=== PATIENT | male | born 1930 | race Caucasian/White ===

== ENCOUNTER → 2016-09-10 | Outpatient (CLI) | payer MEDICARE ==
[~2016-09-10] MED LIST: ASPI-94 PO; ASPI1TAB69 PO; BACT800T5 PO; CARB25TA9 PO; COMB0.2S EACH EYE; ERYTOIN10 EACH EYE; FINA5TAB2 PO; MECL-62 PO; MIDO5TAB PO; PROS5TAB2 PO; SIMV1TAB76 PO; WALKER ROLLING
[2016-09-10 13:31] LABS: HEMATOCRIT 40.5 % (39.0-51.0); MEAN CELL VOLUME 91.9 FL (80.0-100.0); MEAN CORPUSCULAR HEMOGLOBIN 30.4 PG (27.0-34.0); MEAN CORPUSCULAR HGB CONC 33.1 % (32.0-36.0); PLATELET COUNT 190 TH/MM3 (150-450); RED BLOOD COUNT 4.41 MIL/MM3 (4.50-5.90); REVIEW FLAG FINAL; WHITE BLOOD COUNT 6.6 TH/MM3 (4.0-11.0)
[2016-09-10 14:21] LABS: ALKALINE PHOSPHATASE 51 U/L (45-117); ALT (GPT) 6 U/L (12-78); ANION GAP 5 MEQ/L (5-15); AST (GOT) 19 U/L (15-37); BICARBONATE 31.6 MEQ/L (21.0-32.0); BLOOD UREA NITROGEN 15 MG/DL (7-18); CHLORIDE 104 MEQ/L (98-107); GLOMERULAR FILTRATION RATE 78 ML/MIN (>89); GLUCOSE,FASTING 93 MG/DL (74-99); HDL CHOLESTEROL 50.2 MG/DL (40.0-60.0); LDL CHOLESTEROL 141 MG/DL (0-99); LDL CHOLESTEROL DIRECT 163 MG/DL (0-99); POTASSIUM 3.8 MEQ/L (3.5-5.1); SODIUM (NA) 141 MEQ/L (136-145); TOTAL BILIRUBIN ADULT 0.7 MG/DL (0.2-1.0)
[2016-09-10 15:58] LABS: HEMOGLOBIN A1a 0.9 %; HEMOGLOBIN A1b 1.8 %; HEMOGLOBIN Ao 85.3 %; HEMOGLOBIN LA1C 1.9 %; HEMOGLOBIN P3 3.8 %
== END ==
LOC: PLAB 10:25
PROVIDERS: ATTEND Family Medicine
DX: E11.9 Type 2 diabetes mellitus without complications (principal); I73.9 Peripheral vascular disease, unspecified; R53.83 Other fatigue; E78.4 Other hyperlipidemia; G20 Parkinson's disease
CPT/HCPCS: 36415; 80053; 80061; 83036; 83721; 84443; 85027

== ENCOUNTER 2016-09-27 06:36 | Emergency (ER) | payer MEDICARE ==
[~2016-09-27] VITALS: Ht 175.3 cm; Wt 76.9 kg
[~2016-09-27 06:36] MED LIST changes: -ASPI1TAB69 PO; -CARB25TA9 PO; -COMB0.2S EACH EYE; -ERYTOIN10 EACH EYE; -FINA5TAB2 PO
[2016-09-27 06:45] VITALS: BP 129/65; PULSE 59; RESP 20; TEMP 97.7; O2SAT 98
[2016-09-27 07:02] LABS: BLOOD, URINE LARGE (NEG); GLUCOSE,URINE 100 mg/dL (NEG); KETONE, URINE 15 mg/dL (NEG); NITRITE,URINE POS (NEG)
[2016-09-27] MEDS ORDERED: CARB25TA9 PO ×2 (07:05)
[2016-09-27] MEDS ORDERED: ASPI1TAB69 PO (07:05)
[2016-09-27 07:06] LABS: METHOD OF COLLECTION CLEAN CATCH; URINE COLOR RED (YELLW/STRAW)
--- NOTE | 2016-09-27 07:09 | PD ---
HPI Chief Complaint: Complaint Time Seen by Provider: 06:51 Travel History International Travel<30 days: No Contact w/Intl Traveler<30days: No Traveled to known affect area: No History of Present Illness HPI 86-year-old male complains of hematuria. Patient states that hematuria started 2 days ago. Patient states that he had mild abdominal cramping and low back pain last night but not today. Patient denies any nausea vomiting diarrhea. Patient denies any fever chills. Patient denies any dysuria or frequency. Patient has history of BPH, kidney stone in the past. Patient on aspirin 81 mg daily. Patient has history of Parkinson disease and dyslipidemia. Patient denies headache. Patient denies any chest pain or shortness of breath. PFSH Past Medical History High Cholesterol: Yes Endocrine: No Genitourinary: Yes (BPH) Psychiatric: No Past Surgical History Other Surgery: No (fistula to rectum) Social History Alcohol Use: No Tobacco Use: No Substance Use: No Allergies-Medications (Allergen,Severity, Reaction): Coded Allergies: No Known Allergies (Unverified , 09/27/16) Reported Meds & Prescriptions Reported Meds & Active Scripts Active Reported Aspirin 81 Mg Tabdr 81 Mg PO HS Carbidopa-Levodopa 25-100 Mg Tab 1 Tab PO HS Carbidopa-Levodopa 25-100 Mg Tab 2 Tab PO Q8HR Review of Systems General / Constitutional: No: Fever Eyes: No: Visual changes HENT: No: Headaches Cardiovascular: No: Chest Pain or Discomfort Respiratory: No: Shortness of Breath Gastrointestinal: No: Abdominal Pain Genitourinary: Positive: Hematuria, No: Dysuria Musculoskeletal: No: Pain Skin: No Rash Neurologic: No: Weakness Psychiatric: No: Depression Endocrine: No: Polydipsia Hematologic/Lymphatic: No: Easy Bruising Physical Exam Narrative GENERAL: Well-nourished, well-developed patient. SKIN: Focused skin assessment warm/dry. HEAD: Normocephalic. EYES: No scleral icterus. No injection or drainage. NECK: Supple, trachea midline. No JVD or lymphadenopathy. CARDIOVASCULAR: Regular rate and rhythm without murmurs, gallops, or rubs. RESPIRATORY: Breath sounds equal bilaterally. No accessory muscle use. GASTROINTESTINAL: Abdomen soft, non-tender, nondistended. MUSCULOSKELETAL: No cyanosis, or edema. BACK: Nontender without obvious deformity. No CVA tenderness. Neurologic exam normal. Data Data Last Documented VS Vital Signs Date Time Temp Pulse Resp B/P Pulse Ox O2 Delivery O2 Flow Rate FiO2 09/27/16 06:45 97.7 59 20 129/65 98 Orders Urinalysis - C+S If Indicated (09/27/16 06:47) Complete Blood Count With Diff (09/27/16 07:04) Comprehensive Metabolic Panel (09/27/16 07:04) Prothrombin Time / Inr (Pt) (09/27/16 07:04) Act Partial Throm Time (Ptt) (09/27/16 07:04) Iv Access Insert/Monitor (09/27/16 07:04) Ct Abd/Pel W Iv Contrast(Rout) (09/27/16 07:04) Urine Culture (09/27/16 06:55) Iohexol 350 Inj (Omnipaque 350 Inj) (09/27/16 08:28) Labs Laboratory Tests Test 09/27/16 09/27/16 06:55 07:16 Urine Collection Type CLEAN CATCH Urine Color RED Urine Turbidity MARKED Urine pH 7.0 Urine Specific [place] 1.024 Urine Protein 300 OR GREATER mg/dL Urine Glucose (UA) 100 mg/dL Urine Ketones 15 mg/dL Urine Occult Blood LARGE Urine Nitrite POS Urine Bilirubin NEG Urine Leukocyte Esterase MOD Urine RBC INNUM /hpf Urine WBC 15-19 /hpf Urine Squamous Epithelial 0-5 /hpf Cells Urine Amorphous Sediment MOD Microscopic Urinalysis Comment CULTURE INDICATED Urine Collection Time 0655 White Blood Count 9.9 TH/MM3 Red Blood Count 4.55 MIL/MM3 Hemoglobin 13.9 GM/DL Hematocrit 41.5 % Mean Corpuscular Volume 91.2 FL Mean Corpuscular Hemoglobin 30.4 PG Mean Corpuscular Hemoglobin 33.4 % Concent Red Cell Distribution Width 13.1 % Platelet Count 210 TH/MM3 Mean Platelet Volume 6.9 FL Neutrophils (%) (Auto) 72.7 % Lymphocytes (%) (Auto) 14.9 % Monocytes (%) (Auto) 10.0 % Eosinophils (%) (Auto) 1.3 % Basophils (%) (Auto) 1.1 % Neutrophils # (Auto) 7.2 TH/MM3 Lymphocytes # (Auto) 1.5 TH/MM3 Monocytes # (Auto) 1.0 TH/MM3 Eosinophils # (Auto) 0.1 TH/MM3 Basophils # (Auto) 0.1 TH/MM3 CBC Comment DIFF FINAL Differential Comment Prothrombin Time 10.5 SEC Prothromb Time International 1.0 RATIO Ratio Activated Partial 28.2 SEC Thromboplast Time Sodium Level 141 MEQ/L Potassium Level 3.9 MEQ/L Chloride Level 103 MEQ/L Carbon Dioxide Level 31.0 MEQ/L Anion Gap 7 MEQ/L Blood Urea Nitrogen 15 MG/DL Creatinine 0.97 MG/DL Estimat Glomerular Filtration 73 ML/MIN Rate Random Glucose 109 MG/DL Calcium Level 8.6 MG/DL Total Bilirubin 0.7 MG/DL Aspartate Amino Transf 14 U/L (AST/SGOT) Alanine Aminotransferase 8 U/L (ALT/SGPT) Alkaline Phosphatase 63 U/L Total Protein 6.7 GM/DL Albumin 3.4 GM/DL [facility] Medical Decision Making Medical Screen Exam Complete: Yes Emergency Medical Condition: Yes Interpretation(s) 8:29 AM. CBC within normal limit. CMP within normal limit. UA positive for RBC and WBC 8:[address] scan abdomen pelvis shows a 3 cm rounded high-density mass left low ported kidney. Differential Diagnosis Differential diagnosis including spontaneous hematuria, hemorrhagic cystitis, BPH, nephrolithiasis, lesions. Narrative Course 86-year-old male with hematuria and transient abdominal cramping and low back pain. Diagnosis Primary Impression: Hematuria Additional Impression: Left kidney mass Patient Instructions: General Instructions Additional Instructions: Follow-up with urologist. Return if worse. Med/Other Pt SpecificInfo: Prescription(s) given, No Change to Meds Scripts Sulfamethoxazole-Trimethoprim (Bactrim DS)800-160 Mg Tab1 Tab PO BID #14 TAB Prov:Teddy Clay MD 09/27/16 Disposition: 01 DISCHARGE HOME Condition: Stable Teddy Clay MD Sep 27, 2016 07:09
[2016-09-27 07:11] LABS: COMMENT (UR) CULTURE INDICATED; COMMENT2 (UR) MUCOUS PRESENT; CULTURE IF INDICATED CULTURE INDICATED; RBC, URINE INNUM /hpf (0-3); SQUAMOUS EPITHELIAL CELL URINE 0-5 /hpf (0-5); WBC, URINE 15-19 /hpf (0-5)
[2016-09-27 07:23] LABS: AUTOMATED NEUTROPHIL # 7.2 TH/MM3 (1.8-7.7); BASOPHIL # 0.1 TH/MM3 (0-0.2); BASOPHIL % 1.1 % (0.0-2.0); EOSINOPHIL # 0.1 TH/MM3 (0-0.4); EOSINOPHIL % 1.3 % (0.0-4.0); HEMATOCRIT 41.5 % (39.0-51.0); HEMO FLAGS DIFF FINAL; LYMPH % 14.9 % (9.0-44.0); LYMPHOCYTE # 1.5 TH/MM3 (1.0-4.8); MEAN CELL VOLUME 91.2 FL (80.0-100.0); MEAN CORPUSCULAR HEMOGLOBIN 30.4 PG (27.0-34.0); MEAN CORPUSCULAR HGB CONC 33.4 % (32.0-36.0); NEUT % 72.7 % (16.0-70.0); PLATELET COUNT 210 TH/MM3 (150-450); RED BLOOD COUNT 4.55 MIL/MM3 (4.50-5.90); RED CELL DISTRIBUTION WIDTH 13.1 % (11.6-17.2); WHITE BLOOD COUNT 9.9 TH/MM3 (4.0-11.0)
[2016-09-27 07:30] LABS: CHLORIDE 103 MEQ/L (98-107); POTASSIUM 3.9 MEQ/L (3.5-5.1); SODIUM (NA) 141 MEQ/L (136-145)
[2016-09-27 07:33] LABS: ANION GAP 7 MEQ/L (5-15); APTT (PATIENT) 28.2 SEC (24.3-30.1); PROTHROMBIN TIME - PATIENT 10.5 SEC (9.8-11.6)
[2016-09-27 07:34] LABS: BLOOD UREA NITROGEN 15 MG/DL (7-18)
[2016-09-27 07:36] LABS: ALT (GPT) 8 U/L (12-78)
[2016-09-27 07:37] LABS: AST (GOT) 14 U/L (15-37); GLOMERULAR FILTRATION RATE 73 ML/MIN (>89)
[2016-09-27 07:38] LABS: TOTAL BILIRUBIN ADULT 0.7 MG/DL (0.2-1.0)
[2016-09-27 07:39] LABS: ALKALINE PHOSPHATASE 63 U/L (45-117)
[2016-09-27] MEDS ORDERED: IOHEXOL 350 MG/ML 10 ML VIAL (for RAD DIAG) IV ONE (08:28)
--- NOTE | 2016-09-27 08:38 | RADHPO ---
EXAM DATE/TIME: 09/27/2016 08:10 [facility] COMPARISON: No previous studies available for comparison. INDICATIONS : Abdomen pain, hematuria. IV CONTRAST: 80 cc Omnipaque 350 (iohexol) IV ORAL CONTRAST: No oral contrast ingested. RADIATION DOSE: 13.19 CTDIvol (mGy) MEDICAL HISTORY : Parkinson's. SURGICAL HISTORY : None. ENCOUNTER: Initial ACUITY: 2 days PAIN SCALE: 3/10 LOCATION: Abdomen TECHNIQUE: Volumetric scanning of the abdomen and pelvis was performed. Using automated exposure control and ad justment of the mA and/or kV according to patient size, radiation dose was kept as low as reasonably achievable to obtain optimal diagnostic quality images. FINDINGS: LOWER LUNGS: The visualized lower lungs are clear with the exception of a small calcified benign granuloma within the right lower lung. LIVER: Homogeneous density without lesion. There is no dilation of the biliary tree. No calcified gallston es. SPLEEN: Normal size without lesion. PANCREAS: Within normal limits. KIDNEYS: The left kidney is significant for a large rounded density mass distending the lower pole measuring 2 .6 x 3.0 x 2.6 cm and 60 Hounsfield units. This appears to be infiltrative into the adjacent cortex c oncerning for a transitional cell neoplasm. There is a calcification identified in the peripheral wal l. There is mild perinephric stranding present. The left ureter is normal and caliber throughout its course without evidence of stone or mass. The right kidney demonstrates a small well-circumscribed co rtically-based cyst without evidence of stones or concerning mass. The right ureter is normal.. ADRENAL GLANDS: Within normal limits. VASCULAR: There is no aortic aneurysm. BOWEL/MESENTERY: The stomach, small bowel, and colon demonstrate no acute abnormality. There is no free intraperitone al air or fluid. ABDOMINAL WALL: Within normal limits. RETROPERITONEUM: There is no lymphadenopathy. BLADDER: No wall thickening or mass. REPRODUCTIVE: Within normal limits. INGUINAL: There is no lymphadenopathy or hernia. MUSCULOSKELETAL: Within normal limits for patient age. CONCLUSION: 3 cm rounded high density mass identified within the left lower pole of the kidney distending the low er pole calyx and appearing to infiltrate the adjacent cortex. 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 Urologic consultation is recommended. No evidence of metastati c disease.. Solange Landry MD on September 27, 2016 at 8:30 Board Certified Radiologist. This report was verified electronically.
[2016-09-27] MEDS ORDERED: BACT800T5 PO (08:50)
[2016-09-27 08:57] VITALS: BP 130/68
== END 2016-09-27 09:07 | disposition home or self-care (01) ==
LOC: PHED 06:36
DX: R31.9 Hematuria, unspecified (principal); N28.89 Other specified disorders of kidney and ureter; M54.5 Low back pain; Z79.82 Long term (current) use of aspirin
CPT/HCPCS: 74177; 80053; 81001; 85025; 85610; 85730; 87086; 99284; Q9967

== ENCOUNTER 2016-10-29 10:22 | Inpatient (IN) | payer MEDICARE, OTHER ==
[~2016-10-29] VITALS: Ht 172.7 cm; Wt 85.7 kg
[~2016-10-29 10:22] MED LIST changes: -ASPI-94 PO; +ASPI1TAB69 PO; -BACT800T5 PO; +CARB25TA9 PO; -MECL-62 PO; -MIDO5TAB PO; -PROS5TAB2 PO; -SIMV1TAB76 PO; -WALKER ROLLING
[2016-11-02] MEDS ORDERED: COMB0.2S EACH EYE (15:38)
[2016-11-02] MEDS ORDERED: FINA5TAB2 PO (15:40)
[2016-11-02] MEDS ORDERED: ERYTOIN10 EACH EYE (15:40)
[2016-11-03] VITALS (9 sets, daily range): BP systolic 88–153; BP diastolic 51–68; PULSE 42–78; RESP 16–22; TEMP 97.5; O2SAT 97–99
[2016-11-03] MEDS ORDERED: LACTATED RINGER'S 1000 ML IV PRN (05:45)
[2016-11-03] MEDS ORDERED: POVIDONE IODINE 5% (ANTISEPSIS KIT) 4 APPLICATIONS EACH NARE PRN (05:45)
[2016-11-03] MEDS ORDERED: CHLORHEXIDINE GLUCONATE 2 % 1 PACK (2 CLOTHS) TOPICAL PRN (05:45)
[2016-11-03] MEDS ORDERED: ceFAZolin 2 GM PREMIX 50 ML IV SCH (05:45)
[2016-11-03] MEDS ORDERED: METOPROLOL TARTRATE 25 MG TAB PO PRN (05:45)
[2016-11-03] MEDS ORDERED: INSULIN HUMAN REGULAR 1,000 UNITS/10 ML VIAL SQ PRN (05:45)
[2016-11-03] MEDS ORDERED: SODIUM CHLORID 0.9% 500 ML IV PRN (05:45)
[2016-11-03 06:50] LABS: PROTHROMBIN TIME - PATIENT 11.1 SEC (9.8-11.6)
[2016-11-03] MEDS ORDERED: FAMOTIDINE 20 MG/2 ML VIAL ONE (07:34)
[2016-11-03] MEDS ORDERED: MIDAZOLAM HCL 2 MG/2 ML VIAL ONE (07:34)
[2016-11-03] MEDS ORDERED: ARTIFICIAL TEARS OPTH OINT 3.5 APPLIC/3.5 GM TUBO ONE (07:45)
[2016-11-03] MEDS ORDERED: SUGAMMADEX SODIUM 200 MG/2 ML VIAL IV PUSH ONE ×2 (10:49)
[2016-11-03] MEDS ORDERED: ACETAMINOPHEN 1000 MG/100 ML VIAL IV ONE (10:50)
[2016-11-03] MEDS: DOCUSATE SODIUM 100 MG CAP PO SCH ×2 (11:45→20:08)
[2016-11-03] MEDS ORDERED: DO NOT ADM ANY ANTICOAGULANT DRUGS PRN (11:54)
[2016-11-03] MEDS ORDERED: PROPOFOL 200 MG/20 ML AMP IV ONE (12:00)
[2016-11-03] MEDS ORDERED: ONDANSETRON HCL 4 MG/2 ML VIAL IV PUSH ONE (12:00)
[2016-11-03] MEDS ORDERED: LACTATED RINGER'S 1000 ML INJ 3,000 ML IV ONE (12:00)
[2016-11-03] MEDS ORDERED: NITROGLYCERIN 1000 MCG/5 ML VIAL IV ONE (12:00)
[2016-11-03] MEDS ORDERED: fentaNYL CITRATE 250 MCG/5 ML AMP ONE (12:07)
[2016-11-03] MEDS: SODIUM CHLOR 0.9% 1000 ML INJ 1,000 ML IV SCH ×3 (12:15→21:45)
[2016-11-03 12:28] LABS: AUTOMATED NEUTROPHIL # 12.4 TH/MM3 (1.8-7.7); BASOPHIL % 0.2 % (0.0-2.0); EOSINOPHIL % 0.1 % (0.0-4.0); HEMATOCRIT 38.1 % (39.0-51.0); HEMO FLAGS DIFF FINAL; LYMPH % 8.8 % (9.0-44.0); LYMPHOCYTE # 1.3 TH/MM3 (1.0-4.8); MEAN CELL VOLUME 90.3 FL (80.0-100.0); MEAN CORPUSCULAR HEMOGLOBIN 29.6 PG (27.0-34.0); MEAN CORPUSCULAR HGB CONC 32.8 % (32.0-36.0); MONO % 6.8 % (0.0-8.0); NEUT % 84.1 % (16.0-70.0); PLATELET COUNT 194 TH/MM3 (150-450); RED BLOOD COUNT 4.22 MIL/MM3 (4.50-5.90); WHITE BLOOD COUNT 14.8 TH/MM3 (4.0-11.0)
[2016-11-03 12:45] LABS: BICARBONATE 26.3 MEQ/L (21.0-32.0); POTASSIUM 4.1 MEQ/L (3.5-5.1)
[2016-11-03] MEDS: PANTOPRAZOLE SODIUM 40 MG VIAL IV PUSH SCH (13:54)
[2016-11-03] MEDS: MORPHINE SULFATE 4 MG/ML INJ IV PUSH PRN (13:55)
[2016-11-03] MEDS ORDERED: hydrALAZINE HCL 20 MG/ML VIAL IV PRN (14:00)
--- NOTE | 2016-11-03 15:18 | EKG ---
Date Performed: 11/03/2016 Time Performed: 06:42:29 PTAGE: 86 years EKG: SINUS BRADYCARDIA WITH MARKED SINUS ARRHYTHMIA WITH FIRST DEGREE AV BLOCK RIGHT BUNDLE BRAN CH BLOCK ABNORMAL ECG Compared to the PREVIOUS TRACING sinus rate is slower PREVIOUS TRACIN10/30/2013 19.14 DOCTOR: Will Paul Interpretating Date/Time 11/03/2016 15:18:05
[2016-11-03] MEDS: ACETAMINOPHEN 1000 MG/100 ML VIAL IV SCH ×2 (15:40→23:06)
[2016-11-03] MEDS ORDERED: SODIUM CHLOR 0.9% 1000 ML INJ 1,000 ML IV STA (17:19)
--- NOTE | 2016-11-03 17:40 | PD.CONS ---
[facility] Service Critical Care Medicine Consult Requested By Dr. Oh Reason for Consult hypotension Primary Care Physician Basilio Armenta MD History of Present Illness 86 y/o male with past medical history significant for Parkinson's disease who was diagnosed to have a left renal pelvis mass when he presented with hematuria and left flank pain which was felt to be consistent with transitional cell carcinoma. Patient underwent left robotic nephroureterectomy under general anesthesia by Dr. Oh on 11/03, received 2500 cc crystalloid, EBL 75 cc, Intra- Op urine output 300 cc. Patient was extubated postoperatively and transferred to PACU and subsequently to [facility]. His heart rate has been in the 40s postoperatively. Patient tells me that he runs a slow heart rate for a few years now. He did drop his blood pressure to the 70s transiently for which she was given a fluid bolus with normal saline 1 L and critical care consult was requested for hypotension and Dr. marte. I evaluated the patient immediately on being notified of the consult. At the time of my evaluation he was laying in the ICU bed not in any acute distress. He denied any chest pain or shortness of breath. He had minimal abdominal discomfort at the site of surgery. Review of Systems ROS per [facility] Past Family Social History Allergies: Coded Allergies: No Known Allergies (Unverified , 11/02/16) Past Medical History Parkinson's disease Hyperlipidemia Past Surgical History Oral surgery/rectal fistula Reported Medications Levodopa/carbidopa, aspirin, finasteride, erythromycin, brimonidine/timolol eye drops Active Ordered Medications Current Medications Medications (Trade) Dose Ordered Sig/Michael Route PRN Reason Start Time Stop Time Status Last Admin Dose Admin Sodium Chloride (NS 1000 ml Inj) 1,000 ml @ 100 mls/hr Q10H IV 11/03/16 11:45 11/03/16 12:15 Oxycodone HCl (Roxicodone) 10 mg Q4H PRN PO PAIN SCALE 7 TO 10 11/03/16 11:45 Oxycodone HCl (Roxicodone) 5 mg Q4H PRN PO PAIN SCALE 4 TO 6 11/03/16 11:45 Docusate Sodium (Colace) 100 mg BID PO 11/03/16 11:45 11/03/16 11:45 Ondansetron HCl (Zofran Inj) 4 mg Q6HR PRN IV PUSH NAUSEA OR VOMITING 11/03/16 11:45 Pantoprazole Sodium 40 mg 40 mg Q24H IV PUSH 11/03/16 13:00 11/03/16 13:54 Cefazolin Sodium/ Sodium Chloride (Ancef Inj/NS Inj) 100 ml @ 200 mls/hr Q8H IV 11/03/16 16:00 11/03/16 15:40 Acetaminophen (Ofirmev Inj) 1,000 mg Q6H IV 11/03/16 17:00 11/03/16 15:40 Morphine Sulfate (Morphine Inj) 4 mg Q3H PRN IV PUSH BREAKTHROUGH PAIN 11/03/16 11:45 11/03/16 13:55 Miscellaneous Information ALL NURSING DEPARTME... UNSCH PRN .XX SEE LABEL COMMENTS 11/03/16 11:54 11/04/16 11:53 Hydralazine HCl (Apresoline Inj) 5 mg ONCE PRN IV SBP > 180 IN PACU 11/03/16 14:00 11/04/16 13:59 Family History Noncontributory at this time Social History No history of alcohol abuse or any other substance abuse. No history of smoking. Physical Exam Vital Signs Vital Signs Date Time Temp Pulse Resp B/P Pulse Ox O2 Delivery O2 Flow Rate FiO2 11/03/16 16:00 47 11/03/16 14:00 42 11/03/16 14:00 99 Nasal Cannula 2.00 11/03/16 12:45 97.6 42 16 140/59 96 Nasal Cannula 3 143/62 11/03/16 12:30 45 15 146/62 96 Nasal Cannula 3 144/66 11/03/16 12:15 50 15 155/65 94 Nasal Cannula 3 159/67 11/03/16 12:00 53 15 166/68 98 Nasal Cannula 4 170/75 11/03/16 11:54 97.0 54 20 170/72 97 Nasal Cannula 4 182/73 11/03/16 06:21 97.5 46 22 153/68 99 Physical Exam HEENT/Neuro: Pallor present, No icterus, tongue moist, DERICK, Awake alert oriented 3, nonfocal grossly, moving all 4 extremities Neck: No JVD Chest/pulmonary: CTA bilaterally Cardiovascular: S1-S2 regular no gallop or murmur GI/abdomen: Soft, nontender, bowel sounds sluggish. Port sites with Steri- Strips in place Extremities: Warm bilaterally, no edema Laboratory Laboratory Tests Test 11/03/16 11/03/16 11/03/16 06:10 12:19 13:50 Prothrombin Time 11.1 Prothromb Time International 1.0 Ratio White Blood Count 14.8 Red Blood Count 4.22 Hemoglobin 12.5 Hematocrit 38.1 Mean Corpuscular Volume 90.3 Mean Corpuscular Hemoglobin 29.6 Mean Corpuscular Hemoglobin 32.8 Concent Red Cell Distribution Width 14.0 Platelet Count 194 Mean Platelet Volume 7.1 Neutrophils (%) (Auto) 84.1 Lymphocytes (%) (Auto) 8.8 Monocytes (%) (Auto) 6.8 Eosinophils (%) (Auto) 0.1 Basophils (%) (Auto) 0.2 Neutrophils # (Auto) 12.4 Lymphocytes # (Auto) 1.3 Monocytes # (Auto) 1.0 Eosinophils # (Auto) 0.0 Basophils # (Auto) 0.0 CBC Comment DIFF FINAL Differential Comment Sodium Level 138 Potassium Level 4.1 Chloride Level 103 Carbon Dioxide Level 26.3 Anion Gap 9 Blood Urea Nitrogen 12 Creatinine 0.97 Estimat Glomerular Filtration 73 Rate Random Glucose 162 Calcium Level 7.8 Nasal Screen MRSA (PCR) MRSA NOT DETECTED Result Diagram: 11/03/16 1219 11/03/16 1219 Assessment and Plan Assessment and Plan 86-year-old male with Left kidney mass status post left robotic-assisted nephroureterectomy/urethral dilation Hypotension Anemia Sinus bradycardia Right bundle branch block [old] First degree AV block History of Parkinson's disease Hyperlipidemia Plan: Neuro: Follow neuro status, pain medications as ordered by urology. Continue Sinemet for Parkinson's disease. Cardiovascular: Blood pressure improved with fluid bolus. Continue IV fluids. Hasn't long-standing bradycardia though history of heart rate was in the 60s and currently is in the upper 40s. If patient develops hypotension with bradycardia will consider using dopamine. Check TSH. Pulmonary: Supplemental O2 as needed. Incentive spirometry, bronchodilators as needed. GI/liver: Advance by mouth per urology recommendations Renal/: Status post left nephroureterectomy in followed by urology. Strict intake output, monitor and replete elect lites, follow BUN/creatinine. IV hydration. ID: Perioperative antibiotic prophylaxis per urology. Heme: Follow CBC. Patient has indicated preoperatively that he does not wish to receive any blood products however per anesthesia documentation is okay with albumin if needed. Prophylaxis: Protonix, SCDs. Subcutaneous heparin when okay with urology. Critical care will be available as needed. Pastor Estrada MD November 03, 2016 17:40
[2016-11-03] MEDS: CARBIDOPA/LEVODOPA 25 MG/100 MG TAB PO SCH (20:08)
[2016-11-04] VITALS (15 sets, daily range): BP systolic 92–119; BP diastolic 51–64; PULSE 51–86; RESP 12–26; TEMP 97.9–98.1; O2SAT 92–98
[2016-11-04] MEDS ORDERED: SODIUM CHLOR 0.9% 1000 ML INJ 1,000 ML IV ONE ×2 (01:00)
[2016-11-04] MEDS: MORPHINE SULFATE 4 MG/ML INJ IV PUSH PRN ×2 (02:19→02:53)
[2016-11-04] MEDS: ONDANSETRON HCL 4 MG/2 ML VIAL IV PUSH PRN (02:52)
[2016-11-04 03:53] LABS: HEMATOCRIT 27.3 % (39.0-51.0); MEAN CELL VOLUME 91.2 FL (80.0-100.0); MEAN CORPUSCULAR HEMOGLOBIN 30.8 PG (27.0-34.0); MEAN CORPUSCULAR HGB CONC 33.8 % (32.0-36.0); PLATELET COUNT 196 TH/MM3 (150-450); RED CELL DISTRIBUTION WIDTH 14.3 % (11.6-17.2); REVIEW FLAG FINAL; WHITE BLOOD COUNT 11.4 TH/MM3 (4.0-11.0)
[2016-11-04 04:08] LABS: BICARBONATE 20.3 MEQ/L (21.0-32.0); POTASSIUM 4.3 MEQ/L (3.5-5.1)
[2016-11-04] MEDS: ACETAMINOPHEN 1000 MG/100 ML VIAL IV SCH ×4 (04:15→23:12)
[2016-11-04 04:24] LABS: CALCIUM-PROTEIN CORRECTED 7.9 MG/DL (8.5-10.1)
[2016-11-04] MEDS: SODIUM CHLOR 0.9% 1000 ML INJ 1,000 ML IV SCH ×3 (06:22→17:45)
[2016-11-04] MEDS ORDERED: CALCIUM GLUCONATE INJ 2 GM in DEXTROSE 5% IN WATER 100ML INJ 100 ML IV ONE ×2 (07:00)
[2016-11-04] MEDS: DOCUSATE SODIUM 100 MG CAP PO SCH ×2 (08:04→20:49)
[2016-11-04] MEDS: CARBIDOPA/LEVODOPA 25 MG/100 MG TAB PO SCH ×4 (08:04→20:50)
--- NOTE | 2016-11-04 08:18 | HHI.PR ---
Objective Vital Signs Vital Signs Date Time Temp Pulse Resp B/P Pulse Ox O2 Delivery O2 Flow Rate FiO2 11/04/16 06:00 77 11/04/16 04:00 51 11/04/16 03:00 98.1 79 12 114/58 92 11/04/16 02:00 76 11/04/16 00:00 53 11/03/16 23:00 97.5 50 16 88/54 97 11/03/16 22:00 49 11/03/16 20:02 98 Nasal Cannula 2.00 11/03/16 20:00 97.5 53 16 92/51 97 11/03/16 20:00 64 11/03/16 19:00 95 Nasal Cannula 2.00 11/03/16 18:23 99 Nasal Cannula 2.00 11/03/16 18:00 78 11/03/16 16:00 47 11/03/16 14:00 42 11/03/16 14:00 99 Nasal Cannula 2.00 11/03/16 12:45 97.6 42 16 140/59 96 Nasal Cannula 3 143/62 11/03/16 12:30 45 15 146/62 96 Nasal Cannula 3 144/66 11/03/16 12:15 50 15 155/65 94 Nasal Cannula 3 159/67 11/03/16 12:00 53 15 166/68 98 Nasal Cannula 4 170/75 11/03/16 11:54 97.0 54 20 170/72 97 Nasal Cannula 4 182/73 Intake & Output 11/04/16 11/04/16 07:00 19:00 Intake Total 3626 ml Output Total 375 ml Balance 3251 ml Intake Oral 300 ml IV Total 3326 ml Output Urine Total 375 ml Result Diagram: 11/04/16 0330 11/04/16 0330 Medications and IVs Current Medications Medications (Trade) Dose Ordered Sig/Michael Route Start Time Stop Time Status Last Admin (NS 1000 ml Inj) 1,000 ml @ 100 mls/hr Q10H IV 11/03/16 11:45 11/04/16 06:22 (Roxicodone) 10 mg Q4H PRN PO 11/03/16 11:45 (Roxicodone) 5 mg Q4H PRN PO 11/03/16 11:45 (Colace) 100 mg BID PO 11/03/16 11:45 11/04/16 08:04 (Zofran Inj) 4 mg Q6HR PRN IV PUSH 11/03/16 11:45 11/04/16 02:52 Pantoprazole Sodium 40 mg 40 mg Q24H IV PUSH 11/03/16 13:00 11/03/16 13:54 (Ancef Inj/NS Inj) 100 ml @ 200 mls/hr Q8H IV 11/03/16 16:00 11/04/16 08:04 (Ofirmev Inj) 1,000 mg Q6H IV 11/03/16 17:00 11/04/16 04:15 (Morphine Inj) 4 mg Q3H PRN IV PUSH 11/03/16 11:45 11/04/16 02:53 Miscellaneous Information ALL NURSING DEPARTME... UNSCH PRN .XX 11/03/16 11:54 11/04/16 11:53 (Apresoline Inj) 5 mg ONCE PRN IV 11/03/16 14:00 11/04/16 13:59 (Sinemet 25-100 Mg) 2 tab QID PO 11/03/16 21:00 11/04/16 08:04 James Oh MD November 04, 2016 08:18
[2016-11-04] MEDS ORDERED: CARBIDOPA/LEVODOPA 25 MG/100 MG TAB PO SCH (09:00)
[2016-11-04] MEDS: TIMOLOL MALEATE 0.5% OPHT SOLN 5 ML BTL EACH EYE SCH ×2 (09:00→20:50)
[2016-11-04] MEDS: BRIMONIDINE TARTRATE 0.2% OPHT SOLN 5 ML BTL EACH EYE SCH ×2 (09:00→20:50)
--- NOTE | 2016-11-04 09:42 | RADRPT ---
EXAM DATE/TIME: 11/04/2016 09:29 [facility] COMPARISON: CT ABDOMEN & PELVIS W CONTRAST, September 27, 2016, 8:10. CHEST SINGLE AP, October 30, 2013, 19:46. INDICATIONS : Short of breath. MEDICAL HISTORY : None. SURGICAL HISTORY : None. ENCOUNTER: Initial ACUITY: 1 month PAIN SCORE: 0/10 LOCATION: Bilateral chest FINDINGS: The cardiac and mediastinal contours are within normal limits for projection. The lungs demonstrate a sore atelectasis. They're otherwise clear. There are areas of subcutaneous emphysema along the left lower chest and upper abdomen. The visualized bony structures are grossly intact. CONCLUSION: 1. Basilar atelectasis. 2. There is air within the subcutaneous soft tissues in the midaxillary line along the left lower [address] and upper abdomen. This is of uncertain etiology. Pratik Valverde MD on November 04, 2016 at 9:39 Board Certified Radiologist. This report was verified electronically.
[2016-11-04] MEDS: PANTOPRAZOLE SODIUM 40 MG VIAL IV PUSH SCH (13:00)
--- NOTE | 2016-11-04 13:35 | HHI.CCPN ---
Subjective Remarks/Hospital Course 11/03: 86 y/o male with past medical history significant for Parkinson's disease who was diagnosed to have a left renal pelvis mass when he presented with hematuria and left flank pain which was felt to be consistent with transitional cell carcinoma. Patient underwent left robotic nephroureterectomy under general anesthesia by Dr. Oh on 11/03, received 2500 cc crystalloid, EBL 75 cc , Intra-Op urine output 300 cc. Patient was extubated postoperatively and transferred to PACU and subsequently to [facility]. His heart rate has been in the 40s postoperatively. Patient tells me that he runs a slow heart rate for a few years now. He did drop his blood pressure to the 70s transiently for which she was given a fluid bolus with normal saline 1 L and critical care consult was requested for hypotension and Dr. marte. I evaluated the patient immediately on being notified of the consult. At the time of my evaluation he was laying in the ICU bed not in any acute distress. He denied any chest pain or shortness of breath. He had minimal abdominal discomfort at the site of surgery. 11/04: Resting in bed comfortably no further hypotension since last night. Objective Vital Signs Date Time Temp Pulse Resp B/P Pulse Ox O2 Delivery O2 Flow Rate FiO2 11/04/16 10:00 58 11/04/16 09:06 93 Nasal Cannula 2.00 11/04/16 08:00 97.9 17 119/64 Intake and Output 11/03/16 11/03/16 11/04/16 08:00 16:00 00:00 Intake Total 3800 ml 2407 ml Output Total 975 ml 175 ml Balance 2825 ml 2232 ml Result Diagram: 11/04/16 0330 11/04/16 0330 Imaging Last Impressions Chest X-Ray 11/04/16 0000 Signed Impressions: Service Date/Time: Friday, November 04, 2016 09:29 - CONCLUSION: 1. Basilar atelectasis. 2. There is air within the subcutaneous soft tissues in the midaxillary line along the left lower chest and upper abdomen. This is of uncertain etiology. Pratik Valverde MD Objective Remarks HEENT/Neuro: Pallor present, No icterus, tongue moist, DERICK, Awake alert oriented 3, nonfocal grossly, moving all 4 extremities Neck: No JVD Chest/pulmonary: CTA bilaterally Cardiovascular: S1-S2 regular no gallop or murmur GI/abdomen: Soft, nontender, bowel sounds sluggish. Port sites with Steri- Strips in place Extremities: Warm bilaterally, no edema A/P Assessment and Plan 86-year-old male with Left kidney mass status post left robotic-assisted nephroureterectomy/urethral dilation Hypotension Anemia Sinus bradycardia Right bundle branch block [old] First degree AV block History of Parkinson's disease Hyperlipidemia Plan: Neuro: Follow neuro status, pain medications as ordered by urology. Continue Sinemet for Parkinson's disease. Cardiovascular: Blood pressure improved with fluid bolus. Continue IV fluids. Has long-standing bradycardia though history of heart rate was in the 60s. If patient develops hypotension with bradycardia will consider using dopamine. Check TSH. Pulmonary: Supplemental O2 as needed. Incentive spirometry, bronchodilators as needed. GI/liver: Advance by mouth per urology recommendations Renal/: Status post left nephroureterectomy in followed by urology. Strict intake output, monitor and replete elect lites, follow BUN/creatinine. IV hydration. ID: Perioperative antibiotic prophylaxis per urology. Heme: Follow CBC. Patient has indicated preoperatively that he does not wish to receive any blood products however per anesthesia documentation is okay with albumin if needed. Prophylaxis: Protonix, SCDs. Subcutaneous heparin when okay with urology. Critical care will be available as needed. Pastor Estrada MD November 04, 2016 13:35
[2016-11-04] MEDS: RESP: ALBUTEROL 2.5 MG/IPRATROPIUM 0.5 MG NEB (PRN) NEB (20:14)
[2016-11-04] MEDS: FINASTERIDE 5 MG TAB PO SCH (20:49)
[2016-11-04] MEDS: ERYTHROMYCIN 0.5% OPTH OINT 3.5 GM TUBO EACH EYE SCH (20:50)
[2016-11-05] VITALS (17 sets, daily range): BP systolic 106–136; BP diastolic 54–64; PULSE 68–99; RESP 17–22; TEMP 97.8–98.3; O2SAT 95–99
[2016-11-05] MEDS: RESP: ALBUTEROL 2.5 MG/IPRATROPIUM 0.5 MG NEB (PRN) NEB ×4 (01:45→19:49)
[2016-11-05 04:19] LABS: HEMATOCRIT 21.6 % (39.0-51.0); MEAN CELL VOLUME 91.1 FL (80.0-100.0); MEAN CORPUSCULAR HEMOGLOBIN 31.5 PG (27.0-34.0); MEAN CORPUSCULAR HGB CONC 34.5 % (32.0-36.0); PLATELET COUNT 159 TH/MM3 (150-450); RED BLOOD COUNT 2.37 MIL/MM3 (4.50-5.90); RED CELL DISTRIBUTION WIDTH 14.7 % (11.6-17.2); REVIEW FLAG FINAL; WHITE BLOOD COUNT 10.6 TH/MM3 (4.0-11.0)
[2016-11-05 04:46] LABS: BICARBONATE 26.4 MEQ/L (21.0-32.0); POTASSIUM 3.7 MEQ/L (3.5-5.1)
[2016-11-05] MEDS: ACETAMINOPHEN 1000 MG/100 ML VIAL IV SCH ×4 (05:17→22:56)
[2016-11-05] MEDS: SODIUM CHLOR 0.9% 1000 ML INJ 1,000 ML IV SCH ×2 (05:18→14:03)
[2016-11-05 05:35] LABS: CALCIUM-PROTEIN CORRECTED 8.4 MG/DL (8.5-10.1)
[2016-11-05] MEDS ORDERED: DARBEPOETIN ALFA/POLYSORBATE 40 MCG/ML VIAL SQ STA (07:12)
[2016-11-05] MEDS ORDERED: CYANOCOBALAMIN 1000 MCG/ML VIAL IM ONE (07:15)
[2016-11-05] MEDS ORDERED: DARBEPOETIN ALFA SQ ONE (07:45)
[2016-11-05] MEDS ORDERED: POLYSORBATE SQ ONE (07:45)
[2016-11-05] MEDS: DOCUSATE SODIUM 100 MG CAP PO SCH ×2 (08:24→19:37)
[2016-11-05] MEDS: CARBIDOPA/LEVODOPA 25 MG/100 MG TAB PO SCH ×4 (08:25→22:56)
[2016-11-05] MEDS: FOLIC ACID 1 MG TAB PO SCH (08:25)
[2016-11-05] MEDS: TIMOLOL MALEATE 0.5% OPHT SOLN 5 ML BTL EACH EYE SCH ×2 (08:46→19:39)
[2016-11-05] MEDS: BRIMONIDINE TARTRATE 0.2% OPHT SOLN 5 ML BTL EACH EYE SCH ×2 (08:46→19:39)
[2016-11-05] MEDS ORDERED: CALCIUM GLUCONATE INJ 2 GM in DEXTROSE 5% IN WATER 100ML INJ 100 ML IV ONE ×2 (09:00)
[2016-11-05] MEDS ORDERED: ALBUMIN HUMAN 5% 12.5 GM/250 ML BOTTLE IV ONE (09:00)
--- NOTE | 2016-11-05 11:01 | HHI.CCPN ---
Subjective Remarks/Hospital Course 11/03: 86 y/o male with past medical history significant for Parkinson's disease who was diagnosed to have a left renal pelvis mass when he presented with hematuria and left flank pain which was felt to be consistent with transitional cell carcinoma. Patient underwent left robotic nephroureterectomy under general anesthesia by Dr. Oh on 11/03, received 2500 cc crystalloid, EBL 75 cc , Intra-Op urine output 300 cc. Patient was extubated postoperatively and transferred to PACU and subsequently to [facility]. His heart rate has been in the 40s postoperatively. Patient tells me that he runs a slow heart rate for a few years now. He did drop his blood pressure to the 70s transiently for which she was given a fluid bolus with normal saline 1 L and critical care consult was requested for hypotension and Dr. marte. I evaluated the patient immediately on being notified of the consult. At the time of my evaluation he was laying in the ICU bed not in any acute distress. He denied any chest pain or shortness of breath. He had minimal abdominal discomfort at the site of surgery. 11/04: Resting in bed comfortably no further hypotension since last night. 11/05: Patient had a hemoglobin dropped down to 7 g percent. No hypotension or tachycardia. He is resting in bed comfortably not in any acute distress this morning at the time of my evaluation. Bruising noted over left flank and anterior abdominal wall. Objective Vital Signs Date Time Temp Pulse Resp B/P Pulse Ox O2 Delivery O2 Flow Rate FiO2 11/05/16 07:57 99 Simple Mask 8.00 11/05/16 06:00 90 11/05/16 04:00 97.9 17 107/59 Intake and Output 11/04/16 11/04/16 11/05/16 08:00 16:00 00:00 Intake Total 1219 ml 1200 ml 1490 ml Output Total 200 ml 225 ml 300 ml Balance 1019 ml 975 ml 1190 ml Result Diagram: 11/05/16 0304 11/05/16 0304 Imaging Last Impressions Chest X-Ray 11/04/16 0000 Signed Impressions: Service Date/Time: Friday, November 04, 2016 09:29 - CONCLUSION: 1. Basilar atelectasis. 2. There is air within the subcutaneous soft tissues in the midaxillary line along the left lower chest and upper abdomen. This is of uncertain etiology. Pratik Valverde MD Objective Remarks HEENT/Neuro: Pallor present, No icterus, tongue moist, DERICK, Awake alert oriented 3, nonfocal grossly, moving all 4 extremities Neck: No JVD Chest/pulmonary: CTA bilaterally Cardiovascular: S1-S2 regular no gallop or murmur GI/abdomen: Soft, nontender, bowel sounds sluggish. Port sites with Steri- Strips in place. Bruising/ ecchymosis over the anterior abdominal wall over the left side and left flank noted Extremities: Warm bilaterally, no edema A/P Assessment and Plan 86-year-old male with Left kidney mass status post left robotic-assisted nephroureterectomy/urethral dilation Hypotension Anemia Sinus bradycardia Right bundle branch block [old] First degree AV block History of Parkinson's disease Hyperlipidemia Plan: Neuro: Follow neuro status, pain medications as ordered by urology. Continue Sinemet for Parkinson's disease. Cardiovascular: Blood pressure improved with fluid bolus. Continue IV fluids. Has long-standing bradycardia though history of heart rate was in the 60s. If patient develops hypotension with bradycardia will consider using dopamine. Check TSH. Pulmonary: Supplemental O2 as needed. Incentive spirometry, bronchodilators as needed. GI/liver: Advance by mouth per urology recommendations Renal/: Status post left nephroureterectomy in followed by urology. Strict intake output, monitor and replete elect lites, follow BUN/creatinine. IV hydration. ID: Perioperative antibiotic prophylaxis per urology. Heme: Follow CBC. Patient has indicated preoperatively that he does not wish to receive any blood products however per anesthesia documentation is okay with albumin if needed. Hemoglobin dropped noted. Initiating our nurse subcutaneously, IM B-12, IV iron sucrose nothing by mouth folic acid. Once again confirmed with patient and he does not wish to have blood transfusions. Dr. Oh paged to inform regarding hemoglobin dropped by RN. Prophylaxis: Protonix, SCDs. Subcutaneous heparin when okay with urology - on hold currently. Pastor Estrdaa MD November 05, 2016 11:01
[2016-11-05] MEDS: IRON SUCROSE INJ 200 MG in SODIUM CHLORIDE 0.9% INJ 100 ML IV SCH (11:04)
[2016-11-05] MEDS: PANTOPRAZOLE SODIUM 40 MG VIAL IV PUSH SCH (11:18)
--- NOTE | 2016-11-05 13:15 | HHI.PR ---
Subjective Patient symptoms today worsening SOB overnight, but improving. Denies abdominal pain, nausea. Tolerating clears. Denies CP/Fevers. Passing Flatus. Objective Vital Signs Vital Signs Date Time Temp Pulse Resp B/P Pulse Ox O2 Delivery O2 Flow Rate FiO2 11/05/16 12:00 73 11/05/16 11:00 98.3 68 19 106/54 99 11/05/16 10:00 68 11/05/16 08:00 69 11/05/16 07:57 99 Simple Mask 8.00 11/05/16 07:00 97 Simple Mask 4.00 11/05/16 07:00 97.8 69 18 123/58 97 11/05/16 06:00 90 11/05/16 04:00 86 11/05/16 04:00 97.9 85 17 107/59 95 11/05/16 02:00 93 Simple Mask 4.00 11/05/16 02:00 82 11/05/16 00:00 76 11/05/16 00:00 97.9 91 19 115/62 97 Arterial Line 11/04/16 22:00 86 11/04/16 20:14 97 Nasal Cannula 3.00 11/04/16 20:00 78 11/04/16 20:00 97.9 70 26 92/51 96 Arterial Line 11/04/16 19:00 98 Nasal Cannula 2.00 11/04/16 18:00 68 11/04/16 16:00 65 11/04/16 16:00 97.9 70 18 102/54 96 11/04/16 14:00 65 Intake & Output 11/05/16 11/05/16 07:00 19:00 Intake Total 2640 ml Output Total 1400 ml Balance 1240 ml Intake Oral 440 ml IV Total 2200 ml Output Urine Total 1400 ml Result Diagram: 11/05/16 0304 11/05/16 0304 Objective Remarks NAD. A/O x 3 labored respirations RRR abd soft, NT, ND. +ecchymoses around left LQ incision extending to left flank. Sheppard clear, yellow Ext NT. No edema. EPC cuffs on and working. Procedures Robotic Left Nephroureterectomy 11/03 Medications and IVs Current Medications Medications (Trade) Dose Ordered Sig/Michael Route Start Time Stop Time Status Last Admin (NS 1000 ml Inj) 1,000 ml @ 100 mls/hr Q10H IV 11/03/16 11:45 11/05/16 05:18 (Roxicodone) 10 mg Q4H PRN PO 11/03/16 11:45 (Roxicodone) 5 mg Q4H PRN PO 11/03/16 11:45 (Colace) 100 mg BID PO 11/03/16 11:45 11/05/16 08:24 (Zofran Inj) 4 mg Q6HR PRN IV PUSH 11/03/16 11:45 11/04/16 02:52 Pantoprazole Sodium 40 mg 40 mg Q24H IV PUSH 11/03/16 13:00 11/05/16 11:18 (Ancef Inj/NS Inj) 100 ml @ 200 mls/hr Q8H IV 11/03/16 16:00 11/05/16 08:24 (Ofirmev Inj) 1,000 mg Q6H IV 11/03/16 17:00 11/05/16 11:18 (Morphine Inj) 4 mg Q3H PRN IV PUSH 11/03/16 11:45 11/04/16 02:53 (Sinemet 25-100 Mg) 2 tab QID PO 11/03/16 21:00 11/05/16 11:20 (Ilotycin 0.5% Opth Oint) 1 applic HS EACH EYE 11/04/16 21:00 11/04/16 20:50 (Proscar) 5 mg HS PO 11/04/16 21:00 11/04/16 20:49 (Alphagan 0.2% Opth Soln) 1 drop Q12HR EACH EYE 11/04/16 09:00 11/05/16 08:46 (Timoptic 0.5% Opth Soln) 1 drop Q12HR EACH EYE 11/04/16 09:00 11/05/16 08:46 Folic Acid 1 mg 1 mg DAILY PO 11/05/16 09:00 11/05/16 08:25 (Venofer Inj/NS Inj) 110 ml @ 110 mls/hr Q24H IV 11/05/16 10:00 11/07/16 10:59 11/05/16 11:04 Assessment and Plan Assessment and Plan POD # 2 Robotic Left Nephroureterectomy -Hgb down to 7.5, but hemodynamically stable. Likely bled from Epigastrics during extraction of Kidney based on PE. Given IV Iron, Albumin as needed. Also received Darbepoetin. Repeat CBC later today. Patient continues to refuse blood transfusion. -Bed rest -Advance diet -Pain control -Creatinine slightly elevated but expected after removing left kidney. Repeat BMP in A.M. -Hold Heparin due to bleed. James Oh MD November 05, 2016 13:15
[2016-11-05 16:20] LABS: HEMATOCRIT 22.8 % (39.0-51.0); MEAN CELL VOLUME 92.3 FL (80.0-100.0); MEAN CORPUSCULAR HEMOGLOBIN 29.4 PG (27.0-34.0); MEAN CORPUSCULAR HGB CONC 31.8 % (32.0-36.0); PLATELET COUNT 150 TH/MM3 (150-450); RED BLOOD COUNT 2.47 MIL/MM3 (4.50-5.90); RED CELL DISTRIBUTION WIDTH 14.5 % (11.6-17.2); REVIEW FLAG FINAL; WHITE BLOOD COUNT 11.7 TH/MM3 (4.0-11.0)
[2016-11-05] MEDS: FINASTERIDE 5 MG TAB PO SCH (19:37)
[2016-11-05] MEDS: ERYTHROMYCIN 0.5% OPTH OINT 3.5 GM TUBO EACH EYE SCH (19:40)
[2016-11-05] MEDS: MECLIZINE HCL 25 MG TAB PO PRN (20:00)
[2016-11-05] MEDS ORDERED: FUROSEMIDE 20 MG/2 ML VIAL IV PUSH ONE (20:30)
[2016-11-05] MEDS: MORPHINE SULFATE 4 MG/ML INJ IV PUSH PRN (22:57)
[2016-11-05] MEDS: ONDANSETRON HCL 4 MG/2 ML VIAL IV PUSH PRN (22:57)
[2016-11-06] VITALS (17 sets, daily range): BP systolic 97–164; BP diastolic 53–88; PULSE 52–118; RESP 13–24; TEMP 97.3–99.3; O2SAT 93–100
[2016-11-06] MEDS: RESP: ALBUTEROL 2.5 MG/IPRATROPIUM 0.5 MG NEB (PRN) NEB (04:54)
[2016-11-06 05:05] LABS: BICARBONATE 25.5 MEQ/L (21.0-32.0); POTASSIUM 4.3 MEQ/L (3.5-5.1)
[2016-11-06] MEDS: ACETAMINOPHEN 1000 MG/100 ML VIAL IV SCH ×4 (06:07→23:00)
[2016-11-06] MEDS: TIMOLOL MALEATE 0.5% OPHT SOLN 5 ML BTL EACH EYE SCH ×2 (07:55→21:19)
[2016-11-06] MEDS: BRIMONIDINE TARTRATE 0.2% OPHT SOLN 5 ML BTL EACH EYE SCH ×2 (07:55→21:19)
[2016-11-06] MEDS: FOLIC ACID 1 MG TAB PO SCH (07:55)
[2016-11-06] MEDS: CARBIDOPA/LEVODOPA 25 MG/100 MG TAB PO SCH ×5 (07:56→21:17)
[2016-11-06] MEDS: DOCUSATE SODIUM 100 MG CAP PO SCH ×2 (07:56→21:14)
[2016-11-06 10:13] LABS: BASOPHIL % 0.5 % (0.0-2.0); EOSINOPHIL # 0.2 TH/MM3 (0-0.4); EOSINOPHIL % 1.9 % (0.0-4.0); LYMPHOCYTE # 1.2 TH/MM3 (1.0-4.8); MEAN CELL VOLUME 91.1 FL (80.0-100.0); MEAN CORPUSCULAR HEMOGLOBIN 31.3 PG (27.0-34.0); MEAN CORPUSCULAR HGB CONC 34.4 % (32.0-36.0); MONO % 10.4 % (0.0-8.0); NEUT % 74.2 % (16.0-70.0); PLATELET COUNT 162 TH/MM3 (150-450); RED BLOOD COUNT 2.26 MIL/MM3 (4.50-5.90); RED CELL DISTRIBUTION WIDTH 14.9 % (11.6-17.2); WHITE BLOOD COUNT 9.4 TH/MM3 (4.0-11.0)
--- NOTE | 2016-11-06 10:20 | MP ---
cc: CHANNING OH MD DATE OF SURGERY 11/03/2016 PREOPERATIVE DIAGNOSIS Left renal pelvic mass POSTOPERATIVE DIAGNOSIS Left renal pelvic mass Meatal Stenosis PROCEDURE PERFORMED Robotic-assisted laparoscopic left nephroureterectomy. Urethral Dilation SURGEON Channing Oh MD ANESTHESIA General COMPLICATIONS None PREOPERATIVE ANTIBIOTICS Ancef one gram IV DRAINS A 22-Malaysian three-way Sheppard catheter to gravity drainage SPECIMEN Left kidney and ureter for permanent BLOOD LOSS 75 mL FLUIDS 2200 mL of crystalloids per anesthesia COMPLICATIONS None DISPOSITION Stable to recovery. INDICATIONS The patient is an 86-year-old male with a history of Parkinson's disease who presented with gross hematuria. 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 Treatment options were discussed including diagnostic ureteroscopy with endoscopic ablation versus watchful waiting versus robotic-assisted laparoscopic nephroureterectomy. The advantages and disadvantages, potential side effects of each were discussed including the risk of renal failure, and anesthetic risks, and both he and the family would like to proceed with removal of the left kidney and ureter. After the risks, benefits and alternatives were explained to the patient, the patient would like to proceed and informed consent was obtained. DETAILS OF THE PROCEDURE The patient was properly identified, brought back to the operating room and laid supine on the operating table. A proper time-out was performed under the direction of anesthesiology. The patient was induced under general aesthetic. Preoperative antibiotics in the form of Ancef one gram IV was given within one hour of the start of the procedure. The patient was then placed in the right lateral decubitus position with the left side up. All pressure points were padded. A catheter was attempted to placed by the nursing staff and was unsuccessful due to a narrow urethral meatus. Using a Orellana dilator, I was able to easily dilated his urethral meatus beginning with 8 Malaysian up to 24-Malaysian. I then easily passed a 22-Malaysian three-way catheter into his bladder, clear yellow urine returned. The bladder catheter was then secured. At this time, after all pressure points were padded, the patient was then prepped and draped in a normal sterile surgical fashion. A stab incision was made just superior and lateral to the umbilicus. A Veress needle was then used to gain entrance into the abdominal cavity. Insufflation was achieved. The incision was then extended and under direct visualization, I placed a 12 mm camera port. The abdominal cavity was inspected and there was no evidence of any intra-abdominal injury or bleeding. At this time, the remaining ports were then placed under direct , this includes two 8 mm robotic ports triangulated off of the 12 mm office administrative assistant port, a 12 mm office administrative assistant port in the midline superior to the camera port, as well as 12 mm office administrative assistant port inferior to the umbilicus in the midline. The robotic instrument brought into position. At this time, I then took down the colon by reflecting the white line of Toldt. This mobilized the colon medially. This exposed the retroperitoneum. A plane was developed in which I then found both the ureter and gonadal vein at the lower pole the kidney. I then developed a plane between the psoas muscle and the gonadal ureter and retracted the kidney anteriorly to the abdominal wall. Then using blunt dissection, I marched up the psoas muscle at the inferior portion of the kidney following the gonadal vein to where it inserts into the left renal vein. The gonadal vein was then taken with the robotic vessel sealer. I carefully dissected the renal vein and artery out circumferentially and individually. There was a second small branching vein going posteriorly near the artery. This was taken with the vessel sealer as well. At this time, the renal artery and vein were then separately taken with the endovascular GI stapler. The lateral attachments to the kidney were taken down followed by the splenorenal ligament. I did come across part of the adrenal gland and removing the superior attachments, however, at this time, the whole entire kidney was mobilized except for the lower pole. I then carefully dissected the ureter inferiorly down past the epigastric's with blunt dissection and electrocautery. I did place a Hemolock clip around the proximal ureter. A vessel loop was then used with the Hemolock clip for retraction to be placed around the ureter as well. I have carefully followed the ureter down past the iliac artery and vein to the level of the bladder. The bladder was then gently filled to further delineate the insertion of the ureter into the bladder. The superior vesicle artery was seen and this was divided with the robotic vessel sealer. I then was able to dissect out the entire ureter from the intramural tunnel. The ureter was then divided at the insertion of the ureteral orifice and two Hemolock clips were then placed across. The kidney and entire ureter were then placed in an EndoCatch bag for later removal. The intraabdominal pressure was then dropped down to 7 mmHg. The renal fossa was irrigated and carefully inspected. The renal hilum appeared to be dry. There was no bleeding at the adrenal bed that was seen. Three grams of Dinora was then applied in this renal fossa area over the hilum and adrenal gland. A second look was then performed in the pelvis. There was no evidence of any bleeding seen in the pelvis at this time. The kidney was then extracted through the lower 8-mm robotic port. During extraction, I did divide the inferior epigastric artery. These were clearly identified and controlled with Hemolock clips. No evidence any other bleeding was seen. Once the kidney was removed, the fascia was then closed with a running 1-0 PDS in a watertight fashion. The gas was then turned back on and a second look was performed in the abdominal cavity. There was some clot noticed in the pelvis which was carefully irrigated and removed with the suction clerical aide which was likely bleeding from the epigastric's during extraction. No other bleeding was seen. The renal fossa again was inspected one last time and appeared to be dry. At this time, all ports were then removed under direct visualization. Skin incisions were then closed with 4-0 Monocryl. The sponge and needle count was correct at the end of the case. This concluded the procedure. The patient was explained and sent to recovery in stable condition. He will then be transferred to the Intensive Care Unit overnight for observation due to the patient's advanced age. MD BILL Chavez/KARLA /12:26 PM /9:59 AM RADHA
[2016-11-06 10:24] LABS: HEMO FLAGS DIFF FINAL
[2016-11-06 10:27] LABS: HEMATOCRIT 20.6 % (39.0-51.0)
[2016-11-06] MEDS: IRON SUCROSE INJ 200 MG in SODIUM CHLORIDE 0.9% INJ 100 ML IV SCH (10:46)
--- NOTE | 2016-11-06 10:54 | HHI.CCPN ---
Subjective Remarks/Hospital Course 11/03: 86 y/o male with past medical history significant for Parkinson's disease who was diagnosed to have a left renal pelvis mass when he presented with hematuria and left flank pain which was felt to be consistent with transitional cell carcinoma. Patient underwent left robotic nephroureterectomy under general anesthesia by Dr. Oh on 11/03, received 2500 cc crystalloid, EBL 75 cc , Intra-Op urine output 300 cc. Patient was extubated postoperatively and transferred to PACU and subsequently to [facility]. His heart rate has been in the 40s postoperatively. Patient tells me that he runs a slow heart rate for a few years now. He did drop his blood pressure to the 70s transiently for which she was given a fluid bolus with normal saline 1 L and critical care consult was requested for hypotension and Dr. marte. I evaluated the patient immediately on being notified of the consult. At the time of my evaluation he was laying in the ICU bed not in any acute distress. He denied any chest pain or shortness of breath. He had minimal abdominal discomfort at the site of surgery. 11/04: Resting in bed comfortably no further hypotension since last night. 11/05: Patient had a hemoglobin dropped down to 7 g percent. No hypotension or tachycardia. He is resting in bed comfortably not in any acute distress this morning at the time of my evaluation. Bruising noted over left flank and anterior abdominal wall. 11/06: Receive morphine last night and is drowsy currently. No hypotension overnight. Hemoglobin remains above 7. Objective Vital Signs Date Time Temp Pulse Resp B/P Pulse Ox O2 Delivery O2 Flow Rate FiO2 11/06/16 08:00 62 11/06/16 08:00 97.6 14 97/53 97 11/06/16 07:53 Nasal Cannula 5.00 Intake and Output 11/05/16 11/05/16 11/06/16 08:00 16:00 00:00 Intake Total 1270 ml 1561 ml 954 ml Output Total 1100 ml 475 ml 1700 ml Balance 170 ml 1086 ml -746 ml Result Diagram: 11/06/16 0911 11/06/16 0401 Imaging Last Impressions Chest X-Ray 11/04/16 0000 Signed Impressions: Service Date/Time: Friday, November 04, 2016 09:29 - CONCLUSION: 1. Basilar atelectasis. 2. There is air within the subcutaneous soft tissues in the midaxillary line along the left lower chest and upper abdomen. This is of uncertain etiology. Pratik Valverde MD Objective Remarks HEENT/Neuro: Pallor present, No icterus, tongue moist, DERICK, drowsy, arousable , nonfocal grossly, moving all 4 extremities Neck: No JVD Chest/pulmonary: CTA bilaterally Cardiovascular: S1-S2 regular no gallop or murmur GI/abdomen: Soft, nontender, bowel sounds sluggish. Port sites with Steri- Strips in place. Bruising/ ecchymosis over the anterior abdominal wall and left flank noted Extremities: Warm bilaterally, no edema A/P Assessment and Plan 86-year-old male with Left kidney mass status post left robotic-assisted nephroureterectomy/urethral dilation Hypotension Anemia Sinus bradycardia Right bundle branch block [old] First degree AV block History of Parkinson's disease Hyperlipidemia Plan: Neuro: Follow neuro status, pain medications as ordered by urology. Continue Sinemet for Parkinson's disease. Cardiovascular: Blood pressure improved with fluid bolus. Continue IV fluids. Has long-standing bradycardia though history of heart rate was in the 60s. If patient develops hypotension with bradycardia will consider using dopamine. Check TSH. Pulmonary: Supplemental O2 as needed. Incentive spirometry, bronchodilators as needed. GI/liver: Advance by mouth per urology recommendations Renal/: Status post left nephroureterectomy in followed by urology. Strict intake output, monitor and replete electrolites, follow BUN/creatinine. IV hydration. ID: Perioperative antibiotic prophylaxis per urology. Heme: Follow CBC. Patient has indicated preoperatively that he does not wish to receive any blood products however per anesthesia documentation is okay with albumin if needed. Hemoglobin drop noted. On 11/05 initiated darbapoeitin subcutaneously, IM B-12, IV iron sucrose and PO folic acid. Once again confirmed with patient on 11/05 and he does not wish to have blood transfusions. Prophylaxis: Protonix, SCDs. Subcutaneous heparin when okay with urology - on hold currently. Pastor Estrada MD November 06, 2016 10:54
[2016-11-06] MEDS: RESP: ALBUTEROL 2.5 MG/IPRATROPIUM 0.5 MG NEB (SCH) NEB ×3 (12:30→20:24)
[2016-11-06] MEDS ORDERED: FUROSEMIDE 20 MG/2 ML VIAL IV PUSH ONE (12:45)
[2016-11-06] MEDS: PANTOPRAZOLE SODIUM 40 MG VIAL IV PUSH SCH (12:57)
--- NOTE | 2016-11-06 13:14 | HHI.PR ---
Subjective Patient symptoms today breathing slight worse. on BiPAP. Denies pain. Tolerating regular diet. Denies fevers. Passing flatus. Off IV fluids. Objective Vital Signs Vital Signs Date Time Temp Pulse Resp B/P Pulse Ox O2 Delivery O2 Flow Rate FiO2 11/06/16 12:08 97 45 11/06/16 11:55 93 Venturi Mask 6.00 50 11/06/16 10:00 52 11/06/16 08:00 62 11/06/16 08:00 97.6 60 14 97/53 97 11/06/16 07:53 97 Nasal Cannula 5.00 11/06/16 07:00 99 Simple Mask 6.00 11/06/16 06:00 55 11/06/16 04:00 69 11/06/16 04:00 98.3 58 14 123/60 95 11/06/16 02:00 56 11/06/16 00:00 68 11/06/16 00:00 99.3 118 24 140/88 100 11/05/16 22:00 74 11/05/16 20:00 97.9 88 22 136/64 95 11/05/16 20:00 88 11/05/16 19:49 95 Simple Mask 8.00 11/05/16 19:00 95 Simple Mask 6.00 11/05/16 18:00 99 11/05/16 16:00 94 11/05/16 15:00 98.1 83 20 133/63 98 11/05/16 14:00 74 Intake & Output 11/06/16 11/06/16 07:00 19:00 Intake Total 1178 ml Output Total 2150 ml Balance -972 ml IV Total 1178 ml Output Urine Total 2150 ml Result Diagram: 11/06/16 0911 11/06/16 0401 Objective Remarks NAD. A/O x 3 labored respirations. on BiPAP RRR abd soft, NT, ND. +ecchymoses around lower abdomen, extending to left flank. Sheppard clear, yellow Ext NT. No edema. EPC cuffs on and working. Procedures Robotic Left Nephroureterectomy 11/03 Medications and IVs Current Medications Medications (Trade) Dose Ordered Sig/Michael Route Start Time Stop Time Status Last Admin (NS 1000 ml Inj) 1,000 ml @ 0 mls/hr Q10H IV 11/03/16 11:45 11/05/16 14:03 (Roxicodone) 10 mg Q4H PRN PO 11/03/16 11:45 (Roxicodone) 5 mg Q4H PRN PO 11/03/16 11:45 11/05/16 19:37 (Colace) 100 mg BID PO 11/03/16 11:45 11/06/16 07:56 (Zofran Inj) 4 mg Q6HR PRN IV PUSH 11/03/16 11:45 11/05/16 22:57 Pantoprazole Sodium 40 mg 40 mg Q24H IV PUSH 11/03/16 13:00 11/06/16 12:57 (Ancef Inj/NS Inj) 100 ml @ 200 mls/hr Q8H IV 11/03/16 16:00 11/06/16 07:55 (Ofirmev Inj) 1,000 mg Q6H IV 11/03/16 17:00 11/06/16 10:46 (Morphine Inj) 4 mg Q3H PRN IV PUSH 11/03/16 11:45 11/05/16 22:57 (Sinemet 25-100 Mg) 2 tab QID PO 11/03/16 21:00 11/06/16 07:56 (Ilotycin 0.5% Opth Oint) 1 applic HS EACH EYE 11/04/16 21:00 11/05/16 19:40 (Proscar) 5 mg HS PO 11/04/16 21:00 11/05/16 19:37 (Alphagan 0.2% Opth Soln) 1 drop Q12HR EACH EYE 11/04/16 09:00 11/06/16 07:55 (Timoptic 0.5% Opth Soln) 1 drop Q12HR EACH EYE 11/04/16 09:00 11/06/16 07:55 Folic Acid 1 mg 1 mg DAILY PO 11/05/16 09:00 11/06/16 07:55 (Venofer Inj/NS Inj) 110 ml @ 110 mls/hr Q24H IV 11/05/16 10:00 11/07/16 10:59 11/06/16 10:46 (Antivert) 25 mg TID PRN PO 11/05/16 17:30 11/05/16 20:00 Assessment and Plan Assessment and Plan POD # 3 Robotic Left Nephroureterectomy -Hgb stable at 7.1. Bleeding likely stopped. Repeat CBC in A.M. -CXR c/w pleural effusion. Lasix 20 mg IV given x 1. Good UOP. V/Q Scan pending. -Bed rest -Advance diet -Pain control -Creatinine slightly elevated but expected after removing left kidney. Repeat BMP in A.M. -Hold Heparin due to bleed. -Appreciate other service input. James Oh MD November 06, 2016 13:13
--- NOTE | 2016-11-06 13:41 | RADRPT ---
EXAM DATE/TIME: 11/06/2016 12:19 [facility] COMPARISON: CT ABDOMEN & PELVIS W CONTRAST, September 27, 2016, 8:10. CHEST SINGLE AP, October 30, 2013, 19:46. INDICATIONS : Respiratory failure MEDICAL HISTORY : Unknown SURGICAL HISTORY : Unknown ENCOUNTER: Initial ACUITY: 1 day PAIN SCORE: Non-responsive. LOCATION: Bilateral chest FINDINGS: There is increasing consolidation and fluid on the left. There is some subcutaneous emphysema over t he left chest wall. The right lung is clear. Heart is minimally enlarged. Pulmonary vascularity is normal. CONCLUSION: 1. Increasing consolidative changes in the left base. 2. Subcutaneous emphysema over the left chest wall. Etiology for this is not apparent. Danis Valverde MD FACR on November 06, 2016 at 13:30 Board Certified Radiologist. This report was verified electronically.
--- NOTE | 2016-11-06 15:09 | RADRPT ---
EXAM DATE/TIME: 11/06/2016 13:52 [facility] COMPARISON: CHEST SINGLE AP, November 06, 2016, 12:19. INDICATIONS : Dyspnea. DOSE: 8.7 mCi Tc99m MAA IV 1 mCi Tc99m DTPA aerosol MEDICAL HISTORY : Hypertension. Parkinsons. Renal cancer. SURGICAL HISTORY : Mass in left kidney removed. ENCOUNTER: Initial ACUITY: 1 day PAIN SCALE: 0/10 LOCATION: Chest. TECHNIQUE: Following five minutes of tidal breathing of DTPA aerosol, planar images of the lungs were performed in eight projections. The patient was then injected with MAA, and eight-view perfusion scan was perf ormed. FINDINGS: There is a heterogeneous pattern of aerosol delivery to the periphery of both lungs. There are fairly diffuse, bilateral patchy ventilatory defects. The perfusion lung scan demonstrates a homogenous pattern of uptake in both lungs. No segmental or s ubsegmental defects are seen. CONCLUSION: 1. The perfusion portion the exam is normal. No pulmonary embolus is identified. 2. Patchy delivery of tracer to both lungs suggesting COPD. Pratik Valverde MD on November 06, 2016 at 15:07 Board Certified Radiologist. This report was verified electronically.
[2016-11-06 17:10] LABS: BLOOD GAS BASE EXCESS -1.3 mmol/L (-2-2); BLOOD GAS CARBOXYHEMOGLOBIN 1.5 % (0-4); BLOOD GAS HCO3 23 mmol/L (22-26); BLOOD GAS O2 HGB SATURATION 92 % (90-100); BLOOD GAS OXYGEN CONTENT 12.6 Vol % (12.0-20.0); BLOOD GAS PCO2 37 mmHg (38-42); BLOOD GAS PO2 64 mmHg (61-120); BLOOD GAS TOTAL HGB 9.7 G/DL (12.0-16.0); TEMP CORR TO 98.6
[2016-11-06 17:11] LABS: CRITICAL VALUE NO; DRAW SITE LT BRACHIAL; FIO2 45 %; NUMBER OF ARTERIAL PUNCTURES 2; OXYGEN DEVICE BiPAP; ULNAR PULSE PRESENT; VENT SETTINGS IPAP12EPAP5
[2016-11-06 17:12] LABS: STAT NO
[2016-11-06] MEDS ORDERED: AMIODARONE INJ 900 MG in D5W 500 ML (EXCEL BAG) 482 ML IV SCH (17:15)
[2016-11-06] MEDS ORDERED: DILTIAZEM HCL 25 MG/5 ML VIAL IV ONE (17:15)
[2016-11-06] MEDS ORDERED: POTASSIUM CHLORIDE 25 MEQ EFFERVESCENT TAB PO ONE (17:15)
[2016-11-06] MEDS ORDERED: AMIODARONE INJ 150 MG in DEXTROSE 5% IN WATER 100ML INJ 97 ML IV ONE ×2 (17:15)
[2016-11-06] MEDS ORDERED: CALCIUM GLUCONATE INJ 2 GM in DEXTROSE 5% IN WATER 100ML INJ 100 ML IV ONE ×2 (18:00)
[2016-11-06] MEDS ORDERED: MAGNESIUM SULFATE 1 GM PREMIX 100 ML IV ONE (18:00)
[2016-11-06] MEDS: AMIODARONE INJ 450 MG in DEXTROSE 5% IN WATE(EXCEL) INJ 241 ML IV SCH ×2 (18:15)
--- NOTE | 2016-11-06 19:00 | EC ---
Study Study Date:11/06/2016 STUDY CONCLUSIONS SUMMARY - Left ventricle: The cavity size was normal. Wall thickness was normal. Systolic function was normal. The estimated ejection fraction was in the range of 55% to 60%. Wall motion was normal; there were no regional wall motion abnormalities. - Aortic valve: Valve area: 2.99cm^2 (Vmax). - Mitral valve: Mild regurgitation. - Tricuspid valve: Mild regurgitation. If LV function is below 40, please consider prescribing an ACEI or ARB or document rationale for non-use. PROCEDURE DATA STUDY STATUS: Elective. Procedure: Transthoracic echocardiography. Image quality was good. Scanning was performed from the parasternal, apical, and subcostal acoustic windows. Study completion: The patient tolerated the procedure well. Transthoracic echocardiography. M-mode, complete 2D, complete spectral Doppler, and color Doppler. Height: Height: 68in. Weight: Weight: 191.6lb. Body mass index: BMI: 29.2kg/m^2. Body surface area: BSA: 2.01m^2. Patient status: Inpatient. CARDIAC ANATOMY LEFT VENTRICLE: The cavity size was normal. Wall thickness was normal. Systolic function was normal. The estimated ejection fraction was in the range of 55% to 60%. Wall motion was normal; there were no regional wall motion abnormalities. AORTIC VALVE: Trileaflet; normal thickness leaflets. Doppler: Transvalvular velocity was within the normal range. There was no stenosis. No regurgitation. Valve area: 2.99cm^2 (Vmax). Indexed valve area: 1.49cm^2/m^2 (Vmax). AORTA: Aortic root: The aortic root was normal in size. MITRAL VALVE: Structurally normal valve. Doppler: Transvalvular velocity was within the normal range. There was no evidence for stenosis. Mild regurgitation. Valve area by pressure half-time: 4.78cm^2. Indexed valve area by pressure half-time: 2.38cm^2/m^2. LEFT ATRIUM: The atrium was normal in size. RIGHT VENTRICLE: The cavity size was normal. Wall thickness was normal. PULMONIC VALVE: Doppler: Transvalvular velocity was within the normal range. There was no evidence for stenosis. No regurgitation. TRICUSPID VALVE: Structurally normal valve. Doppler: Transvalvular velocity was within the normal range. Mild regurgitation. Peak gradient: 26mm Hg (D). PULMONARY ARTERY: The main pulmonary artery was normal-sized. Systolic pressure was within the normal range. RIGHT ATRIUM: The atrium was normal in size. PERICARDIUM: There was no pericardial effusion. SYSTEMIC VEINS: Inferior vena cava: The vessel was normal in size. Patient weight: 191.6lb _Ejection fraction:_ 65-75% _Fractional shortening:_ 32% up to 5Kg 5-11.5Kg 11.6-22.9Kg 23-45Kg 45-57Kg Aortic Root 7-13 <17 13-22 17-27 17-27 LA diam 6-13 <23 24-38 33-47 37-40 RVID 10-17 7-15 7-15 7-18 8-17 LVIDd 12-22 <32 24-38 33-47 37-40 LVPW 2-4 3-6 5-7 6-8 7-8 IVS 2-4 3-6 5-7 6-8 7-8 BASIC MEASUREMENTS ADULT NORMAL Left ventricle LV internal dimension, ED, chordal *41.8 mm 43-52 level, PLAX LV internal dimension, ES, chordal 25.4 mm 23-38 level, PLAX Fractional shortening, chordal level, 39 % >29 PLAX LV posterior wall thickness, ED 11 mm IVS/LVPW ratio, ED 0.99 <1.3 Volume, ED, MOD, 1-plane 66 ml Volume, ES, MOD, 1-plane 20 ml Ejection fraction, MOD, 1-plane 70 % Stroke volume, MOD, 1-plane 46 ml Volume index, ED, MOD, 1-plane 33 ml/m^2 Volume index, ES, MOD, 1-plane 10 ml/m^2 Stroke index, MOD, 1-plane 22.9 ml/m^2 Ventricular septum Septal thickness, ED 10.9 mm Aortic valve Leaflet separation 21 mm 15-26 Left atrium Anterior-posterior dimension 31 mm Anterior-posterior dimension index 1.54 cm/m^2 <2.2 Right ventricle RV internal dimension, ED, PLAX 26.9 mm 19-38 BASIC MEASUREMENTS ADULT NORMAL Aortic valve Leaflet separation 21 mm 15-26 Aorta Root diameter, ED 35 mm 20-37 DOPPLER MEASUREMENTS ADULT NORMAL Aortic valve Peak velocity, S 126 cm/s Valve area, Vmax 2.99 cm^2 Valve area index, Vmax 1.49 cm^2/m^2 Mitral valve Pressure half-time 46 ms Valve area, pressure half-time 4.78 cm^2 Valve area index, pressure half-time 2.38 cm^2/m^2 Tricuspid valve Peak gradient, D 26 mm Hg Maximal inflow velocity 254 cm/s LEGEND: Mean values are shown as u=mean value. Asterisk (*) hicks values outside specified normal range. Prepared and signed by Bradley Casillas [id number]
[2016-11-06] MEDS: FINASTERIDE 5 MG TAB PO SCH (21:00)
[2016-11-06] MEDS: ERYTHROMYCIN 0.5% OPTH OINT 3.5 GM TUBO EACH EYE SCH (21:20)
[2016-11-06] MEDS: MORPHINE SULFATE 4 MG/ML INJ IV PUSH PRN (22:00)
[2016-11-06] MEDS: LEVOFLOXACIN 500 MG PREMIX INJ 100 ML IV SCH (22:29)
[2016-11-07] VITALS (17 sets, daily range): BP systolic 104–124; BP diastolic 57–63; PULSE 55–97; RESP 12–19; TEMP 97.5–97.8; O2SAT 93–99
[2016-11-07] MEDS: AMIODARONE INJ 450 MG in DEXTROSE 5% IN WATE(EXCEL) INJ 241 ML IV SCH ×4 (01:41→15:43)
[2016-11-07] MEDS: RESP: ALBUTEROL 2.5 MG/IPRATROPIUM 0.5 MG NEB (SCH) NEB ×4 (04:25→21:17)
[2016-11-07 04:28] LABS: MEAN CELL VOLUME 91.5 FL (80.0-100.0); MEAN CORPUSCULAR HEMOGLOBIN 30.4 PG (27.0-34.0); MEAN CORPUSCULAR HGB CONC 33.2 % (32.0-36.0); PLATELET COUNT 188 TH/MM3 (150-450); RED BLOOD COUNT 2.51 MIL/MM3 (4.50-5.90); RED CELL DISTRIBUTION WIDTH 14.7 % (11.6-17.2); REVIEW FLAG FINAL; WHITE BLOOD COUNT 9.7 TH/MM3 (4.0-11.0)
[2016-11-07] MEDS: ACETAMINOPHEN 1000 MG/100 ML VIAL IV SCH ×4 (05:00→23:10)
[2016-11-07 05:05] LABS: BICARBONATE 27.1 MEQ/L (21.0-32.0)
[2016-11-07] MEDS: DOCUSATE SODIUM 100 MG CAP PO SCH ×2 (08:17→20:39)
[2016-11-07] MEDS: CARBIDOPA/LEVODOPA 25 MG/100 MG TAB PO SCH ×4 (08:17→20:39)
[2016-11-07] MEDS: FOLIC ACID 1 MG TAB PO SCH (08:18)
[2016-11-07] MEDS: TIMOLOL MALEATE 0.5% OPHT SOLN 5 ML BTL EACH EYE SCH ×2 (08:22→20:38)
[2016-11-07] MEDS: BRIMONIDINE TARTRATE 0.2% OPHT SOLN 5 ML BTL EACH EYE SCH ×2 (08:22→20:38)
--- NOTE | 2016-11-07 09:17 | HHI.PR ---
Subjective Patient symptoms today feels better. Denies abdominal pain. He feels his breathing is easier. Denies CP /Fevers. Tolerating regular diet. Passing flatus. Apparently was in Afib this morning but NSR currently. Objective Vital Signs Vital Signs Date Time Temp Pulse Resp B/P Pulse Ox O2 Delivery O2 Flow Rate FiO2 11/07/16 07:38 96 Partial Rebreather 15.00 11/07/16 06:00 80 11/07/16 05:30 25 11/07/16 04:25 99 45 11/07/16 04:00 72 11/07/16 04:00 97.5 84 16 105/63 98 11/07/16 02:00 70 11/07/16 00:20 99 45 11/07/16 00:00 97.5 84 16 105/63 98 11/07/16 00:00 94 11/06/16 22:05 12 11/06/16 22:00 84 11/06/16 20:22 94 55 11/06/16 20:22 93 Non-Rebreather 15.00 11/06/16 20:00 106 11/06/16 20:00 97.5 84 16 105/63 98 11/06/16 19:00 99 Simple Mask 6.00 11/06/16 18:00 106 11/06/16 16:25 94 45 11/06/16 16:00 97.3 80 19 164/72 94 11/06/16 16:00 80 11/06/16 14:00 60 11/06/16 12:08 97 45 11/06/16 12:00 98.1 52 13 113/54 93 11/06/16 12:00 52 11/06/16 11:55 93 Venturi Mask 6.00 50 11/06/16 10:00 52 Intake & Output 11/07/16 11/07/16 07:00 19:00 Intake Total 1447 ml Output Total 2500 ml Balance -1053 ml Intake Oral 700 ml IV Total 747 ml Output Urine Total 2500 ml Result Diagram: 11/07/1633411/07/16334 Objective Remarks NAD. A/O x 3 labored respirations, on 6 L NC RRR abd soft, NT, ND. +ecchymoses around lower abdomen, extending to left flank. Sheppard clear, yellow Ext NT. No edema. EPC cuffs on and working. Procedures Robotic Left Nephroureterectomy 11/03 Medications and IVs Current Medications Medications (Trade) Dose Ordered Sig/Michael Route Start Time Stop Time Status Last Admin (NS 1000 ml Inj) 1,000 ml @ 0 mls/hr Q10H IV 11/03/16 11:45 11/05/16 14:03 (Roxicodone) 10 mg Q4H PRN PO 11/03/16 11:45 (Roxicodone) 5 mg Q4H PRN PO 11/03/16 11:45 11/05/16 19:37 (Colace) 100 mg BID PO 11/03/16 11:45 11/07/16 08:17 (Zofran Inj) 4 mg Q6HR PRN IV PUSH 11/03/16 11:45 11/05/16 22:57 Pantoprazole Sodium 40 mg 40 mg Q24H IV PUSH 11/03/16 13:00 11/06/16 12:57 (Ancef Inj/NS Inj) 100 ml @ 200 mls/hr Q8H IV 11/03/16 16:00 11/07/16 08:17 (Ofirmev Inj) 1,000 mg Q6H IV 11/03/16 17:00 11/07/16 05:00 (Morphine Inj) 4 mg Q3H PRN IV PUSH 11/03/16 11:45 11/06/16 22:00 (Sinemet 25-100 Mg) 2 tab QID PO 11/03/16 21:00 11/07/16 08:17 (Ilotycin 0.5% Opth Oint) 1 applic HS EACH EYE 11/04/16 21:00 11/06/16 21:20 (Proscar) 5 mg HS PO 11/04/16 21:00 11/06/16 21:00 (Alphagan 0.2% Opth Soln) 1 drop Q12HR EACH EYE 11/04/16 09:00 11/07/16 08:22 (Timoptic 0.5% Opth Soln) 1 drop Q12HR EACH EYE 11/04/16 09:00 11/07/16 08:22 Folic Acid 1 mg 1 mg DAILY PO 11/05/16 09:00 11/07/16 08:18 (Venofer Inj/NS Inj) 110 ml @ 110 mls/hr Q24H IV 11/05/16 10:00 11/07/16 10:59 11/06/16 10:46 Meclizine HCl 25 mg 25 mg TID PRN PO 11/05/16 17:30 11/05/16 20:00 Levofloxacin/ Dextrose 100 ml @ 100 mls/hr Q24H IV 11/06/16 18:00 11/06/16 22:29 (Cordarone Inj/ D5W ([place]) Inj) 250 ml @ 0 mls/hr CONTINUOUS IV 11/06/16 17:30 11/07/16 01:41 Assessment and Plan Assessment and Plan POD # 4 Robotic Left Nephroureterectomy -Hgb improved up to 7.6. Hemodynamically improving. -CXR c/w pleural effusion. UOP improved after Lasix. V/Q Scan negative for PE. -WBC normalized. D/C Ancef. -OOB today. PT/OT. -Creatinine improved -GI/DVT prophylaxis. Continue to hold Heparin for now due to risk of bleed. -Appreciate Structural Draftsman support. James Oh MD November 07, 2016 09:17
--- NOTE | 2016-11-07 09:45 | HHI.CCPN ---
Subjective Remarks/Hospital Course 11/03: 86 y/o male with past medical history significant for Parkinson's disease who was diagnosed to have a left renal pelvis mass when he presented with hematuria and left flank pain which was felt to be consistent with transitional cell carcinoma. Patient underwent left robotic nephroureterectomy under general anesthesia by Dr. Oh on 11/03, received 2500 cc crystalloid, EBL 75 cc , Intra-Op urine output 300 cc. Patient was extubated postoperatively and transferred to PACU and subsequently to [facility]. His heart rate has been in the 40s postoperatively. Patient tells me that he runs a slow heart rate for a few years now. He did drop his blood pressure to the 70s transiently for which she was given a fluid bolus with normal saline 1 L and critical care consult was requested for hypotension and Dr. marte. I evaluated the patient immediately on being notified of the consult. At the time of my evaluation he was laying in the ICU bed not in any acute distress. He denied any chest pain or shortness of breath. He had minimal abdominal discomfort at the site of surgery. 11/04: Resting in bed comfortably no further hypotension since last night. 11/05: Patient had a hemoglobin dropped down to 7 g percent. No hypotension or tachycardia. He is resting in bed comfortably not in any acute distress this morning at the time of my evaluation. Bruising noted over left flank and anterior abdominal wall. 11/06: Receive morphine last night and is drowsy currently. No hypotension overnight. Hemoglobin remains above 7. 11/07: Went into A. fib with RVR on 11/06 and was started on amiodarone drip. Currently remains rate controlled. Objective Vital Signs Date Time Temp Pulse Resp B/P Pulse Ox O2 Delivery O2 Flow Rate FiO2 11/07/16 07:38 96 Partial Rebreather 15.00 11/07/16 06:00 80 11/07/16 05:30 25 11/07/16 04:25 45 11/07/16 04:00 97.5 105/63 Intake and Output 11/06/16 11/06/16 11/07/16 08:00 16:00 00:00 Intake Total 224 ml 613 ml 881 ml Output Total 450 ml 1250 ml 1300 ml Balance -226 ml -637 ml -419 ml Result Diagram: 11/07/16 0335 11/07/16 0335 Other Results Laboratory Tests Test 11/06/16 16:42 Blood Gas Puncture Site LT BRACHIAL Blood Gas Patient Temperature 98.6 Blood Gas HCO3 23 mmol/L (22-26) Blood Gas Base Excess -1.3 mmol/L (-2-2) Blood Gas Oxygen Saturation 92 % (90-100) Arterial Blood pH 7.41 (7.380-7.420) Arterial Blood Partial 37 mmHg (38-42) Pressure CO2 Arterial Blood Partial 64 mmHg Pressure O2 (61-120) Arterial Blood Oxygen Content 12.6 Vol % (12.0-20.0) Arterial Blood 1.5 % (0-4) Carboxyhemoglobin Arterial Blood Methemoglobin 1.0 % (0-2) Blood Gas Hemoglobin 9.7 G/DL (12.0-16.0) Oxygen Delivery Device BiPAP Blood Gas Ventilator Setting [id number] Blood Gas Inspired Oxygen 45 % Imaging Last Impressions Chest X-Ray 11/04/16 0000 Signed Impressions: Service Date/Time: Friday, November 04, 2016 09:29 - CONCLUSION: 1. Basilar atelectasis. 2. There is air within the subcutaneous soft tissues in the midaxillary line along the left lower chest and upper abdomen. This is of uncertain etiology. Pratik Valverde MD Objective Remarks HEENT/Neuro: Pallor present, No icterus, tongue moist, DERICK, drowsy, arousable , nonfocal grossly, moving all 4 extremities Neck: No JVD Chest/pulmonary: Air entry decreased bilaterally at bases, scattered rhonchi more on the left base. No wheezing Cardiovascular: S1-S2 irregularly irregular no gallop or murmur GI/abdomen: Soft, nontender, bowel sounds sluggish. Port sites with Steri- Strips in place. Bruising/ ecchymosis over the anterior abdominal wall and left flank noted Extremities: Warm bilaterally, no edema A/P Assessment and Plan 86-year-old male with Left kidney mass status post left robotic-assisted nephroureterectomy/urethral dilation Hypotension Anemia Acute respiratory failure Suspected atelectasis versus left lower lobe pneumonia Suspected sleep apnea Suspected COPD A. fib with RVR(new) Sinus bradycardia Right bundle branch block [old] First degree AV block History of Parkinson's disease Hyperlipidemia Plan: Neuro: Follow neuro status, pain medications as ordered by urology. Continue Sinemet for Parkinson's disease. Cardiovascular: Has long-standing bradycardia though history of heart rate was in the 60s. Now in A. fib, rate controlled. On amiodarone drip. We'll add TSH to labs drawn previously. Pulmonary: BiPAP/Supplemental O2 as needed. Incentive spirometry, bronchodilators as needed. VQ scan did not show any perfusion defects however ventilation scan suggested patchy airspace disease. GI/liver: Advance PO diet per urology recommendations Renal/: Status post left nephroureterectomy in followed by urology. Strict intake output, monitor and replete electrolites, follow BUN/creatinine. IV hydration. ID: Perioperative antibiotic prophylaxis per urology. Started empiric antibiotic coverage with Levaquin to cover for pneumonia on 11/06. Heme: Follow CBC. Patient has indicated preoperatively that he does not wish to receive any blood products however per anesthesia documentation is okay with albumin if needed. Hemoglobin drop noted. On 11/05 initiated darbapoeitin subcutaneously, IM B-12, IV iron sucrose and PO folic acid. Once again confirmed with patient on 11/05 and he does not wish to have blood transfusions. Prophylaxis: Protonix, SCDs. Subcutaneous heparin when okay with urology - on hold currently. d/W patient/ family at bedside Pastor Estrada MD November 07, 2016 09:45
[2016-11-07] MEDS: IRON SUCROSE INJ 200 MG in SODIUM CHLORIDE 0.9% INJ 100 ML IV SCH (12:05)
[2016-11-07] MEDS: PANTOPRAZOLE SODIUM 40 MG VIAL IV PUSH SCH (14:04)
--- NOTE | 2016-11-07 16:29 | EKG ---
Date Performed: 11/06/2016 Time Performed: 16:38:36 PTAGE: 86 years EKG: Atrial fibrillation with rapid ventricular response Lead(s) unsuitable for analysis: V4 Rig ht bundle branch block Inferior/lateral ST-T changes are nonspecific Compared to previous tracing, th e patient is now in atrial fibrillation with rapid ventricular rate Abnormal ECG NO PREVIOUS TRACING DOCTOR: Ellen Madrigal Interpretating Date/Time 11/07/2016 16:29:22
[2016-11-07] MEDS: LEVOFLOXACIN 500 MG PREMIX INJ 100 ML IV SCH (18:05)
[2016-11-07] MEDS: ERYTHROMYCIN 0.5% OPTH OINT 3.5 GM TUBO EACH EYE SCH (20:38)
[2016-11-07] MEDS: FINASTERIDE 5 MG TAB PO SCH (20:39)
[2016-11-08] VITALS (12 sets, daily range): BP systolic 102–161; BP diastolic 54–72; PULSE 60–80; RESP 19–32; TEMP 97.3–98.7; O2SAT 21–97
[2016-11-08] MEDS: RESP: ALBUTEROL 2.5 MG/IPRATROPIUM 0.5 MG NEB (SCH) NEB ×4 (04:02→20:01)
[2016-11-08] MEDS: ACETAMINOPHEN 1000 MG/100 ML VIAL IV SCH ×3 (05:45→16:50)
[2016-11-08] MEDS: AMIODARONE INJ 450 MG in DEXTROSE 5% IN WATE(EXCEL) INJ 241 ML IV SCH ×2 (05:46)
[2016-11-08] MEDS: DOCUSATE SODIUM 100 MG CAP PO SCH ×2 (09:01→20:32)
[2016-11-08] MEDS: FOLIC ACID 1 MG TAB PO SCH (09:01)
[2016-11-08] MEDS: TIMOLOL MALEATE 0.5% OPHT SOLN 5 ML BTL EACH EYE SCH ×2 (09:02→20:33)
[2016-11-08] MEDS: CARBIDOPA/LEVODOPA 25 MG/100 MG TAB PO SCH ×4 (09:02→20:32)
[2016-11-08] MEDS: BRIMONIDINE TARTRATE 0.2% OPHT SOLN 5 ML BTL EACH EYE SCH ×2 (09:02→20:33)
[2016-11-08] MEDS: IRON SUCROSE INJ 200 MG in SODIUM CHLORIDE 0.9% INJ 100 ML IV SCH (09:21)
--- NOTE | 2016-11-08 09:28 | HHI.CCPN ---
Subjective Remarks/Hospital Course 11/03: 86 y/o male with past medical history significant for Parkinson's disease who was diagnosed to have a left renal pelvis mass when he presented with hematuria and left flank pain which was felt to be consistent with transitional cell carcinoma. Patient underwent left robotic nephroureterectomy under general anesthesia by Dr. Oh on 11/03, received 2500 cc crystalloid, EBL 75 cc , Intra-Op urine output 300 cc. Patient was extubated postoperatively and transferred to PACU and subsequently to [facility]. His heart rate has been in the 40s postoperatively. Patient tells me that he runs a slow heart rate for a few years now. He did drop his blood pressure to the 70s transiently for which she was given a fluid bolus with normal saline 1 L and critical care consult was requested for hypotension and Dr. marte. I evaluated the patient immediately on being notified of the consult. At the time of my evaluation he was laying in the ICU bed not in any acute distress. He denied any chest pain or shortness of breath. He had minimal abdominal discomfort at the site of surgery. 11/04: Resting in bed comfortably no further hypotension since last night. 11/05: Patient had a hemoglobin dropped down to 7 g percent. No hypotension or tachycardia. He is resting in bed comfortably not in any acute distress this morning at the time of my evaluation. Bruising noted over left flank and anterior abdominal wall. 11/06: Receive morphine last night and is drowsy currently. No hypotension overnight. Hemoglobin remains above 7. 11/07: Went into A. fib with RVR on 11/06 and was started on amiodarone drip. Currently remains rate controlled. 11/08: Was agitated and confused overnight. This morning he is awake and alert appears comfortable and is very pleasant. On 4.5 L nasal cannula. Remains in atrial fibrillation on amiodarone drip. Objective Vital Signs Date Time Temp Pulse Resp B/P Pulse Ox O2 Delivery O2 Flow Rate FiO2 11/08/16 08:00 93 Nasal Cannula 5.00 11/08/16 08:00 74 11/08/16 08:00 98.0 21 136/64 11/08/16 04:03 35 Intake and Output 11/07/16 11/07/16 11/08/16 08:00 16:00 00:00 Intake Total 566 ml 933 ml 332 ml Output Total 1200 ml 500 ml 350 ml Balance -634 ml 433 ml -18 ml Result Diagram: 11/07/16 0335 11/07/16 0335 Imaging Last Impressions Chest X-Ray 11/04/16 0000 Signed Impressions: Service Date/Time: Friday, November 04, 2016 09:29 - CONCLUSION: 1. Basilar atelectasis. 2. There is air within the subcutaneous soft tissues in the midaxillary line along the left lower chest and upper abdomen. This is of uncertain etiology. Pratik Valverde MD Objective Remarks HEENT/Neuro: Pallor present, No icterus, tongue moist, DERICK, AAO x3, nonfocal grossly, moving all 4 extremities Neck: No JVD Chest/pulmonary: Air entry decreased bilaterally at bases, scattered rhonchi more on the left base. No wheezing Cardiovascular: S1-S2 irregularly irregular no gallop or murmur GI/abdomen: Soft, nontender, bowel sounds sluggish. Port sites with Steri- Strips in place. Bruising/ ecchymosis over the anterior abdominal wall and left flank noted Extremities: Warm bilaterally, no edema A/P Assessment and Plan 86-year-old male with Left kidney mass status post left robotic-assisted nephroureterectomy/urethral dilation Hypotension Anemia Acute respiratory failure Suspected atelectasis versus left lower lobe pneumonia Suspected sleep apnea Suspected COPD A. fib with RVR(new) Sinus bradycardia Right bundle branch block [old] First degree AV block History of Parkinson's disease Hyperlipidemia Plan: Neuro: Follow neuro status, pain medications as ordered by urology. Continue Sinemet for Parkinson's disease. Avoid sedatives and narcotics as patient is experiencing delirium at nights. We will add Seroquel 25 mg daily at bedtime 3 days to control delirium Cardiovascular: Has long-standing bradycardia though history of heart rate was in the 60s. Now in A. fib, rate controlled. On amiodarone drip. We'll add TSH to labs drawn previously. Pulmonary: BiPAP/Supplemental O2 as needed. Incentive spirometry, bronchodilators as needed. VQ scan did not show any perfusion defects however ventilation scan suggested patchy airspace disease. GI/liver: Advance PO diet per urology recommendations Renal/: Status post left nephroureterectomy in followed by urology. Strict intake output, monitor and replete electrolites, follow BUN/creatinine. IV hydration. ID: Perioperative antibiotic prophylaxis per urology. Started empiric antibiotic coverage with Levaquin to cover for pneumonia on 11/06. Heme: Follow CBC. Patient has indicated preoperatively that he does not wish to receive any blood products however per anesthesia documentation is okay with albumin if needed. Hemoglobin drop noted. On 11/05 initiated darbapoeitin subcutaneously, IM B-12, IV iron sucrose and PO folic acid. Once again confirmed with patient on 11/05 and he does not wish to have blood transfusions. Prophylaxis: Protonix, SCDs. Subcutaneous heparin when okay with urology - on hold currently. d/W patient/ family at bedside Pastor Estrada MD November 08, 2016 09:27
[2016-11-08 10:15] LABS: HEMATOCRIT 25.3 % (39.0-51.0); REVIEW FLAG FINAL
--- NOTE | 2016-11-08 10:26 | HHI.PR ---
Subjective Patient symptoms today was agitated and confused overnight. doing better currently. Up in chair. Breathing improved. Passing flatus. Denies CP/Fever. On Amiodarone drip. Objective Vital Signs Vital Signs Date Time Temp Pulse Resp B/P Pulse Ox O2 Delivery O2 Flow Rate FiO2 11/08/16 08:00 93 Nasal Cannula 5.00 11/08/16 08:00 74 11/08/16 08:00 98.0 74 21 136/64 93 11/08/16 07:24 94 Nasal Cannula 5.00 11/08/16 06:15 18 11/08/16 06:00 80 11/08/16 04:03 95 35 11/08/16 04:00 97.8 70 19 122/59 21 11/08/16 04:00 70 11/08/16 02:00 70 11/08/16 00:00 66 11/08/16 00:00 98.7 66 19 116/54 95 11/08/16 00:00 96 35 11/07/16 22:00 62 11/07/16 21:30 96 Bi-Pap 35 11/07/16 21:22 98 35 11/07/16 20:07 93 Nasal Cannula 4.00 11/07/16 20:00 65 11/07/16 20:00 97.8 65 19 120/57 95 11/07/16 19:00 96 Nasal Cannula 4.00 11/07/16 18:00 69 11/07/16 16:00 58 11/07/16 16:00 97.8 68 15 124/61 95 11/07/16 14:00 58 11/07/16 12:00 97.5 55 18 104/57 99 11/07/16 12:00 55 Intake & Output 11/08/16 11/08/16 07:00 19:00 Intake Total 530 ml Output Total 850 ml Balance -320 ml Intake Oral 120 ml IV Total 410 ml Output Urine Total 850 ml # Bowel Movements 0 Result Diagram: 11/08/16 1000 11/07/16 0335 Objective Remarks NAD. A/O x 3. Up in chair. less laboring with respirations, on 4.5L NC irregular abd soft, NT, ND. +ecchymoses around lower abdomen, extending to left flank, left thigh Sheppard clear, yellow Ext NT. No edema. EPC cuffs on and working. Procedures Robotic Left Nephroureterectomy 11/03 Medications and IVs Current Medications Medications (Trade) Dose Ordered Sig/Michael Route Start Time Stop Time Status Last Admin (NS 1000 ml Inj) 1,000 ml @ 0 mls/hr Q10H IV 11/03/16 11:45 11/05/16 14:03 (Roxicodone) 10 mg Q4H PRN PO 11/03/16 11:45 (Roxicodone) 5 mg Q4H PRN PO 11/03/16 11:45 11/05/16 19:37 (Colace) 100 mg BID PO 11/03/16 11:45 11/08/16 09:01 (Zofran Inj) 4 mg Q6HR PRN IV PUSH 11/03/16 11:45 11/05/16 22:57 (Protonix Inj) 40 mg Q24H IV PUSH 11/03/16 13:00 11/07/16 14:04 (Ofirmev Inj) 1,000 mg Q6H IV 11/03/16 17:00 11/08/16 05:45 (Sinemet 25-100 Mg) 2 tab QID PO 11/03/16 21:00 11/08/16 09:02 (Ilotycin 0.5% Opth Oint) 1 applic HS EACH EYE 11/04/16 21:00 11/07/16 20:38 (Proscar) 5 mg HS PO 11/04/16 21:00 11/07/16 20:39 (Alphagan 0.2% Opth Soln) 1 drop Q12HR EACH EYE 11/04/16 09:00 11/08/16 09:02 (Timoptic 0.5% Opth Soln) 1 drop Q12HR EACH EYE 11/04/16 09:00 11/08/16 09:02 (Folate) 1 mg DAILY PO 11/05/16 09:00 11/08/16 09:01 Meclizine HCl 25 mg 25 mg TID PRN PO 11/05/16 17:30 11/05/16 20:00 Levofloxacin/ Dextrose 100 ml @ 100 mls/hr Q24H IV 11/06/16 18:00 11/07/16 18:05 Amiodarone HCl 450 mg/Dextrose 250 ml @ 0 mls/hr CONTINUOUS IV 11/06/16 17:30 11/08/16 05:46 (Venofer Inj/NS Inj) 110 ml @ 110 mls/hr DAILY IV 11/08/16 09:00 11/10/16 09:59 11/08/16 09:21 (Allbee C) 1 tab DAILY PO 11/08/16 09:00 (SEROquel) 25 mg HS PRN PO 11/08/16 10:00 Assessment and Plan Assessment and Plan POD # 5 Robotic Left Nephroureterectomy -Hgb up to 8.2. Hemodynamically stable -Limit narcotic use. On IV Acetaminophen. Seroquel qhs. -Continue to Wean O2. On Nebulizer. Incentive Spirometry -WBC normalized. On Levaquin. -OOB today. PT/OT. -Amiodarone gtt per Critical Care. Echo normal. -GI/DVT prophylaxis. Continue to hold Heparin for now due to risk of bleed. Ok with ASA 81 mg. -Appreciate Solution Engineer support. James Oh MD November 08, 2016 10:26
[2016-11-08 10:30] LABS: BICARBONATE 23.2 MEQ/L (21.0-32.0); POTASSIUM 3.9 MEQ/L (3.5-5.1)
[2016-11-08] MEDS: VITAMIN B COMPLEX/VIT C TAB PO SCH (10:55)
[2016-11-08] MEDS: PANTOPRAZOLE SODIUM 40 MG VIAL IV PUSH SCH (12:29)
[2016-11-08] MEDS: LEVOFLOXACIN 500 MG PREMIX INJ 100 ML IV SCH (17:44)
[2016-11-08] MEDS: QUEtiapine FUMARATE 25 MG TAB PO PRN (18:55)
[2016-11-08] MEDS: FINASTERIDE 5 MG TAB PO SCH (20:32)
[2016-11-08] MEDS: ERYTHROMYCIN 0.5% OPTH OINT 3.5 GM TUBO EACH EYE SCH (20:33)
[2016-11-09] VITALS (17 sets, daily range): BP systolic 93–137; BP diastolic 56–79; PULSE 60–104; RESP 13–29; TEMP 97.9–100; O2SAT 92–100
[2016-11-09] MEDS: ACETAMINOPHEN 1000 MG/100 ML VIAL IV SCH ×5 (00:10→23:21)
[2016-11-09] MEDS: RESP: ALBUTEROL 2.5 MG/IPRATROPIUM 0.5 MG NEB (SCH) NEB ×4 (04:23→20:09)
[2016-11-09 07:02] LABS: BLOOD GAS BASE EXCESS -0.1 mmol/L (-2-2); BLOOD GAS CARBOXYHEMOGLOBIN 1.5 % (0-4); BLOOD GAS HCO3 24 mmol/L (22-26); BLOOD GAS METHEMOGLOBIN 0.8 % (0-2); BLOOD GAS O2 HGB SATURATION 98 % (90-100); BLOOD GAS OXYGEN CONTENT 12.2 Vol % (12.0-20.0); BLOOD GAS PCO2 36 mmHg (38-42); BLOOD GAS PO2 381 mmHg (61-120); BLOOD GAS TOTAL HGB 8.2 G/DL (12.0-16.0); CRITICAL VALUE NO; TEMP CORR TO 98.6
[2016-11-09 07:03] LABS: DRAW SITE RT RADIAL; FIO2 100 %; NUMBER OF ARTERIAL PUNCTURES 1; STAT YES; ULNAR PULSE PRESENT
--- NOTE | 2016-11-09 07:16 | RADRPT ---
EXAM DATE/TIME: 11/09/2016 07:03 [place] COMPARISON: CHEST SINGLE AP, November 06, 2016, 12:19. INDICATIONS : Short of breath MEDICAL HISTORY : None. SURGICAL HISTORY : laporotomy ENCOUNTER: Subsequent ACUITY: 1 month PAIN SCORE: Non-responsive. LOCATION: Bilateral chest FINDINGS: A single view of the chest demonstrates small left pleural effusion with left basilar density. Heart and the upper limits of normal in size. Osseous structures are intact. Decreasing subcutaneous emphy sema along left lateral chest wall. CONCLUSION: Small left pleural effusion and left basilar density, not significantly changed. Martin Sidhu MD on November 09, 2016 at 7:13 Board Certified Radiologist. This report was verified electronically.
[2016-11-09] MEDS ORDERED: FUROSEMIDE 20 MG/2 ML VIAL IV PUSH ONE (08:30)
--- NOTE | 2016-11-09 08:36 | HHI.CCPN ---
Subjective Remarks/Hospital Course 11/03: 86 y/o male with past medical history significant for Parkinson's disease who was diagnosed to have a left renal pelvis mass when he presented with hematuria and left flank pain which was felt to be consistent with transitional cell carcinoma. Patient underwent left robotic nephroureterectomy under general anesthesia by Dr. Oh on 11/03, received 2500 cc crystalloid, EBL 75 cc , Intra-Op urine output 300 cc. Patient was extubated postoperatively and transferred to PACU and subsequently to [facility]. His heart rate has been in the 40s postoperatively. Patient tells me that he runs a slow heart rate for a few years now. He did drop his blood pressure to the 70s transiently for which she was given a fluid bolus with normal saline 1 L and critical care consult was requested for hypotension and Dr. marte. I evaluated the patient immediately on being notified of the consult. At the time of my evaluation he was laying in the ICU bed not in any acute distress. He denied any chest pain or shortness of breath. He had minimal abdominal discomfort at the site of surgery. 11/04: Resting in bed comfortably no further hypotension since last night. 11/05: Patient had a hemoglobin dropped down to 7 g percent. No hypotension or tachycardia. He is resting in bed comfortably not in any acute distress this morning at the time of my evaluation. Bruising noted over left flank and anterior abdominal wall. 11/06: Receive morphine last night and is drowsy currently. No hypotension overnight. Hemoglobin remains above 7. 11/07: Went into A. fib with RVR on 11/06 and was started on amiodarone drip. Currently remains rate controlled. 11/08: Was agitated and confused overnight. This morning he is awake and alert appears comfortable and is very pleasant. On 4.5 L nasal cannula. Remains in atrial fibrillation on amiodarone drip. 11/09: He was confused and agitated at night. Was on BiPAP with full facemask overnight. Remains in atrial fibrillation on amiodarone drip. Starting aspirin today. Objective Vital Signs Date Time Temp Pulse Resp B/P Pulse Ox O2 Delivery O2 Flow Rate FiO2 11/09/16 08:09 100 BiPAP 40 11/09/16 06:00 70 11/09/16 04:00 98.2 23 137/62 11/08/16 22:00 8.00 Intake and Output 5/21/17 5/21/17 5/22/17 08:00 16:00 00:00 Intake Total 198 ml 1096 ml 369 ml Output Total 500 ml 350 ml 500 ml Balance -302 ml 746 ml -131 ml Result Diagram: 11/08/16 1000 11/08/16 1000 Other Results Laboratory Tests Test 11/08/16 11/09/16 10:00 06:50 Hemoglobin 8.2 GM/DL Hematocrit 25.3 % Sodium Level 140 MEQ/L Potassium Level 3.9 MEQ/L Chloride Level 107 MEQ/L Carbon Dioxide Level 23.2 MEQ/L Anion Gap 10 MEQ/L Blood Urea Nitrogen 22 MG/DL Creatinine 1.46 MG/DL Estimat Glomerular Filtration 46 ML/MIN Rate Random Glucose 162 MG/DL Calcium Level 8.3 MG/DL Thyroid Stimulating Hormone 6.520 uIU/ML 3rd Gen Blood Gas Puncture Site RT RADIAL Blood Gas Patient Temperature 98.6 Blood Gas HCO3 24 mmol/L Blood Gas Base Excess -0.1 mmol/L Blood Gas Oxygen Saturation 98 % Arterial Blood pH 7.44 Arterial Blood Partial 36 mmHg Pressure CO2 Arterial Blood Partial 381 mmHg Pressure O2 Arterial Blood Oxygen Content 12.2 Vol % Arterial Blood 1.5 % Carboxyhemoglobin Arterial Blood Methemoglobin 0.8 % Blood Gas Hemoglobin 8.2 G/DL Oxygen Delivery Device BiPAP10/5 Blood Gas Inspired Oxygen 100 % Imaging Last Impressions Chest X-Ray 11/04/16 0000 Signed Impressions: Service Date/Time: Friday, November 04, 2016 09:29 - CONCLUSION: 1. Basilar atelectasis. 2. There is air within the subcutaneous soft tissues in the midaxillary line along the left lower chest and upper abdomen. This is of uncertain etiology. Pratik Valverde MD Objective Remarks HEENT/Neuro: Pallor present, No icterus, tongue moist, DERICK, AAO x3, nonfocal grossly, moving all 4 extremities Neck: No JVD Chest/pulmonary: Air entry decreased bilaterally at bases, scattered rhonchi more on the left base. No wheezing Cardiovascular: S1-S2 irregularly irregular no gallop or murmur GI/abdomen: Soft, nontender, bowel sounds sluggish. Port sites with Steri- Strips in place. Bruising/ ecchymosis over the anterior abdominal wall and left flank noted Extremities: Warm bilaterally, no edema A/P Assessment and Plan 86-year-old male with Left kidney mass status post left robotic-assisted nephroureterectomy/urethral dilation Hypotension Anemia Acute respiratory failure Suspected atelectasis versus left lower lobe pneumonia Suspected sleep apnea Suspected COPD A. fib with RVR(new) Sinus bradycardia Right bundle branch block [old] First degree AV block History of Parkinson's disease Hyperlipidemia Plan: Neuro: Follow neuro status, pain medications as ordered by urology. Continue Sinemet for Parkinson's disease. Avoid sedatives and narcotics as patient is experiencing delirium at nights. Started Seroquel 25 mg daily at bedtime to control delirium on 11/08 Cardiovascular: Has long-standing bradycardia though history of heart rate was in the 60s. Now in A. fib, rate controlled. On amiodarone drip. TSHslightly elevated suggesting subclinical hypothyroidism Pulmonary: BiPAP/Supplemental O2 as needed. Incentive spirometry, bronchodilators as needed. VQ scan did not show any perfusion defects however ventilation scan suggested patchy airspace disease. GI/liver: Advance PO diet per urology recommendations Renal/: Status post left nephroureterectomy in followed by urology. Strict intake output, monitor and replete electrolites, follow BUN/creatinine. IV hydration. ID: Perioperative antibiotic prophylaxis per urology. Started empiric antibiotic coverage with Levaquin to cover for pneumonia on 11/06. Heme: Follow CBC. Patient has indicated preoperatively that he does not wish to receive any blood products however per anesthesia documentation is okay with albumin if needed. Hemoglobin drop noted. On 11/05 initiated darbapoeitin subcutaneously, IM B-12, IV iron sucrose and PO folic acid. Once again confirmed with patient on 11/05 and he does not wish to have blood transfusions. Hemoglobin gradually improving. Prophylaxis: Protonix, SCDs. Subcutaneous heparin when okay with urology - on hold currently. d/W family at bedside Pastor Estrada MD November 09, 2016 08:36
[2016-11-09] MEDS: DOCUSATE SODIUM 100 MG CAP PO SCH ×2 (09:12→20:10)
[2016-11-09] MEDS: MECLIZINE HCL 25 MG TAB PO PRN (09:13)
[2016-11-09] MEDS: CARBIDOPA/LEVODOPA 25 MG/100 MG TAB PO SCH ×4 (09:13→20:10)
[2016-11-09] MEDS: VITAMIN B COMPLEX/VIT C TAB PO SCH (09:13)
[2016-11-09] MEDS: ASPIRIN EC 81 MG TABEC PO SCH (09:13)
[2016-11-09] MEDS: FOLIC ACID 1 MG TAB PO SCH (09:13)
[2016-11-09] MEDS: TIMOLOL MALEATE 0.5% OPHT SOLN 5 ML BTL EACH EYE SCH ×2 (09:15→20:09)
[2016-11-09] MEDS: BRIMONIDINE TARTRATE 0.2% OPHT SOLN 5 ML BTL EACH EYE SCH ×2 (09:15→20:09)
[2016-11-09] MEDS: IRON SUCROSE INJ 200 MG in SODIUM CHLORIDE 0.9% INJ 100 ML IV SCH (10:56)
[2016-11-09] MEDS: PANTOPRAZOLE SODIUM 40 MG VIAL IV PUSH SCH (13:00)
--- NOTE | 2016-11-09 16:51 | HHI.PR ---
Subjective Patient symptoms today saw earlier today. resting comfortably in bed. Daughter at bedside. Was confused , agitated again overnight, but did sleep. Got OOB today with PT. Took 3 steps. Objective Vital Signs Vital Signs Date Time Temp Pulse Resp B/P Pulse Ox O2 Delivery O2 Flow Rate FiO2 11/09/16 12:00 20 11/09/16 09:05 94 Nasal Cannula 4.00 11/09/16 08:09 100 BiPAP 40 11/09/16 08:09 100 35 11/09/16 06:00 70 11/09/16 04:23 99 50 11/09/16 04:00 74 11/09/16 04:00 98.2 74 23 137/62 98 11/09/16 02:00 62 11/09/16 01:23 98 50 11/09/16 01:00 98 Bi-Pap 11/09/16 00:00 68 11/09/16 00:00 100.0 68 18 102/79 96 11/08/16 22:00 76 11/08/16 22:00 94 Simple Mask 8.00 11/08/16 20:20 92 Nasal Cannula 6.00 11/08/16 20:00 97.4 72 32 102/54 94 11/08/16 20:00 72 11/08/16 19:00 94 Nasal Cannula 6.00 11/08/16 18:50 23 11/08/16 17:20 23 Intake & Output 11/09/16 11/09/16 06:59 18:59 Intake Total 800 ml Output Total 850 ml Balance -50 ml Intake Oral 240 ml IV Total 560 ml Output Urine Total 850 ml # Bowel Movements 0 Result Diagram: 11/08/16 1000 11/08/16 1000 Imaging Last 24 hours Impressions Chest X-Ray 11/09/16 0000 Signed Impressions: Service Date/Time: Wednesday, November 09, 2016 07:03 - CONCLUSION: Small left pleural effusion and left basilar density, not significantly changed. Martin Sidhu MD Objective Remarks NAD. A/O x 3. Up in chair. less laboring with respirations, on 4.5L NC irregular abd soft, NT, ND. +ecchymoses around lower abdomen, extending to left flank, left thigh Sheppard clear, yellow Ext NT. No edema. EPC cuffs on and working. Procedures Robotic Left Nephroureterectomy 11/03 Medications and IVs Current Medications Medications (Trade) Dose Ordered Sig/Michael Route Start Time Stop Time Status Last Admin (NS 1000 ml Inj) 1,000 ml @ 0 mls/hr Q10H IV 11/03/16 11:45 11/05/16 14:03 (Roxicodone) 10 mg Q4H PRN PO 11/03/16 11:45 11/09/16 11:30 (Roxicodone) 5 mg Q4H PRN PO 11/03/16 11:45 11/08/16 17:50 (Colace) 100 mg BID PO 11/03/16 11:45 11/09/16 09:12 (Zofran Inj) 4 mg Q6HR PRN IV PUSH 11/03/16 11:45 11/05/16 22:57 (Protonix Inj) 40 mg Q24H IV PUSH 11/03/16 13:00 11/09/16 13:00 (Ofirmev Inj) 1,000 mg Q6H IV 11/03/16 17:00 11/09/16 11:15 (Sinemet 25-100 Mg) 2 tab QID PO 11/03/16 21:00 11/09/16 13:31 (Ilotycin 0.5% Opth Oint) 1 applic HS EACH EYE 11/04/16 21:00 11/08/16 20:33 (Proscar) 5 mg HS PO 11/04/16 21:00 11/08/16 20:32 (Alphagan 0.2% Opth Soln) 1 drop Q12HR EACH EYE 11/04/16 09:00 11/09/16 09:15 (Timoptic 0.5% Opth Soln) 1 drop Q12HR EACH EYE 11/04/16 09:00 11/09/16 09:15 (Folate) 1 mg DAILY PO 11/05/16 09:00 11/09/16 09:13 Meclizine HCl 25 mg 25 mg TID PRN PO 11/05/16 17:30 11/09/16 09:13 Levofloxacin/ Dextrose 100 ml @ 100 mls/hr Q24H IV 11/06/16 18:00 11/08/16 17:44 Amiodarone HCl 450 mg/Dextrose 250 ml @ 0 mls/hr CONTINUOUS IV 11/06/16 17:30 11/09/16 17:30 11/08/16 05:46 (Venofer Inj/NS Inj) 110 ml @ 110 mls/hr DAILY IV 11/08/16 09:00 11/10/16 09:59 11/09/16 10:56 (Allbee C) 1 tab DAILY PO 11/08/16 09:00 11/09/16 09:13 (SEROquel) 25 mg HS PRN PO 11/08/16 10:00 11/08/16 18:55 (Ecotrin Ec) 81 mg DAILY PO 11/09/16 09:00 11/09/16 09:13 (Cordarone) 400 mg BID PO 11/09/16 17:00 Assessment and Plan Assessment and Plan POD # 6 Robotic Left Nephroureterectomy -Limit narcotic use. On IV Acetaminophen. Seroquel qhs. -Continue to Wean O2. On Nebulizer. Incentive Spirometry -On Levaquin for possible pneumonia. CXR stable. -PT/OT. -Amiodarone gtt per Critical Care. Echo normal. -GI/DVT prophylaxis. Continue to hold Heparin for now due to risk of bleed. ASA started today. -Will likely need inpatient rehab. -Appreciate Associate Pathologist support. James Oh MD November 09, 2016 16:51
[2016-11-09] MEDS: LEVOFLOXACIN 500 MG PREMIX INJ 100 ML IV SCH (17:04)
[2016-11-09] MEDS: AMIODARONE 200 MG TAB PO SCH (17:11)
[2016-11-09] MEDS: ERYTHROMYCIN 0.5% OPTH OINT 3.5 GM TUBO EACH EYE SCH (20:10)
[2016-11-09] MEDS: QUEtiapine FUMARATE 25 MG TAB PO PRN (20:10)
[2016-11-09] MEDS: FINASTERIDE 5 MG TAB PO SCH (20:10)
[2016-11-10] VITALS (21 sets, daily range): BP systolic 100–139; BP diastolic 55–65; PULSE 49–93; RESP 17–21; TEMP 97.4–98.4; O2SAT 90–100
[2016-11-10] MEDS: RESP: ALBUTEROL 2.5 MG/IPRATROPIUM 0.5 MG NEB (SCH) NEB ×2 (03:27→09:17)
[2016-11-10] MEDS: ACETAMINOPHEN 1000 MG/100 ML VIAL IV SCH ×4 (04:20→23:57)
[2016-11-10] MEDS: BRIMONIDINE TARTRATE 0.2% OPHT SOLN 5 ML BTL EACH EYE SCH ×2 (09:22→20:59)
[2016-11-10] MEDS: TIMOLOL MALEATE 0.5% OPHT SOLN 5 ML BTL EACH EYE SCH ×2 (09:22→20:59)
[2016-11-10] MEDS: FOLIC ACID 1 MG TAB PO SCH (09:23)
[2016-11-10] MEDS: ASPIRIN EC 81 MG TABEC PO SCH (09:23)
[2016-11-10] MEDS: VITAMIN B COMPLEX/VIT C TAB PO SCH (09:23)
[2016-11-10] MEDS: AMIODARONE 200 MG TAB PO SCH ×2 (09:23→20:41)
[2016-11-10] MEDS: CARBIDOPA/LEVODOPA 25 MG/100 MG TAB PO SCH ×4 (09:23→20:43)
[2016-11-10] MEDS: DOCUSATE SODIUM 100 MG CAP PO SCH ×2 (09:23→20:43)
[2016-11-10] MEDS: IRON SUCROSE INJ 200 MG in SODIUM CHLORIDE 0.9% INJ 100 ML IV SCH (10:00)
[2016-11-10 10:06] LABS: HEMATOCRIT 23.7 % (39.0-51.0); REVIEW FLAG FINAL
[2016-11-10 10:29] LABS: BICARBONATE 27.2 MEQ/L (21.0-32.0)
[2016-11-10] MEDS: PANTOPRAZOLE SODIUM 40 MG VIAL IV PUSH SCH (13:00)
--- NOTE | 2016-11-10 13:52 | HHI.PR ---
Subjective Patient symptoms today breathing slightly worsened. c/o left UQ pain, worsened with standing up, inspiration. Tolerating regular diet. Had BM this morning. Still in A-fib. Objective Vital Signs Vital Signs Date Time Temp Pulse Resp B/P Pulse Ox O2 Delivery O2 Flow Rate FiO2 11/10/16 12:36 99 Simple Mask 8.00 11/10/16 10:27 94 Nasal Cannula 6.00 11/10/16 09:16 98 Simple Mask 10.00 11/10/16 08:41 92 Nasal Cannula 6.00 11/10/16 08:15 20 11/10/16 07:44 97 35 11/10/16 06:00 93 11/10/16 04:10 93 35 11/10/16 04:00 98.2 70 17 109/58 95 11/10/16 04:00 70 11/10/16 02:00 65 11/10/16 01:55 95 35 11/10/16 00:00 62 11/10/16 00:00 97.9 62 18 103/57 100 11/09/16 22:00 64 11/09/16 20:09 98 Nasal Cannula 6.00 11/09/16 20:00 61 11/09/16 20:00 98.3 61 18 116/56 100 11/09/16 19:00 100 Nasal Cannula 6.00 11/09/16 18:00 87 11/09/16 17:46 22 11/09/16 16:00 60 11/09/16 16:00 98.0 60 16 113/56 98 11/09/16 14:00 60 Intake & Output 11/10/16 11/10/16 06:59 18:59 Intake Total 775 ml Output Total 1300 ml Balance -525 ml Intake Oral 120 ml IV Total 655 ml Output Urine Total 1300 ml # Bowel Movements 0 Result Diagram: 11/10/1693011/10/16930 Objective Remarks NAD. A/O x 3. Up in chair. less laboring with respirations, on 6 L mask irregular abd soft, NT, ND. +ecchymoses around lower abdomen, extending to left flank, left thigh Sheppard clear, yellow Ext NT. No edema. EPC cuffs on and working. Procedures Robotic Left Nephroureterectomy 11/03 Medications and IVs Current Medications Medications (Trade) Dose Ordered Sig/Michael Route Start Time Stop Time Status Last Admin (NS 1000 ml Inj) 1,000 ml @ 0 mls/hr Q10H IV 11/03/16 11:45 11/05/16 14:03 (Roxicodone) 10 mg Q4H PRN PO 11/03/16 11:45 11/10/16 07:30 (Roxicodone) 5 mg Q4H PRN PO 11/03/16 11:45 11/08/16 17:50 (Colace) 100 mg BID PO 11/03/16 11:45 11/10/16 09:23 (Zofran Inj) 4 mg Q6HR PRN IV PUSH 11/03/16 11:45 11/05/16 22:57 (Protonix Inj) 40 mg Q24H IV PUSH 11/03/16 13:00 11/09/16 13:00 (Ofirmev Inj) 1,000 mg Q6H IV 11/03/16 17:00 11/10/16 04:20 (Sinemet 25-100 Mg) 2 tab QID PO 11/03/16 21:00 11/10/16 09:23 (Ilotycin 0.5% Opth Oint) 1 applic HS EACH EYE 11/04/16 21:00 11/09/16 20:10 (Proscar) 5 mg HS PO 11/04/16 21:00 11/09/16 20:10 (Alphagan 0.2% Opth Soln) 1 drop Q12HR EACH EYE 11/04/16 09:00 11/10/16 09:22 (Timoptic 0.5% Opth Soln) 1 drop Q12HR EACH EYE 11/04/16 09:00 11/10/16 09:22 (Folate) 1 mg DAILY PO 11/05/16 09:00 11/10/16 09:23 (Antivert) 25 mg TID PRN PO 11/05/16 17:30 11/09/16 09:13 (Allbee C) 1 tab DAILY PO 11/08/16 09:00 11/10/16 09:23 (SEROquel) 25 mg HS PRN PO 11/08/16 10:00 11/09/16 20:10 (Ecotrin Ec) 81 mg DAILY PO 11/09/16 09:00 11/10/16 09:23 Amiodarone HCl 400 mg 400 mg BID PO 11/09/16 17:00 11/10/16 09:23 (Levaquin 250 Mg Premix Inj) 50 ml @ 50 mls/hr Q24H IV 11/10/16 18:00 Assessment and Plan Assessment and Plan POD # 7 Robotic Left Nephroureterectomy -Limit narcotic use. On IV Acetaminophen. Seroquel qhs. -Continue to Wean O2. On Nebulizer. Incentive Spirometry -On Levaquin for possible pneumonia. CXR pending. -Hgb 7.9. stable. -PT/OT. -Amiodarone gtt per Critical Care. Echo normal. Discussed with Dr. Estrada. will consult Cardiology -GI/DVT prophylaxis. Continue to hold Heparin for now due to risk of bleed. ASA started today. -Will likely need inpatient rehab. -Appreciate Manager Market Intelligence support. James Oh MD November 10, 2016 13:52
--- NOTE | 2016-11-10 14:09 | RADRPT ---
EXAM DATE/TIME: 11/10/2016 14:00 [facility] COMPARISON: CHEST SINGLE AP, November 09, 2016, 7:03. INDICATIONS : Evaluate respiratory failure. MEDICAL HISTORY : None. SURGICAL HISTORY : None. ENCOUNTER: Subsequent ACUITY: 1 week PAIN SCORE: 4/10 LOCATION: Left lower chest FINDINGS: A single view of the chest demonstrates worsening left basilar consolidation. Small effusion on left. Right lung clear. Osseous structures are intact. CONCLUSION: Worsening left basilar consolidation. Martin Sidhu MD on November 10, 2016 at 14:08 Board Certified Radiologist. This report was verified electronically.
--- NOTE | 2016-11-10 14:54 | HHI.CCPN ---
Subjective Remarks/Hospital Course 11/03: 86 y/o male with past medical history significant for Parkinson's disease who was diagnosed to have a left renal pelvis mass when he presented with hematuria and left flank pain which was felt to be consistent with transitional cell carcinoma. Patient underwent left robotic nephroureterectomy under general anesthesia by Dr. Oh on 11/03, received 2500 cc crystalloid, EBL 75 cc , Intra-Op urine output 300 cc. Patient was extubated postoperatively and transferred to PACU and subsequently to [facility]. His heart rate has been in the 40s postoperatively. Patient tells me that he runs a slow heart rate for a few years now. He did drop his blood pressure to the 70s transiently for which she was given a fluid bolus with normal saline 1 L and critical care consult was requested for hypotension and Dr. marte. I evaluated the patient immediately on being notified of the consult. At the time of my evaluation he was laying in the ICU bed not in any acute distress. He denied any chest pain or shortness of breath. He had minimal abdominal discomfort at the site of surgery. 11/04: Resting in bed comfortably no further hypotension since last night. 11/05: Patient had a hemoglobin dropped down to 7 g percent. No hypotension or tachycardia. He is resting in bed comfortably not in any acute distress this morning at the time of my evaluation. Bruising noted over left flank and anterior abdominal wall. 11/06: Receive morphine last night and is drowsy currently. No hypotension overnight. Hemoglobin remains above 7. 11/07: Went into A. fib with RVR on 11/06 and was started on amiodarone drip. Currently remains rate controlled. 11/08: Was agitated and confused overnight. This morning he is awake and alert appears comfortable and is very pleasant. On 4.5 L nasal cannula. Remains in atrial fibrillation on amiodarone drip. 11/09: He was confused and agitated at night. Was on BiPAP with full facemask overnight. Remains in atrial fibrillation on amiodarone drip. Starting aspirin today. 11/10: Awake and alert, following commands. On nasal cannula 6 L/m. Remains in A. fib. Amiodarone switched to by mouth yesterday. Erythema and swelling over right forearm secondary to IV infiltration noted. Objective Vital Signs Date Time Temp Pulse Resp B/P Pulse Ox O2 Delivery O2 Flow Rate FiO2 5/23/17 12:36 99 Simple Mask 8.00 11/10/16 08:15 20 11/10/16 07:44 35 11/10/16 06:00 93 11/10/16 04:00 98.2 109/58 Intake and Output 11/09/16 11/09/16 11/09/16 07:59 15:59 23:59 Intake Total 431 ml 633 ml 458 ml Output Total 350 ml 1550 ml 925 ml Balance 81 ml -917 ml -467 ml Result Diagram: 11/10/16 0931 11/10/16 0931 Imaging Last Impressions Chest X-Ray 11/04/16 0000 Signed Impressions: Service Date/Time: Friday, November 04, 2016 09:29 - CONCLUSION: 1. Basilar atelectasis. 2. There is air within the subcutaneous soft tissues in the midaxillary line along the left lower chest and upper abdomen. This is of uncertain etiology. Pratik Valverde MD Objective Remarks HEENT/Neuro: Pallor present, No icterus, tongue moist, DERICK, AAO x3, nonfocal grossly, moving all 4 extremities Neck: No JVD Chest/pulmonary: Air entry decreased bilaterally at bases, scattered rhonchi more on the left base. No wheezing Cardiovascular: S1-S2 irregularly irregular no gallop or murmur GI/abdomen: Soft, nontender, bowel sounds sluggish. Port sites with Steri- Strips in place. Bruising/ ecchymosis over the anterior abdominal wall and left flank noted Extremities: Warm bilaterally, no edema A/P Assessment and Plan 86-year-old male with Left kidney mass status post left robotic-assisted nephroureterectomy/urethral dilation Hypotension Anemia Acute respiratory failure Suspected atelectasis versus left lower lobe pneumonia Suspected sleep apnea Suspected COPD A. fib with RVR(new) Sinus bradycardia Right bundle branch block [old] First degree AV block History of Parkinson's disease Hyperlipidemia Plan: Neuro: Follow neuro status, pain medications as ordered by urology. Continue Sinemet for Parkinson's disease. Avoid sedatives and narcotics as patient is experiencing delirium at nights. Started Seroquel 25 mg daily at bedtime to control delirium on 11/08 Cardiovascular: Has long-standing bradycardia though history of heart rate was in the 60s. Now in A. fib, rate controlled. Switched amiodarone to by mouth on 11/09.. TSH slightly elevated suggesting subclinical hypothyroidism. Cardiology consult requested for atrial fibrillation and long-standing bradycardia. Pulmonary: BiPAP/Supplemental O2 as needed. Incentive spirometry, bronchodilators as needed. VQ scan did not show any perfusion defects however ventilation scan suggested patchy airspace disease. Encourage incentive spirometry. GI/liver: Advance PO diet per urology recommendations Renal/: Status post left nephroureterectomy in followed by urology. Strict intake output, monitor and replete electrolites, follow BUN/creatinine. ID: Perioperative antibiotic prophylaxis per urology. Started empiric antibiotic coverage with Levaquin to cover for pneumonia on 11/06. Noted erythema over right forearm and IV infiltration site. Heme: Follow CBC. Patient has indicated preoperatively that he does not wish to receive any blood products however per anesthesia documentation is okay with albumin if needed. Hemoglobin drop noted. On 11/05 initiated darbapoeitin subcutaneously, IM B-12, IV iron sucrose and PO folic acid. Once again confirmed with patient on 11/05 and he does not wish to have blood transfusions. Hemoglobin gradually improving. Prophylaxis: Protonix, SCDs. Subcutaneous heparin when okay with urology - on hold currently. d/W family at bedside. Discussed with Dr. Oh. Pastor Estrada MD November 10, 2016 14:54
[2016-11-10] MEDS: LEVOFLOXACIN/DEXTROSE 250 MG/50 ML IV SCH (16:42)
--- NOTE | 2016-11-10 16:48 | MB ---
cc: MARY LEYVA MD DATE OF CONSULTATION 11/10/16 HISTORY OF PRESENT ILLNESS Hr. Washington is an 86 year old white male with a history of Parkinson's disease who was diagnosed with transitional cell carcinoma. He underwent nephrectomy and nephroureterectomy on 11/03. His heart rate has been in the 40s. He has had history of bradycardia which has been asymptomatic. He also has had hypertension. He subsequently developed atrial fibrillation with rapid ventricular response and he was started immediately on amiodarone with control of his rate. He is on aspirin, but has not been fully anticoagulated due to his recent surgery. He also is a Hindu and, at this time, the risk of life threatening bleeding is too high. The patient denies any chest pain. He has mild shortness of breath and cough. PAST MEDICAL HISTORY 1. Parkinson's disease 2. Dyslipidemia 3. Recent nephroureterectomy 4. History of oral surgery 5. History of surgery for rectal fistula MEDICATIONS At home, 1. Levodopa/carbidopa 2. Aspirin 3. Finasteride 4. Erythromycin 5. Bromindione 6. Timolol eye drops ALLERGIES None. SOCIAL HISTORY The patient does not smoker. He does not drink alcohol. FAMILY HISTORY Negative for heart disease. REVIEW OF SYSTEMS Otherwise negative. PHYSICAL EXAMINATION VITAL SIGNS: Blood pressure 110/60, pulse 75. HEENT: Negative, 2+ carotid upstrokes, no bruits. LUNGS: Clear. Had a few rhonchi HEART: Irregularly irregular, no murmurs, rubs or gallops ABDOMEN: Soft, no bruits. EXTREMITIES: With trace edema, 1+ distal pulses. NEUROLOGIC: Grossly nonfocal. CARDIOLOGY STUDIES Electrocardiogram was reviewed and showed atrial fibrillation with rapid ventricular response, normal axis and right bundle branch block. LABORATORY DATA Hemoglobin 7.9, potassium 4.0, creatinine 1.5. Troponin 0.05. TSH 6.5. DIAGNOSES 1. Atrial fibrillation with rapid ventricular response 2. Recent nephroureterectomy 3. Sinus bradycardia 4. Right bundle branch block (chronic) 5. Transient hypotension 6. Parkinson's disease 7. Dyslipidemia DISPOSITION Mr. Washington will be monitored on telemetry. At this time, the risk of stroke with cardioversion is too high. The patient cannot be fully anticoagulated due to his recent surgery, anemia and inability to transfuse him in case of life threatening bleeding since he is a Hindu. We will continue therapy with aspirin. I recommend to continue rate control with amiodarone. The situation was discussed with the patient and his family. I will follow him for cardiology during his hospitalization. MD CASEY Acosta/ /4:30 PM /4:35 PM [id number]
[2016-11-10] MEDS: FINASTERIDE 5 MG TAB PO SCH (20:43)
[2016-11-10] MEDS: ERYTHROMYCIN 0.5% OPTH OINT 3.5 GM TUBO EACH EYE SCH (20:59)
[2016-11-11] VITALS (15 sets, daily range): BP systolic 112–169; BP diastolic 55–69; PULSE 33–70; RESP 20–27; TEMP 97–98; O2SAT 96–99
[2016-11-11] MEDS: ACETAMINOPHEN 1000 MG/100 ML VIAL IV SCH (05:00)
--- NOTE | 2016-11-11 08:20 | HHI.PR ---
Subjective Patient symptoms today feels better today. Slept well last night. Denies abdominal pain. Passing flatus. Denies chest pain. Denies fevers. Objective Vital Signs Vital Signs Date Time Temp Pulse Resp B/P Pulse Ox O2 Delivery O2 Flow Rate FiO2 11/11/16 04:00 97.8 56 20 120/58 98 11/11/16 04:00 56 11/11/16 03:05 97 35 11/11/16 02:00 52 11/11/16 00:51 98 35 11/11/16 00:00 56 11/11/16 00:00 97.4 56 20 127/69 97 11/10/16 22:00 50 11/10/16 21:56 96 BiPAP 11/10/16 21:45 96 35 11/10/16 21:42 20 11/10/16 20:00 62 11/10/16 20:00 97.4 49 21 139/65 98 11/10/16 20:00 Nasal Cannula 6.00 11/10/16 18:00 62 11/10/16 16:00 97.9 64 18 100/55 90 11/10/16 16:00 64 11/10/16 14:00 62 11/10/16 12:36 99 Simple Mask 8.00 11/10/16 12:00 56 11/10/16 12:00 97.6 56 21 110/55 96 11/10/16 10:27 94 Nasal Cannula 6.00 11/10/16 10:00 72 11/10/16 09:16 98 Simple Mask 10.00 11/10/16 08:41 92 Nasal Cannula 6.00 Result Diagram: 11/10/1693011/10/1631 Objective Remarks NAD. A/O x 3. Up in chair. less laboring with respirations, on 6 L mask irregular abd soft, NT, ND. +ecchymoses around lower abdomen, extending to left flank, left thigh Sheppard clear, yellow Ext NT. No edema. EPC cuffs on and working. Procedures Robotic Left Nephroureterectomy 11/03 Medications and IVs Current Medications Medications (Trade) Dose Ordered Sig/Michael Route Start Time Stop Time Status Last Admin (NS 1000 ml Inj) 1,000 ml @ 0 mls/hr Q10H IV 11/03/16 11:45 11/05/16 14:03 (Roxicodone) 10 mg Q4H PRN PO 11/03/16 11:45 11/10/16 20:42 (Roxicodone) 5 mg Q4H PRN PO 11/03/16 11:45 11/08/16 17:50 (Colace) 100 mg BID PO 11/03/16 11:45 11/10/16 20:43 (Zofran Inj) 4 mg Q6HR PRN IV PUSH 11/03/16 11:45 11/05/16 22:57 (Protonix Inj) 40 mg Q24H IV PUSH 11/03/16 13:00 11/10/16 13:00 (Ofirmev Inj) 1,000 mg Q6H IV 11/03/16 17:00 11/11/16 05:00 (Sinemet 25-100 Mg) 2 tab QID PO 11/03/16 21:00 11/10/16 20:43 (Ilotycin 0.5% Opth Oint) 1 applic HS EACH EYE 11/04/16 21:00 11/10/16 20:59 (Proscar) 5 mg HS PO 11/04/16 21:00 11/10/16 20:43 (Alphagan 0.2% Opth Soln) 1 drop Q12HR EACH EYE 11/04/16 09:00 11/10/16 20:59 (Timoptic 0.5% Opth Soln) 1 drop Q12HR EACH EYE 11/04/16 09:00 11/10/16 20:59 (Folate) 1 mg DAILY PO 11/05/16 09:00 11/10/16 09:23 (Antivert) 25 mg TID PRN PO 11/05/16 17:30 11/09/16 09:13 (Allbee C) 1 tab DAILY PO 11/08/16 09:00 11/10/16 09:23 (SEROquel) 25 mg HS PRN PO 11/08/16 10:00 11/09/16 20:10 (Ecotrin Ec) 81 mg DAILY PO 11/09/16 09:00 11/10/16 09:23 Amiodarone HCl 400 mg 400 mg BID PO 11/09/16 17:00 11/10/16 20:41 (Levaquin 250 Mg Premix Inj) 50 ml @ 50 mls/hr Q24H IV 11/10/16 18:00 11/10/16 16:42 Assessment and Plan Assessment and Plan POD # 8 Robotic Left Nephroureterectomy -Limit narcotic use. On IV Acetaminophen. Seroquel qhs. -Continue to Wean O2. On Nebulizer. Incentive Spirometry -On Levaquin. CXR yesterday showed slightly worse consolidation. ? Broaden antibiotic coverage. -Hgb 7.9. stable. -PT/OT. -On PO Amiodarone, ASA 81 mg daily. Appreciate Cardiology input. Note reviewed. -GI/DVT prophylaxis. Continue to hold Heparin due to high bleeding risk. -Will likely need inpatient rehab. -Appreciate Data Management Associate support. James Oh MD November 11, 2016 08:20
[2016-11-11] MEDS: ASPIRIN EC 81 MG TABEC PO SCH (09:25)
[2016-11-11] MEDS: AMIODARONE 200 MG TAB PO SCH (09:25)
[2016-11-11] MEDS: VITAMIN B COMPLEX/VIT C TAB PO SCH (09:25)
[2016-11-11] MEDS: CARBIDOPA/LEVODOPA 25 MG/100 MG TAB PO SCH ×4 (09:25→20:35)
[2016-11-11] MEDS: BRIMONIDINE TARTRATE 0.2% OPHT SOLN 5 ML BTL EACH EYE SCH ×2 (09:25→20:34)
[2016-11-11] MEDS: TIMOLOL MALEATE 0.5% OPHT SOLN 5 ML BTL EACH EYE SCH ×2 (09:25→20:35)
[2016-11-11] MEDS: DOCUSATE SODIUM 100 MG CAP PO SCH ×2 (09:25→20:34)
[2016-11-11] MEDS: FOLIC ACID 1 MG TAB PO SCH (09:25)
[2016-11-11] MEDS: PANTOPRAZOLE SODIUM 40 MG VIAL IV PUSH SCH (12:49)
[2016-11-11] MEDS: ACETAMINOPHEN 500 MG CPLT PO PRN ×2 (12:50→20:37)
--- NOTE | 2016-11-11 15:34 | HHI.CCPN ---
Subjective Remarks/Hospital Course 11/03: 86 y/o male with past medical history significant for Parkinson's disease who was diagnosed to have a left renal pelvis mass when he presented with hematuria and left flank pain which was felt to be consistent with transitional cell carcinoma. Patient underwent left robotic nephroureterectomy under general anesthesia by Dr. Oh on 11/03, received 2500 cc crystalloid, EBL 75 cc , Intra-Op urine output 300 cc. Patient was extubated postoperatively and transferred to PACU and subsequently to [facility]. His heart rate has been in the 40s postoperatively. Patient tells me that he runs a slow heart rate for a few years now. He did drop his blood pressure to the 70s transiently for which she was given a fluid bolus with normal saline 1 L and critical care consult was requested for hypotension and Dr. marte. I evaluated the patient immediately on being notified of the consult. At the time of my evaluation he was laying in the ICU bed not in any acute distress. He denied any chest pain or shortness of breath. He had minimal abdominal discomfort at the site of surgery. 11/04: Resting in bed comfortably no further hypotension since last night. 11/05: Patient had a hemoglobin dropped down to 7 g percent. No hypotension or tachycardia. He is resting in bed comfortably not in any acute distress this morning at the time of my evaluation. Bruising noted over left flank and anterior abdominal wall. 11/06: Receive morphine last night and is drowsy currently. No hypotension overnight. Hemoglobin remains above 7. 11/07: Went into A. fib with RVR on 11/06 and was started on amiodarone drip. Currently remains rate controlled. 11/08: Was agitated and confused overnight. This morning he is awake and alert appears comfortable and is very pleasant. On 4.5 L nasal cannula. Remains in atrial fibrillation on amiodarone drip. 11/09: He was confused and agitated at night. Was on BiPAP with full facemask overnight. Remains in atrial fibrillation on amiodarone drip. Starting aspirin today. 11/10: Awake and alert, following commands. On nasal cannula 6 L/m. Remains in A. fib. Amiodarone switched to by mouth yesterday. Erythema and swelling over right forearm secondary to IV infiltration noted. 11/11: awake and alert. afib converted overnight. Objective Vital Signs Date Time Temp Pulse Resp B/P Pulse Ox O2 Delivery O2 Flow Rate FiO2 11/11/16 14:00 20 11/11/16 10:00 47 11/11/16 08:00 97.0 169/62 98 11/11/16 07:20 Simple Mask 6.00 11/11/16 03:05 35 Intake and Output 11/10/16 11/10/16 11/11/16 08:00 16:00 00:00 Intake Total 317 ml 700 ml 388 ml Output Total 375 ml 3200 ml 350 ml Balance -58 ml -2500 ml 38 ml Result Diagram: 11/10/1631 11/10/16 0931 Imaging Last Impressions Chest X-Ray 11/04/16 0000 Signed Impressions: Service Date/Time: Friday, November 04, 2016 09:29 - CONCLUSION: 1. Basilar atelectasis. 2. There is air within the subcutaneous soft tissues in the midaxillary line along the left lower chest and upper abdomen. This is of uncertain etiology. Pratik Valverde MD Objective Remarks HEENT/Neuro: Pallor present, No icterus, tongue moist, DERICK, AAO x3, nonfocal grossly, moving all 4 extremities Neck: No JVD Chest/pulmonary: Air entry decreased bilaterally at bases, scattered rhonchi more on the left base. No wheezing Cardiovascular: S1-S2 irregularly irregular no gallop or murmur GI/abdomen: Soft, nontender, bowel sounds sluggish. Port sites with Steri- Strips in place. Bruising/ ecchymosis over the anterior abdominal wall and left flank noted Extremities: Warm bilaterally, no edema A/P Assessment and Plan 86-year-old male with Left kidney mass status post left robotic-assisted nephroureterectomy/urethral dilation Hypotension- resolving. Anemia secondary to acute blood loss Acute respiratory failure Suspected atelectasis versus left lower lobe pneumonia Suspected sleep apnea Suspected COPD A. fib with RVR(new)- resolved. Sinus bradycardia Right bundle branch block [old] First degree AV block History of Parkinson's disease Hyperlipidemia Plan: Neuro: Follow neuro status, pain medications as ordered by urology. Continue Sinemet for Parkinson's disease. Avoid sedatives and narcotics as patient is experiencing delirium at nights. Seroquel 25 mg daily at bedtime to control delirium on 11/08 Cardiovascular: Has long-standing bradycardia though history of heart rate was in the 60s. afib converted to sinus bradycardia. Switched amiodarone to by mouth on 11/09.. TSH slightly elevated suggesting subclinical hypothyroidism. Cardiology consult requested for atrial fibrillation and long-standing bradycardia. Pulmonary: BiPAP/Supplemental O2 as needed. Incentive spirometry, bronchodilators as needed. VQ scan did not show any perfusion defects however ventilation scan suggested patchy airspace disease. Encourage incentive spirometry. GI/liver: Advance PO diet per urology recommendations Renal/: Status post left nephroureterectomy in followed by urology. Strict intake output, monitor and replete electrolites, follow BUN/creatinine. ID: Perioperative antibiotic prophylaxis per urology. Started empiric antibiotic coverage with Levaquin to cover for pneumonia on 11/06, anticipated stop date 11/12. Noted erythema over right forearm and IV infiltration site. Heme: Follow CBC. Patient has indicated preoperatively that he does not wish to receive any blood products however per anesthesia documentation is okay with albumin if needed. Hemoglobin drop noted. On 11/05 initiated darbapoeitin subcutaneously, IM B-12, IV iron sucrose and PO folic acid. Once again confirmed with patient on 11/05 and he does not wish to have blood transfusions. Hemoglobin gradually improving. Prophylaxis: Protonix, SCDs. Subcutaneous heparin when okay with urology - on hold currently. Dispo: clinically improving. will keep in ICU today, but I think she is stable to transfer to floor tomorrow. Tucker Morales MD November 11, 2016 15:34
[2016-11-11] MEDS: LEVOFLOXACIN/DEXTROSE 250 MG/50 ML IV SCH (18:00)
--- NOTE | 2016-11-11 18:24 | PD.CARD.PN ---
Subjective Subjective Remarks No CP or SOB, comfortable Objective Medications Current Medications Medications (Trade) Dose Ordered Sig/Michael Route Start Time Stop Time Status Last Admin (NS 1000 ml Inj) 1,000 ml @ 0 mls/hr Q10H IV 11/03/16 11:45 11/05/16 14:03 (Roxicodone) 10 mg Q4H PRN PO 11/03/16 11:45 11/11/16 15:04 (Roxicodone) 5 mg Q4H PRN PO 11/03/16 11:45 11/08/16 17:50 (Colace) 100 mg BID PO 11/03/16 11:45 11/11/16 09:25 (Zofran Inj) 4 mg Q6HR PRN IV PUSH 11/03/16 11:45 11/05/16 22:57 (Protonix Inj) 40 mg Q24H IV PUSH 11/03/16 13:00 11/11/16 12:49 (Sinemet 25-100 Mg) 2 tab QID PO 11/03/16 21:00 11/11/16 12:49 (Ilotycin 0.5% Opth Oint) 1 applic HS EACH EYE 11/04/16 21:00 11/10/16 20:59 (Proscar) 5 mg HS PO 11/04/16 21:00 11/10/16 20:43 (Alphagan 0.2% Opth Soln) 1 drop Q12HR EACH EYE 11/04/16 09:00 11/11/16 09:25 (Timoptic 0.5% Opth Soln) 1 drop Q12HR EACH EYE 11/04/16 09:00 11/11/16 09:25 (Folate) 1 mg DAILY PO 11/05/16 09:00 11/11/16 09:25 (Antivert) 25 mg TID PRN PO 11/05/16 17:30 11/09/16 09:13 (Allbee C) 1 tab DAILY PO 11/08/16 09:00 11/11/16 09:25 (SEROquel) 25 mg HS PRN PO 11/08/16 10:00 11/09/16 20:10 (Ecotrin Ec) 81 mg DAILY PO 11/09/16 09:00 11/11/16 09:25 Amiodarone HCl 400 mg 400 mg BID PO 11/09/16 17:00 11/10/16 20:41 (Levaquin 250 Mg Premix Inj) 50 ml @ 50 mls/hr Q24H IV 11/10/16 18:00 11/12/16 23:59 11/10/16 16:42 (Tylenol) 1,000 mg Q6H PRN PO 11/11/16 11:00 11/11/16 12:50 (Neurontin) 100 mg HS PO 11/11/16 21:00 Vital Signs / I&O Vital Signs Date Time Temp Pulse Resp B/P Pulse Ox O2 Delivery O2 Flow Rate FiO2 11/11/16 16:00 22 11/11/16 14:00 20 11/11/16 10:00 47 11/11/16 08:00 97.0 33 24 169/62 98 11/11/16 08:00 63 11/11/16 07:20 96 11/11/16 07:20 96 Simple Mask 6.00 11/11/16 07:00 Nasal Cannula 6.00 11/11/16 04:00 97.8 56 20 120/58 98 11/11/16 04:00 56 11/11/16 03:05 97 35 11/11/16 02:00 52 11/11/16 00:51 98 35 11/11/16 00:00 56 11/11/16 00:00 97.4 56 20 127/69 97 11/10/16 22:00 50 11/10/16 21:56 96 BiPAP 11/10/16 21:45 96 35 11/10/16 20:00 62 11/10/16 20:00 97.4 49 21 139/65 98 11/10/16 20:00 Nasal Cannula 6.00 I/O 11/10/16 11/10/16 11/10/16 11/11/16 11/11/16 11/11/16 07:00 15:00 23:00 07:00 15:00 23:00 Intake Total 317 ml 700 ml 388 ml 309 ml Output Total 375 ml 3200 ml 350 ml 375 ml Balance -58 ml -2500 ml 38 ml -66 ml Intake Oral 400 ml 60 ml 60 ml IV Total 317 ml 300 ml 328 ml 249 ml Output Urine Total 375 ml 3200 ml 350 ml 375 ml # Bowel Movements 0 0 0 0 Physical Exam GENERAL: In NAD SKIN: Warm and dry. HEAD: Normocephalic. EYES: No scleral icterus. No injection or drainage. NECK: Supple, trachea midline. No JVD or lymphadenopathy. CARDIOVASCULAR: Regular rate and rhythm without murmurs, gallops, or rubs. RESPIRATORY: Breath sounds equal bilaterally. No accessory muscle use. GASTROINTESTINAL: Abdomen soft, non-tender, nondistended. MUSCULOSKELETAL: No cyanosis, or edema. Laboratory Laboratory Tests Test 11/07/16 11/08/16 11/09/16 11/10/16 03:35 10:00 06:50 09:31 White Blood Count 9.7 TH/MM3 Red Blood Count 2.51 MIL/MM3 Mean Corpuscular Volume 91.5 FL Mean Corpuscular Hemoglobin 30.4 PG Mean Corpuscular Hemoglobin 33.2 % Concent Red Cell Distribution Width 14.7 % Platelet Count 188 TH/MM3 Mean Platelet Volume 7.6 FL Thyroid Stimulating Hormone 6.520 uIU/ML 3rd Gen Blood Gas Puncture Site RT RADIAL Blood Gas Patient Temperature 98.6 Blood Gas HCO3 24 mmol/L Blood Gas Base Excess -0.1 mmol/L Blood Gas Oxygen Saturation 98 % Arterial Blood pH 7.44 Arterial Blood Partial 36 mmHg Pressure CO2 Arterial Blood Partial 381 mmHg Pressure O2 Arterial Blood Oxygen Content 12.2 Vol % Arterial Blood 1.5 % Carboxyhemoglobin Arterial Blood Methemoglobin 0.8 % Blood Gas Hemoglobin 8.2 G/DL Oxygen Delivery Device BiPAP10/5 Blood Gas Inspired Oxygen 100 % Hemoglobin 7.9 GM/DL Hematocrit 23.7 % Sodium Level 140 MEQ/L Potassium Level 4.0 MEQ/L Chloride Level 105 MEQ/L Carbon Dioxide Level 27.2 MEQ/L Anion Gap 8 MEQ/L Blood Urea Nitrogen 20 MG/DL Creatinine 1.50 MG/DL Estimat Glomerular Filtration 44 ML/MIN Rate Random Glucose 94 MG/DL Calcium Level 8.1 MG/DL Imaging Last Impressions Chest X-Ray 11/10/16 0000 Signed Impressions: Service Date/Time: Thursday, November 10, 2016 14:00 - CONCLUSION: Worsening left basilar consolidation. Martin Sidhu MD Lung Scan-V[facility] Nuclear Medicine 11/06/16 0000 Signed Impressions: Service Date/Time: Sunday, November 06, 2016 13:52 - CONCLUSION: 1. The perfusion portion the exam is normal. No pulmonary embolus is identified. 2. Patchy delivery of tracer to both lungs suggesting COPD. Pratik Valverde MD Assessment and Plan Problem List: (1) Atrial fibrillation (2) H/O nephroureterectomy (3) Sinus bradycardia (4) Hypertension Assessment and Plan In SR. Continue amio loading. Increase activity. Not a candidate for full anticoagulation at this time. D/ w pt and family. Prosper Ruelas MD November 11, 2016 18:24
[2016-11-11] MEDS: FINASTERIDE 5 MG TAB PO SCH (20:33)
[2016-11-11] MEDS: GABAPENTIN 100 MG CAP PO SCH (20:34)
[2016-11-11] MEDS: ERYTHROMYCIN 0.5% OPTH OINT 3.5 GM TUBO EACH EYE SCH (20:35)
[2016-11-12] VITALS (15 sets, daily range): BP systolic 119–150; BP diastolic 58–67; PULSE 50–127; RESP 21–28; TEMP 97–98.2; O2SAT 67–99
[2016-11-12] MEDS ORDERED: EPINEPHrine HCL (1:10,000) 1 MG/10 ML SYRINGE IV ONE ×2 (05:00)
[2016-11-12] MEDS ORDERED: NOREPINEPHRINE 4 MG/4 ML AMP IV ONE (05:00)
[2016-11-12] MEDS ORDERED: LIDOCAINE HCL 2% 100 MG/5 ML SYRINGE IV PUSH ONE (05:00)
[2016-11-12] MEDS ORDERED: ATROPINE SULFATE 1 MG/10 ML SYRINGE IV ONE ×2 (05:00)
[2016-11-12] MEDS ORDERED: SODIUM BICARBONATE 8.4% INJ 50 MEQ/50 ML SYR IV ONE ×2 (05:00)
[2016-11-12] MEDS: AMIODARONE 200 MG TAB PO SCH (08:17)
[2016-11-12] MEDS: FOLIC ACID 1 MG TAB PO SCH (08:17)
[2016-11-12] MEDS: DOCUSATE SODIUM 100 MG CAP PO SCH ×2 (08:17→20:48)
[2016-11-12] MEDS: VITAMIN B COMPLEX/VIT C TAB PO SCH (08:17)
[2016-11-12] MEDS: BRIMONIDINE TARTRATE 0.2% OPHT SOLN 5 ML BTL EACH EYE SCH ×2 (08:17→20:57)
[2016-11-12] MEDS: ASPIRIN EC 81 MG TABEC PO SCH (08:17)
[2016-11-12] MEDS: CARBIDOPA/LEVODOPA 25 MG/100 MG TAB PO SCH ×4 (08:17→20:55)
[2016-11-12] MEDS: TIMOLOL MALEATE 0.5% OPHT SOLN 5 ML BTL EACH EYE SCH ×2 (08:18→20:57)
--- NOTE | 2016-11-12 10:07 | HHI.CCPN ---
Subjective Remarks/Hospital Course 11/03: 86 y/o male with past medical history significant for Parkinson's disease who was diagnosed to have a left renal pelvis mass when he presented with hematuria and left flank pain which was felt to be consistent with transitional cell carcinoma. Patient underwent left robotic nephroureterectomy under general anesthesia by Dr. Oh on 11/03, received 2500 cc crystalloid, EBL 75 cc , Intra-Op urine output 300 cc. Patient was extubated postoperatively and transferred to PACU and subsequently to [facility]. His heart rate has been in the 40s postoperatively. Patient tells me that he runs a slow heart rate for a few years now. He did drop his blood pressure to the 70s transiently for which she was given a fluid bolus with normal saline 1 L and critical care consult was requested for hypotension and Dr. marte. I evaluated the patient immediately on being notified of the consult. At the time of my evaluation he was laying in the ICU bed not in any acute distress. He denied any chest pain or shortness of breath. He had minimal abdominal discomfort at the site of surgery. 11/04: Resting in bed comfortably no further hypotension since last night. 11/05: Patient had a hemoglobin dropped down to 7 g percent. No hypotension or tachycardia. He is resting in bed comfortably not in any acute distress this morning at the time of my evaluation. Bruising noted over left flank and anterior abdominal wall. 11/06: Receive morphine last night and is drowsy currently. No hypotension overnight. Hemoglobin remains above 7. 11/07: Went into A. fib with RVR on 11/06 and was started on amiodarone drip. Currently remains rate controlled. 11/08: Was agitated and confused overnight. This morning he is awake and alert appears comfortable and is very pleasant. On 4.5 L nasal cannula. Remains in atrial fibrillation on amiodarone drip. 11/09: He was confused and agitated at night. Was on BiPAP with full facemask overnight. Remains in atrial fibrillation on amiodarone drip. Starting aspirin today. 11/10: Awake and alert, following commands. On nasal cannula 6 L/m. Remains in A. fib. Amiodarone switched to by mouth yesterday. Erythema and swelling over right forearm secondary to IV infiltration noted. 11/11: awake and alert. afib converted overnight. 11/12: doing well and stable. on 5L NC. out of bed to chair on my eval. Objective Vital Signs Date Time Temp Pulse Resp B/P Pulse Ox O2 Delivery O2 Flow Rate FiO2 11/12/16 08:00 58 11/12/16 07:24 99 Simple Mask 7.00 11/12/16 07:00 40 11/12/16 04:00 98.2 28 137/65 Intake and Output 11/11/16 11/11/16 11/12/16 08:00 16:00 00:00 Intake Total 309 ml 625 ml 650 ml Output Total 375 ml 450 ml 275 ml Balance -66 ml 175 ml 375 ml Result Diagram: 11/10/1631 11/10/16930 Imaging Last Impressions Chest X-Ray 11/04/16 0000 Signed Impressions: Service Date/Time: Friday, November 04, 2016 09:29 - CONCLUSION: 1. Basilar atelectasis. 2. There is air within the subcutaneous soft tissues in the midaxillary line along the left lower chest and upper abdomen. This is of uncertain etiology. Pratik Valverde MD Objective Remarks HEENT/Neuro: Pallor present, No icterus, tongue moist, DERICK, AAO x3, nonfocal grossly, moving all 4 extremities Neck: No JVD Chest/pulmonary: unlabored. equal chest rise. Cardiovascular: normal rate, regular rhythm. sinus by tele. GI/abdomen: Soft, nontender. Port sites with Steri-Strips in place. Bruising/ ecchymosis over the anterior abdominal wall and left flank noted Extremities: Warm bilaterally, no edema A/P Assessment and Plan 86-year-old male with Left kidney mass status post left robotic-assisted nephroureterectomy/urethral dilation Hypotension- resolving. Anemia secondary to acute blood loss Acute respiratory failure- resolving. Suspected sleep apnea Suspected COPD A. fib with RVR(new)- resolved. Sinus bradycardia Right bundle branch block [old] First degree AV block History of Parkinson's disease Hyperlipidemia Plan: Neuro: Follow neuro status, pain medications as ordered by urology. Continue Sinemet for Parkinson's disease. Avoid sedatives and narcotics as patient is experiencing delirium at nights. Seroquel 25 mg daily at bedtime to control delirium on 11/08 Cardiovascular: Has long-standing bradycardia though history of heart rate was in the 60s. afib converted to sinus bradycardia. Switched amiodarone to by mouth on 11/09.. TSH slightly elevated suggesting subclinical hypothyroidism. Cardiology consult requested for atrial fibrillation and long-standing bradycardia. Pulmonary: BiPAP/Supplemental O2 as needed, may need nightly bipap for suspected home ANUJ/COPD. Incentive spirometry, bronchodilators as needed. VQ scan did not show any perfusion defects however ventilation scan suggested patchy airspace disease. Encourage incentive spirometry. GI/liver: Advance PO diet per urology recommendations Renal/: Status post left nephroureterectomy in followed by urology. Strict intake output, monitor and replete electrolites, follow BUN/creatinine. ID: Perioperative antibiotic prophylaxis per urology. Started empiric antibiotic coverage with Levaquin to cover for pneumonia on 11/06, anticipated stop date 11/12. Heme: Follow CBC. Patient has indicated preoperatively that he does not wish to receive any blood products however per anesthesia documentation is okay with albumin if needed. Hemoglobin drop noted. On 11/05 initiated darbapoeitin subcutaneously, IM B-12, IV iron sucrose and PO folic acid. Once again confirmed with patient on 11/05 and he does not wish to have blood transfusions. Hemoglobin gradually improving. Prophylaxis: Protonix, SCDs. Subcutaneous heparin when okay with urology - on hold currently. Dispo: clinically improving. stable for transfer to the floor. will consult hospitalist to assist in medical management of comorbidities. Tucker Morales MD November 12, 2016 10:07
[2016-11-12 11:34] LABS: HEMATOCRIT 25.9 % (39.0-51.0); MEAN CORPUSCULAR HEMOGLOBIN 31.9 PG (27.0-34.0); PLATELET COUNT 370 TH/MM3 (150-450); RED BLOOD COUNT 2.75 MIL/MM3 (4.50-5.90); RED CELL DISTRIBUTION WIDTH 15.5 % (11.6-17.2); REVIEW FLAG FINAL; WHITE BLOOD COUNT 11.5 TH/MM3 (4.0-11.0)
[2016-11-12] MEDS: PANTOPRAZOLE SODIUM 40 MG VIAL IV PUSH SCH (11:43)
[2016-11-12 11:56] LABS: BICARBONATE 27.4 MEQ/L (21.0-32.0); POTASSIUM 4.1 MEQ/L (3.5-5.1)
[2016-11-12] MEDS ORDERED: ROCURONIUM INJ 50 MG/5 ML VIAL ONE ×2 (15:04→16:31)
[2016-11-12] MEDS ORDERED: ETOMIDATE 40 MG/20 ML VIAL ONE (15:04)
[2016-11-12 15:17] LABS: BLOOD GAS VENOUS BASE EXCESS -4.6 mmol/L (-2-2); BLOOD GAS VENOUS HCO3 24 mmol/L (22-26); BLOOD GAS VENOUS O2 CONTENT 4.8 Vol % (9.0-17.0); BLOOD GAS VENOUS O2 HGB SAT 36 % (70-76); BLOOD GAS VENOUS PCO2 82 mmHg (44-48); BLOOD GAS VENOUS PO2 30 mmHg (35-40); TEMP CORR TO 98.6
[2016-11-12 15:18] LABS: CRITICAL VALUE YES; FIO2 100 %; OXYGEN DEVICE NRB; STAT YES
[2016-11-12] MEDS ORDERED: ATROPINE SULFATE 1 MG/ML VIAL ONE (15:43)
[2016-11-12] MEDS ORDERED: SUCCINYLCHOLINE CHLORIDE 200 MG/10 ML VIAL ONE (15:47)
[2016-11-12] MEDS ORDERED: MIDAZOLAM HCL 5 MG/ML VIAL (1 ML) ONE (15:47)
[2016-11-12 16:18] LABS: BLOOD GAS BASE EXCESS -4.7 mmol/L (-2-2); BLOOD GAS CARBOXYHEMOGLOBIN 1.5 % (0-4); BLOOD GAS HCO3 22 mmol/L (22-26); BLOOD GAS METHEMOGLOBIN 1.1 % (0-2); BLOOD GAS O2 HGB SATURATION 61 % (90-100); BLOOD GAS OXYGEN CONTENT 7.9 Vol % (12.0-20.0); BLOOD GAS PCO2 52 mmHg (38-42); BLOOD GAS PO2 39 mmHg (61-120); BLOOD GAS TOTAL HGB 9.1 G/DL (12.0-16.0); CRITICAL VALUE YES; OXYGEN DEVICE VENTILATOR; TEMP CORR TO 98.6
[2016-11-12 16:19] LABS: DRAW SITE ART LINE; FIO2 100 %; STAT YES; VENT SETTINGS PRVC/AC
[2016-11-12] MEDS ORDERED: ROCURONIUM INJ 50 MG/5 ML VIAL IV ONE (16:30)
[2016-11-12] MEDS ORDERED: EPINEPHrine HCL (1:10,000) 1 MG/10 ML SYRINGE ONE (16:36)
[2016-11-12 16:44] LABS: HEMATOCRIT 27.9 % (39.0-51.0); MEAN CELL VOLUME 95.1 FL (80.0-100.0); MEAN CORPUSCULAR HEMOGLOBIN 30.2 PG (27.0-34.0); MEAN CORPUSCULAR HGB CONC 31.7 % (32.0-36.0); PLATELET COUNT 408 TH/MM3 (150-450); RED BLOOD COUNT 2.93 MIL/MM3 (4.50-5.90); RED CELL DISTRIBUTION WIDTH 15.8 % (11.6-17.2); REVIEW FLAG FINAL; WHITE BLOOD COUNT 16.4 TH/MM3 (4.0-11.0)
--- NOTE | 2016-11-12 16:58 | RADRPT ---
EXAM DATE/TIME: 11/12/2016 16:22 [facility] COMPARISON: CHEST SINGLE AP, November 10, 2016, 14:00. INDICATIONS : Post intubation and central line placement. MEDICAL HISTORY : None. SURGICAL HISTORY : None. ENCOUNTER: Subsequent ACUITY: 1 day PAIN SCORE: Non-responsive. LOCATION: Bilateral chest FINDINGS: A single view of the chest demonstrates endotracheal tube in satisfactory position. Left central line in superior vena cava. Bilateral mostly basilar airspace disease and left upper lobe airspace diseas e. Small effusions. This and subcutaneous tissues of the right chest wall. There is also a small right apical pneumothora x. CONCLUSION: 1. Small right-sided pneumothorax within the subcutaneous tissues of the right chest wall. CT pending . 2. Increase in bilateral airspace disease since November 10, left greater than right. Bilateral effusions. 3. Left Central line tip in superior vena cava. Endotracheal tube in satisfactory position. Maximo Adams MD on November 12, 2016 at 16:54 Board Certified Radiologist. This report was verified electronically.
[2016-11-12 17:03] LABS: BICARBONATE 24.8 MEQ/L (21.0-32.0); POTASSIUM 4.3 MEQ/L (3.5-5.1)
[2016-11-12] MEDS ORDERED: IOHEXOL 350 MG/ML 10 ML VIAL (for RAD DIAG) IV ONE (17:08)
[2016-11-12] MEDS ORDERED: LIDOCAINE HCL 1% 50 ML VIAL ONE (17:10)
--- NOTE | 2016-11-12 17:22 | RADRPT ---
EXAM DATE/TIME: 11/12/2016 16:48 [facility] COMPARISON: CT BRAIN W/O CONTRAST, October 30, 2013, 20:39. INDICATIONS : Evaluate for altered mental status. RADIATION DOSE: 69.15 CTDIvol (mGy) MEDICAL HISTORY : Parkinson's. SURGICAL HISTORY : Non-responsive. ENCOUNTER: Initial ACUITY: 1 day PAIN SCALE: Non-responsive LOCATION: Bilateral cranial TECHNIQUE: Multiple contiguous axial images were obtained of the head. Using automated exposure control and adj ustment of the mA and/or kV according to patient size, radiation dose was kept as low as reasonably a chievable to obtain optimal diagnostic quality images. FINDINGS: There is patchy mild diminished attenuation in periventricular white matter which has progressed slig htly since previous exam. No evidence of intracranial mass or hemorrhage. There is nothing to suggest acute infarction. The extracranial structures are benign in appearance. CONCLUSION: No acute intracranial findings Akash Brown MD on November 12, 2016 at 17:11 Board Certified Radiologist. This report was verified electronically.
--- NOTE | 2016-11-12 17:27 | PD.CARD.PN ---
Subjective Subjective Remarks No CP or SOB Objective Medications Current Medications Medications (Trade) Dose Ordered Sig/Michael Route Start Time Stop Time Status Last Admin (NS 1000 ml Inj) 1,000 ml @ 0 mls/hr Q10H IV 11/03/16 11:45 11/05/16 14:03 (Roxicodone) 10 mg Q4H PRN PO 11/03/16 11:45 11/11/16 18:45 (Roxicodone) 5 mg Q4H PRN PO 11/03/16 11:45 11/08/16 17:50 (Colace) 100 mg BID PO 11/03/16 11:45 11/12/16 08:17 (Zofran Inj) 4 mg Q6HR PRN IV PUSH 11/03/16 11:45 11/05/16 22:57 (Protonix Inj) 40 mg Q24H IV PUSH 11/03/16 13:00 11/12/16 11:43 (Sinemet 25-100 Mg) 2 tab QID PO 11/03/16 21:00 11/12/16 11:43 (Ilotycin 0.5% Opth Oint) 1 applic HS EACH EYE 11/04/16 21:00 11/11/16 20:35 (Proscar) 5 mg HS PO 11/04/16 21:00 11/11/16 20:33 (Alphagan 0.2% Opth Soln) 1 drop Q12HR EACH EYE 11/04/16 09:00 11/12/16 08:17 (Timoptic 0.5% Opth Soln) 1 drop Q12HR EACH EYE 11/04/16 09:00 11/12/16 08:18 (Folate) 1 mg DAILY PO 11/05/16 09:00 11/12/16 08:17 (Antivert) 25 mg TID PRN PO 11/05/16 17:30 11/09/16 09:13 (Allbee C) 1 tab DAILY PO 11/08/16 09:00 11/12/16 08:17 (SEROquel) 25 mg HS PRN PO 11/08/16 10:00 11/09/16 20:10 Aspirin 81 mg 81 mg DAILY PO 11/09/16 09:00 11/12/16 08:17 (Levaquin 250 Mg Premix Inj) 50 ml @ 50 mls/hr Q24H IV 11/10/16 18:00 11/12/16 23:59 11/11/16 18:00 (Tylenol) 1,000 mg Q6H PRN PO 11/11/16 11:00 11/11/16 20:37 (Neurontin) 100 mg HS PO 11/11/16 21:00 (Cordarone) 400 mg DAILY PO 11/12/16 09:00 11/12/16 08:17 Vital Signs / I&O Vital Signs Date Time Temp Pulse Resp B/P Pulse Ox O2 Delivery O2 Flow Rate FiO2 11/12/16 17:12 100 11/12/16 16:00 67 100 11/12/16 14:46 98.1 50 22 150/63 99 11/12/16 14:00 54 11/12/16 12:00 53 11/12/16 10:00 56 11/12/16 08:00 58 11/12/16 08:00 98.2 58 23 150/67 95 11/12/16 07:24 99 Simple Mask 7.00 11/12/16 07:00 94 Nasal Cannula 5.00 40 11/12/16 06:00 60 11/12/16 05:45 Simple Mask 7.00 11/12/16 04:00 62 11/12/16 04:00 98.2 62 28 137/65 93 11/12/16 02:00 64 11/12/16 00:00 97.9 66 21 119/58 95 11/12/16 00:00 66 11/11/16 22:00 48 11/11/16 20:38 97 Nasal Cannula 5.00 11/11/16 20:00 97.8 62 21 159/67 97 11/11/16 20:00 97 Nasal Cannula 5.00 11/11/16 20:00 62 11/11/16 18:00 70 I/O 11/11/16 11/11/16 11/11/16 11/12/16 11/12/16 11/12/16 07:00 15:00 23:00 07:00 15:00 23:00 Intake Total 309 ml 625 ml 650 ml 0 ml 480 ml Output Total 375 ml 450 ml 275 ml 350 ml 375 ml Balance -66 ml 175 ml 375 ml -350 ml 105 ml Intake Oral 60 ml 560 ml 600 ml 0 ml 480 ml IV Total 249 ml 65 ml 50 ml 0 ml 0 ml Output Urine Total 375 ml 375 ml 275 ml 350 ml 375 ml Stool Total 75 ml # Bowel Movements 0 0 1 0 1 Physical Exam GENERAL: In NAD SKIN: Warm and dry. HEAD: Normocephalic. EYES: No scleral icterus. No injection or drainage. NECK: Supple, trachea midline. No JVD or lymphadenopathy. CARDIOVASCULAR: Regular rate and rhythm without murmurs, gallops, or rubs. RESPIRATORY: Breath sounds equal bilaterally. No accessory muscle use. GASTROINTESTINAL: Abdomen soft, non-tender, nondistended. MUSCULOSKELETAL: No cyanosis, or edema. Laboratory Laboratory Tests Test 11/12/16 11/12/16 11/12/16 11/12/16 11:17 15:05 16:10 16:15 White Blood Count 11.5 TH/MM3 16.4 TH/MM3 Red Blood Count 2.75 MIL/MM3 2.93 MIL/MM3 Hemoglobin 8.8 GM/DL 8.8 GM/DL Hematocrit 25.9 % 27.9 % Mean Corpuscular Volume 94.0 FL 95.1 FL Mean Corpuscular Hemoglobin 31.9 PG 30.2 PG Mean Corpuscular Hemoglobin 34.0 % 31.7 % Concent Red Cell Distribution Width 15.5 % 15.8 % Platelet Count 370 TH/MM3 408 TH/MM3 Mean Platelet Volume 6.6 FL 6.5 FL Sodium Level 141 MEQ/L 141 MEQ/L Potassium Level 4.1 MEQ/L 4.3 MEQ/L Chloride Level 106 MEQ/L 106 MEQ/L Carbon Dioxide Level 27.4 MEQ/L 24.8 MEQ/L Anion Gap 8 MEQ/L 10 MEQ/L Blood Urea Nitrogen 25 MG/DL 28 MG/DL Creatinine 1.32 MG/DL 1.45 MG/DL Estimat Glomerular Filtration 51 ML/MIN 46 ML/MIN Rate Random Glucose 137 MG/DL 219 MG/DL Calcium Level 8.4 MG/DL 8.2 MG/DL Blood Gas Puncture Site DRAWN BY LEELA ART LINE Blood Gas Patient Temperature 98.6 98.6 Venous Blood pH 7.10 Venous Blood Partial Pressure 82 mmHg CO2 Venous Blood Partial Pressure 30 mmHg O2 Venous Blood HCO3 24 mmol/L Venous Blood Oxygen Saturation 36 % Venous Blood Oxygen Content 4.8 Vol % Venous Blood Base Excess -4.6 mmol/L Oxygen Delivery Device NRB VENTILATOR Blood Gas Inspired Oxygen 100 % 100 % Blood Gas HCO3 22 mmol/L Blood Gas Base Excess -4.7 mmol/L Blood Gas Oxygen Saturation 61 % Arterial Blood pH 7.24 Arterial Blood Partial 52 mmHg Pressure CO2 Arterial Blood Partial 39 mmHg Pressure O2 Arterial Blood Oxygen Content 7.9 Vol % Arterial Blood 1.5 % Carboxyhemoglobin Arterial Blood Methemoglobin 1.1 % Blood Gas Hemoglobin 9.1 G/DL Blood Gas Ventilator Setting PRVC/AC Lactic Acid Level 4.5 mmol/L Imaging Last Impressions Chest X-Ray 11/12/16 0000 Signed Impressions: Service Date/Time: October 16:22 - CONCLUSION: 1. Small right-sided pneumothorax within the subcutaneous tissues of the right chest wall. CT pending. 2. Increase in bilateral airspace disease since November 10, left greater than right. Bilateral effusions. 3. Left Central line tip in superior vena cava. Endotracheal tube in satisfactory position. Maximo Adams MD Lung Scan-V Nuclear Medicine 11/06/16 0000 Signed Impressions: Service Date/Time: Sunday, November 06, 2016 13:52 - CONCLUSION: 1. The perfusion portion the exam is normal. No pulmonary embolus is identified. 2. Patchy delivery of tracer to both lungs suggesting COPD. Pratik Valverde MD Assessment and Plan Problem List: (1) Atrial fibrillation (2) H/O nephroureterectomy (3) Sinus bradycardia (4) Hypertension Assessment and Plan No new cardiac issues. Stays in SR. Continue amio loading. Increase activity. Not a candidate for full anticoagulation at this time due to high risk of postop bleeding. D/ w pt and family. Prosper Ruelas MD November 12, 2016 17:27
--- NOTE | 2016-11-12 17:31 | RADRPT ---
EXAM DATE/TIME: 11/12/2016 16:52 [facility] COMPARISON: CT ABDOMEN & PELVIS W CONTRAST, September 27, 2016, 8:10. CHEST SINGLE AP, November 09, 2016, 7:03. CHEST SI NGLE AP, November 10, 2016, 14:00. CHEST SINGLE AP, November 12, 2016, 16:22. INDICATIONS : Evaluate for PE. IV CONTRAST: 98 cc Omnipaque 350 (iohexol) IV RADIATION DOSE: 13.33 CTDIvol (mGy) MEDICAL HISTORY : Cardiovascular disease. Parkinsons. Renal insufficiency. SURGICAL HISTORY : None. ENCOUNTER: Initial ACUITY: 1 day PAIN SCALE: Non-responsive LOCATION: Bilateral upper quadrant TECHNIQUE: Volumetric scanning of the chest was performed using a pulmonary embolism protocol MIP images were re constructed. Using automated exposure control and adjustment of the mA and/or kV according to patien t size, radiation dose was kept as low as reasonably achievable to obtain optimal diagnostic quality images. FINDINGS: There is a small mainly anterior basilar right pneumothorax. There is moderate subcutaneous emphysema . There are bilateral pleural effusions present, larger on the left than the right with associated co mpressive lung atelectasis posteriorly. There is no evidence of pulmonary embolism. There is no evidence of mediastinal mass, adenopathy or hematoma. Endotracheal tube is in good positi on. CONCLUSION: Bilateral effusions and lung atelectasis, left worse than right. Small primarily anterior basilar right pneumothorax. No evidence of pulmonary embolism Akash Brown MD on November 12, 2016 at 17:20 Board Certified Radiologist. This report was verified electronically.
[2016-11-12 17:36] LABS: CREATINE KINASE 131 U/L (39-308)
--- NOTE | 2016-11-12 17:36 | RADRPT ---
EXAM DATE/TIME: 11/12/2016 16:55 [facility] COMPARISON: CT ABDOMEN & PELVIS W CONTRAST, September 27, 2016, 8:10. INDICATIONS : Evaluate for hematuria. IV CONTRAST: 98 cc Omnipaque 350 (iohexol) IV ORAL CONTRAST: No oral contrast ingested. RADIATION DOSE: 16.86 CTDIvol (mGy) MEDICAL HISTORY : Renal insufficiency. Parkinsons. Cardiovascular disease SURGICAL HISTORY : None. ENCOUNTER: Initial ACUITY: 1 day PAIN SCALE: Non-responsive LOCATION: Bilateral chest TECHNIQUE: Volumetric scanning of the abdomen and pelvis was performed. Using automated exposure control and ad justment of the mA and/or kV according to patient size, radiation dose was kept as low as reasonably achievable to obtain optimal diagnostic quality images. FINDINGS: LIVER: Homogeneous density without lesion. There is no dilation of the biliary tree. No calcified gallston es. SPLEEN: Normal size without lesion. PANCREAS: Within normal limits. KIDNEYS: Left kidney is surgically absent with presumed hematoma and fluid in the operative bed. Right kidney is stable with parapelvic cysts and renal cortical cysts. ADRENAL GLANDS: Within normal limits. VASCULAR: There is no aortic aneurysm. BOWEL/MESENTERY: The stomach, small bowel, and colon demonstrate no acute abnormality. There is no free intraperitone al air or fluid. ABDOMINAL WALL: Subcutaneous air in the lower anterior abdominal wall and pelvic wall extending to the inguinal regio ns. RETROPERITONEUM: There is no lymphadenopathy. BLADDER: Decompressed with Sheppard catheter REPRODUCTIVE: Within normal limits. INGUINAL: There is no lymphadenopathy or hernia. MUSCULOSKELETAL: Within normal limits for patient age. CONCLUSION: Fluid and hematoma in the left retroperitoneum post left nephrectomy. Nothing to suggest active bleed ing at present. Air in the lower abdominal and anterior pelvic subcutaneous tissues of undetermined origin. Akash Brown MD on November 12, 2016 at 17:29 Board Certified Radiologist. This report was verified electronically.
--- NOTE | 2016-11-12 17:41 | RADRPT ---
EXAM DATE/TIME: 11/12/2016 17:21 [facility] COMPARISON: CHEST SINGLE AP, November 12, 2016, 16:22. CT ABDOMEN & PELVIS W CONTRAST, November 12, 2016, 16:55. INDICATIONS : Post chest tube placement. MEDICAL HISTORY : Cardiovascular disease. Parkinsons. Renal insufficiency. SURGICAL HISTORY : None. ENCOUNTER: Subsequent ACUITY: 1 day PAIN SCORE: Non-responsive. LOCATION: chest FINDINGS: A right thoracostomy tube is present. Endotracheal tube, left subclavian central line are stable. Davin ogastric tube descends to the stomach. There is improvement in hazy opacity at the right base. Persis tent moderate pleural-parenchymal opacity on the left. Cardiac contours are grossly stable. CONCLUSION: Interval right thoracostomy tube and NG tube placement. Akash Brown MD on November 12, 2016 at 17:38 Board Certified Radiologist. This report was verified electronically.
[2016-11-12 17:48] LABS: CKMB 2.3 NG/ML (0.5-3.6)
[2016-11-12 18:40] LABS: BLOOD GAS CARBOXYHEMOGLOBIN 1.5 % (0-4); BLOOD GAS HCO3 23 mmol/L (22-26); BLOOD GAS METHEMOGLOBIN 0.8 % (0-2); BLOOD GAS O2 HGB SATURATION 88 % (90-100); BLOOD GAS OXYGEN CONTENT 12.7 Vol % (12.0-20.0); BLOOD GAS PCO2 45 mmHg (38-42); BLOOD GAS PO2 62 mmHg (61-120); BLOOD GAS TOTAL HGB 10.2 G/DL (12.0-16.0); CRITICAL VALUE YES; DRAW SITE ART LINE; FIO2 100 %; OXYGEN DEVICE VENTILATOR; TEMP CORR TO 98.6; VENT SETTINGS PRVC/AC
[2016-11-12 18:41] LABS: NUMBER OF ARTERIAL PUNCTURES 0; STAT NO; ULNAR PULSE PRESENT
--- NOTE | 2016-11-12 19:55 | PD.PROCEDR ---
Procedure Note Procedure Procedure: Arterial Line Placement Left radial arterial line Diagnosis: PEA arrest Indications: Need for beat to beat hemodynamic monitoring and serial arterial blood gas sampling Consent: Consent is deemed emergent or medically necessary Description of the Procedure: The left wrist was prepped and draped sterilely. 1% lidocaine was used for local anesthesia. The pulse was located and a needle was advanced into the artery. A 20 gauge, 12 cm catheter was advanced into the artery using a modified Seldinger technique. The catheter was sutured to the skin and a sterile dressing was applied. The catheter was connected to a pressure transducer and an arterial waveform was noted. There were no immediate complications noted. There was minimal EBL. I personally performed the procedure. Tucker Morales MD November 12, 2016 19:55
--- NOTE | 2016-11-12 19:56 | PD.PROCEDR ---
Procedure Note Procedure Central Line Procedure Note Left subclavian triple-lumen catheter Diagnosis: PEA arrest Indications: Need for highly potent vasoactive substances Consent: Consent is deemed emergent or medically necessary Anesthesia: Versed IV Description of the Procedure: The patient was placed in the supine, mild- Trendelenburg position. The area was prepped and draped sterilely. A 19g needle was inserted under negative pressure aspiration and dark venous blood was obtained. A guidewire was inserted easily without resistance. A small incision was made using a #11 blade. Using a modified Seldinger technique, the dilator and 7 Romansh, 20 cm catheter were advanced over the guidewire without resistance. All ports were aspirated and flushed, and had brisk blood return. The line was secured at 20 cm at the skin using 2-0 silk interrupted sutures. A Biopatch and Transparent sterile dressing were applied. There were no immediate complications noted. There was minimal EBL. The patient tolerated the procedure well. Ultrasound guidance was not used for this procedure A Chest x-ray has been ordered. I personally performed the procedure. Tucker Morales MD November 12, 2016 19:56
--- NOTE | 2016-11-12 19:57 | PD.PROCEDR ---
Procedure Note Procedure Endotracheal Intubation Diagnosis: PEA arrest Indications: Acute hypoxic and hypercarbic respiratory failure Consent: Consent is deemed emergent or medically necessary Anesthesia: No anesthesia was given Description of the Procedure: Pre-oxygenation was performed using a nonrebreather mask. Because the patient was unresponsive, no anesthesia was required. A Kelsey #2 was used for laryngoscopy and a Grade I view was obtained. A 8.5 cuffed endotracheal tube was inserted atraumatically through the vocal cords. Confirmation of correct endotracheal tube placement was made by equal and bilateral breath sounds and colorimetric CO2 detection. The endotracheal tube was secured at 23 cm at the teeth. There were no immediate complications noted. The patient was hypotensive status post PEA arrest, and remained so throughout the procedure. Resuscitation was ongoing. A chest x-ray has been ordered. I personally performed the procedure. Tucker Morales MD November 12, 2016 19:57
--- NOTE | 2016-11-12 19:59 | PD.PROCEDR ---
Procedure Note Procedure Tube Thoracostomy Procedure Note Right 28 Sur[place]amese chest tube Diagnosis: Status post PEA arrest, multiple rib fractures, right-sided pneumothorax Indications: Right-sided pneumothorax with hemodynamic compromise Consent: Consent is deemed emergent or medically necessary Anesthesia: 1% lidocaine locally, Versed IV Description of the Procedure: The patient was placed in the supine position. The arm was abducted above the head and secured. The right lateral chest was prepped and draped sterilely to include the axilla and nipple. 1% Lidcaine was infiltrated subcutaneously and into the tissues down to the periosteum of the rib. The 5th intercostal space was identified. A small incision was made using a #11 blade. At the mid-axillary line, blunt dissection was performed until the rib was palpated. A Luz Maria clamp was used to bluntly enter the pleura immediately above the adjacent rib. The space was opened bluntly with the Luz Maria clamp. A stubbs of air was heard upon encountering the pleura. A finger was inserted and lung and pleura were felt. A 28 Fr chest tube was inserted along the course of the finger and into the pleural cavity easily and without resistance. The chest tube was connected to a Pleur-o-vac and connected to [id number] suction. The catheter was sutured to the skin using a 0 silk sandal suture and an occlusive dressing was applied. There were no immediate complications noted. There was minimal EBL. The patient tolerated the procedure well. Chest Tube output: 400 mL's of serosanguineous output A Chest x-ray has been ordered. I personally performed the procedure. Tucker Morales MD November 12, 2016 19:59
[2016-11-12] MEDS: GABAPENTIN 100 MG CAP PO SCH (20:55)
[2016-11-12] MEDS: FINASTERIDE 5 MG TAB PO SCH (20:55)
[2016-11-12] MEDS: LEVOFLOXACIN/DEXTROSE 250 MG/50 ML IV SCH (20:55)
[2016-11-12] MEDS: ERYTHROMYCIN 0.5% OPTH OINT 3.5 GM TUBO EACH EYE SCH (20:57)
[2016-11-12 22:13] LABS: CREATINE KINASE 248 U/L (39-308)
[2016-11-12 22:26] LABS: CKMB 4.5 NG/ML (0.5-3.6)
[2016-11-13] VITALS (18 sets, daily range): BP systolic 100–139; BP diastolic 50–81; PULSE 61–110; RESP 20–22; TEMP 97.4–99.8; O2SAT 92–97
[2016-11-13] MEDS ORDERED: PROPOFOL 1000 MG/100 ML INJ 100 ML ONE (02:08)
[2016-11-13 04:07] LABS: HEMATOCRIT 26.7 % (39.0-51.0); MEAN CELL VOLUME 93.7 FL (80.0-100.0); MEAN CORPUSCULAR HEMOGLOBIN 30.9 PG (27.0-34.0); MEAN CORPUSCULAR HGB CONC 32.9 % (32.0-36.0); PLATELET COUNT 381 TH/MM3 (150-450); RED BLOOD COUNT 2.85 MIL/MM3 (4.50-5.90); RED CELL DISTRIBUTION WIDTH 15.6 % (11.6-17.2); REVIEW FLAG FINAL; WHITE BLOOD COUNT 17.9 TH/MM3 (4.0-11.0)
[2016-11-13 04:28] LABS: ANION GAP 7 MEQ/L (5-15); BICARBONATE 26.9 MEQ/L (21.0-32.0); BLOOD UREA NITROGEN 28 MG/DL (7-18); CHLORIDE 107 MEQ/L (98-107); GLOMERULAR FILTRATION RATE 51 ML/MIN (>89); POTASSIUM 4.5 MEQ/L (3.5-5.1); SODIUM (NA) 141 MEQ/L (136-145)
[2016-11-13 04:31] LABS: CREATINE KINASE 266 U/L (39-308)
[2016-11-13 04:47] LABS: CKMB 3.5 NG/ML (0.5-3.6)
[2016-11-13] MEDS: VITAMIN B COMPLEX/VIT C TAB PO SCH (08:45)
[2016-11-13] MEDS: ASPIRIN EC 81 MG TABEC PO SCH (08:45)
[2016-11-13] MEDS: FOLIC ACID 1 MG TAB PO SCH (08:45)
[2016-11-13] MEDS: DOCUSATE SODIUM 100 MG CAP PO SCH ×2 (08:45→20:45)
[2016-11-13] MEDS: PROPOFOL 1000 MG/100 ML IV SCH ×3 (08:45→18:17)
[2016-11-13] MEDS: AMIODARONE 200 MG TAB PO SCH (08:45)
[2016-11-13] MEDS: CARBIDOPA/LEVODOPA 25 MG/100 MG TAB PO SCH ×4 (08:45→20:45)
[2016-11-13] MEDS: BRIMONIDINE TARTRATE 0.2% OPHT SOLN 5 ML BTL EACH EYE SCH ×2 (08:46→20:45)
[2016-11-13] MEDS: TIMOLOL MALEATE 0.5% OPHT SOLN 5 ML BTL EACH EYE SCH ×2 (08:46→20:45)
--- NOTE | 2016-11-13 11:49 | PD.CARD.PN ---
Subjective Subjective Remarks Intubated, sedated, severe bradycardia yest, HR nl today Objective Medications Current Medications Medications (Trade) Dose Ordered Sig/Michael Route Start Time Stop Time Status Last Admin (NS 1000 ml Inj) 1,000 ml @ 0 mls/hr Q10H IV 11/03/16 11:45 11/05/16 14:03 (Roxicodone) 10 mg Q4H PRN PO 11/03/16 11:45 11/11/16 18:45 (Roxicodone) 5 mg Q4H PRN PO 11/03/16 11:45 11/08/16 17:50 (Colace) 100 mg BID PO 11/03/16 11:45 11/12/16 08:17 (Zofran Inj) 4 mg Q6HR PRN IV PUSH 11/03/16 11:45 11/05/16 22:57 (Protonix Inj) 40 mg Q24H IV PUSH 11/03/16 13:00 11/12/16 11:43 (Sinemet 25-100 Mg) 2 tab QID PO 11/03/16 21:00 11/13/16 08:45 (Ilotycin 0.5% Opth Oint) 1 applic HS EACH EYE 11/04/16 21:00 11/12/16 20:57 (Proscar) 5 mg HS PO 11/04/16 21:00 11/11/16 20:33 (Alphagan 0.2% Opth Soln) 1 drop Q12HR EACH EYE 11/04/16 09:00 11/13/16 08:46 (Timoptic 0.5% Opth Soln) 1 drop Q12HR EACH EYE 11/04/16 09:00 11/13/16 08:46 (Folate) 1 mg DAILY PO 11/05/16 09:00 11/13/16 08:45 (Antivert) 25 mg TID PRN PO 11/05/16 17:30 11/09/16 09:13 (Allbee C) 1 tab DAILY PO 11/08/16 09:00 11/13/16 08:45 (SEROquel) 25 mg HS PRN PO 11/08/16 10:00 11/09/16 20:10 (Ecotrin Ec) 81 mg DAILY PO 11/09/16 09:00 11/13/16 08:45 (Tylenol) 1,000 mg Q6H PRN PO 11/11/16 11:00 11/11/16 20:37 (Neurontin) 100 mg HS PO 11/11/16 21:00 11/12/16 20:55 Amiodarone HCl 400 mg 400 mg DAILY PO 11/12/16 09:00 11/13/16 08:45 (Diprivan 1000 Mg/100ml Inj) 100 ml @ 0 mls/hr TITRATE IV 11/13/16 02:30 11/13/16 08:45 Vital Signs / I&O Vital Signs Date Time Temp Pulse Resp B/P Pulse Ox O2 Delivery O2 Flow Rate FiO2 11/13/16 10:43 94 60 11/13/16 10:00 63 11/13/16 08:00 99.8 79 21 111/52 93 11/13/16 08:00 79 11/13/16 08:00 60 11/13/16 07:15 97 60 11/13/16 04:21 95 65 11/13/16 04:00 80 11/13/16 04:00 98.6 100 22 102/56 94 11/13/16 04:00 100 11/13/16 02:00 102 11/13/16 01:54 95 80 11/13/16 00:00 80 11/13/16 00:00 98.6 110 21 100/50 94 11/13/16 00:00 99 11/12/16 22:09 97 90 11/12/16 22:00 108 11/12/16 20:00 127 11/12/16 20:00 100 11/12/16 20:00 97.0 125 26 139/64 95 11/12/16 19:26 89 100 11/12/16 17:12 100 11/12/16 16:00 67 100 11/12/16 14:46 98.1 50 22 150/63 99 11/12/16 14:00 54 11/12/16 12:00 53 I/O 11/12/16 11/12/16 11/12/16 11/13/16 11/13/16 11/13/16 07:00 15:00 23:00 07:00 15:00 23:00 Intake Total 0 ml 480 ml 284 ml Output Total 350 ml 375 ml 650 ml Balance -350 ml 105 ml -366 ml Intake Oral 0 ml 480 ml IV Total 0 ml 0 ml 284 ml Output Urine Total 350 ml 375 ml 250 ml Chest Tube Drainage Total 400 ml # Bowel Movements 0 1 Physical Exam GENERAL: Intubated, sedated SKIN: Warm and dry. HEAD: Normocephalic. EYES: No scleral icterus. No injection or drainage. NECK: Supple, trachea midline. No JVD or lymphadenopathy. CARDIOVASCULAR: Irregular and rhythm without murmurs, gallops, or rubs. RESPIRATORY: Breath sounds equal bilaterally. No accessory muscle use. GASTROINTESTINAL: Abdomen soft, non-tender, nondistended. MUSCULOSKELETAL: No cyanosis, or edema. Laboratory Laboratory Tests Test 11/12/16 11/12/16 11/12/16 11/13/16 15:05 16:15 18:35 04:00 Venous Blood pH 7.10 Venous Blood Partial Pressure 82 mmHg CO2 Venous Blood Partial Pressure 30 mmHg O2 Venous Blood HCO3 24 mmol/L Venous Blood Oxygen Saturation 36 % Venous Blood Oxygen Content 4.8 Vol % Venous Blood Base Excess -4.6 mmol/L Lactic Acid Level 4.5 mmol/L Blood Gas Puncture Site ART LINE Blood Gas Patient Temperature 98.6 Blood Gas HCO3 23 mmol/L Blood Gas Base Excess -2.0 mmol/L Blood Gas Oxygen Saturation 88 % Arterial Blood pH 7.33 Arterial Blood Partial 45 mmHg Pressure CO2 Arterial Blood Partial 62 mmHg Pressure O2 Arterial Blood Oxygen Content 12.7 Vol % Arterial Blood 1.5 % Carboxyhemoglobin Arterial Blood Methemoglobin 0.8 % Blood Gas Hemoglobin 10.2 G/DL Oxygen Delivery Device VENTILATOR Blood Gas Ventilator Setting PRVC/AC Blood Gas Inspired Oxygen 100 % White Blood Count 17.9 TH/MM3 Red Blood Count 2.85 MIL/MM3 Hemoglobin 8.8 GM/DL Hematocrit 26.7 % Mean Corpuscular Volume 93.7 FL Mean Corpuscular Hemoglobin 30.9 PG Mean Corpuscular Hemoglobin 32.9 % Concent Red Cell Distribution Width 15.6 % Platelet Count 381 TH/MM3 Mean Platelet Volume 6.4 FL Sodium Level 141 MEQ/L Potassium Level 4.5 MEQ/L Chloride Level 107 MEQ/L Carbon Dioxide Level 26.9 MEQ/L Anion Gap 7 MEQ/L Blood Urea Nitrogen 28 MG/DL Creatinine 1.33 MG/DL Estimat Glomerular Filtration 51 ML/MIN Rate Random Glucose 159 MG/DL Calcium Level 8.0 MG/DL Total Creatine Kinase 266 U/L Creatine Kinase MB 3.5 NG/ML Troponin I 0.33 NG/ML Laboratory Tests Test 11/12/16 11/12/16 11/12/16 11/12/16 15:05 16:10 16:15 18:35 Blood Gas Puncture Site DRAWN BY RN ART LINE ART LINE Blood Gas Patient Temperature 98.6 98.6 98.6 Venous Blood pH 7.10 Venous Blood Partial Pressure 82 mmHg CO2 Venous Blood Partial Pressure 30 mmHg O2 Venous Blood HCO3 24 mmol/L Venous Blood Oxygen Saturation 36 % Venous Blood Oxygen Content 4.8 Vol % Venous Blood Base Excess -4.6 mmol/L Oxygen Delivery Device NRB VENTILATOR VENTILATOR Blood Gas Inspired Oxygen 100 % 100 % 100 % Blood Gas HCO3 22 mmol/L 23 mmol/L Blood Gas Base Excess -4.7 mmol/L -2.0 mmol/L Blood Gas Oxygen Saturation 61 % 88 % Arterial Blood pH 7.24 7.33 Arterial Blood Partial 52 mmHg 45 mmHg Pressure CO2 Arterial Blood Partial 39 mmHg 62 mmHg Pressure O2 Arterial Blood Oxygen Content 7.9 Vol % 12.7 Vol % Arterial Blood 1.5 % 1.5 % Carboxyhemoglobin Arterial Blood Methemoglobin 1.1 % 0.8 % Blood Gas Hemoglobin 9.1 G/DL 10.2 G/DL Blood Gas Ventilator Setting PRVC/AC PRVC/AC White Blood Count 16.4 TH/MM3 Red Blood Count 2.93 MIL/MM3 Hemoglobin 8.8 GM/DL Hematocrit 27.9 % Mean Corpuscular Volume 95.1 FL Mean Corpuscular Hemoglobin 30.2 PG Mean Corpuscular Hemoglobin 31.7 % Concent Red Cell Distribution Width 15.8 % Platelet Count 408 TH/MM3 Mean Platelet Volume 6.5 FL Sodium Level 141 MEQ/L Potassium Level 4.3 MEQ/L Chloride Level 106 MEQ/L Carbon Dioxide Level 24.8 MEQ/L Anion Gap 10 MEQ/L Blood Urea Nitrogen 28 MG/DL Creatinine 1.45 MG/DL Estimat Glomerular Filtration 46 ML/MIN Rate Random Glucose 219 MG/DL Lactic Acid Level 4.5 mmol/L Calcium Level 8.2 MG/DL Total Creatine Kinase 131 U/L Creatine Kinase MB 2.3 NG/ML Troponin I 0.02 NG/ML Test 11/12/16 11/13/16 21:22 04:00 Total Creatine Kinase 248 U/L 266 U/L Creatine Kinase MB 4.5 NG/ML 3.5 NG/ML Troponin I 0.15 NG/ML 0.33 NG/ML White Blood Count 17.9 TH/MM3 Red Blood Count 2.85 MIL/MM3 Hemoglobin 8.8 GM/DL Hematocrit 26.7 % Mean Corpuscular Volume 93.7 FL Mean Corpuscular Hemoglobin 30.9 PG Mean Corpuscular Hemoglobin 32.9 % Concent Red Cell Distribution Width 15.6 % Platelet Count 381 TH/MM3 Mean Platelet Volume 6.4 FL Sodium Level 141 MEQ/L Potassium Level 4.5 MEQ/L Chloride Level 107 MEQ/L Carbon Dioxide Level 26.9 MEQ/L Anion Gap 7 MEQ/L Blood Urea Nitrogen 28 MG/DL Creatinine 1.33 MG/DL Estimat Glomerular Filtration 51 ML/MIN Rate Random Glucose 159 MG/DL Calcium Level 8.0 MG/DL Imaging Last Impressions Head CT 11/12/16 0000 Signed Impressions: Service Date/Time: October 16:48 - CONCLUSION: No acute intracranial findings Akash Brown MD Chest X-Ray 11/12/16 0000 Signed Impressions: Service Date/Time: October 17:21 - CONCLUSION: Interval right thoracostomy tube and NG tube placement. Akash Brown MD CT Angiography 11/12/16 0000 Signed Impressions: Service Date/Time: October 16:52 - CONCLUSION: Bilateral effusions and lung atelectasis, left worse than right. Small primarily anterior basilar right pneumothorax. No evidence of pulmonary embolism Akash Brown MD Abdomen/Pelvis CT 11/12/16 0000 Signed Impressions: Service Date/Time: October 16:55 - CONCLUSION: Fluid and hematoma in the left retroperitoneum post left nephrectomy. Nothing to suggest active bleeding at present. Air in the lower abdominal and anterior pelvic subcutaneous tissues of undetermined origin. Akash Brown MD Lung Scan-V Nuclear Medicine 11/06/16 0000 Signed Impressions: Service Date/Time: Sunday, November 06, 2016 13:52 - CONCLUSION: 1. The perfusion portion the exam is normal. No pulmonary embolus is identified. 2. Patchy delivery of tracer to both lungs suggesting COPD. Pratik Valverde MD Assessment and Plan Problem List: (1) Atrial fibrillation (2) H/O nephroureterectomy (3) Sinus bradycardia (4) Hypertension Assessment and Plan Intubated yest after an episode of severe bradycardia. Back in AF w controlled VR. Will discontinue amio and use low dose short-acting beta yandel for rate control if necessary. Not a candidate for full anticoagulation at this time due to high risk of postop bleeding and inability to transfuse if necessary. Prosper Ruelas MD November 13, 2016 11:49
[2016-11-13] MEDS: PANTOPRAZOLE SODIUM 40 MG VIAL IV PUSH SCH (11:56)
[2016-11-13 13:04] LABS: CREATINE KINASE 238 U/L (39-308)
--- NOTE | 2016-11-13 13:06 | HHI.PR ---
Subjective Patient symptoms today Intubated yesterday after becoming unresponsive. CT Brain, Abdomen/Pelvis essentially negative. CT Chest showed small right pneumothorax, likely from CPR. left pleural effusion. Chest tube placed. on LEvophed. Amiodarone stopped by Cardiology. Objective Vital Signs Vital Signs Date Time Temp Pulse Resp B/P Pulse Ox O2 Delivery O2 Flow Rate FiO2 11/13/16 10:43 94 60 11/13/16 10:00 63 11/13/16 08:00 99.8 79 21 111/52 93 11/13/16 08:00 79 11/13/16 08:00 60 11/13/16 07:15 97 60 11/13/16 04:21 95 65 11/13/16 04:00 80 11/13/16 04:00 98.6 100 22 102/56 94 11/13/16 04:00 100 11/13/16 02:00 102 11/13/16 01:54 95 80 11/13/16 00:00 80 11/13/16 00:00 98.6 110 21 100/50 94 11/13/16 00:00 99 11/12/16 22:09 97 90 11/12/16 22:00 108 11/12/16 20:00 127 11/12/16 20:00 100 11/12/16 20:00 97.0 125 26 139/64 95 11/12/16 19:26 89 100 11/12/16 17:12 100 11/12/16 16:00 67 100 11/12/16 14:46 98.1 50 22 150/63 99 11/12/16 14:00 54 Result Diagram: 11/13/16 04011/13/16 0400 Objective Remarks intubated, sedated. Responds to commands. no labored respirations RRR abd soft, NT, ND. +ecchymoses around lower abdomen, extending to left flank, left thigh Sheppard clear, yellow Ext NT. No edema. EPC cuffs on and working. Procedures Robotic Left Nephroureterectomy 11/03 Medications and IVs Current Medications Medications (Trade) Dose Ordered Sig/Michael Route Start Time Stop Time Status Last Admin (NS 1000 ml Inj) 1,000 ml @ 0 mls/hr Q10H IV 11/03/16 11:45 11/05/16 14:03 (Roxicodone) 10 mg Q4H PRN PO 11/03/16 11:45 11/11/16 18:45 (Roxicodone) 5 mg Q4H PRN PO 11/03/16 11:45 11/13/16 11:57 (Colace) 100 mg BID PO 11/03/16 11:45 11/12/16 08:17 (Zofran Inj) 4 mg Q6HR PRN IV PUSH 11/03/16 11:45 11/05/16 22:57 (Protonix Inj) 40 mg Q24H IV PUSH 11/03/16 13:00 11/13/16 11:56 (Sinemet 25-100 Mg) 2 tab QID PO 11/03/16 21:00 11/13/16 11:57 (Ilotycin 0.5% Opth Oint) 1 applic HS EACH EYE 11/04/16 21:00 11/12/16 20:57 (Proscar) 5 mg HS PO 11/04/16 21:00 11/11/16 20:33 (Alphagan 0.2% Opth Soln) 1 drop Q12HR EACH EYE 11/04/16 09:00 11/13/16 08:46 (Timoptic 0.5% Opth Soln) 1 drop Q12HR EACH EYE 11/04/16 09:00 11/13/16 08:46 (Folate) 1 mg DAILY PO 11/05/16 09:00 11/13/16 08:45 (Antivert) 25 mg TID PRN PO 11/05/16 17:30 11/09/16 09:13 (Allbee C) 1 tab DAILY PO 11/08/16 09:00 11/13/16 08:45 (SEROquel) 25 mg HS PRN PO 11/08/16 10:00 11/09/16 20:10 (Ecotrin Ec) 81 mg DAILY PO 11/09/16 09:00 11/13/16 08:45 (Tylenol) 1,000 mg Q6H PRN PO 11/11/16 11:00 11/11/16 20:37 Gabapentin 100 mg 100 mg HS PO 11/11/16 21:00 11/12/16 20:55 (Diprivan 1000 Mg/100ml Inj) 100 ml @ 0 mls/hr TITRATE IV 11/13/16 02:30 11/13/16 08:45 Assessment and Plan Assessment and Plan POD # 10 Robotic Left Nephroureterectomy -Intubated, sedated. On propofol. Per Critical Care -Hgb stable. Hemodynamically stable. On Levophed. -Creatine stable. Good UOP -Amiodarone stopped per Cardiology. Troponin slightly elevated, likely from CPR. -GI prophylaxis -Ok with anticoagulation if absolutely necessary. -James López MD November 13, 2016 13:06
[2016-11-13 13:21] LABS: CKMB 3.1 NG/ML (0.5-3.6)
--- NOTE | 2016-11-13 13:29 | HHI.CCPN ---
Subjective Remarks/Hospital Course 11/03: 86 y/o male with past medical history significant for Parkinson's disease who was diagnosed to have a left renal pelvis mass when he presented with hematuria and left flank pain which was felt to be consistent with transitional cell carcinoma. Patient underwent left robotic nephroureterectomy under general anesthesia by Dr. Oh on 11/03, received 2500 cc crystalloid, EBL 75 cc , Intra-Op urine output 300 cc. Patient was extubated postoperatively and transferred to PACU and subsequently to [facility]. His heart rate has been in the 40s postoperatively. Patient tells me that he runs a slow heart rate for a few years now. He did drop his blood pressure to the 70s transiently for which she was given a fluid bolus with normal saline 1 L and critical care consult was requested for hypotension and Dr. marte. I evaluated the patient immediately on being notified of the consult. At the time of my evaluation he was laying in the ICU bed not in any acute distress. He denied any chest pain or shortness of breath. He had minimal abdominal discomfort at the site of surgery. 11/04: Resting in bed comfortably no further hypotension since last night. 11/05: Patient had a hemoglobin dropped down to 7 g percent. No hypotension or tachycardia. He is resting in bed comfortably not in any acute distress this morning at the time of my evaluation. Bruising noted over left flank and anterior abdominal wall. 11/06: Receive morphine last night and is drowsy currently. No hypotension overnight. Hemoglobin remains above 7. 11/07: Went into A. fib with RVR on 11/06 and was started on amiodarone drip. Currently remains rate controlled. 11/08: Was agitated and confused overnight. This morning he is awake and alert appears comfortable and is very pleasant. On 4.5 L nasal cannula. Remains in atrial fibrillation on amiodarone drip. 11/09: He was confused and agitated at night. Was on BiPAP with full facemask overnight. Remains in atrial fibrillation on amiodarone drip. Starting aspirin today. 11/10: Awake and alert, following commands. On nasal cannula 6 L/m. Remains in A. fib. Amiodarone switched to by mouth yesterday. Erythema and swelling over right forearm secondary to IV infiltration noted. 11/11: awake and alert. afib converted overnight. 11/12: doing well and stable. on 5L NC. out of bed to chair on my eval. 11/13: PEA arrest and acute change yesterday. please see 11/12 addended note for details. this morning, remains on levophed. chest tube with persistent air leak. follows commands x 4, gets agitated off sedation. 60% fio2. persistent hypoxia. Objective Vital Signs Date Time Temp Pulse Resp B/P Pulse Ox O2 Delivery O2 Flow Rate FiO2 11/13/16 10:43 94 60 11/13/16 10:00 63 11/13/16 08:00 99.8 21 111/52 11/12/16 07:24 Simple Mask 7.00 Intake and Output 11/12/16 11/12/16 11/13/16 08:00 16:00 00:00 Intake Total 0 ml 480 ml 284 ml Output Total 350 ml 375 ml 650 ml Balance -350 ml 105 ml -366 ml Result Diagram: 11/13/16 0400 11/13/16 0400 Other Results Laboratory Tests Test 11/12/16 11/12/16 11/12/16 15:05 16:10 18:35 Blood Gas Puncture Site DRAWN BY RN ART LINE ART LINE Blood Gas Patient Temperature 98.6 98.6 98.6 Venous Blood pH 7.10 (7.360-7.400) Venous Blood Partial Pressure 82 mmHg (44-48) CO2 Venous Blood Partial Pressure 30 mmHg (35-40) O2 Venous Blood HCO3 24 mmol/L (22-26) Venous Blood Oxygen Saturation 36 % (70-76) Venous Blood Oxygen Content 4.8 Vol % (9.0-17.0) Venous Blood Base Excess -4.6 mmol/L (-2-2) Oxygen Delivery Device NRB VENTILATOR VENTILATOR Blood Gas Inspired Oxygen 100 % 100 % 100 % Blood Gas HCO3 22 mmol/L 23 mmol/L (22-26) (22-26) Blood Gas Base Excess -4.7 mmol/L -2.0 mmol/L (-2-2) (-2-2) Blood Gas Oxygen Saturation 61 % (90-100) 88 % (90-100) Arterial Blood pH 7.24 7.33 (7.380-7.420) (7.380-7.420) Arterial Blood Partial 52 mmHg (38-42) 45 mmHg (38-42) Pressure CO2 Arterial Blood Partial 39 mmHg 62 mmHg Pressure O2 (61-120) (61-120) Arterial Blood Oxygen Content 7.9 Vol % 12.7 Vol % (12.0-20.0) (12.0-20.0) Arterial Blood 1.5 % (0-4) 1.5 % (0-4) Carboxyhemoglobin Arterial Blood Methemoglobin 1.1 % (0-2) 0.8 % (0-2) Blood Gas Hemoglobin 9.1 G/DL 10.2 G/DL (12.0-16.0) (12.0-16.0) Blood Gas Ventilator Setting PRVC/AC PRVC/AC Imaging Last Impressions Chest X-Ray 11/04/16 0000 Signed Impressions: Service Date/Time: Friday, November 04, 2016 09:29 - CONCLUSION: 1. Basilar atelectasis. 2. There is air within the subcutaneous soft tissues in the midaxillary line along the left lower chest and upper abdomen. This is of uncertain etiology. Pratik Valverde MD Objective Remarks HEENT/Neuro: elderly male, intubated, sedated, critically ill. RASS -2, fc x 4. PERRL. Neck: No JVD. trachea midline. 8.[address] Chest/pulmonary: unlabored. equal chest rise. bilateral coarse rales. right chest tube with serosanguinous output, 1+ air leak. to suction. Cardiovascular: normal rate, regular rhythm. sinus by tele. GI/abdomen: Soft, nontender. Port sites with Steri-Strips in place. Bruising/ ecchymosis over the anterior abdominal wall and left flank noted Extremities: Warm bilaterally, no edema A/P Assessment and Plan 86-year-old male s/p Left robotic-assisted nephroureterectomy/urethral dilation , course complicated by recurrent hypoxic respiratory failure, post-op a. fib, and most recently PEA arrest complicated by rib fractures and right tension pneumothorax. He remains very critically ill at this time. minimal improvements , off pathway. Active Problems: Left kidney mass status post left robotic-assisted nephroureterectomy/urethral dilation Hypotension- likely secondary to sedation Anemia secondary to acute blood loss Acute hypoxic and hypercarbic respiratory failure Suspected sleep apnea Suspected COPD Right pneumothorax s/p right 28 Fr chest tube A. fib with RVR(new)- resolved. Sinus bradycardia Right bundle branch block [old] First degree AV block History of Parkinson's disease Hyperlipidemia s/p PEA arrest multiple right-sided rib fractures elevated troponins Plan: Neuro: RASS goal -2. prop/fent for goal RASS. frequent neuro checks. Seroquel 25 mg daily at bedtime to control delirium. oxy 5 per tube for rib fracture pain. Cardiovascular: s/p PEA arrest. continue Levophed for map > 65 mmHg. continue po amio. Cardiology following for afib (Quadrat). trend trops (type 2 nstemi secondary to cpr and demand ischemia). Pulmonary: wean fio2 for spo2 > 90%. will repeat cxr in AM. if left pleural effusion larger, will consider drainage. still too critically ill with multiple organs involved for SBT today. GI/liver: start TF. daily bmp. Renal/: Status post left nephroureterectomy in followed by urology. Strict intake output, monitor and replete electrolites, cr continues to downtrend, despite acute event yesterday. ID: s/p full course of levaquin. culture for new fever. Heme: Follow CBC. Patient has indicated preoperatively that he does not wish to receive any blood products however per anesthesia documentation is okay with albumin if needed. On 11/05 initiated darbapoeitin subcutaneously, IM B-12, IV iron sucrose and PO folic acid. Once again confirmed with patient on 11/05 and he does not wish to have blood transfusions. Hemoglobin stable Prophylaxis: Protonix, SCDs. Subcutaneous heparin when okay with urology - on hold currently. Dispo: now very critically ill. remain in ICU. Critical Care time: 38 minutes, exclusive of separately billable procedures. Tucker Morales MD November 13, 2016 13:29
[2016-11-13] MEDS: DEXTROSE 5%-LACTATED RING INJ 1,000 ML IV SCH (14:00)
--- NOTE | 2016-11-13 14:23 | EKG ---
Date Performed: 11/12/2016 Time Performed: 15:17:58 PTAGE: 86 years EKG: Atrial fibrillation. Right bundle branch block Inferior/lateral ST-T changes are nonspecifi c Low QRS voltages in precordial leads Abnormal ECG NO PREVIOUS TRACING DOCTOR: Patrick Larios Interpretating Date/Time 11/13/2016 14:20:43
--- NOTE | 2016-11-13 16:12 | RADRPT ---
EXAM DATE/TIME: 11/13/2016 15:24 [facility] COMPARISON: CHEST SINGLE AP, November 12, 2016, 17:21. INDICATIONS : Chest tube placement MEDICAL HISTORY : Cardiovascular disease. Parkinsons. Renal insufficiency. SURGICAL HISTORY : None. ENCOUNTER: Initial ACUITY: 3 days PAIN SCORE: Non-responsive. LOCATION: Bilateral chest FINDINGS: Endotracheal tube, nasogastric tube and left subclavian central line are main place. Right thoracosto my tube has pulled back slightly since yesterday's exam. There is been substantial interval increase in subcutaneous emphysema now diffusely present over the chest and neck regions. A large pneumothorax is not appreciated. It would be difficult to exclude a small persistent pneumothorax. Hazy parenchym al opacity over the lung bases, left worse than right is fairly stable. Cardiac contours are stable. CONCLUSION: Increasing subcutaneous emphysema. Stable aeration Akash Brown MD on November 13, 2016 at 16:08 Board Certified Radiologist. This report was verified electronically.
[2016-11-13] MEDS ORDERED: NOREPINEPHRINE-DEXTROSE DRIP 250 ML IV ONE (18:14)
[2016-11-13] MEDS: FINASTERIDE 5 MG TAB PO SCH (19:58)
[2016-11-13] MEDS: GABAPENTIN 100 MG CAP PO SCH (20:45)
[2016-11-13] MEDS: ERYTHROMYCIN 0.5% OPTH OINT 3.5 GM TUBO EACH EYE SCH (20:45)
[2016-11-14] VITALS (18 sets, daily range): BP systolic 114–131; BP diastolic 45–56; PULSE 63–85; RESP 20–21; TEMP 97.6–99.3; O2SAT 94–100
[2016-11-14] MEDS: PROPOFOL 1000 MG/100 ML IV SCH ×4 (01:48→22:15)
[2016-11-14 03:36] LABS: HEMATOCRIT 25.1 % (39.0-51.0); MEAN CELL VOLUME 93.1 FL (80.0-100.0); MEAN CORPUSCULAR HEMOGLOBIN 31.4 PG (27.0-34.0); MEAN CORPUSCULAR HGB CONC 33.7 % (32.0-36.0); PLATELET COUNT 346 TH/MM3 (150-450); RED CELL DISTRIBUTION WIDTH 16.1 % (11.6-17.2); REVIEW FLAG FINAL; WHITE BLOOD COUNT 16.7 TH/MM3 (4.0-11.0)
[2016-11-14 04:07] LABS: BICARBONATE 27.2 MEQ/L (21.0-32.0); POTASSIUM 4.1 MEQ/L (3.5-5.1)
--- NOTE | 2016-11-14 05:43 | RADRPT ---
EXAM DATE/TIME: 11/14/2016 05:00 [facility] COMPARISON: CHEST SINGLE AP, November 13, 2016, 15:24. INDICATIONS : Shortness of breath. MEDICAL HISTORY : Cardiovascular disease. Renal insufficiency. SURGICAL HISTORY : None. ENCOUNTER: Subsequent ACUITY: 1 week PAIN SCORE: Non-responsive. LOCATION: Bilateral chest FINDINGS: A single view of the chest demonstrates the endotracheal tube, nasogastric tube, left subclavian cent ral line are all in good position. Right-sided chest tubes in good position. The extensive subcutaneo us air bilaterally. Persistent consolidation possible pleural effusion on the left. Heart remains enl arged. Osseous structures are intact. CONCLUSION: Tubes and catheters are all in good position. Persistent consolidation left lung base infiltrate vers us pleural effusion Abhay Horvath MD on November 14, 2016 at 5:41 Board Certified Radiologist. This report was verified electronically.
--- NOTE | 2016-11-14 07:58 | HHI.CCPN ---
Subjective Remarks/Hospital Course 11/03: 86 y/o male with past medical history significant for Parkinson's disease who was diagnosed to have a left renal pelvis mass when he presented with hematuria and left flank pain which was felt to be consistent with transitional cell carcinoma. Patient underwent left robotic nephroureterectomy under general anesthesia by Dr. Oh on 11/03, received 2500 cc crystalloid, EBL 75 cc , Intra-Op urine output 300 cc. Patient was extubated postoperatively and transferred to PACU and subsequently to [facility]. His heart rate has been in the 40s postoperatively. Patient tells me that he runs a slow heart rate for a few years now. He did drop his blood pressure to the 70s transiently for which she was given a fluid bolus with normal saline 1 L and critical care consult was requested for hypotension and Dr. marte. I evaluated the patient immediately on being notified of the consult. At the time of my evaluation he was laying in the ICU bed not in any acute distress. He denied any chest pain or shortness of breath. He had minimal abdominal discomfort at the site of surgery. 11/04: Resting in bed comfortably no further hypotension since last night. 11/05: Patient had a hemoglobin dropped down to 7 g percent. No hypotension or tachycardia. He is resting in bed comfortably not in any acute distress this morning at the time of my evaluation. Bruising noted over left flank and anterior abdominal wall. 11/06: Receive morphine last night and is drowsy currently. No hypotension overnight. Hemoglobin remains above 7. 11/07: Went into A. fib with RVR on 11/06 and was started on amiodarone drip. Currently remains rate controlled. 11/08: Was agitated and confused overnight. This morning he is awake and alert appears comfortable and is very pleasant. On 4.5 L nasal cannula. Remains in atrial fibrillation on amiodarone drip. 11/09: He was confused and agitated at night. Was on BiPAP with full facemask overnight. Remains in atrial fibrillation on amiodarone drip. Starting aspirin today. 11/10: Awake and alert, following commands. On nasal cannula 6 L/m. Remains in A. fib. Amiodarone switched to by mouth yesterday. Erythema and swelling over right forearm secondary to IV infiltration noted. 11/11: awake and alert. afib converted overnight. 11/12: doing well and stable. on 5L NC. out of bed to chair on my eval. 11/13: PEA arrest and acute change yesterday. please see 11/12 addended note for details. this morning, remains on levophed. chest tube with persistent air leak. follows commands x 4, gets agitated off sedation. 60% fio2. persistent hypoxia. 11/14: oxygen requirement persists. unable to wean ventilation. Cr slightly improved. left pleural effusion worse than prior xray. subQ air persists. CT with 1+ air leak still. Objective Vital Signs Date Time Temp Pulse Resp B/P Pulse Ox O2 Delivery O2 Flow Rate FiO2 11/14/16 06:00 71 11/14/16 04:05 96 75 11/14/16 04:00 98.6 21 114/45 11/12/16 07:24 Simple Mask 7.00 Intake and Output 11/13/16 11/13/16 11/14/16 08:00 16:00 00:00 Intake Total 556 ml 874 ml Output Total 380 ml 200 ml Balance 176 ml 674 ml Result Diagram: 11/14/16 0320 11/14/16 0320 Imaging Last Impressions Chest X-Ray 11/04/16 0000 Signed Impressions: Service Date/Time: Friday, November 04, 2016 09:29 - CONCLUSION: 1. Basilar atelectasis. 2. There is air within the subcutaneous soft tissues in the midaxillary line along the left lower chest and upper abdomen. This is of uncertain etiology. Pratik Valverde MD Objective Remarks HEENT/Neuro: elderly male, intubated, sedated, critically ill. RASS -2, fc x 4. PERRL. Neck: No JVD. trachea midline. 8.[address] Chest/pulmonary: unlabored. equal chest rise. bilateral coarse rales. right chest tube with serosanguinous output, 1+ air leak. to suction. diminished breath sounds on left. Cardiovascular: normal rate, regular rhythm. sinus by tele. GI/abdomen: Soft, nontender. Port sites with Steri-Strips in place. Bruising/ ecchymosis over the anterior abdominal wall and left flank noted Extremities: Warm bilaterally, no edema A/P Assessment and Plan 86-year-old male s/p Left robotic-assisted nephroureterectomy/urethral dilation , course complicated by recurrent hypoxic respiratory failure, post-op a. fib, and most recently PEA arrest complicated by rib fractures and right tension pneumothorax. He remains very critically ill at this time. minimal improvements , off pathway. Will discuss with family prognosis and ongoing medical problems. If we continue to be aggressive, will need drainage of left pleural effusion to help improve pulmonary mechanics. Active Problems: Left kidney mass status post left robotic-assisted nephroureterectomy/urethral dilation Hypotension- likely secondary to sedation Anemia secondary to acute blood loss Acute hypoxic and hypercarbic respiratory failure Suspected sleep apnea Suspected COPD Right pneumothorax s/p right 28 Fr chest tube A. fib with RVR(new)- resolved. Sinus bradycardia Right bundle branch block [old] First degree AV block History of Parkinson's disease Hyperlipidemia s/p PEA arrest multiple right-sided rib fractures elevated troponins Left pleural effusion Plan: Neuro: RASS goal -2. prop/fent for goal RASS. frequent neuro checks. Seroquel 25 mg daily at bedtime to control delirium. oxy 5 per tube for rib fracture pain. Cardiovascular: s/p PEA arrest. continue Levophed for map > 65 mmHg. po amio stopped per cards. Cardiology following for afib (Quadrat). trops are downtrending; will stop trending. Pulmonary: wean fio2 for spo2 > 90%. will repeat cxr in AM. will likely need drainage of left chest today given his persistent hypoxia. still too high vent support for SBT. GI/liver: TF at goal. daily bmp. Renal/: Status post left nephroureterectomy in followed by urology. Strict intake output, monitor and replete electrolites, cr continues to downtrend. ID: s/p full course of levaquin. culture for new fever. Heme: Follow CBC. Patient has indicated preoperatively that he does not wish to receive any blood products however per anesthesia documentation is okay with albumin if needed. On 11/05 initiated darbapoeitin subcutaneously, IM B-12, IV iron sucrose and PO folic acid. Once again confirmed with patient on 11/05 and he does not wish to have blood transfusions. Hemoglobin stable Prophylaxis: Protonix, SCDs. Subcutaneous heparin when okay with urology - on hold currently. Dispo: now very critically ill. remain in ICU. Critical Care time: 40 minutes, exclusive of separately billable procedures. Tucker Morales MD November 14, 2016 07:58
[2016-11-14] MEDS: oxyCODONE HCL ORAL CONC 20 MG/ML SYRINGE PO SCH ×4 (08:20→21:05)
[2016-11-14] MEDS: TIMOLOL MALEATE 0.5% OPHT SOLN 5 ML BTL EACH EYE SCH ×2 (08:20→21:41)
[2016-11-14] MEDS: BRIMONIDINE TARTRATE 0.2% OPHT SOLN 5 ML BTL EACH EYE SCH ×2 (08:20→21:41)
[2016-11-14] MEDS: FOLIC ACID 1 MG TAB PO SCH (08:20)
[2016-11-14] MEDS: DOCUSATE SODIUM 100 MG CAP PO SCH ×2 (08:20→21:04)
[2016-11-14] MEDS: fentaNYL DRIP 250 ML IV SCH ×2 (08:20→21:04)
[2016-11-14] MEDS: CARBIDOPA/LEVODOPA 25 MG/100 MG TAB PO SCH ×4 (08:20→21:04)
[2016-11-14] MEDS: VITAMIN B COMPLEX/VIT C TAB PO SCH (08:20)
[2016-11-14] MEDS: ASPIRIN EC 81 MG TABEC PO SCH (09:00)
[2016-11-14] MEDS: DEXTROSE 5%-LACTATED RING INJ 1,000 ML IV SCH (10:00)
--- NOTE | 2016-11-14 11:13 | HHI.PR ---
Subjective Patient symptoms today remains intubated. pleural effusion worsening. on low dose Levophed. Low grade fever. Objective Vital Signs Vital Signs Date Time Temp Pulse Resp B/P Pulse Ox O2 Delivery O2 Flow Rate FiO2 11/14/16 08:19 98 50 11/14/16 08:00 99.2 66 20 118/47 98 Automatic Cuff 11/14/16 08:00 50 11/14/16 08:00 66 11/14/16 06:00 71 11/14/16 04:05 96 75 11/14/16 04:00 98.6 68 21 114/45 99 11/14/16 04:00 70 11/14/16 04:00 85 11/14/16 02:00 67 11/14/16 01:00 100 50 11/14/16 00:00 73 11/14/16 00:00 98.1 71 20 131/55 96 11/14/16 00:00 70 11/13/16 22:08 94 50 11/13/16 22:00 83 11/13/16 20:02 95 50 11/13/16 20:00 97.6 77 20 132/81 95 11/13/16 20:00 66 11/13/16 20:00 50 11/13/16 18:00 61 11/13/16 16:00 98.4 65 20 122/50 94 11/13/16 16:00 65 11/13/16 16:00 55 11/13/16 15:38 92 55 11/13/16 14:30 55 11/13/16 14:00 83 11/13/16 13:00 50 11/13/16 12:00 60 11/13/16 12:00 97.4 84 20 139/64 94 11/13/16 12:00 84 Intake & Output 11/14/16 11/14/16 07:00 19:00 Intake Total 1590 ml Output Total 400 ml 0 ml Balance 1190 ml 0 ml IV Total 1109 ml Tube Feeding 481 ml Output Urine Total 400 ml Tube Feeding Residual Discard 0 ml Chest Tube Drainage Total 0 ml Result Diagram: 11/14/16 0320 11/14/16 0320 Imaging Last 24 hours Impressions Chest X-Ray 11/14/16 0600 Signed Impressions: Service Date/Time: Monday, November 14, 2016 05:00 - CONCLUSION: Tubes and catheters are all in good position. Persistent consolidation left lung base infiltrate versus pleural effusion Abhay Horvath MD Objective Remarks intubated, sedated. Responds to commands. no labored respirations RRR abd soft, NT, ND. +ecchymoses around lower abdomen, extending to left flank, left thigh Sheppard clear, yellow Ext NT. No edema. EPC cuffs on and working. Procedures Robotic Left Nephroureterectomy 11/03 Medications and IVs Current Medications Medications (Trade) Dose Ordered Sig/Michael Route Start Time Stop Time Status Last Admin (Roxicodone) 10 mg Q4H PRN PO 11/03/16 11:45 11/11/16 18:45 (Roxicodone) 5 mg Q4H PRN PO 11/03/16 11:45 11/13/16 11:57 (Colace) 100 mg BID PO 11/03/16 11:45 11/14/16 08:20 (Zofran Inj) 4 mg Q6HR PRN IV PUSH 11/03/16 11:45 11/05/16 22:57 (Protonix Inj) 40 mg Q24H IV PUSH 11/03/16 13:00 11/13/16 11:56 (Sinemet 25-100 Mg) 2 tab QID PO 11/03/16 21:00 11/14/16 08:20 (Ilotycin 0.5% Opth Oint) 1 applic HS EACH EYE 11/04/16 21:00 11/13/16 20:45 (Proscar) 5 mg HS PO 11/04/16 21:00 11/11/16 20:33 (Alphagan 0.2% Opth Soln) 1 drop Q12HR EACH EYE 11/04/16 09:00 11/14/16 08:20 (Timoptic 0.5% Opth Soln) 1 drop Q12HR EACH EYE 11/04/16 09:00 11/14/16 08:20 (Folate) 1 mg DAILY PO 11/05/16 09:00 11/14/16 08:20 (Antivert) 25 mg TID PRN PO 11/05/16 17:30 11/09/16 09:13 (Allbee C) 1 tab DAILY PO 11/08/16 09:00 11/14/16 08:20 (SEROquel) 25 mg HS PRN PO 11/08/16 10:00 11/09/16 20:10 (Ecotrin Ec) 81 mg DAILY PO 11/09/16 09:00 11/13/16 08:45 (Tylenol) 1,000 mg Q6H PRN PO 11/11/16 11:00 11/11/16 20:37 Gabapentin 100 mg 100 mg HS PO 11/11/16 21:00 11/13/16 20:45 Propofol 100 ml @ 0 mls/hr TITRATE IV 11/13/16 02:30 11/14/16 05:16 Dextrose/Lactated Ringer's 1,000 ml @ 50 mls/hr Q20H IV 11/13/16 14:00 11/13/16 14:00 (Levophed-Dextrose Drip) 250 ml @ 0 mls/hr TITRATE IV 11/13/16 19:15 Oxycodone HCl 5 mg 5 mg Q4H PO 11/14/16 08:00 11/14/16 08:20 (fentaNYL DRIP) 250 ml @ 0 mls/hr TITRATE IV 11/14/16 08:00 11/14/16 08:20 Assessment and Plan Assessment and Plan POD # 11Robotic Left Nephroureterectomy -Intubated, sedated. On propofol. Per Critical Care -Hgb stable. Hemodynamically stable. On 2 mcg Levophed. Repeat CBC in a.m. -Creatine improved. Good UOP -WBC slightly elevated. Low grade fever. Huggins culture -d/w Dr. Morlaes regarding worsening left pleural effusion. Will place chest tube today to drain effusion. -Amiodarone stopped per Cardiology. -GI prophylaxis -Start Heparin SQ. James Oh MD November 14, 2016 11:13
[2016-11-14] MEDS: HEPARIN SODIUM - SQ 10,000 UNITS/ML VIAL SQ SCH ×2 (11:30→21:04)
--- NOTE | 2016-11-14 12:36 | PD.CARD.PN ---
Subjective Subjective Remarks Intubated, lightly sedated. Objective Medications Current Medications Medications (Trade) Dose Ordered Sig/Michael Route Start Time Stop Time Status Last Admin (Roxicodone) 10 mg Q4H PRN PO 11/03/16 11:45 11/11/16 18:45 (Roxicodone) 5 mg Q4H PRN PO 11/03/16 11:45 11/13/16 11:57 (Colace) 100 mg BID PO 11/03/16 11:45 11/14/16 08:20 (Zofran Inj) 4 mg Q6HR PRN IV PUSH 11/03/16 11:45 11/05/16 22:57 (Protonix Inj) 40 mg Q24H IV PUSH 11/03/16 13:00 11/13/16 11:56 (Sinemet 25-100 Mg) 2 tab QID PO 11/03/16 21:00 11/14/16 08:20 (Ilotycin 0.5% Opth Oint) 1 applic HS EACH EYE 11/04/16 21:00 11/13/16 20:45 (Proscar) 5 mg HS PO 11/04/16 21:00 11/11/16 20:33 (Alphagan 0.2% Opth Soln) 1 drop Q12HR EACH EYE 11/04/16 09:00 11/14/16 08:20 (Timoptic 0.5% Opth Soln) 1 drop Q12HR EACH EYE 11/04/16 09:00 11/14/16 08:20 (Folate) 1 mg DAILY PO 11/05/16 09:00 11/14/16 08:20 (Antivert) 25 mg TID PRN PO 11/05/16 17:30 11/09/16 09:13 (Allbee C) 1 tab DAILY PO 11/08/16 09:00 11/14/16 08:20 (SEROquel) 25 mg HS PRN PO 11/08/16 10:00 11/09/16 20:10 (Ecotrin Ec) 81 mg DAILY PO 11/09/16 09:00 11/13/16 08:45 (Tylenol) 1,000 mg Q6H PRN PO 11/11/16 11:00 11/11/16 20:37 Gabapentin 100 mg 100 mg HS PO 11/11/16 21:00 11/13/16 20:45 Propofol 100 ml @ 0 mls/hr TITRATE IV 11/13/16 02:30 11/14/16 05:16 Dextrose/Lactated Ringer's 1,000 ml @ 50 mls/hr Q20H IV 11/13/16 14:00 11/13/16 14:00 (Levophed-Dextrose Drip) 250 ml @ 0 mls/hr TITRATE IV 11/13/16 19:15 Oxycodone HCl 5 mg 5 mg Q4H PO 11/14/16 08:00 11/14/16 08:20 (fentaNYL DRIP) 250 ml @ 0 mls/hr TITRATE IV 11/14/16 08:00 11/14/16 08:20 (Heparin Inj) 5,000 units Q12HR SQ 11/14/16 11:30 Vital Signs / I&O Vital Signs Date Time Temp Pulse Resp B/P Pulse Ox O2 Delivery O2 Flow Rate FiO2 11/14/16 08:19 98 50 11/14/16 08:00 99.2 66 20 118/47 98 Automatic Cuff 11/14/16 08:00 50 11/14/16 08:00 66 11/14/16 06:00 71 11/14/16 04:05 96 75 11/14/16 04:00 98.6 68 21 114/45 99 11/14/16 04:00 70 11/14/16 04:00 85 11/14/16 02:00 67 11/14/16 01:00 100 50 11/14/16 00:00 73 11/14/16 00:00 98.1 71 20 131/55 96 11/14/16 00:00 70 11/13/16 22:08 94 50 11/13/16 22:00 83 11/13/16 20:02 95 50 11/13/16 20:00 97.6 77 20 132/81 95 11/13/16 20:00 66 11/13/16 20:00 50 11/13/16 18:00 61 11/13/16 16:00 98.4 65 20 122/50 94 11/13/16 16:00 65 11/13/16 16:00 55 11/13/16 15:38 92 55 11/13/16 14:30 55 11/13/16 14:00 83 11/13/16 13:00 50 I/O 11/13/16 11/13/16 11/13/16 11/14/16 11/14/16 11/14/16 07:00 15:00 23:00 07:00 15:00 23:00 Intake Total 556 ml 874 ml 716 ml Output Total 380 ml 200 ml 200 ml 0 ml Balance 176 ml 674 ml 516 ml 0 ml IV Total 556 ml 693 ml 416 ml Tube Feeding 181 ml 300 ml Output Urine Total 250 ml 200 ml 200 ml Gastric Drainage Total 100 ml Tube Feeding Residual Discard 0 ml Chest Tube Drainage Total 30 ml 0 ml 0 ml # Bowel Movements 0 Physical Exam GENERAL: Intubated, sedated. SKIN: Warm and dry. HEAD: Atraumatic. Normocephalic. EYES: Pupils equal and round. No scleral icterus. No injection or drainage. ENT: No nasal bleeding or discharge. Mucous membranes pink and moist.Oral ETT. OG tube with TFs. NECK: Trachea midline. No JVD. CARDIOVASCULAR: Regular rate, irregularly irregular rhythm. No murmurs, rubs, gallops. RESPIRATORY: No accessory muscle use. Faint, scattered expiratory wheezes. Breath sounds equal bilaterally. On vent, FiO2 50% R lateral CT present. GASTROINTESTINAL: Abdomen soft, non-tender, nondistended. MUSCULOSKELETAL: Extremities without clubbing, cyanosis, or edema. No obvious deformities. NEUROLOGICAL: Intubated, lightly sedated. Opens eyes to verbal stimuli. PSYCHIATRIC: Sedated. Laboratory Laboratory Tests Test 11/13/16 11/14/16 21:40 03:20 Troponin I 0.89 NG/ML 0.74 NG/ML White Blood Count 16.7 TH/MM3 Red Blood Count 2.70 MIL/MM3 Hemoglobin 8.5 GM/DL Hematocrit 25.1 % Mean Corpuscular Volume 93.1 FL Mean Corpuscular Hemoglobin 31.4 PG Mean Corpuscular Hemoglobin 33.7 % Concent Red Cell Distribution Width 16.1 % Platelet Count 346 TH/MM3 Mean Platelet Volume 6.4 FL Sodium Level 141 MEQ/L Potassium Level 4.1 MEQ/L Chloride Level 107 MEQ/L Carbon Dioxide Level 27.2 MEQ/L Anion Gap 7 MEQ/L Blood Urea Nitrogen 24 MG/DL Creatinine 1.28 MG/DL Estimat Glomerular Filtration 53 ML/MIN Rate Random Glucose 171 MG/DL Calcium Level 7.7 MG/DL Imaging Last 24 hours Impressions Chest X-Ray 11/14/16 0600 Signed Impressions: Service Date/Time: Monday, November 14, 2016 05:00 - CONCLUSION: Tubes and catheters are all in good position. Persistent consolidation left lung base infiltrate versus pleural effusion Abhay Horvath MD Assessment and Plan Problem List: (1) Atrial fibrillation (2) H/O nephroureterectomy (3) Sinus bradycardia (4) Hypertension Assessment and Plan Continues in Afib with controlled ventricular response. Rate in 60's, BP stable on 1 mcg/kg/min norepinephrine. Continue low dose short-acting beta yandel for rate control if necessary. Not a candidate for full anticoagulation at this time due to high risk of postop bleeding and inability to transfuse if necessary. Code Status Full Discussed Condition With Dr. Abernathy and RN. Jacquelyn Contreras November 14, 2016 12:36
[2016-11-14] MEDS ORDERED: LIDOCAINE HCL 1% 50 ML VIAL ONE (12:51)
[2016-11-14] MEDS: PANTOPRAZOLE SODIUM 40 MG VIAL IV PUSH SCH (13:38)
--- NOTE | 2016-11-14 13:46 | RADRPT ---
EXAM DATE/TIME: 11/14/2016 13:10 [facility] COMPARISON: CHEST SINGLE AP, November 14, 2016, 5:00. INDICATIONS : Left chest tube placement MEDICAL HISTORY : None. SURGICAL HISTORY : None. ENCOUNTER: Initial ACUITY: 1 day PAIN SCORE: Non-responsive. LOCATION: Left chest FINDINGS: Portable AP view of the chest demonstrates a normal-sized cardiac silhouette. ETT, NG tube, and left subclavian central line remain present. Small bore pigtail catheter is present in the left hemithorax with tip overlying the superior hemithorax. No pneumothorax is visualized. There is left basilar ple ural-parenchymal opacity, stable from the prior study. Extensive bilateral chest wall soft tissue air remains present. A right chest tube also remains present and no right pneumothorax is seen. CONCLUSION: 1. Bilateral chest tubes are present and no pneumothorax is visualized. 2. Stable left pleural effusion with associated volume loss and/or consolidation. Akash Mancilla MD on November 14, 2016 at 13:43 Board Certified Radiologist. This report was verified electronically.
[2016-11-14] MEDS: FINASTERIDE 5 MG TAB PO SCH (19:15)
--- NOTE | 2016-11-14 19:24 | PD.PROCEDR ---
Procedure Note Procedure Percutaneous Pigtail Tube Thoracostomy Procedure Note Left-sided 10 Dutch pigtail chest tube Diagnosis: Status post PEA arrest with acute hypoxic respiratory failure Indications: Left-sided pleural effusion with persistent hypoxemia and poor pulmonary mechanics. I discussed the patient's care with his attending Dr. hO and we both agree that drainage to left chest will significantly improve his pulmonary function. Consent: Written consent was obtained Anesthesia: Propofol IV, fentanyl IV Description of the Procedure: The patient was placed in the supine position. The arm was abducted above the head and secured. Prior to the procedure, ultrasound guidance was used to identify the largest pocket of fluid. This was found to be at the sixth intercostal space just posterior to the midaxillary line. The left lateral chest was prepped and draped sterilely to include the axilla and nipple. 1% Lidcaine was infiltrated subcutaneously and into the tissues down to the periosteum of the rib. The 6th intercostal space was identified. A small incision was made using a #11 blade. Just posterior to the mid-axillary line, a 10 Fr pigtail catheter with stylet and pencil point trochar introducer were inserted superior to the adjacent rib and the pigtail catheter was advanced over the trochar in a modified Seldinger Technique, easily and without resistance. The catheter was connected to a Pleur-o-vac and connected to [id number] suction. The catheter was sutured to the skin using a 3-0 silk sandal suture and an occlusive dressing was applied. There were no immediate complications noted. There was minimal EBL. The patient tolerated the procedure well. Findings: 1000 mL's sanguinous output. A Chest x-ray has been ordered. I personally performed the procedure. Tucker Morales MD November 14, 2016 19:24
[2016-11-14] MEDS: GABAPENTIN 100 MG CAP PO SCH (21:05)
[2016-11-14] MEDS: ERYTHROMYCIN 0.5% OPTH OINT 3.5 GM TUBO EACH EYE SCH (21:41)
[2016-11-14] MEDS: NOREPINEPHRINE 4 MG/D5W 250 ML IV SCH (22:15)
[2016-11-15] VITALS (16 sets, daily range): BP systolic 104–141; BP diastolic 46–59; PULSE 65–92; RESP 7–20; TEMP 98.1–100.4; O2SAT 93–97
[2016-11-15] MEDS: oxyCODONE HCL ORAL CONC 20 MG/ML SYRINGE PO SCH ×6 (01:11→19:46)
[2016-11-15 03:24] LABS: AUTOMATED NEUTROPHIL # 12.4 TH/MM3 (1.8-7.7); BASOPHIL # 0.1 TH/MM3 (0-0.2); BASOPHIL % 0.5 % (0.0-2.0); EOSINOPHIL # 0.3 TH/MM3 (0-0.4); EOSINOPHIL % 1.6 % (0.0-4.0); HEMATOCRIT 25.7 % (39.0-51.0); HEMO FLAGS DIFF FINAL; LYMPH % 12.6 % (9.0-44.0); MEAN CELL VOLUME 94.2 FL (80.0-100.0); MEAN CORPUSCULAR HEMOGLOBIN 31.2 PG (27.0-34.0); MEAN CORPUSCULAR HGB CONC 33.1 % (32.0-36.0); MONO % 8.3 % (0.0-8.0); PLATELET COUNT 327 TH/MM3 (150-450); RED BLOOD COUNT 2.73 MIL/MM3 (4.50-5.90); RED CELL DISTRIBUTION WIDTH 16.8 % (11.6-17.2); WHITE BLOOD COUNT 16.1 TH/MM3 (4.0-11.0)
[2016-11-15 03:47] LABS: BICARBONATE 27.4 MEQ/L (21.0-32.0); POTASSIUM 4.1 MEQ/L (3.5-5.1)
[2016-11-15] MEDS: DEXTROSE 5%-LACTATED RING INJ 1,000 ML IV SCH (06:00)
--- NOTE | 2016-11-15 08:32 | HHI.PR ---
Subjective Patient symptoms today intubated, lightly sedated. on low dose Levophed. Chest tube inserted on left side yesterday, 1200 ml of old, venous blood removed. Serous this morning. FiO2 down to 45 from 60 yesterday. Objective Vital Signs Vital Signs Date Time Temp Pulse Resp B/P Pulse Ox O2 Delivery O2 Flow Rate FiO2 11/15/16 06:00 90 11/15/16 04:00 87 11/15/16 04:00 45 11/15/16 04:00 98.5 87 20 134/59 94 11/15/16 03:49 95 45 11/15/16 02:03 90 11/15/16 00:00 74 11/15/16 00:00 98.1 74 20 141/57 96 11/15/16 00:00 45 11/14/16 22:09 95 45 11/14/16 22:00 81 11/14/16 20:05 94 45 11/14/16 20:00 45 11/14/16 20:00 84 11/14/16 20:00 97.6 78 20 122/48 94 11/14/16 18:00 77 11/14/16 16:01 96 40 11/14/16 16:00 67 11/14/16 16:00 99.3 67 20 123/49 95 11/14/16 12:50 95 50 11/14/16 12:00 63 11/14/16 12:00 98.3 72 21 117/56 96 11/14/16 10:00 72 Intake & Output 11/15/16 11/15/16 07:00 19:00 Intake Total 1583 ml Output Total 765 ml Balance 818 ml IV Total 601 ml Tube Feeding 982 ml Output Urine Total 425 ml Chest Tube Drainage Total 340 ml # Bowel Movements 0 Result Diagram: 11/15/16 0300 11/15/16 0300 Objective Remarks intubated, sedated. Responds to commands. no labored respirations RRR abd soft, NT, ND. +ecchymoses around lower abdomen, extending to left flank, left thigh Sheppard clear, yellow Ext NT. No edema. EPC cuffs on and working. Procedures Robotic Left Nephroureterectomy 11/03 Medications and IVs Current Medications Medications (Trade) Dose Ordered Sig/Michael Route Start Time Stop Time Status Last Admin (Roxicodone) 10 mg Q4H PRN PO 11/03/16 11:45 11/11/16 18:45 (Roxicodone) 5 mg Q4H PRN PO 11/03/16 11:45 11/13/16 11:57 (Colace) 100 mg BID PO 11/03/16 11:45 11/14/16 21:04 (Zofran Inj) 4 mg Q6HR PRN IV PUSH 11/03/16 11:45 11/05/16 22:57 (Protonix Inj) 40 mg Q24H IV PUSH 11/03/16 13:00 11/14/16 13:38 (Sinemet 25-100 Mg) 2 tab QID PO 11/03/16 21:00 11/14/16 21:04 (Ilotycin 0.5% Opth Oint) 1 applic HS EACH EYE 11/04/16 21:00 11/14/16 21:41 (Proscar) 5 mg HS PO 11/04/16 21:00 11/11/16 20:33 (Alphagan 0.2% Opth Soln) 1 drop Q12HR EACH EYE 11/04/16 09:00 11/14/16 21:41 (Timoptic 0.5% Opth Soln) 1 drop Q12HR EACH EYE 11/04/16 09:00 11/14/16 21:41 (Folate) 1 mg DAILY PO 11/05/16 09:00 11/14/16 08:20 (Antivert) 25 mg TID PRN PO 11/05/16 17:30 11/09/16 09:13 (Allbee C) 1 tab DAILY PO 11/08/16 09:00 11/14/16 08:20 (SEROquel) 25 mg HS PRN PO 11/08/16 10:00 11/09/16 20:10 (Ecotrin Ec) 81 mg DAILY PO 11/09/16 09:00 11/13/16 08:45 (Tylenol) 1,000 mg Q6H PRN PO 11/11/16 11:00 11/11/16 20:37 Gabapentin 100 mg 100 mg HS PO 11/11/16 21:00 11/14/16 21:05 Propofol 100 ml @ 0 mls/hr TITRATE IV 11/13/16 02:30 11/14/16 22:15 Dextrose/Lactated Ringer's 1,000 ml @ 50 mls/hr Q20H IV 11/13/16 14:00 11/13/16 14:00 (Levophed-Dextrose Drip) 250 ml @ 0 mls/hr TITRATE IV 11/13/16 19:15 11/14/16 22:15 Oxycodone HCl 5 mg 5 mg Q4H PO 11/14/16 08:00 11/15/16 05:36 (fentaNYL DRIP) 250 ml @ 0 mls/hr TITRATE IV 11/14/16 08:00 11/14/16 21:04 (Heparin Inj) 5,000 units Q12HR SQ 11/14/16 11:30 11/14/16 21:04 Assessment and Plan Assessment and Plan POD # 12 Robotic Left Nephroureterectomy -Intubated, lightly sedated. On propofol. Per Critical Care -Wean Vent. -Hgb stable. Hemodynamically stable. On 2 mcg Levophed. -Good UOP -WBC slightly decreased. -Rate controlled A fib per Cardiology -GI prophylaxis -Heparin SQ. -Continue Tube feeds James Oh MD November 15, 2016 08:32
[2016-11-15] MEDS: TIMOLOL MALEATE 0.5% OPHT SOLN 5 ML BTL EACH EYE SCH ×2 (09:00→19:48)
[2016-11-15] MEDS: BRIMONIDINE TARTRATE 0.2% OPHT SOLN 5 ML BTL EACH EYE SCH ×2 (09:00→19:48)
[2016-11-15] MEDS: ASPIRIN EC 81 MG TABEC PO SCH (09:00)
--- NOTE | 2016-11-15 09:09 | HHI.CCPN ---
Subjective Remarks/Hospital Course 11/03: 86 y/o male with past medical history significant for Parkinson's disease who was diagnosed to have a left renal pelvis mass when he presented with hematuria and left flank pain which was felt to be consistent with transitional cell carcinoma. Patient underwent left robotic nephroureterectomy under general anesthesia by Dr. Oh on 11/03, received 2500 cc crystalloid, EBL 75 cc , Intra-Op urine output 300 cc. Patient was extubated postoperatively and transferred to PACU and subsequently to [facility]. His heart rate has been in the 40s postoperatively. Patient tells me that he runs a slow heart rate for a few years now. He did drop his blood pressure to the 70s transiently for which she was given a fluid bolus with normal saline 1 L and critical care consult was requested for hypotension and Dr. marte. I evaluated the patient immediately on being notified of the consult. At the time of my evaluation he was laying in the ICU bed not in any acute distress. He denied any chest pain or shortness of breath. He had minimal abdominal discomfort at the site of surgery. 11/04: Resting in bed comfortably no further hypotension since last night. 11/05: Patient had a hemoglobin dropped down to 7 g percent. No hypotension or tachycardia. He is resting in bed comfortably not in any acute distress this morning at the time of my evaluation. Bruising noted over left flank and anterior abdominal wall. 11/06: Receive morphine last night and is drowsy currently. No hypotension overnight. Hemoglobin remains above 7. 11/07: Went into A. fib with RVR on 11/06 and was started on amiodarone drip. Currently remains rate controlled. 11/08: Was agitated and confused overnight. This morning he is awake and alert appears comfortable and is very pleasant. On 4.5 L nasal cannula. Remains in atrial fibrillation on amiodarone drip. 11/09: He was confused and agitated at night. Was on BiPAP with full facemask overnight. Remains in atrial fibrillation on amiodarone drip. Starting aspirin today. 11/10: Awake and alert, following commands. On nasal cannula 6 L/m. Remains in A. fib. Amiodarone switched to by mouth yesterday. Erythema and swelling over right forearm secondary to IV infiltration noted. 11/11: awake and alert. afib converted overnight. 11/12: doing well and stable. on 5L NC. out of bed to chair on my eval. 11/13: PEA arrest and acute change yesterday. please see 11/12 addended note for details. this morning, remains on levophed. chest tube with persistent air leak. follows commands x 4, gets agitated off sedation. 60% fio2. persistent hypoxia. 11/14: oxygen requirement persists. unable to wean ventilation. Cr slightly improved. left pleural effusion worse than prior xray. subQ air persists. CT with 1+ air leak still. 11/15: oxygen requirement improving. left sided pigtail chest tube put out 1100cc sanguinous output, likely old from retained hemothorax s/p CPR and rib fractures. This morning, both chest tubes without air leaks. fio2 45%. patient awake, follows commands. denies pain. Objective Vital Signs Date Time Temp Pulse Resp B/P Pulse Ox O2 Delivery O2 Flow Rate FiO2 11/15/16 06:00 90 11/15/16 04:00 45 11/15/16 04:00 98.5 20 134/59 94 11/12/16 07:24 Simple Mask 7.00 Intake and Output 11/14/16 11/14/16 11/15/16 08:00 16:00 00:00 Intake Total 716 ml 746 ml 856 ml Output Total 200.0 ml 1300.0 ml 436 ml Balance 516.0 ml -554.0 ml 420 ml Result Diagram: 11/15/16 0300 11/15/16 0300 Other Results Microbiology Date/Time Procedure Status Source Growth 11/12/16 21:23 Urine Culture - Final Complete Urine Catheterized Urine NO GROWTH IN 48 HOURS. Imaging Last Impressions Chest X-Ray 11/14/16 0600 Signed Impressions: Service Date/Time: Monday, November 14, 2016 05:00 - CONCLUSION: Tubes and catheters are all in good position. Persistent consolidation left lung base infiltrate versus pleural effusion Abhay Horvath MD Head CT 11/12/16 0000 Signed Impressions: Service Date/Time: October 16:48 - CONCLUSION: No acute intracranial findings Akash Brown MD CT Angiography 11/12/16 0000 Signed Impressions: Service Date/Time: October 16:52 - CONCLUSION: Bilateral effusions and lung atelectasis, left worse than right. Small primarily anterior basilar right pneumothorax. No evidence of pulmonary embolism Akash Brown MD Abdomen/Pelvis CT 11/12/16 0000 Signed Impressions: Service Date/Time: October 16:55 - CONCLUSION: Fluid and hematoma in the left retroperitoneum post left nephrectomy. Nothing to suggest active bleeding at present. Air in the lower abdominal and anterior pelvic subcutaneous tissues of undetermined origin. Akash Brown MD Lung Scan-[facility] Nuclear Medicine 11/06/16 0000 Signed Impressions: Service Date/Time: Sunday, November 06, 2016 13:52 - CONCLUSION: 1. The perfusion portion the exam is normal. No pulmonary embolus is identified. 2. Patchy delivery of tracer to both lungs suggesting COPD. Pratik Valverde MD Objective Remarks HEENT/Neuro: elderly male, intubated, sedated, critically ill. RASS -2, fc x 4. PERRL. Neck: No JVD. trachea midline. 8.[address]. Chest/pulmonary: unlabored. equal chest rise. right chest tube with serous output, no air leak, to suction. left pigtail with serosanguinous output, no air leak, to suction. Cardiovascular: normal rate, regular rhythm. sinus by tele. GI/abdomen: Soft, nontender. Port sites with Steri-Strips in place. Bruising/ ecchymosis over the anterior abdominal wall and left flank noted Extremities: Warm bilaterally, no edema A/P Assessment and Plan 86-year-old male s/p Left robotic-assisted nephroureterectomy/urethral dilation , course complicated by recurrent hypoxic respiratory failure, post-op a. fib, and most recently PEA arrest complicated by rib fractures and right tension pneumothorax. He remains very critically ill at this time. minimal improvements , off pathway. s/p bilateral drainage of effusions. Cr slightly worse and on higher vasopressor requirements, possibly hypovolemia. will restart mivf. Active Problems: Left kidney mass status post left robotic-assisted nephroureterectomy/urethral dilation Hypotension- likely secondary to sedation Anemia secondary to acute blood loss Acute hypoxic and hypercarbic respiratory failure Suspected sleep apnea Suspected COPD Right pneumothorax s/p right 28 Fr chest tube A. fib with RVR(new)- resolved. Sinus bradycardia Right bundle branch block [old] First degree AV block History of Parkinson's disease Hyperlipidemia s/p PEA arrest multiple right-sided rib fractures elevated troponins Left hemothorax secondary to CPR Acute Kidney Injury Left pigtail chest tube placement Plan: Neuro: RASS goal -2. prop/fent for goal RASS. frequent neuro checks. Seroquel 25 mg daily at bedtime to control delirium. oxy 5 per tube for rib fracture pain. Cardiovascular: s/p PEA arrest. continue Levophed for map > 65 mmHg. po amio stopped per cards. Cardiology following for afib ([facility]). Pulmonary: wean fio2 for spo2 > 90%. will repeat cxr in AM. start SBT today. keep both chest tubes to suction. re-eval in AM. GI/liver: TF at goal. daily bmp. Renal/: Status post left nephroureterectomy in followed by urology. Strict intake output, monitor and replete electrolites, Cr uptrended. restart LR @ 84cc /hr. ID: s/p full course of levaquin. culture for new fever. Heme: Follow CBC. Patient has indicated preoperatively that he does not wish to receive any blood products however per anesthesia documentation is okay with albumin if needed. On 11/05 initiated darbapoeitin subcutaneously, IM B-12, IV iron sucrose and PO folic acid. Once again confirmed with patient on 11/05 and he does not wish to have blood transfusions. Hemoglobin stable Prophylaxis: Protonix, SCDs. Subcutaneous heparin when okay with urology - on hold currently. Dispo: now very critically ill. remain in ICU. Critical Care time: 37 minutes, exclusive of separately billable procedures. Tucker Morales MD November 15, 2016 09:08
[2016-11-15] MEDS: VITAMIN B COMPLEX/VIT C TAB PO SCH (09:15)
[2016-11-15] MEDS: DOCUSATE SODIUM 100 MG CAP PO SCH ×2 (09:15→19:47)
[2016-11-15] MEDS: FOLIC ACID 1 MG TAB PO SCH (09:15)
[2016-11-15] MEDS: CARBIDOPA/LEVODOPA 25 MG/100 MG TAB PO SCH ×4 (09:15→19:47)
[2016-11-15] MEDS ORDERED: ALBUMIN HUMAN 25% 12.5 GM/50 ML BAGP IV ONE (09:15)
[2016-11-15] MEDS: LACTATED RINGER'S 1000 ML INJ 1,000 ML IV SCH ×2 (09:16→19:46)
[2016-11-15] MEDS: HEPARIN SODIUM - SQ 10,000 UNITS/ML VIAL SQ SCH ×2 (09:16→19:48)
--- NOTE | 2016-11-15 09:28 | RADRPT ---
EXAM DATE/TIME: 11/15/2016 08:53 [facility] COMPARISON: CHEST SINGLE AP, November 14, 2016, 13:10. INDICATIONS : Evaluate for atelectasis. MEDICAL HISTORY : None. SURGICAL HISTORY : None. ENCOUNTER: Initial ACUITY: 1 day PAIN SCORE: Non-responsive. LOCATION: Bilateral chest FINDINGS: Portable AP view of the chest demonstrates a normal-sized cardiac silhouette. ETT, NG tube, and left subclavian central line remain present. Bilateral chest tubes also remain present. There is a questio nable tiny right apical pneumothorax. There is a persistent left basilar and retrocardiac opacity, sl ightly decreased from the prior study. There is also hazy opacity at the right base. Bilateral subcut aneous air remains present. CONCLUSION: 1. Bilateral chest tubes remain present. There is a questionable tiny right apical pneumothorax. 2. The left basilar opacity has decreased in size and likely represent small pleural effusion with as sociated atelectasis and/or airspace consolidation. 3. Stable hazy opacity at the right base. Akash Mancilla MD on November 15, 2016 at 9:25 Board Certified Radiologist. This report was verified electronically.
--- NOTE | 2016-11-15 10:31 | PD.CARD.PN ---
Subjective Subjective Remarks Intubated. Opens eyes to verbal stimuli. Follows simple commands. Denies pain. Objective Medications Current Medications Medications (Trade) Dose Ordered Sig/Michael Route Start Time Stop Time Status Last Admin (Colace) 100 mg BID PO 11/03/16 11:45 11/15/16 09:15 (Zofran Inj) 4 mg Q6HR PRN IV PUSH 11/03/16 11:45 11/05/16 22:57 (Protonix Inj) 40 mg Q24H IV PUSH 11/03/16 13:00 11/14/16 13:38 (Sinemet 25-100 Mg) 2 tab QID PO 11/03/16 21:00 11/15/16 09:15 (Ilotycin 0.5% Opth Oint) 1 applic HS EACH EYE 11/04/16 21:00 11/14/16 21:41 (Proscar) 5 mg HS PO 11/04/16 21:00 11/11/16 20:33 (Alphagan 0.2% Opth Soln) 1 drop Q12HR EACH EYE 11/04/16 09:00 11/15/16 09:00 (Timoptic 0.5% Opth Soln) 1 drop Q12HR EACH EYE 11/04/16 09:00 11/15/16 09:00 (Folate) 1 mg DAILY PO 11/05/16 09:00 11/15/16 09:15 (Antivert) 25 mg TID PRN PO 11/05/16 17:30 11/09/16 09:13 (Allbee C) 1 tab DAILY PO 11/08/16 09:00 11/15/16 09:15 (SEROquel) 25 mg HS PRN PO 11/08/16 10:00 11/09/16 20:10 (Ecotrin Ec) 81 mg DAILY PO 11/09/16 09:00 11/13/16 08:45 (Tylenol) 1,000 mg Q6H PRN PO 11/11/16 11:00 11/11/16 20:37 Gabapentin 100 mg 100 mg HS PO 11/11/16 21:00 11/14/16 21:05 Propofol 100 ml @ 0 mls/hr TITRATE IV 11/13/16 02:30 11/14/16 22:15 (Levophed-Dextrose Drip) 250 ml @ 0 mls/hr TITRATE IV 11/13/16 19:15 11/14/16 22:15 Oxycodone HCl 5 mg 5 mg Q4H PO 11/14/16 08:00 11/15/16 09:15 (fentaNYL DRIP) 250 ml @ 0 mls/hr TITRATE IV 11/14/16 08:00 11/14/16 21:04 Heparin Sodium (Porcine) 5000 units 5,000 units Q12HR SQ 11/14/16 11:30 11/15/16 09:16 (Lr 1000 ml Inj) 1,000 ml @ 84 mls/hr [id number] IV 11/15/16 09:00 11/15/16 09:16 Vital Signs / I&O Vital Signs Date Time Temp Pulse Resp B/P Pulse Ox O2 Delivery O2 Flow Rate FiO2 11/15/16 09:26 55 11/15/16 09:03 93 55 11/15/16 06:00 90 11/15/16 04:00 87 11/15/16 04:00 45 11/15/16 04:00 98.5 87 20 134/59 94 11/15/16 03:49 95 45 11/15/16 02:03 90 11/15/16 00:00 74 11/15/16 00:00 98.1 74 20 141/57 96 11/15/16 00:00 45 11/14/16 22:09 95 45 11/14/16 22:00 81 11/14/16 20:05 94 45 11/14/16 20:00 45 11/14/16 20:00 84 11/14/16 20:00 97.6 78 20 122/48 94 11/14/16 18:00 77 11/14/16 16:01 96 40 11/14/16 16:00 67 11/14/16 16:00 99.3 67 20 123/49 95 11/14/16 12:50 95 50 11/14/16 12:00 63 11/14/16 12:00 98.3 72 21 117/56 96 I/O 11/14/16 11/14/16 11/14/16 11/15/16 11/15/16 11/15/16 07:00 15:00 23:00 07:00 15:00 23:00 Intake Total 716 ml 746 ml 856 ml 727 ml Output Total 200 ml 1300 ml 436 ml 329 ml Balance 516 ml -554 ml 420 ml 398 ml IV Total 416 ml 239 ml 288 ml 313 ml Tube Feeding 300 ml 507 ml 568 ml 414 ml Output Urine Total 200 ml 250 ml 250 ml 175 ml Gastric Drainage Total 0 ml Tube Feeding Residual Discard 0 ml 0 ml Chest Tube Drainage Total 0 ml 1050 ml 186 ml 154 ml # Bowel Movements 0 0 Physical Exam GENERAL: Intubated. No distress. SKIN: Warm and dry. HEAD: Atraumatic. Normocephalic. EYES: Pupils equal and round. No scleral icterus. No injection or drainage. ENT: No nasal bleeding or discharge. Mucous membranes pink and moist.Oral ETT. OG tube with TFs. NECK: Trachea midline. No JVD. CARDIOVASCULAR: Regular rate, irregularly irregular rhythm. No murmurs, rubs, gallops. RESPIRATORY: No accessory muscle use. Diminished throughout. Breath sounds equal bilaterally. On vent, FiO2 55% Bilateral CT present. GASTROINTESTINAL: Abdomen soft, non-tender, nondistended. MUSCULOSKELETAL: Extremities without clubbing, cyanosis, or edema. No obvious deformities. NEUROLOGICAL: Intubated. Opens eyes to verbal stimuli. Follows simple commands. PSYCHIATRIC: Calm, cooperative. Laboratory Laboratory Tests Test 11/15/16 03:00 White Blood Count 16.1 TH/MM3 Red Blood Count 2.73 MIL/MM3 Hemoglobin 8.5 GM/DL Hematocrit 25.7 % Mean Corpuscular Volume 94.2 FL Mean Corpuscular Hemoglobin 31.2 PG Mean Corpuscular Hemoglobin 33.1 % Concent Red Cell Distribution Width 16.8 % Platelet Count 327 TH/MM3 Mean Platelet Volume 6.5 FL Neutrophils (%) (Auto) 77.0 % Lymphocytes (%) (Auto) 12.6 % Monocytes (%) (Auto) 8.3 % Eosinophils (%) (Auto) 1.6 % Basophils (%) (Auto) 0.5 % Neutrophils # (Auto) 12.4 TH/MM3 Lymphocytes # (Auto) 2.0 TH/MM3 Monocytes # (Auto) 1.3 TH/MM3 Eosinophils # (Auto) 0.3 TH/MM3 Basophils # (Auto) 0.1 TH/MM3 CBC Comment DIFF FINAL Differential Comment Sodium Level 142 MEQ/L Potassium Level 4.1 MEQ/L Chloride Level 105 MEQ/L Carbon Dioxide Level 27.4 MEQ/L Anion Gap 10 MEQ/L Blood Urea Nitrogen 24 MG/DL Creatinine 1.37 MG/DL Estimat Glomerular Filtration 49 ML/MIN Rate Random Glucose 163 MG/DL Calcium Level 7.5 MG/DL Imaging Last 24 hours Impressions Chest X-Ray 11/15/16 0000 Signed Impressions: Service Date/Time: Tuesday, November 15, 2016 08:53 - CONCLUSION: 1. Bilateral chest tubes remain present. There is a questionable tiny right apical pneumothorax. 2. The left basilar opacity has decreased in size and likely represent small pleural effusion with associated atelectasis and/or airspace consolidation. 3. Stable hazy opacity at the right base. Akash Mancilla MD Assessment and Plan Problem List: (1) Atrial fibrillation (2) H/O nephroureterectomy (3) Sinus bradycardia (4) Hypertension Assessment and Plan More awake. Was on CPAP this am. Continues in Afib with controlled ventricular response. Rate in 70's, BP stable on 3.5 mcg/kg/min norepinephrine. Received albumin and fluid bolus per critical care team in attempt to wean off norepinephrine. Continue low dose short-acting beta yandel for rate control if necessary. Not a candidate for full anticoagulation at this time due to high risk of postop bleeding and inability to transfuse if necessary. Code Status Full Discussed Condition With Dr. Abernathy and RN. Jacquelyn Contreras [employer]LE[employer] LEAD November 15, 2016 10:31
[2016-11-15] MEDS: fentaNYL DRIP 250 ML IV SCH ×2 (12:01→17:56)
[2016-11-15] MEDS: PANTOPRAZOLE SODIUM 40 MG VIAL IV PUSH SCH (12:52)
[2016-11-15] MEDS: FINASTERIDE 5 MG TAB PO SCH (19:47)
[2016-11-15] MEDS: GABAPENTIN 100 MG CAP PO SCH (19:47)
[2016-11-15] MEDS: ERYTHROMYCIN 0.5% OPTH OINT 3.5 GM TUBO EACH EYE SCH (19:49)
[2016-11-15] MEDS: RESP: ALBUTEROL 2.5 MG/IPRATROPIUM 0.5 MG NEB (PRN) NEB (23:50)
[2016-11-16] VITALS (22 sets, daily range): BP systolic 110–153; BP diastolic 53–67; PULSE 89–132; RESP 20; TEMP 98.7–100.2; O2SAT 90–100
[2016-11-16] MEDS: PROPOFOL 1000 MG/100 ML IV SCH ×3 (01:07→12:12)
[2016-11-16 01:13] LABS: BLOOD GAS BASE EXCESS 0.5 mmol/L (-2-2); BLOOD GAS CARBOXYHEMOGLOBIN 1.5 % (0-4); BLOOD GAS HCO3 25 mmol/L (22-26); BLOOD GAS METHEMOGLOBIN 0.8 % (0-2); BLOOD GAS O2 HGB SATURATION 97 % (90-100); BLOOD GAS OXYGEN CONTENT 11.2 Vol % (12.0-20.0); BLOOD GAS PCO2 45 mmHg (38-42); BLOOD GAS PO2 154 mmHg (61-120); CRITICAL VALUE NO; OXYGEN DEVICE VENTILATOR; TEMP CORR TO 98.6; VENT SETTINGS PRVC/AC
--- NOTE | 2016-11-16 01:13 | RADRPT ---
EXAM DATE/TIME: 11/16/2016 00:43 [facility] COMPARISON: CHEST SINGLE AP, November 15, 2016, 8:53. CT PULMONARY ANGIOGRAM, November 12, 2016, 16:52. INDICATIONS : Respiratory failure. MEDICAL HISTORY : None. SURGICAL HISTORY : None. ENCOUNTER: Initial ACUITY: 1 day PAIN SCORE: Non-responsive. LOCATION: Bilateral chest FINDINGS: Endotracheal tube, nasogastric tube, left subclavian central line and bilateral thoracostomy tubes ar e stable there is there is persistence of a tiny apical pneumothorax on the right. Consolidative mahmood ge and fluid present in the lung bases also stable. Cardiomediastinal contours are stable. Diffuse english bcutaneous emphysema is again noted. CONCLUSION: No significant interval change Akash Brown MD on November 16, 2016 at 1:07 Board Certified Radiologist. This report was verified electronically.
[2016-11-16 01:14] LABS: DRAW SITE ART LINE; FIO2 100 %; STAT YES
[2016-11-16] MEDS: guaiFENesin SOLUTION 200 MG/10 ML CUP PO SCH ×4 (01:48→17:32)
[2016-11-16 03:33] LABS: MEAN CELL VOLUME 93.4 FL (80.0-100.0); MEAN CORPUSCULAR HEMOGLOBIN 31.8 PG (27.0-34.0); PLATELET COUNT 323 TH/MM3 (150-450); RED BLOOD COUNT 2.57 MIL/MM3 (4.50-5.90); RED CELL DISTRIBUTION WIDTH 16.3 % (11.6-17.2); REVIEW FLAG FINAL; WHITE BLOOD COUNT 15.2 TH/MM3 (4.0-11.0)
[2016-11-16 03:51] LABS: BICARBONATE 27.8 MEQ/L (21.0-32.0); POTASSIUM 4.6 MEQ/L (3.5-5.1)
[2016-11-16] MEDS: oxyCODONE HCL ORAL CONC 20 MG/ML SYRINGE PO SCH ×6 (04:00→20:33)
[2016-11-16] MEDS: PIPERACIL-TAZO 3.375 GM PREMIX 50 ML IV SCH ×4 (04:03→20:32)
[2016-11-16] MEDS: RESP: ALBUTEROL 2.5 MG/IPRATROPIUM 0.5 MG NEB (SCH) NEB ×4 (04:15→21:04)
[2016-11-16] MEDS: NOREPINEPHRINE 4 MG/D5W 250 ML IV SCH (06:26)
[2016-11-16] MEDS ORDERED: LIDOCAINE HCL 2% 100 MG/5 ML SYRINGE OTHER ONE (08:30)
[2016-11-16] MEDS ORDERED: CISATRACURIUM BESYLATE 20 MG/10 ML VIAL IV ONE (08:30)
[2016-11-16] MEDS: LACTATED RINGER'S 1000 ML INJ 1,000 ML IV SCH ×2 (08:50→20:33)
[2016-11-16] MEDS: TIMOLOL MALEATE 0.5% OPHT SOLN 5 ML BTL EACH EYE SCH ×2 (09:00→20:33)
[2016-11-16] MEDS: BRIMONIDINE TARTRATE 0.2% OPHT SOLN 5 ML BTL EACH EYE SCH ×2 (09:00→20:33)
[2016-11-16] MEDS: CARBIDOPA/LEVODOPA 25 MG/100 MG TAB PO SCH ×4 (09:59→20:32)
[2016-11-16] MEDS: HEPARIN SODIUM - SQ 10,000 UNITS/ML VIAL SQ SCH ×2 (09:59→20:34)
[2016-11-16] MEDS: ASPIRIN EC 81 MG TABEC PO SCH (09:59)
[2016-11-16] MEDS: VITAMIN B COMPLEX/VIT C TAB PO SCH (09:59)
[2016-11-16] MEDS: DOCUSATE SODIUM 100 MG CAP PO SCH ×2 (09:59→20:32)
[2016-11-16] MEDS: FOLIC ACID 1 MG TAB PO SCH (09:59)
--- NOTE | 2016-11-16 11:05 | HHI.CCPN ---
Subjective Remarks/Hospital Course 11/03: 86 y/o male with past medical history significant for Parkinson's disease who was diagnosed to have a left renal pelvis mass when he presented with hematuria and left flank pain which was felt to be consistent with transitional cell carcinoma. Patient underwent left robotic nephroureterectomy under general anesthesia by Dr. Oh on 11/03, received 2500 cc crystalloid, EBL 75 cc , Intra-Op urine output 300 cc. Patient was extubated postoperatively and transferred to PACU and subsequently to [facility]. His heart rate has been in the 40s postoperatively. Patient tells me that he runs a slow heart rate for a few years now. He did drop his blood pressure to the 70s transiently for which she was given a fluid bolus with normal saline 1 L and critical care consult was requested for hypotension and Dr. marte. I evaluated the patient immediately on being notified of the consult. At the time of my evaluation he was laying in the ICU bed not in any acute distress. He denied any chest pain or shortness of breath. He had minimal abdominal discomfort at the site of surgery. 11/04: Resting in bed comfortably no further hypotension since last night. 11/05: Patient had a hemoglobin dropped down to 7 g percent. No hypotension or tachycardia. He is resting in bed comfortably not in any acute distress this morning at the time of my evaluation. Bruising noted over left flank and anterior abdominal wall. 11/06: Receive morphine last night and is drowsy currently. No hypotension overnight. Hemoglobin remains above 7. 11/07: Went into A. fib with RVR on 11/06 and was started on amiodarone drip. Currently remains rate controlled. 11/08: Was agitated and confused overnight. This morning he is awake and alert appears comfortable and is very pleasant. On 4.5 L nasal cannula. Remains in atrial fibrillation on amiodarone drip. 11/09: He was confused and agitated at night. Was on BiPAP with full facemask overnight. Remains in atrial fibrillation on amiodarone drip. Starting aspirin today. 11/10: Awake and alert, following commands. On nasal cannula 6 L/m. Remains in A. fib. Amiodarone switched to by mouth yesterday. Erythema and swelling over right forearm secondary to IV infiltration noted. 11/11: awake and alert. afib converted overnight. 11/12: doing well and stable. on 5L NC. out of bed to chair on my eval. 11/13: PEA arrest and acute change yesterday. please see 11/12 addended note for details. this morning, remains on levophed. chest tube with persistent air leak. follows commands x 4, gets agitated off sedation. 60% fio2. persistent hypoxia. 11/14: oxygen requirement persists. unable to wean ventilation. Cr slightly improved. left pleural effusion worse than prior xray. subQ air persists. CT with 1+ air leak still. 11/15: oxygen requirement improving. left sided pigtail chest tube put out 1100cc sanguinous output, likely old from retained hemothorax s/p CPR and rib fractures. This morning, both chest tubes without air leaks. fio2 45%. patient awake, follows commands. denies pain. 11/16: oxygen requirement increased overnight, leukocytosis stable, low grade fever overnight, and now with new copious sputum production which appears greenish. Right chest tube 76mL/24h, left pigtail 340 mL/24h. no air leak on right, intermittent bubble on left. still follows commands. on increasing doses of levophed today. Objective Vital Signs Date Time Temp Pulse Resp B/P Pulse Ox O2 Delivery O2 Flow Rate FiO2 11/16/16 09:57 94 Ventilator 50 11/16/16 06:00 110 11/16/16 04:00 98.7 20 152/66 11/12/16 07:24 7.00 Intake and Output 11/15/16 11/15/16 11/15/16 07:59 15:59 23:59 Intake Total 727 ml 1210 ml 1566 ml Output Total 329 ml 415 ml 250 ml Balance 398 ml 795 ml 1316 ml Result Diagram: 11/16/16 0307 11/16/16 0307 Other Results Laboratory Tests Test 11/16/16 00:54 Blood Gas Puncture Site ART LINE Blood Gas Patient Temperature 98.6 Blood Gas HCO3 25 mmol/L (22-26) Blood Gas Base Excess 0.5 mmol/L (-2-2) Blood Gas Oxygen Saturation 97 % (90-100) Arterial Blood pH 7.37 (7.380-7.420) Arterial Blood Partial 45 mmHg (38-42) Pressure CO2 Arterial Blood Partial 154 mmHg Pressure O2 (61-120) Arterial Blood Oxygen Content 11.2 Vol % (12.0-20.0) Arterial Blood 1.5 % (0-4) Carboxyhemoglobin Arterial Blood Methemoglobin 0.8 % (0-2) Blood Gas Hemoglobin 8.0 G/DL (12.0-16.0) Oxygen Delivery Device VENTILATOR Blood Gas Ventilator Setting PRVC/AC Blood Gas Inspired Oxygen 100 % Imaging Last 24 hours Impressions Chest X-Ray 11/16/16 0000 Signed Impressions: Service Date/Time: Wednesday, November 16, 2016 00:43 - CONCLUSION: No significant interval change Akash Brown MD Objective Remarks HEENT/Neuro: elderly male, intubated, sedated, critically ill. RASS -2, fc x 4. PERRL. Neck: No JVD. trachea midline. 8.[address]. Chest/pulmonary: unlabored. equal chest rise. right chest tube with serous output, no air leak, to suction. left pigtail with serosanguinous output, very intermittent tiny air leak, to suction. Cardiovascular: normal rate, regular rhythm. sinus by tele. GI/abdomen: Soft, nontender. Port sites with Steri-Strips in place. Bruising/ ecchymosis over the anterior abdominal wall and left flank noted Extremities: Warm bilaterally, no edema A/P Assessment and Plan 86-year-old male s/p Left robotic-assisted nephroureterectomy/urethral dilation , course complicated by recurrent hypoxic respiratory failure, post-op a. fib, and most recently PEA arrest complicated by rib fractures and right tension pneumothorax. He remains very critically ill at this time. minimal improvements , off pathway. s/p bilateral drainage of effusions. Cr slightly worse and on higher vasopressor requirements, despite ivf resuscitation yesterday. Also now with new copious sputum production and what appears to be a possible pneumonia, likely secondary to aspiration from PEA arrest event. Will proceed with bronchoscopy and cultures, started on Zosyn overnight. Plan by Systems: Neuro: History of Parkinson's disease Acute Pain associated with rib fractures Agitated Delirium -- RASS goal -2. -- prop/fent for goal RASS. -- frequent neuro checks. -- Seroquel 25 mg daily at bedtime to control delirium. -- oxy 5 per tube for rib fracture pain. Cardiovascular: Hyperlipidemia s/p PEA arrest 11/13 Type II NSTEMI secondary to demand ischemia- improving, trops downtrending. A. fib with RVR(new)- resolved. Sinus bradycardia- resolved. Right bundle branch block [old] First degree AV block Hypotension- possibly early septic shock. -- s/p PEA arrest 11/13. This was likely a vagal response to bowel movement, complicated by CPR, complicated by right tension pneumothorax and left hemothorax. --continue Levophed for map > 65 mmHg. -- po amio stopped per cards. -- Cardiology following for afib ([facility]). Pulmonary: Acute hypoxic and hypercarbic respiratory failure Suspected sleep apnea Suspected COPD Right pneumothorax secondary to CPR s/p right 28 Fr chest tube 11/13 Left hemothorax secondary to CPR s/p Left pigtail chest tube placement 11/15 multiple right-sided rib fractures New copious secretions, possible aspiration pneumonia -- wean fio2 for spo2 > 90%. -- bronch today for new secretions, will send BALs, possible aspiration pneumonia -- water seal right chest tube, 4h post CXR. -- no SBTs today given high fio2. -- left pigtail chest tube to suction, increase to -40 to ensure no air leak.\ GI/liver: Acute protein calorie malnutrition- severe -- TF at goal. -- daily BMP Renal/: Left kidney mass status post left robotic-assisted nephroureterectomy/urethral dilation Acute Kidney Injury -- Status post left nephroureterectomy in followed by urology. -- Strict intake output -- monitor and replete electrolites -- Cr uptrended -- continue LR @ 84cc/hr. ID: Possible aspiration pneumonia -- s/p full course of levaquin. -- Zosyn started 11/16 for fever, leukocytosis, and copious secretions with increase in o2 requirement. -- bronch today -- f/u BALs sent 11/16. Heme: Anemia secondary to acute blood loss -- Follow CBC. -- Patient has indicated preoperatively that he does not wish to receive any blood products however per anesthesia documentation is okay with albumin if needed. -- On 11/05 initiated darbapoeitin subcutaneously, IM B-12, IV iron sucrose and PO folic acid. -- Once again confirmed with patient on 11/05 and he does not wish to have blood transfusions. Endocrine: Hyperglycemia of Critical Illness -- SSI Prophylaxis: Protonix, SCDs. SQH. Lines: -- radial art line 11/13 -- left SC TLC 11/13 -- [place] -- must keep all lines while currently critically ill. Dispo: continues to be very critically ill. I have talked with his family, with all his multiple medical comorbidities and active problems, his mortality risk is very high. This patient remains critically ill with one or more organ systems which are or may become a threat to life. I have spent in excess of 53 minutes discontinuously in the care and management of this patient. This time is exclusive of procedures, and includes, but is not limited to, evaluation of the patient, review of the medical record, discussions with family, consultants, nursing staff, or respiratory therapy, and documentation in the medical record. Tucker Morales MD November 16, 2016 11:05
--- NOTE | 2016-11-16 11:07 | PD.PROCEDR ---
Procedure Note Procedure Procedure: Diagnostic Fiberoptic Bronchoscopy Diagnosis: Status post PEA arrest with possible aspiration Indications: New fever and leukocytosis with new copious green-looking secretions, concern for new pneumonia Consent: Written consent was obtained from the family Anesthesia: Propofol IV, cisatracurium IV, lidocaine topically on the roel Description of the Procedure: The patient was sedated and mechanically ventilated. The patient was placed on 100% FIO2 and a volume control mode of ventilation. The fiberoptic bronchoscopy was inserted via oral endotracheal tube. The trachea, right and left mainstem bronchi, and sub-segmental bronchi were evaluated. The endobronchial anatomy was normal. Findings: Copious amounts of greenish purulent appearing secretions coming mostly from the right lower lobe, but also from the left lower lobe. These were aggressively suctioned. BAL samples were sent from both lower lobes. BAL samples: Right lower lobe, left lower lobe The patient tolerated the procedure well with no hemodynamic instability or hypoxia. There were no immediate complications noted. At the conclusion of the procedure, the patient was placed back on their pre-procedure ventilatory settings. There was minimal EBL. A chest x-ray has been ordered. I personally performed the procedure. Tucker Morales MD November 16, 2016 11:07
--- NOTE | 2016-11-16 11:56 | PD.CARD.PN ---
Subjective Subjective Remarks Intubated, sedated. Objective Medications Current Medications Medications (Trade) Dose Ordered Sig/Michael Route Start Time Stop Time Status Last Admin (Colace) 100 mg BID PO 11/03/16 11:45 11/16/16 09:59 (Zofran Inj) 4 mg Q6HR PRN IV PUSH 11/03/16 11:45 11/05/16 22:57 (Protonix Inj) 40 mg Q24H IV PUSH 11/03/16 13:00 11/15/16 12:52 (Sinemet 25-100 Mg) 2 tab QID PO 11/03/16 21:00 11/16/16 09:59 (Ilotycin 0.5% Opth Oint) 1 applic HS EACH EYE 11/04/16 21:00 11/15/16 19:49 (Proscar) 5 mg HS PO 11/04/16 21:00 11/15/16 19:47 (Alphagan 0.2% Opth Soln) 1 drop Q12HR EACH EYE 11/04/16 09:00 11/16/16 09:00 (Timoptic 0.5% Opth Soln) 1 drop Q12HR EACH EYE 11/04/16 09:00 11/16/16 09:00 (Folate) 1 mg DAILY PO 11/05/16 09:00 11/16/16 09:59 (Antivert) 25 mg TID PRN PO 11/05/16 17:30 11/09/16 09:13 (Allbee C) 1 tab DAILY PO 11/08/16 09:00 11/16/16 09:59 (SEROquel) 25 mg HS PRN PO 11/08/16 10:00 11/09/16 20:10 (Ecotrin Ec) 81 mg DAILY PO 11/09/16 09:00 11/16/16 09:59 (Tylenol) 1,000 mg Q6H PRN PO 11/11/16 11:00 11/11/16 20:37 Gabapentin 100 mg 100 mg HS PO 11/11/16 21:00 11/15/16 19:47 Propofol 100 ml @ 0 mls/hr TITRATE IV 11/13/16 02:30 11/16/16 06:26 (Levophed-Dextrose Drip) 250 ml @ 0 mls/hr TITRATE IV 11/13/16 19:15 11/16/16 06:26 Oxycodone HCl 5 mg 5 mg Q4H PO 11/14/16 08:00 11/15/16 19:46 (fentaNYL DRIP) 250 ml @ 0 mls/hr TITRATE IV 11/14/16 08:00 11/15/16 17:56 Heparin Sodium (Porcine) 5000 units 5,000 units Q12HR SQ 11/14/16 11:30 11/16/16 09:59 (Lr 1000 ml Inj) 1,000 ml @ 84 mls/hr [id number] IV 11/15/16 09:00 11/16/16 08:50 Guaifenesin 200 mg 200 mg Q6H PO 11/16/16 01:15 11/16/16 06:31 (Zosyn 3.375 Gm Premix) 50 ml @ 100 mls/hr Q6H IV 11/16/16 02:00 11/16/16 09:59 Vital Signs / I&O Vital Signs Date Time Temp Pulse Resp B/P Pulse Ox O2 Delivery O2 Flow Rate FiO2 11/16/16 11:47 92 50 11/16/16 09:57 94 Ventilator 50 11/16/16 08:50 100 100 11/16/16 08:20 98 100 11/16/16 06:00 110 11/16/16 04:16 99 80 11/16/16 04:00 132 11/16/16 04:00 98.7 132 20 152/66 99 11/16/16 04:00 100 11/16/16 02:00 89 11/16/16 01:56 100 100 11/16/16 01:28 100 100 11/16/16 00:00 128 11/16/16 00:00 50 11/16/16 00:00 99.1 128 20 124/59 98 11/15/16 22:00 65 11/15/16 21:59 96 45 11/15/16 20:30 96 50 11/15/16 20:00 98.2 70 20 130/47 97 11/15/16 20:00 50 11/15/16 20:00 70 11/15/16 16:08 95 50 11/15/16 16:00 87 11/15/16 16:00 99.5 87 20 104/46 95 11/15/16 14:15 94 50 11/15/16 14:00 50 11/15/16 13:01 97 50 11/15/16 12:00 87 11/15/16 12:00 100.0 87 7 105/54 95 I/O 11/15/16 11/15/16 11/15/16 11/16/16 11/16/16 11/16/16 07:00 15:00 23:00 07:00 15:00 23:00 Intake Total 727 ml 1210 ml 1566 ml 1216 ml Output Total 329 ml 415 ml 250 ml 601 ml Balance 398 ml 795 ml 1316 ml 615 ml IV Total 313 ml 603 ml 987 ml 891 ml Tube Feeding 414 ml 607 ml 579 ml 325 ml Output Urine Total 175 ml 275 ml 250 ml 325 ml Gastric Drainage Total 0 ml Tube Feeding Residual Discard 0 ml 0 ml Chest Tube Drainage Total 154 ml 140 ml 276 ml # Bowel Movements 0 0 0 Physical Exam GENERAL: Intubated. Sedated. No distress. SKIN: Warm and dry. HEAD: Atraumatic. Normocephalic. EYES: Pupils equal and round. No scleral icterus. No injection or drainage. ENT: No nasal bleeding or discharge. Mucous membranes pink and moist.Oral ETT. OG tube with TFs. NECK: Trachea midline. No JVD. CARDIOVASCULAR: Regular rate, irregularly irregular rhythm. No murmurs, rubs, gallops. RESPIRATORY: No accessory muscle use. Diminished throughout. Breath sounds equal bilaterally. On vent, FiO2 50% Bilateral CT present. GASTROINTESTINAL: Abdomen soft, non-tender, nondistended. MUSCULOSKELETAL: Extremities without clubbing, cyanosis, or edema. No obvious deformities. NEUROLOGICAL: Intubated. Opens eyes to verbal stimuli. Follows simple commands. PSYCHIATRIC: Calm, cooperative. Laboratory Laboratory Tests Test 11/16/16 11/16/16 00:54 03:07 Blood Gas Puncture Site ART LINE Blood Gas Patient Temperature 98.6 Blood Gas HCO3 25 mmol/L Blood Gas Base Excess 0.5 mmol/L Blood Gas Oxygen Saturation 97 % Arterial Blood pH 7.37 Arterial Blood Partial 45 mmHg Pressure CO2 Arterial Blood Partial 154 mmHg Pressure O2 Arterial Blood Oxygen Content 11.2 Vol % Arterial Blood 1.5 % Carboxyhemoglobin Arterial Blood Methemoglobin 0.8 % Blood Gas Hemoglobin 8.0 G/DL Oxygen Delivery Device VENTILATOR Blood Gas Ventilator Setting PRVC/AC Blood Gas Inspired Oxygen 100 % White Blood Count 15.2 TH/MM3 Red Blood Count 2.57 MIL/MM3 Hemoglobin 8.2 GM/DL Hematocrit 24.0 % Mean Corpuscular Volume 93.4 FL Mean Corpuscular Hemoglobin 31.8 PG Mean Corpuscular Hemoglobin 34.0 % Concent Red Cell Distribution Width 16.3 % Platelet Count 323 TH/MM3 Mean Platelet Volume 6.6 FL Sodium Level 139 MEQ/L Potassium Level 4.6 MEQ/L Chloride Level 103 MEQ/L Carbon Dioxide Level 27.8 MEQ/L Anion Gap 8 MEQ/L Blood Urea Nitrogen 27 MG/DL Creatinine 1.43 MG/DL Estimat Glomerular Filtration 47 ML/MIN Rate Random Glucose 167 MG/DL Calcium Level 7.6 MG/DL Imaging Last 24 hours Impressions Chest X-Ray 11/16/16 0000 Signed Impressions: Service Date/Time: Wednesday, November 16, 2016 00:43 - CONCLUSION: No significant interval change Akash Brown MD Assessment and Plan Problem List: (1) Atrial fibrillation (2) H/O nephroureterectomy (3) Sinus bradycardia (4) Hypertension Assessment and Plan Had increased oxygen demands last night. Increased secretions, S/P bronch this am. Continues in Afib with controlled ventricular response. Rate in 90's, BP stable on 8.5 mcg/kg/min norepinephrine. Continue low dose short-acting beta yandel for rate control if necessary. Not a candidate for full anticoagulation at this time due to high risk of postop bleeding and inability to transfuse if necessary. Dr. Ruelas to follow tomorrow. Code Status Full Discussed Condition With Dr. Abernathy and RN. Jacquelyn Contreras November 16, 2016 11:56
[2016-11-16] MEDS: fentaNYL DRIP 250 ML IV SCH (12:11)
[2016-11-16] MEDS: ACETAMINOPHEN 500 MG CPLT PO PRN (12:12)
[2016-11-16] MEDS: PANTOPRAZOLE SODIUM 40 MG VIAL IV PUSH SCH (13:00)
[2016-11-16] MEDS ORDERED: METOPROLOL TARTRATE 5 MG/5 ML VIAL IV PUSH PRN (13:00)
--- NOTE | 2016-11-16 14:27 | RADRPT ---
EXAM DATE/TIME: 11/16/2016 13:54 [facility] COMPARISON: CHEST SINGLE AP, November 16, 2016, 0:43. INDICATIONS : Verify chest tube patency. MEDICAL HISTORY : None. SURGICAL HISTORY : None. ENCOUNTER: Subsequent ACUITY: 4 - 6 days PAIN SCORE: Non-responsive. LOCATION: chest FINDINGS: Portable AP view of the chest demonstrates a normal-sized cardiac silhouette. ETT, NG tube, and left subclavian central line remain present. Bilateral chest tubes are in place. No pneumothorax is visual ized. There is bibasilar airspace opacity. CONCLUSION: 1. Bilateral chest tubes remain present and no pneumothorax is visualized. 2. Stable bibasilar airspace opacity. Akash Mancilla MD on November 16, 2016 at 14:24 Board Certified Radiologist. This report was verified electronically.
[2016-11-16] MEDS: GABAPENTIN 100 MG CAP PO SCH (20:32)
[2016-11-16] MEDS: FINASTERIDE 5 MG TAB PO SCH (20:32)
[2016-11-16] MEDS: ERYTHROMYCIN 0.5% OPTH OINT 3.5 GM TUBO EACH EYE SCH (20:33)
[2016-11-17] VITALS (17 sets, daily range): BP systolic 125–158; BP diastolic 44–66; PULSE 82–121; RESP 20; TEMP 98.2–99.8; O2SAT 94–100
[2016-11-17] MEDS: oxyCODONE HCL ORAL CONC 20 MG/ML SYRINGE PO SCH ×7 (02:15→23:45)
[2016-11-17] MEDS: PIPERACIL-TAZO 3.375 GM PREMIX 50 ML IV SCH ×4 (02:15→20:38)
[2016-11-17] MEDS: guaiFENesin SOLUTION 200 MG/10 ML CUP PO SCH ×5 (02:15→23:45)
[2016-11-17] MEDS: PROPOFOL 1000 MG/100 ML IV SCH ×4 (02:30→20:37)
[2016-11-17] MEDS: NOREPINEPHRINE 4 MG/D5W 250 ML IV SCH ×3 (02:31→20:37)
[2016-11-17] MEDS: RESP: ALBUTEROL 2.5 MG/IPRATROPIUM 0.5 MG NEB (SCH) NEB ×4 (03:35→22:07)
--- NOTE | 2016-11-17 05:15 | RADRPT ---
EXAM DATE/TIME: 11/17/2016 04:32 [place] COMPARISON: CHEST SINGLE AP, November 16, 2016, 13:54. INDICATIONS : Shortness of breath. MEDICAL HISTORY : Cardiovascular disease. Renal insufficiency. SURGICAL HISTORY : None. ENCOUNTER: Subsequent ACUITY: 2 weeks PAIN SCORE: Non-responsive. LOCATION: Bilateral chest FINDINGS: Endotracheal tube, nasogastric tube and left subclavian central line are stable. Bilateral thoracosto my tubes remain in place. There is no evidence of pneumothorax. Mild basilar parenchymal opacities ma y be slightly improved. Cardiac contours are grossly stable. CONCLUSION: Stable to slightly improved aeration Akash Brown MD on November 17, 2016 at 5:12 Board Certified Radiologist. This report was verified electronically.
[2016-11-17 06:02] LABS: MEAN CORPUSCULAR HEMOGLOBIN 30.2 PG (27.0-34.0); MEAN CORPUSCULAR HGB CONC 32.1 % (32.0-36.0); PLATELET COUNT 344 TH/MM3 (150-450); RED BLOOD COUNT 2.55 MIL/MM3 (4.50-5.90); RED CELL DISTRIBUTION WIDTH 15.9 % (11.6-17.2); REVIEW FLAG FINAL; WHITE BLOOD COUNT 17.3 TH/MM3 (4.0-11.0)
[2016-11-17 06:16] LABS: POTASSIUM 4.6 MEQ/L (3.5-5.1)
[2016-11-17] MEDS: fentaNYL DRIP 250 ML IV SCH ×2 (06:47→20:37)
--- NOTE | 2016-11-17 07:47 | HHI.CCPN ---
Subjective Remarks/Hospital Course 11/03: 86 y/o male with past medical history significant for Parkinson's disease who was diagnosed to have a left renal pelvis mass when he presented with hematuria and left flank pain which was felt to be consistent with transitional cell carcinoma. Patient underwent left robotic nephroureterectomy under general anesthesia by Dr. Oh on 11/03, received 2500 cc crystalloid, EBL 75 cc , Intra-Op urine output 300 cc. Patient was extubated postoperatively and transferred to PACU and subsequently to [facility]. His heart rate has been in the 40s postoperatively. Patient tells me that he runs a slow heart rate for a few years now. He did drop his blood pressure to the 70s transiently for which she was given a fluid bolus with normal saline 1 L and critical care consult was requested for hypotension and Dr. marte. I evaluated the patient immediately on being notified of the consult. At the time of my evaluation he was laying in the ICU bed not in any acute distress. He denied any chest pain or shortness of breath. He had minimal abdominal discomfort at the site of surgery. 11/04: Resting in bed comfortably no further hypotension since last night. 11/05: Patient had a hemoglobin dropped down to 7 g percent. No hypotension or tachycardia. He is resting in bed comfortably not in any acute distress this morning at the time of my evaluation. Bruising noted over left flank and anterior abdominal wall. 11/06: Receive morphine last night and is drowsy currently. No hypotension overnight. Hemoglobin remains above 7. 11/07: Went into A. fib with RVR on 11/06 and was started on amiodarone drip. Currently remains rate controlled. 11/08: Was agitated and confused overnight. This morning he is awake and alert appears comfortable and is very pleasant. On 4.5 L nasal cannula. Remains in atrial fibrillation on amiodarone drip. 11/09: He was confused and agitated at night. Was on BiPAP with full facemask overnight. Remains in atrial fibrillation on amiodarone drip. Starting aspirin today. 11/10: Awake and alert, following commands. On nasal cannula 6 L/m. Remains in A. fib. Amiodarone switched to by mouth yesterday. Erythema and swelling over right forearm secondary to IV infiltration noted. 11/11: awake and alert. afib converted overnight. 11/12: doing well and stable. on 5L NC. out of bed to chair on my eval. 11/13: PEA arrest and acute change yesterday. please see 11/12 addended note for details. this morning, remains on levophed. chest tube with persistent air leak. follows commands x 4, gets agitated off sedation. 60% fio2. persistent hypoxia. 11/14: oxygen requirement persists. unable to wean ventilation. Cr slightly improved. left pleural effusion worse than prior xray. subQ air persists. CT with 1+ air leak still. 11/15: oxygen requirement improving. left sided pigtail chest tube put out 1100cc sanguinous output, likely old from retained hemothorax s/p CPR and rib fractures. This morning, both chest tubes without air leaks. fio2 45%. patient awake, follows commands. denies pain. 11/16: oxygen requirement increased overnight, leukocytosis stable, low grade fever overnight, and now with new copious sputum production which appears greenish. Right chest tube 76mL/24h, left pigtail 340 mL/24h. no air leak on right, intermittent bubble on left. still follows commands. on increasing doses of levophed today. 11/17: CXR somewhat clearer. No improvement in gas exchange. Objective Vital Signs Date Time Temp Pulse Resp B/P Pulse Ox O2 Delivery O2 Flow Rate FiO2 11/17/16 06:00 91 11/17/16 04:00 50 11/17/16 04:00 98.9 20 148/58 96 11/16/16 09:57 Ventilator Intake and Output 11/16/16 11/16/16 11/17/16 08:00 16:00 00:00 Intake Total 1216 ml 1429 ml 2961 ml Output Total 601 ml 525 ml 790 ml Balance 615 ml 904 ml 2171 ml Result Diagram: 11/17/16 0545 11/17/16 0545 Imaging Last 24 hours Impressions Chest X-Ray 11/16/16 0000 Signed Impressions: Service Date/Time: Wednesday, November 16, 2016 00:43 - CONCLUSION: No significant interval change Akash Brown MD Objective Remarks HEENT/Neuro: elderly male, intubated, sedated, critically ill. RASS -2, fc x 4. PERRL. Neck: trachea midline. 8.[address] Chest/pulmonary: unlabored. equal chest rise. right chest tube with serous output, no air leak, to suction. left pigtail with serosanguinous output, very intermittent tiny air leak, to suction. Cardiovascular: normal rate, regular rhythm. sinus by tele. no JVD. GI/abdomen: Soft, nontender. Port sites with Steri-Strips in place. Bruising/ ecchymosis over the anterior abdominal wall and left flank noted Extremities: Warm bilaterally, no edema, well perfused. A/P Assessment and Plan 86-year-old male s/p Left robotic-assisted nephroureterectomy/urethral dilation , course complicated by recurrent hypoxic respiratory failure, post-op a. fib, and most recently PEA arrest complicated by rib fractures and right tension pneumothorax. He remains very critically ill at this time. minimal improvements , off pathway. s/p bilateral drainage of effusions. Cr slightly worse and on higher vasopressor requirements, despite ivf resuscitation yesterday. Also now with new copious sputum production and what appears to be a possible pneumonia, likely secondary to aspiration from PEA arrest event. Will proceed with bronchoscopy and cultures, started on Zosyn overnight. Plan by Systems: Neuro: History of Parkinson's disease Acute Pain associated with rib fractures Agitated Delirium -- RASS goal -2. -- prop/fent for goal RASS. -- frequent neuro checks. -- Seroquel 25 mg daily at bedtime to control delirium. -- oxy 5 per tube for rib fracture pain. Cardiovascular: Hyperlipidemia s/p PEA arrest 11/13 Type II NSTEMI secondary to demand ischemia- improving, trops downtrending. A. fib with RVR(new)- resolved. Sinus bradycardia- resolved. Right bundle branch block [old] First degree AV block Hypotension- possibly early septic shock. -- s/p PEA arrest 11/13. This was likely a vagal response to bowel movement, complicated by CPR, complicated by right tension pneumothorax and left hemothorax. --continue Levophed for map > 65 mmHg. -- po amio stopped per cards. -- Cardiology following for afib ([facility]). Pulmonary: Acute hypoxic and hypercarbic respiratory failure Suspected sleep apnea Suspected COPD Right pneumothorax secondary to CPR s/p right 28 Fr chest tube 11/13 Left hemothorax secondary to CPR s/p Left pigtail chest tube placement 11/15 multiple right-sided rib fractures New copious secretions, possible aspiration pneumonia -- wean fio2 for spo2 > 90%. -- bronch today for new secretions, will send BALs, possible aspiration pneumonia -- water seal right chest tube, 4h post CXR. -- no SBTs today given high fio2. -- left pigtail chest tube to suction, increase to -40. GI/liver: Acute protein calorie malnutrition- severe -- TF at goal. -- daily BMP Renal/: Left kidney mass status post left robotic-assisted nephroureterectomy/urethral dilation Acute Kidney Injury -- Status post left nephroureterectomy in followed by urology. -- Strict intake output -- monitor and replete electrolites -- Cr uptrended -- continue LR @ 84cc/hr. ID: Possible aspiration pneumonia -- s/p full course of levaquin. -- Zosyn started 11/16 for fever, leukocytosis, and copious secretions with increase in o2 requirement. -- bronch today -- f/u BALs sent 11/16. Heme: Anemia secondary to acute blood loss -- Follow CBC. -- Patient has indicated preoperatively that he does not wish to receive any blood products however per anesthesia documentation is okay with albumin if needed. -- On 11/05 initiated darbapoeitin subcutaneously, IM B-12, IV iron sucrose and PO folic acid. -- Once again confirmed with patient on 11/05 and he does not wish to have blood transfusions. Endocrine: Hyperglycemia of Critical Illness -- SSI Prophylaxis: Protonix, SCDs. SQH. Lines: -- radial art line 11/13 -- left SC TLC 11/13 -- [place] -- must keep all lines while currently critically ill. Dispo: continues to be very critically ill. I have talked with his family, with all his multiple medical comorbidities and active problems, his mortality risk is very high. This patient remains critically ill with one or more organ systems which are or may become a threat to life. I have spent in excess of 35 minutes discontinuously in the care and management of this patient. This time is exclusive of procedures, and includes, but is not limited to, evaluation of the patient, review of the medical record, discussions with family, consultants, nursing staff, or respiratory therapy, and documentation in the medical record. Waldemar Mena MD November 17, 2016 07:47
[2016-11-17] MEDS: LACTATED RINGER'S 1000 ML INJ 1,000 ML IV SCH ×2 (08:40→21:23)
[2016-11-17] MEDS: HEPARIN SODIUM - SQ 10,000 UNITS/ML VIAL SQ SCH ×2 (09:28→20:38)
[2016-11-17] MEDS: DOCUSATE SODIUM 100 MG CAP PO SCH ×2 (09:28→20:38)
[2016-11-17] MEDS: CARBIDOPA/LEVODOPA 25 MG/100 MG TAB PO SCH ×4 (09:28→20:38)
[2016-11-17] MEDS: VITAMIN B COMPLEX/VIT C TAB PO SCH (09:28)
[2016-11-17] MEDS: TIMOLOL MALEATE 0.5% OPHT SOLN 5 ML BTL EACH EYE SCH ×2 (09:29→20:39)
[2016-11-17] MEDS: BRIMONIDINE TARTRATE 0.2% OPHT SOLN 5 ML BTL EACH EYE SCH ×2 (09:29→20:39)
[2016-11-17] MEDS: ASPIRIN EC 81 MG TABEC PO SCH (09:29)
[2016-11-17] MEDS: FOLIC ACID 1 MG TAB PO SCH (09:29)
--- NOTE | 2016-11-17 12:55 | HHI.PR ---
Subjective Patient symptoms today remains intubated. developed productive cough, FiO2 down to 50 but requiring more Levophed, up to 6 mcg. No evidence of any fever. Objective Vital Signs Vital Signs Date Time Temp Pulse Resp B/P Pulse Ox O2 Delivery O2 Flow Rate FiO2 11/17/16 12:07 95 50 11/17/16 12:00 98.5 94 20 125/57 95 11/17/16 12:00 50 11/17/16 12:00 98 11/17/16 10:00 121 11/17/16 09:16 100 50 11/17/16 08:00 50 11/17/16 08:00 110 11/17/16 08:00 98.2 82 20 149/60 95 11/17/16 06:00 91 11/17/16 04:00 50 11/17/16 04:00 98.9 92 20 148/58 96 11/17/16 04:00 98 11/17/16 03:35 95 50 11/17/16 03:15 20 11/17/16 02:00 95 11/17/16 00:00 50 11/17/16 00:00 99.8 98 20 140/66 95 11/17/16 00:00 98 11/16/16 23:46 94 50 11/16/16 22:00 98 11/16/16 21:04 94 50 11/16/16 20:00 114 11/16/16 20:00 100.0 114 20 110/53 93 11/16/16 20:00 50 11/16/16 18:00 124 11/16/16 16:00 98.8 99 20 153/67 90 11/16/16 16:00 106 11/16/16 16:00 100 11/16/16 15:51 92 50 11/16/16 14:00 97 Intake & Output 11/17/16 11/17/16 07:00 19:00 Intake Total 4377 ml Output Total 2440 ml Balance 1937 ml IV Total 2799 ml Tube Feeding 1338 ml Other 240 ml Output Urine Total 2250 ml Chest Tube Drainage Total 190 ml # Bowel Movements 0 Result Diagram: 11/17/16 0545 11/17/16 0545 Imaging Last 24 hours Impressions Chest X-Ray 11/17/16 0600 Signed Impressions: Service Date/Time: Thursday, November 17, 2016 04:32 - CONCLUSION: Stable to slightly improved aeration Akash Brown MD Chest X-Ray 11/16/16 1400 Signed Impressions: Service Date/Time: Wednesday, November 16, 2016 13:54 - CONCLUSION: 1. Bilateral chest tubes remain present and no pneumothorax is visualized. 2. Stable bibasilar airspace opacity. Akash Mancilla MD Objective Remarks intubated, sedated. Responds to commands. no labored respirations RRR abd soft, NT, ND. +ecchymoses around lower abdomen, extending to left flank, left thigh She[place]ard clear, yellow Ext NT. No edema. EPC cuffs on and working. Procedures Robotic Left Nephroureterectomy 11/03 Medications and IVs Current Medications Medications (Trade) Dose Ordered Sig/Michael Route Start Time Stop Time Status Last Admin (Colace) 100 mg BID PO 11/03/16 11:45 11/17/16 09:28 (Zofran Inj) 4 mg Q6HR PRN IV PUSH 11/03/16 11:45 11/05/16 22:57 (Protonix Inj) 40 mg Q24H IV PUSH 11/03/16 13:00 11/16/16 13:00 (Sinemet 25-100 Mg) 2 tab QID PO 11/03/16 21:00 11/17/16 09:28 (Ilotycin 0.5% Opth Oint) 1 applic HS EACH EYE 11/04/16 21:00 11/16/16 20:33 (Proscar) 5 mg HS PO 11/04/16 21:00 11/16/16 20:32 (Alphagan 0.2% Opth Soln) 1 drop Q12HR EACH EYE 11/04/16 09:00 11/17/16 09:29 (Timoptic 0.5% Opth Soln) 1 drop Q12HR EACH EYE 11/04/16 09:00 11/17/16 09:29 (Folate) 1 mg DAILY PO 11/05/16 09:00 11/17/16 09:29 (Antivert) 25 mg TID PRN PO 11/05/16 17:30 11/09/16 09:13 (Allbee C) 1 tab DAILY PO 11/08/16 09:00 11/17/16 09:28 (SEROquel) 25 mg HS PRN PO 11/08/16 10:00 11/09/16 20:10 (Ecotrin Ec) 81 mg DAILY PO 11/09/16 09:00 11/17/16 09:29 (Tylenol) 1,000 mg Q6H PRN PO 11/11/16 11:00 11/16/16 12:12 Gabapentin 100 mg 100 mg HS PO 11/11/16 21:00 11/16/16 20:32 Propofol 100 ml @ 0 mls/hr TITRATE IV 11/13/16 02:30 11/17/16 06:47 (Levophed-Dextrose Drip) 250 ml @ 0 mls/hr TITRATE IV 11/13/16 19:15 11/17/16 06:47 Oxycodone HCl 5 mg 5 mg Q4H PO 11/14/16 08:00 11/17/16 09:29 (fentaNYL DRIP) 250 ml @ 0 mls/hr TITRATE IV 11/14/16 08:00 11/17/16 06:47 Heparin Sodium (Porcine) 5000 units 5,000 units Q12HR SQ 11/14/16 11:30 11/17/16 09:28 (Lr 1000 ml Inj) 1,000 ml @ 84 mls/hr [id number] IV 11/15/16 09:00 11/16/16 20:33 Guaifenesin 200 mg 200 mg Q6H PO 11/16/16 01:15 11/17/16 09:28 (Zosyn 3.375 Gm Premix) 50 ml @ 100 mls/hr Q6H IV 11/16/16 02:00 11/17/16 09:28 (Lopressor Inj) 2.5 mg Q6H PRN IV PUSH 11/16/16 13:00 11/16/16 14:57 Assessment and Plan Assessment and Plan POD # 13 Robotic Left Nephroureterectomy -remains intubated. On propofol. Per Critical Care -Wean Vent. FiO2 down to 50%. -Hgb down to 7.7. Continue to monitor. On 6 mcg Levophed. IF continues to trend down with BP issues, may need to hold Heparin SQ. -Good UOP. Creatinine up to 1.4, likely ATN from pressor use. -WBC up to 17. Culture NTD. On Zosyn. CXR slightly improved today. -Rate controlled A fib per Cardiology -GI prophylaxis -Continue Tube feeds. James Oh MD November 17, 2016 12:55
[2016-11-17] MEDS: PANTOPRAZOLE SODIUM 40 MG VIAL IV PUSH SCH (13:04)
[2016-11-17] MEDS: GABAPENTIN 100 MG CAP PO SCH (20:38)
[2016-11-17] MEDS: ERYTHROMYCIN 0.5% OPTH OINT 3.5 GM TUBO EACH EYE SCH (20:39)
[2016-11-17] MEDS: FINASTERIDE 5 MG TAB PO SCH (20:39)
[2016-11-18] VITALS (16 sets, daily range): BP systolic 105–129; BP diastolic 54–92; PULSE 92–117; RESP 14–20; TEMP 97.8–98.6; O2SAT 92–100
[2016-11-18] MEDS: PROPOFOL 1000 MG/100 ML IV SCH ×2 (00:42→04:00)
[2016-11-18] MEDS: PIPERACIL-TAZO 3.375 GM PREMIX 50 ML IV SCH ×4 (00:42→20:45)
[2016-11-18] MEDS: oxyCODONE HCL ORAL CONC 20 MG/ML SYRINGE PO SCH ×6 (03:13→23:37)
[2016-11-18] MEDS: RESP: ALBUTEROL 2.5 MG/IPRATROPIUM 0.5 MG NEB (SCH) NEB ×4 (04:09→20:47)
[2016-11-18 05:41] LABS: MEAN CELL VOLUME 93.7 FL (80.0-100.0); MEAN CORPUSCULAR HEMOGLOBIN 30.3 PG (27.0-34.0); MEAN CORPUSCULAR HGB CONC 32.3 % (32.0-36.0); PLATELET COUNT 412 TH/MM3 (150-450); RED BLOOD COUNT 2.56 MIL/MM3 (4.50-5.90); RED CELL DISTRIBUTION WIDTH 16.8 % (11.6-17.2); REVIEW FLAG FINAL; WHITE BLOOD COUNT 13.7 TH/MM3 (4.0-11.0)
[2016-11-18 06:08] LABS: BICARBONATE 28.1 MEQ/L (21.0-32.0); POTASSIUM 4.7 MEQ/L (3.5-5.1)
--- NOTE | 2016-11-18 06:56 | HHI.CCPN ---
Subjective Remarks/Hospital Course 11/03: 86 y/o male with past medical history significant for Parkinson's disease who was diagnosed to have a left renal pelvis mass when he presented with hematuria and left flank pain which was felt to be consistent with transitional cell carcinoma. Patient underwent left robotic nephroureterectomy under general anesthesia by Dr. Oh on 11/03, received 2500 cc crystalloid, EBL 75 cc , Intra-Op urine output 300 cc. Patient was extubated postoperatively and transferred to PACU and subsequently to [facility]. His heart rate has been in the 40s postoperatively. Patient tells me that he runs a slow heart rate for a few years now. He did drop his blood pressure to the 70s transiently for which she was given a fluid bolus with normal saline 1 L and critical care consult was requested for hypotension and Dr. marte. I evaluated the patient immediately on being notified of the consult. At the time of my evaluation he was laying in the ICU bed not in any acute distress. He denied any chest pain or shortness of breath. He had minimal abdominal discomfort at the site of surgery. 11/04: Resting in bed comfortably no further hypotension since last night. 11/05: Patient had a hemoglobin dropped down to 7 g percent. No hypotension or tachycardia. He is resting in bed comfortably not in any acute distress this morning at the time of my evaluation. Bruising noted over left flank and anterior abdominal wall. 11/06: Receive morphine last night and is drowsy currently. No hypotension overnight. Hemoglobin remains above 7. 11/07: Went into A. fib with RVR on 11/06 and was started on amiodarone drip. Currently remains rate controlled. 11/08: Was agitated and confused overnight. This morning he is awake and alert appears comfortable and is very pleasant. On 4.5 L nasal cannula. Remains in atrial fibrillation on amiodarone drip. 11/09: He was confused and agitated at night. Was on BiPAP with full facemask overnight. Remains in atrial fibrillation on amiodarone drip. Starting aspirin today. 11/10: Awake and alert, following commands. On nasal cannula 6 L/m. Remains in A. fib. Amiodarone switched to by mouth yesterday. Erythema and swelling over right forearm secondary to IV infiltration noted. 11/11: awake and alert. afib converted overnight. 11/12: doing well and stable. on 5L NC. out of bed to chair on my eval. 11/13: PEA arrest and acute change yesterday. please see 11/12 addended note for details. this morning, remains on levophed. chest tube with persistent air leak. follows commands x 4, gets agitated off sedation. 60% fio2. persistent hypoxia. 11/14: oxygen requirement persists. unable to wean ventilation. Cr slightly improved. left pleural effusion worse than prior xray. subQ air persists. CT with 1+ air leak still. 11/15: oxygen requirement improving. left sided pigtail chest tube put out 1100cc sanguinous output, likely old from retained hemothorax s/p CPR and rib fractures. This morning, both chest tubes without air leaks. fio2 45%. patient awake, follows commands. denies pain. 11/16: oxygen requirement increased overnight, leukocytosis stable, low grade fever overnight, and now with new copious sputum production which appears greenish. Right chest tube 76mL/24h, left pigtail 340 mL/24h. no air leak on right, intermittent bubble on left. still follows commands. on increasing doses of levophed today. 11/17: CXR somewhat clearer. No improvement in gas exchange. 11/18: Renal function stable. Gas exchange improving. Check prealbumin, adjust nutrition. Objective Vital Signs Date Time Temp Pulse Resp B/P Pulse Ox O2 Delivery O2 Flow Rate FiO2 11/18/16 06:00 110 11/18/16 05:10 98 50 11/18/16 04:00 98.3 20 125/58 11/16/16 09:57 Ventilator Intake and Output 11/17/16 11/17/16 11/18/16 08:00 16:00 00:00 Intake Total 1416 ml 1757 ml 1631 ml Output Total 1650 ml 900 ml 985 ml Balance -234 ml 857 ml 646 ml Result Diagram: 11/18/16 0530 11/18/16 05 Imaging Last 24 hours Impressions Chest X-Ray 11/16/16 0000 Signed Impressions: Service Date/Time: Wednesday, November 16, 2016 00:43 - CONCLUSION: No significant interval change Akash Brown MD Objective Remarks HEENT/Neuro: elderly male, intubated, sedated, critically ill. RASS -2, fc x 4. PERRL. Neck: trachea midline. 8.[address] Chest/pulmonary: unlabored. equal chest rise. right chest tube with serous output, no air leak, to suction. left pigtail with serosanguinous output, very intermittent tiny air leak, to suction. Cardiovascular: normal rate, regular rhythm. sinus by tele. no JVD. GI/abdomen: Soft, nontender. Port sites with Steri-Strips in place. Bruising/ ecchymosis over the anterior abdominal wall and left flank noted Extremities: Warm bilaterally, no edema, well perfused. A/P Assessment and Plan 86-year-old male s/p Left robotic-assisted nephroureterectomy/urethral dilation , course complicated by recurrent hypoxic respiratory failure, post-op a. fib, and most recently PEA arrest complicated by rib fractures and right tension pneumothorax. He remains very critically ill at this time. minimal improvements , off pathway. s/p bilateral drainage of effusions. Cr slightly worse and on higher vasopressor requirements, despite ivf resuscitation yesterday. Also now with new copious sputum production and what appears to be a possible pneumonia, likely secondary to aspiration from PEA arrest event. Will proceed with bronchoscopy and cultures, started on Zosyn overnight. Plan by Systems: Neuro: History of Parkinson's disease Acute Pain associated with rib fractures Agitated Delirium -- RASS goal -2. -- prop/fent for goal RASS. -- frequent neuro checks. -- Seroquel 25 mg daily at bedtime to control delirium. -- oxy 5 per tube for rib fracture pain. Cardiovascular: Hyperlipidemia s/p PEA arrest 11/13 Type II NSTEMI secondary to demand ischemia- improving, trops downtrending. A. fib with RVR(new)- resolved. Sinus bradycardia- resolved. Right bundle branch block [old] First degree AV block Hypotension- possibly early septic shock. -- s/p PEA arrest 11/13. This was likely a vagal response to bowel movement, complicated by CPR, complicated by right tension pneumothorax and left hemothorax. --continue Levophed for map > 65 mmHg. -- po amio stopped per cards. -- Cardiology following for afib ([facility]). Pulmonary: Acute hypoxic and hypercarbic respiratory failure Suspected sleep apnea Suspected COPD Right pneumothorax secondary to CPR s/p right 28 Fr chest tube 11/13 Left hemothorax secondary to CPR s/p Left pigtail chest tube placement 11/15 multiple right-sided rib fractures New copious secretions, possible aspiration pneumonia -- wean fio2 for spo2 > 90%. -- bronch today for new secretions, will send BALs, possible aspiration pneumonia -- water seal right chest tube, 4h post CXR. -- no SBTs today given high fio2. -- left pigtail chest tube to suction, increase to -40. GI/liver: Acute protein calorie malnutrition- severe -- TF at goal. -- daily BMP Renal/: Left kidney mass status post left robotic-assisted nephroureterectomy/urethral dilation Acute Kidney Injury -- Status post left nephroureterectomy in followed by urology. -- Strict intake output -- monitor and replete electrolites -- Cr uptrended -- continue LR @ 84cc/hr. ID: Possible aspiration pneumonia -- s/p full course of levaquin. -- Zosyn started 11/16 for fever, leukocytosis, and copious secretions with increase in o2 requirement. -- bronch today -- f/u BALs sent 11/16. Heme: Anemia secondary to acute blood loss -- Follow CBC. -- Patient has indicated preoperatively that he does not wish to receive any blood products however per anesthesia documentation is okay with albumin if needed. -- On 11/05 initiated darbapoeitin subcutaneously, IM B-12, IV iron sucrose and PO folic acid. -- Once again confirmed with patient on 11/05 and he does not wish to have blood transfusions. Endocrine: Hyperglycemia of Critical Illness -- SSI Prophylaxis: Protonix, SCDs. SQH. Lines: -- radial art line 11/13 -- left SC TLC 11/13 -- [place] -- must keep all lines while currently critically ill. Change at 7 days. Dispo: continues to be very critically ill. I have talked with his family, with all his multiple medical comorbidities and active problems, his mortality risk is very high. Waldemar Mena MD November 18, 2016 06:56
[2016-11-18] MEDS: LACTATED RINGER'S 1000 ML INJ 1,000 ML IV SCH (08:30)
[2016-11-18] MEDS: HEPARIN SODIUM - SQ 10,000 UNITS/ML VIAL SQ SCH ×2 (08:49→20:46)
[2016-11-18] MEDS: guaiFENesin SOLUTION 200 MG/10 ML CUP PO SCH ×3 (08:49→20:44)
[2016-11-18] MEDS: VITAMIN B COMPLEX/VIT C TAB PO SCH (08:50)
[2016-11-18] MEDS: BRIMONIDINE TARTRATE 0.2% OPHT SOLN 5 ML BTL EACH EYE SCH ×2 (08:50→21:44)
[2016-11-18] MEDS: TIMOLOL MALEATE 0.5% OPHT SOLN 5 ML BTL EACH EYE SCH ×2 (08:50→21:44)
[2016-11-18] MEDS: FOLIC ACID 1 MG TAB PO SCH (08:50)
[2016-11-18] MEDS: DOCUSATE SODIUM 100 MG CAP PO SCH ×2 (08:50→20:45)
[2016-11-18] MEDS: CARBIDOPA/LEVODOPA 25 MG/100 MG TAB PO SCH ×4 (08:50→21:51)
[2016-11-18] MEDS: ASPIRIN EC 81 MG TABEC PO SCH (08:50)
--- NOTE | 2016-11-18 13:00 | HHI.PR ---
Subjective Patient symptoms today intubated. sedation off. FiO2 down to 40%. Still on 5 mcg Levophed. No fevers overnight. Objective Vital Signs Vital Signs Date Time Temp Pulse Resp B/P Pulse Ox O2 Delivery O2 Flow Rate FiO2 11/18/16 12:00 98.2 94 17 129/54 94 11/18/16 12:00 94 11/18/16 12:00 40 11/18/16 10:00 117 11/18/16 10:00 40 11/18/16 08:58 94 40 11/18/16 08:00 117 11/18/16 08:00 98.6 117 20 105/57 100 11/18/16 08:00 50 11/18/16 06:00 110 11/18/16 05:10 98 50 11/18/16 04:00 50 11/18/16 04:00 103 11/18/16 04:00 98.3 103 20 125/58 94 11/18/16 02:00 102 11/18/16 01:32 96 50 11/18/16 00:00 50 11/18/16 00:00 97.8 92 20 124/54 98 11/18/16 00:00 92 11/17/16 22:07 94 50 11/17/16 22:00 100 11/17/16 20:00 99.4 82 20 158/44 95 11/17/16 20:00 50 11/17/16 20:00 82 11/17/16 18:00 83 11/17/16 17:30 96 50 11/17/16 16:00 83 11/17/16 16:00 50 11/17/16 16:00 98.6 86 20 125/55 95 11/17/16 14:00 108 Intake & Output 11/18/16 11/18/16 07:00 19:00 Intake Total 3203 ml Output Total 2285 ml Balance 918 ml IV Total 2009 ml Tube Feeding 974 ml Tube Irrigant 220 ml Output Urine Total 1975 ml Chest Tube Drainage Total 310 ml # Bowel Movements 0 Result Diagram: 11/18/1652911/18/16529 Objective Remarks intubated. non labored respirations tachy abd soft, NT, ND. +ecchymoses around lower abdomen, extending to left flank, left thigh Sheppard clear, yellow Ext NT. No edema. EPC cuffs on and working. Scrotum edematous Procedures Robotic Left Nephroureterectomy 11/03 Medications and IVs Current Medications Medications (Trade) Dose Ordered Sig/Michael Route Start Time Stop Time Status Last Admin (Colace) 100 mg BID PO 11/03/16 11:45 11/18/16 08:50 (Zofran Inj) 4 mg Q6HR PRN IV PUSH 11/03/16 11:45 11/05/16 22:57 (Protonix Inj) 40 mg Q24H IV PUSH 11/03/16 13:00 11/17/16 13:04 (Sinemet 25-100 Mg) 2 tab QID PO 11/03/16 21:00 11/18/16 08:50 (Ilotycin 0.5% Opth Oint) 1 applic HS EACH EYE 11/04/16 21:00 11/17/16 20:39 (Proscar) 5 mg HS PO 11/04/16 21:00 11/16/16 20:32 (Alphagan 0.2% Opth Soln) 1 drop Q12HR EACH EYE 11/04/16 09:00 11/18/16 08:50 (Timoptic 0.5% Opth Soln) 1 drop Q12HR EACH EYE 11/04/16 09:00 11/18/16 08:50 (Folate) 1 mg DAILY PO 11/05/16 09:00 11/18/16 08:50 (Antivert) 25 mg TID PRN PO 11/05/16 17:30 11/09/16 09:13 (Allbee C) 1 tab DAILY PO 11/08/16 09:00 11/18/16 08:50 (SEROquel) 25 mg HS PRN PO 11/08/16 10:00 11/09/16 20:10 (Ecotrin Ec) 81 mg DAILY PO 11/09/16 09:00 11/18/16 08:50 (Tylenol) 1,000 mg Q6H PRN PO 11/11/16 11:00 11/16/16 12:12 Gabapentin 100 mg 100 mg HS PO 11/11/16 21:00 11/17/16 20:38 Propofol 100 ml @ 0 mls/hr TITRATE IV 11/13/16 02:30 11/18/16 04:00 (Levophed-Dextrose Drip) 250 ml @ 0 mls/hr TITRATE IV 11/13/16 19:15 11/17/16 20:37 Oxycodone HCl 5 mg 5 mg Q4H PO 11/14/16 08:00 11/18/16 08:50 (fentaNYL DRIP) 250 ml @ 0 mls/hr TITRATE IV 11/14/16 08:00 11/17/16 20:37 Heparin Sodium (Porcine) 5000 units 5,000 units Q12HR SQ 11/14/16 11:30 11/18/16 08:49 (Lr 1000 ml Inj) 1,000 ml @ 84 mls/hr [id number] IV 11/15/16 09:00 11/17/16 21:23 Guaifenesin 200 mg 200 mg Q6H PO 11/16/16 01:15 11/18/16 08:49 (Zosyn 3.375 Gm Premix) 50 ml @ 100 mls/hr Q6H IV 11/16/16 02:00 11/18/16 08:49 (Lopressor Inj) 2.5 mg Q6H PRN IV PUSH 11/16/16 13:00 11/16/16 14:57 Assessment and Plan Assessment and Plan POD # 14 Robotic Left Nephroureterectomy -remains intubated. off sedation. -Wean Vent. FiO2 down to 40%. -Hgb stable at 7.7. Continue to monitor. On 5 mcg Levophed. On Heparin SQ -Good UOP. Creatinine stable. -WBC down to 13. Cultures negative. On Zosyn. -Rate controlled A fib per Cardiology -GI prophylaxis -Continue Tube feeds. -Scrotal swelling likely dependent in nature. Will improve with ambulation, diuresis. -Appreciate all other service input. James Oh MD November 18, 2016 13:00
[2016-11-18] MEDS: PANTOPRAZOLE SODIUM 40 MG VIAL IV PUSH SCH (13:32)
[2016-11-18] MEDS: fentaNYL DRIP 250 ML IV SCH (19:23)
[2016-11-18] MEDS: GABAPENTIN 100 MG CAP PO SCH (20:45)
[2016-11-18] MEDS: FINASTERIDE 5 MG TAB PO SCH (20:49)
[2016-11-18] MEDS: ERYTHROMYCIN 0.5% OPTH OINT 3.5 GM TUBO EACH EYE SCH (21:45)
[2016-11-19] VITALS (19 sets, daily range): BP systolic 115–164; BP diastolic 54–72; PULSE 85–112; RESP 14–25; TEMP 97.7–99.2; O2SAT 94–98
[2016-11-19] MEDS: guaiFENesin SOLUTION 200 MG/10 ML CUP PO SCH ×4 (02:11→19:15)
[2016-11-19] MEDS: PIPERACIL-TAZO 3.375 GM PREMIX 50 ML IV SCH ×2 (02:12→08:48)
[2016-11-19] MEDS: fentaNYL DRIP 250 ML IV SCH (02:31)
[2016-11-19] MEDS: LACTATED RINGER'S 1000 ML INJ 1,000 ML IV SCH (02:34)
[2016-11-19] MEDS: RESP: ALBUTEROL 2.5 MG/IPRATROPIUM 0.5 MG NEB (SCH) NEB ×4 (02:58→20:00)
[2016-11-19] MEDS: oxyCODONE HCL ORAL CONC 20 MG/ML SYRINGE PO SCH ×5 (04:00→20:00)
[2016-11-19 04:44] LABS: HEMATOCRIT 22.3 % (39.0-51.0); MEAN CELL VOLUME 93.8 FL (80.0-100.0); MEAN CORPUSCULAR HGB CONC 33.1 % (32.0-36.0); PLATELET COUNT 496 TH/MM3 (150-450); RED BLOOD COUNT 2.38 MIL/MM3 (4.50-5.90); RED CELL DISTRIBUTION WIDTH 16.7 % (11.6-17.2); REVIEW FLAG FINAL
[2016-11-19 05:03] LABS: BICARBONATE 28.4 MEQ/L (21.0-32.0); POTASSIUM 4.8 MEQ/L (3.5-5.1)
--- NOTE | 2016-11-19 06:52 | HHI.CCPN ---
Subjective Remarks/Hospital Course 11/03: 86 y/o male with past medical history significant for Parkinson's disease who was diagnosed to have a left renal pelvis mass when he presented with hematuria and left flank pain which was felt to be consistent with transitional cell carcinoma. Patient underwent left robotic nephroureterectomy under general anesthesia by Dr. Oh on 11/03, received 2500 cc crystalloid, EBL 75 cc , Intra-Op urine output 300 cc. Patient was extubated postoperatively and transferred to PACU and subsequently to [facility]. His heart rate has been in the 40s postoperatively. Patient tells me that he runs a slow heart rate for a few years now. He did drop his blood pressure to the 70s transiently for which she was given a fluid bolus with normal saline 1 L and critical care consult was requested for hypotension and Dr. marte. I evaluated the patient immediately on being notified of the consult. At the time of my evaluation he was laying in the ICU bed not in any acute distress. He denied any chest pain or shortness of breath. He had minimal abdominal discomfort at the site of surgery. 11/04: Resting in bed comfortably no further hypotension since last night. 11/05: Patient had a hemoglobin dropped down to 7 g percent. No hypotension or tachycardia. He is resting in bed comfortably not in any acute distress this morning at the time of my evaluation. Bruising noted over left flank and anterior abdominal wall. 11/06: Receive morphine last night and is drowsy currently. No hypotension overnight. Hemoglobin remains above 7. 11/07: Went into A. fib with RVR on 11/06 and was started on amiodarone drip. Currently remains rate controlled. 11/08: Was agitated and confused overnight. This morning he is awake and alert appears comfortable and is very pleasant. On 4.5 L nasal cannula. Remains in atrial fibrillation on amiodarone drip. 11/09: He was confused and agitated at night. Was on BiPAP with full facemask overnight. Remains in atrial fibrillation on amiodarone drip. Starting aspirin today. 11/10: Awake and alert, following commands. On nasal cannula 6 L/m. Remains in A. fib. Amiodarone switched to by mouth yesterday. Erythema and swelling over right forearm secondary to IV infiltration noted. 11/11: awake and alert. afib converted overnight. 11/12: doing well and stable. on 5L NC. out of bed to chair on my eval. 11/13: PEA arrest and acute change yesterday. please see 11/12 addended note for details. this morning, remains on levophed. chest tube with persistent air leak. follows commands x 4, gets agitated off sedation. 60% fio2. persistent hypoxia. 11/14: oxygen requirement persists. unable to wean ventilation. Cr slightly improved. left pleural effusion worse than prior xray. subQ air persists. CT with 1+ air leak still. 11/15: oxygen requirement improving. left sided pigtail chest tube put out 1100cc sanguinous output, likely old from retained hemothorax s/p CPR and rib fractures. This morning, both chest tubes without air leaks. fio2 45%. patient awake, follows commands. denies pain. 11/16: oxygen requirement increased overnight, leukocytosis stable, low grade fever overnight, and now with new copious sputum production which appears greenish. Right chest tube 76mL/24h, left pigtail 340 mL/24h. no air leak on right, intermittent bubble on left. still follows commands. on increasing doses of levophed today. 11/17: CXR somewhat clearer. No improvement in gas exchange. 11/18: Renal function stable. Gas exchange improving. Check prealbumin, adjust nutrition. 11/19: Tolerated SBT and extubated early today. He has good gas exchange but is unable to protect his airway. Objective Vital Signs Date Time Temp Pulse Resp B/P Pulse Ox O2 Delivery O2 Flow Rate FiO2 11/19/16 04:00 98.7 99 20 131/66 94 11/19/16 04:00 50 11/16/16 09:57 Ventilator Intake and Output 11/18/16 11/18/16 11/19/16 08:00 16:00 00:00 Intake Total 1572 ml 1865 ml 1726 ml Output Total 1300 ml 1050 ml 820 ml Balance 272 ml 815 ml 906 ml Result Diagram: 11/19/16 0430 11/19/16 0430 Other Results Microbiology Date/Time Procedure Status Source Growth 11/16/16 09:08 Gram Stain - Final Complete Bronchial Washings Other 11/16/16 09:08 Bronchial Culture - Final Complete Bronchial Washings Other MODERATE GROWTH NORMAL RESPIRATORY INDER 11/16/16 09:10 Gram Stain - Final Complete Bronchial Washings Bronchial 11/16/16 09:10 Bronchial Culture - Final Complete Bronchial Washings Bronchial MODERATE GROWTH NORMAL RESPIRATORY INDER Imaging Last 24 hours Impressions Chest X-Ray 11/16/16 0000 Signed Impressions: Service Date/Time: Wednesday, November 16, 2016 00:43 - CONCLUSION: No significant interval change Akash Brown MD Objective Remarks HEENT/Neuro: elderly male, icritically ill. RASS 0, fc x 4. PERRL. Neck: trachea midline. Widely patent airway but numerous watery secretions, poorly cleared. Chest/pulmonary: unlabored. equal chest rise. right chest tube with serous output, no air leak, to suction. left pigtail with serosanguinous output, very intermittent tiny air leak, to suction. Cardiovascular: normal rate, regular rhythm. sinus by tele. no JVD. GI/abdomen: Soft, nontender. Bruising/ ecchymosis over the anterior abdominal wall and left flank noted Extremities: Warm bilaterally, no edema, well perfused. A/P Assessment and Plan 86-year-old male s/p Left robotic-assisted nephroureterectomy/urethral dilation , course complicated by recurrent hypoxic respiratory failure, post-op a. fib, and most recently PEA arrest complicated by rib fractures and right tension pneumothorax. He remains very critically ill at this time. minimal improvements , off pathway. s/p bilateral drainage of effusions. Cr slightly worse and on higher vasopressor requirements, despite ivf resuscitation yesterday. Also now with new copious sputum production and what appears to be a possible pneumonia, likely secondary to aspiration from PEA arrest event. Will proceed with bronchoscopy and cultures, started on Zosyn overnight. Plan by Systems: Neuro: History of Parkinson's disease Acute Pain associated with rib fractures Agitated Delirium -- RASS goal -2. -- prop/fent for goal RASS. -- frequent neuro checks. -- Seroquel 25 mg daily at bedtime to control delirium. -- oxy 5 per tube for rib fracture pain. Cardiovascular: Hyperlipidemia s/p PEA arrest 11/13 Type II NSTEMI secondary to demand ischemia- improving, trops downtrending. A. fib with RVR(new)- resolved. Sinus bradycardia- resolved. Right bundle branch block [old] First degree AV block Hypotension- possibly early septic shock. -- s/p PEA arrest 11/13. This was likely a vagal response to bowel movement, complicated by CPR, complicated by right tension pneumothorax and left hemothorax. --continue Levophed for map > 65 mmHg. -- po amio stopped per cards. -- Cardiology following for afib ([facility]). Pulmonary: Acute hypoxic and hypercarbic respiratory failure Suspected sleep apnea Suspected COPD Right pneumothorax secondary to CPR s/p right 28 Fr chest tube 11/13 Left hemothorax secondary to CPR s/p Left pigtail chest tube placement 11/15 multiple right-sided rib fractures New copious secretions, possible aspiration pneumonia -- wean fio2 for spo2 > 90%. -- bronch today for new secretions, will send BALs, possible aspiration pneumonia -- water seal right chest tube, 4h post CXR. -- no SBTs today given high fio2. -- left pigtail chest tube to suction, increase to -40. -- Extubated 11/19 GI/liver: Acute protein calorie malnutrition- severe -- TF at goal. -- daily BMP Renal/: Left kidney mass status post left robotic-assisted nephroureterectomy/urethral dilation Acute Kidney Injury -- Status post left nephroureterectomy in followed by urology. -- Strict intake output -- monitor and replete electrolites -- Cr uptrended -- continue LR @ 84cc/hr. ID: Possible aspiration pneumonia -- s/p full course of levaquin. -- Zosyn started 11/16 for fever, leukocytosis, and copious secretions with increase in o2 requirement. -- bronch today -- f/u BALs sent 11/16. Heme: Anemia secondary to acute blood loss -- Follow CBC. -- Patient has indicated preoperatively that he does not wish to receive any blood products however per anesthesia documentation is okay with albumin if needed. -- On 11/05 initiated darbapoeitin subcutaneously, IM B-12, IV iron sucrose and PO folic acid. -- Once again confirmed with patient on 11/05 and he does not wish to have blood transfusions. Endocrine: Hyperglycemia of Critical Illness -- SSI Prophylaxis: Protonix, SCDs. SQH. Lines: -- radial art line 11/13 -- left SC TLC 11/13 -- Sheppard -- must keep all lines while currently critically ill. Change at 7 days. Dispo: continues to be very critically ill. I have talked with his family, with all his multiple medical comorbidities and active problems, they know his mortality risk is very high. We need to find out if they want him re-intubated if necessary. Waldemar Mena MD Nov 19, 2016 06:52
[2016-11-19] MEDS: HEPARIN SODIUM - SQ 10,000 UNITS/ML VIAL SQ SCH ×2 (08:48→20:49)
[2016-11-19] MEDS: TIMOLOL MALEATE 0.5% OPHT SOLN 5 ML BTL EACH EYE SCH ×2 (08:50→20:37)
[2016-11-19] MEDS: FOLIC ACID 1 MG TAB PO SCH (08:51)
[2016-11-19] MEDS: BRIMONIDINE TARTRATE 0.2% OPHT SOLN 5 ML BTL EACH EYE SCH ×2 (08:51→20:37)
[2016-11-19] MEDS: ASPIRIN EC 81 MG TABEC PO SCH (08:51)
[2016-11-19] MEDS: VITAMIN B COMPLEX/VIT C TAB PO SCH (08:51)
[2016-11-19] MEDS: DOCUSATE SODIUM 100 MG CAP PO SCH ×2 (08:51→20:38)
[2016-11-19] MEDS: CARBIDOPA/LEVODOPA 25 MG/100 MG TAB PO SCH ×4 (08:52→20:38)
[2016-11-19 13:06] LABS: BLOOD GAS BASE EXCESS 2.4 mmol/L (-2-2); BLOOD GAS CARBOXYHEMOGLOBIN 1.9 % (0-4); BLOOD GAS HCO3 26 mmol/L (22-26); BLOOD GAS METHEMOGLOBIN 0.9 % (0-2); BLOOD GAS O2 HGB SATURATION 93 % (90-100); BLOOD GAS OXYGEN CONTENT 11.7 Vol % (12.0-20.0); BLOOD GAS PCO2 37 mmHg (38-42); BLOOD GAS PO2 68 mmHg (61-120); BLOOD GAS TOTAL HGB 8.9 G/DL (12.0-16.0); CRITICAL VALUE NO; DRAW SITE ART LINE; FIO2 40 %; OXYGEN DEVICE BiPAP; STAT NO; TEMP CORR TO 98.6; VENT SETTINGS 12/+5/RATE 8
[2016-11-19] MEDS: PANTOPRAZOLE SODIUM 40 MG VIAL IV PUSH SCH (14:31)
[2016-11-19] MEDS: GABAPENTIN 100 MG CAP PO SCH (20:38)
[2016-11-19] MEDS: ERYTHROMYCIN 0.5% OPTH OINT 3.5 GM TUBO EACH EYE SCH (20:38)
[2016-11-19] MEDS: FINASTERIDE 5 MG TAB PO SCH (20:38)
[2016-11-20] VITALS (17 sets, daily range): BP systolic 116–155; BP diastolic 45–69; PULSE 74–121; RESP 17–26; TEMP 97.5–98.4; O2SAT 93–100
[2016-11-20] MEDS: guaiFENesin SOLUTION 200 MG/10 ML CUP PO SCH ×4 (01:15→19:15)
[2016-11-20] MEDS: RESP: ALBUTEROL 2.5 MG/IPRATROPIUM 0.5 MG NEB (SCH) NEB (03:14)
[2016-11-20] MEDS: oxyCODONE HCL ORAL CONC 20 MG/ML SYRINGE PO SCH ×3 (04:00→07:49)
[2016-11-20 05:52] LABS: BICARBONATE 26.5 MEQ/L (21.0-32.0); POTASSIUM 4.3 MEQ/L (3.5-5.1)
--- NOTE | 2016-11-20 08:05 | HHI.CCPN ---
Subjective Remarks/Hospital Course 11/03: 86 y/o male with past medical history significant for Parkinson's disease who was diagnosed to have a left renal pelvis mass when he presented with hematuria and left flank pain which was felt to be consistent with transitional cell carcinoma. Patient underwent left robotic nephroureterectomy under general anesthesia by Dr. Oh on 11/03, received 2500 cc crystalloid, EBL 75 cc , Intra-Op urine output 300 cc. Patient was extubated postoperatively and transferred to PACU and subsequently to [facility]. His heart rate has been in the 40s postoperatively. Patient tells me that he runs a slow heart rate for a few years now. He did drop his blood pressure to the 70s transiently for which she was given a fluid bolus with normal saline 1 L and critical care consult was requested for hypotension and Dr. marte. I evaluated the patient immediately on being notified of the consult. At the time of my evaluation he was laying in the ICU bed not in any acute distress. He denied any chest pain or shortness of breath. He had minimal abdominal discomfort at the site of surgery. 11/04: Resting in bed comfortably no further hypotension since last night. 11/05: Patient had a hemoglobin dropped down to 7 g percent. No hypotension or tachycardia. He is resting in bed comfortably not in any acute distress this morning at the time of my evaluation. Bruising noted over left flank and anterior abdominal wall. 11/06: Receive morphine last night and is drowsy currently. No hypotension overnight. Hemoglobin remains above 7. 11/07: Went into A. fib with RVR on 11/06 and was started on amiodarone drip. Currently remains rate controlled. 11/08: Was agitated and confused overnight. This morning he is awake and alert appears comfortable and is very pleasant. On 4.5 L nasal cannula. Remains in atrial fibrillation on amiodarone drip. 11/09: He was confused and agitated at night. Was on BiPAP with full facemask overnight. Remains in atrial fibrillation on amiodarone drip. Starting aspirin today. 11/10: Awake and alert, following commands. On nasal cannula 6 L/m. Remains in A. fib. Amiodarone switched to by mouth yesterday. Erythema and swelling over right forearm secondary to IV infiltration noted. 11/11: awake and alert. afib converted overnight. 11/12: doing well and stable. on 5L NC. out of bed to chair on my eval. 11/13: PEA arrest and acute change yesterday. please see 11/12 addended note for details. this morning, remains on levophed. chest tube with persistent air leak. follows commands x 4, gets agitated off sedation. 60% fio2. persistent hypoxia. 11/14: oxygen requirement persists. unable to wean ventilation. Cr slightly improved. left pleural effusion worse than prior xray. subQ air persists. CT with 1+ air leak still. 11/15: oxygen requirement improving. left sided pigtail chest tube put out 1100cc sanguinous output, likely old from retained hemothorax s/p CPR and rib fractures. This morning, both chest tubes without air leaks. fio2 45%. patient awake, follows commands. denies pain. 11/16: oxygen requirement increased overnight, leukocytosis stable, low grade fever overnight, and now with new copious sputum production which appears greenish. Right chest tube 76mL/24h, left pigtail 340 mL/24h. no air leak on right, intermittent bubble on left. still follows commands. on increasing doses of levophed today. 11/17: CXR somewhat clearer. No improvement in gas exchange. 11/18: Renal function stable. Gas exchange improving. Check prealbumin, adjust nutrition. 11/19: Tolerated SBT and extubated early today. He has good gas exchange but is unable to protect his airway. 11/20: Marginal control of airway due to inability to handle oral secretions. Family requests continued full code status. He needs a tracheostomy and family is deciding. Objective Vital Signs Date Time Temp Pulse Resp B/P Pulse Ox O2 Delivery O2 Flow Rate FiO2 11/20/16 06:00 74 11/20/16 04:10 93 40 11/20/16 04:00 97.9 19 117/45 11/19/16 19:00 Bi-Pap 11/19/16 05:20 10 Intake and Output 11/19/16 11/19/16 11/20/16 08:00 16:00 00:00 Intake Total 886 ml 898 ml 36 ml Output Total 920 ml 1020 ml 655 ml Balance -34 ml -122 ml -619 ml Result Diagram: 11/19/16 0430 11/20/16 3035 Other Results Laboratory Tests Test 11/19/16 12:57 Blood Gas Puncture Site ART LINE Blood Gas Patient Temperature 98.6 Blood Gas HCO3 26 mmol/L (22-26) Blood Gas Base Excess 2.4 mmol/L (-2-2) Blood Gas Oxygen Saturation 93 % (90-100) Arterial Blood pH 7.46 (7.380-7.420) Arterial Blood Partial 37 mmHg (38-42) Pressure CO2 Arterial Blood Partial 68 mmHg Pressure O2 (61-120) Arterial Blood Oxygen Content 11.7 Vol % (12.0-20.0) Arterial Blood 1.9 % (0-4) Carboxyhemoglobin Arterial Blood Methemoglobin 0.9 % (0-2) Blood Gas Hemoglobin 8.9 G/DL (12.0-16.0) Oxygen Delivery Device BiPAP Blood Gas Ventilator Setting 12/+5/RATE 8 Blood Gas Inspired Oxygen 40 % Imaging Last 24 hours Impressions Chest X-Ray 11/16/16 0000 Signed Impressions: Service Date/Time: Wednesday, November 16, 2016 00:43 - CONCLUSION: No significant interval change Akash Brown MD Objective Remarks HEENT/Neuro: elderly male, icritically ill. RASS 0, fc x 4. PERRL. Neck: trachea midline. Widely patent airway but numerous watery secretions, poorly cleared. Chest/pulmonary: unlabored. equal chest rise. right chest tube with serous output, no air leak, to suction. left pigtail with serosanguinous output, very intermittent tiny air leak, to suction. Cardiovascular: normal rate, regular rhythm. sinus by tele. no JVD. GI/abdomen: Soft, nontender. Bruising/ ecchymosis over the anterior abdominal wall and left flank noted Extremities: Warm bilaterally, no edema, well perfused. A/P Assessment and Plan 86-year-old male s/p Left robotic-assisted nephroureterectomy/urethral dilation , course complicated by recurrent hypoxic respiratory failure, post-op a. fib, and most recently PEA arrest complicated by rib fractures and right tension pneumothorax. He remains very critically ill at this time. minimal improvements , off pathway. s/p bilateral drainage of effusions. Cr slightly worse and on higher vasopressor requirements, despite ivf resuscitation yesterday. Also now with new copious sputum production and what appears to be a possible pneumonia, likely secondary to aspiration from PEA arrest event. Will proceed with bronchoscopy and cultures, started on Zosyn overnight. Plan by Systems: Neuro: History of Parkinson's disease Acute Pain associated with rib fractures Agitated Delirium -- RASS goal -2. -- prop/fent for goal RASS. -- frequent neuro checks. -- Seroquel 25 mg daily at bedtime to control delirium. -- oxy 5 per tube for rib fracture pain. Cardiovascular: Hyperlipidemia s/p PEA arrest 11/13 Type II NSTEMI secondary to demand ischemia- improving, trops downtrending. A. fib with RVR(new)- resolved. Sinus bradycardia- resolved. Right bundle branch block [old] First degree AV block Hypotension- possibly early septic shock. -- s/p PEA arrest 11/13. This was likely a vagal response to bowel movement, complicated by CPR, complicated by right tension pneumothorax and left hemothorax. --continue Levophed for map > 65 mmHg. -- po amio stopped per cards. -- Cardiology following for afib ([facility]). Pulmonary: Acute hypoxic and hypercarbic respiratory failure Suspected sleep apnea Suspected COPD Right pneumothorax secondary to CPR s/p right 28 Fr chest tube 11/13 Left hemothorax secondary to CPR s/p Left pigtail chest tube placement 11/15 multiple right-sided rib fractures New copious secretions, possible aspiration pneumonia -- wean fio2 for spo2 > 90%. -- bronch today for new secretions, will send BALs, possible aspiration pneumonia -- water seal right chest tube, 4h post CXR. -- no SBTs today given high fio2. -- left pigtail chest tube to suction, increase to -40. -- Extubated 11/19 GI/liver: Acute protein calorie malnutrition- severe -- TF at goal. -- daily BMP Renal/: Left kidney mass status post left robotic-assisted nephroureterectomy/urethral dilation Acute Kidney Injury -- Status post left nephroureterectomy in followed by urology. -- Strict intake output -- monitor and replete electrolites -- Cr uptrended -- continue LR @ 84cc/hr. ID: Possible aspiration pneumonia -- s/p full course of levaquin. -- Zosyn started 11/16 for fever, leukocytosis, and copious secretions with increase in o2 requirement. -- bronch today -- f/u BALs sent 11/16. Heme: Anemia secondary to acute blood loss -- Follow CBC. -- Patient has indicated preoperatively that he does not wish to receive any blood products however per anesthesia documentation is okay with albumin if needed. -- On 11/05 initiated darbapoeitin subcutaneously, IM B-12, IV iron sucrose and PO folic acid. -- Once again confirmed with patient on 11/05 and he does not wish to have blood transfusions. Endocrine: Hyperglycemia of Critical Illness -- SSI Prophylaxis: Protonix, SCDs. SQH. Lines: -- radial art line 11/13 -- left SC TLC 11/13 -- [place] -- must keep all lines while currently critically ill. Change at 7 days. Dispo: continues to be very critically ill. I have talked with his family, with all his multiple medical comorbidities and active problems, they know his mortality risk is very high. The family wants him re-intubated if necessary. Will need trach and PEG I suspect, followed by LTAC. We will attempt to minimize blood draws as he won't accept transfusions. Waldemar Mena MD Nov 20, 2016 08:05
[2016-11-20] MEDS: RESP: ALBUTEROL 2.5 MG/IPRATROPIUM 0.5 MG NEB (PRN) NEB (08:38)
[2016-11-20] MEDS: VITAMIN B COMPLEX/VIT C TAB PO SCH (09:00)
[2016-11-20] MEDS: DOCUSATE SODIUM 100 MG CAP PO SCH ×2 (09:00→20:28)
[2016-11-20] MEDS: FOLIC ACID 1 MG TAB PO SCH (09:00)
[2016-11-20] MEDS: ASPIRIN EC 81 MG TABEC PO SCH (09:00)
[2016-11-20] MEDS: CARBIDOPA/LEVODOPA 25 MG/100 MG TAB PO SCH ×4 (09:00→20:28)
[2016-11-20] MEDS: NOREPINEPHRINE 4 MG/D5W 250 ML IV SCH (09:36)
[2016-11-20] MEDS: HEPARIN SODIUM - SQ 10,000 UNITS/ML VIAL SQ SCH ×2 (09:36→20:30)
[2016-11-20] MEDS: BRIMONIDINE TARTRATE 0.2% OPHT SOLN 5 ML BTL EACH EYE SCH ×2 (09:42→20:27)
[2016-11-20] MEDS: TIMOLOL MALEATE 0.5% OPHT SOLN 5 ML BTL EACH EYE SCH ×2 (09:42→20:28)
--- NOTE | 2016-11-20 11:35 | PD.CONS ---
Consult Service Palliative Care Consult Requested By Dr. Mena . Primary Care Physician Basilio Armenta MD . Reason for Consultation a. To assist with evaluation and management of symptoms including: Pain, dyspnea, encephalopathy b. To assist medical decision maker(s) with: better understanding of current medical conditions; weighing benefits/burdens of medical treatment options; making medical treatment decisions. . HPI History of Present Illness This 86-year-old male, with a history of underlying Parkinson's disease, presented to the emergency department on 09/27/16 because of 2 days of gross hematuria with some mild flank pain. A culture did not reveal infection. 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 (Pathology subsequently revealed inflammation but no apparent malignancy.) Postoperatively, the patient had bradycardia with a heart rate in the 40s and he was transferred to intensive surgical care. His hemoglobin decreased from the admission 12.5 level down to 7 by 11/05/16. The patient had made it clear that he did not want any transfusions or blood products, so he has not been transfused, but has been kept on darbepoetin. Since then, complications have included atrial fib with RVR on 11/07/16, respiratory failure requiring BiPAP on 11/09/16, and then PEA cardiac arrest on . The patient was intubated and successfully resuscitated, but required pressor support. In addition, he had multiple rib fractures sustained during the resuscitation, had a tension pneumothorax, and has subsequently been maintained with 2 chest tubes. By 11/16/16, his oxygen requirements were increasing, and he had some low-grade fever and green thick sputum. He was begun on Zosyn, and a bronchoscopy was completed that noted the thick sputum, and vigorous suctioning was completed. (Subsequent culture grew only normal respiratory nakul.) The patient was able to be extubated on 11/19/16, but has shown signs of continued respiratory failure, with hypoxia and some difficulty protecting his airway and now requiring BiPAP. Palliative Care was consulted to assist with symptom management, and to enter into discussions with the patient and family regarding his illnesses to date, the prognosis, and the benefits and burdens of the various treatment options going forward. . Function/Cognitive Trajectory The patient has been declining in strength and mobility steadily over the past couple years. He has been using a walker the past 2 years, but has been weaker in recent months. He has not had any falls that the family knows of. He lived alone part of the time, but his 2 daughters and son-in-law are very close by and are at his house frequently. The patient does not drive, never has. . Review of Systems ROS Limitations: Clinical Condition, Altered Mental Status Constitutional: COMPLAINS OF: Fever, DENIES: Night Sweats Endocrine: DENIES: Polyuria Eyes: DENIES: Eye inflammation Ears, nose, mouth, throat: DENIES: Epistaxis Respiratory: COMPLAINS OF: Sputum production, Shortness of breath Cardiovascular: COMPLAINS OF: Chest pain, Dyspnea on Exertion, DENIES: Lower Extremity Edema Gastrointestinal: DENIES: Bloody stools, Vomiting Genitourinary: COMPLAINS OF: Hematuria Musculoskeletal: DENIES: Joint Swelling Integumentary: DENIES: Rash Hematologic/Lymphatics: DENIES: Bruising (left flank/abdomen) Immunologic/Allergic: DENIES: Urticaria Neurologic: DENIES: Localized weakness, Seizures Psychiatric: COMPLAINS OF: Confusion Past Family Social History Coded Allergies: No Known Allergies (Unverified , 11/02/16) Past Medical History * Left robotic-assisted nephroureterectomy * Respiratory failure, hypoxic * Bilateral pneumonia, with negative sputum cultures * PEA cardiac arrest 11/13/16 * Rib fractures and tension pneumothorax status post resuscitation/CPR * Bradycardia, right bundle branch block, chronic * Parkinson's disease * Hyperlipidemia * BPH * History of nephrolithiasis * Glaucoma . Past Surgical History * Bilateral chest tubes * Left robotic-assisted nephroureterectomy 11/03/16 * Anal fistula * Oral surgery . Current Medications Medications (Trade) Dose Ordered Sig/Michael Route Start Time Stop Time Status Last Admin (Colace) 100 mg BID PO 11/03/16 11:45 11/18/16 20:45 (Zofran Inj) 4 mg Q6HR PRN IV PUSH 11/03/16 11:45 11/05/16 22:57 (Protonix Inj) 40 mg Q24H IV PUSH 11/03/16 13:00 11/19/16 14:31 (Sinemet 25-100 Mg) 2 tab QID PO 11/03/16 21:00 11/18/16 21:51 (Ilotycin 0.5% Opth Oint) 1 applic HS EACH EYE 11/04/16 21:00 11/19/16 20:38 (Proscar) 5 mg HS PO 11/04/16 21:00 11/18/16 20:49 (Alphagan 0.2% Opth Soln) 1 drop Q12HR EACH EYE 11/04/16 09:00 11/20/16 09:42 (Timoptic 0.5% Opth Soln) 1 drop Q12HR EACH EYE 11/04/16 09:00 11/20/16 09:42 (Folate) 1 mg DAILY PO 11/05/16 09:00 11/18/16 08:50 (Antivert) 25 mg TID PRN PO 11/05/16 17:30 11/09/16 09:13 (Allbee C) 1 tab DAILY PO 11/08/16 09:00 11/18/16 08:50 (SEROquel) 25 mg HS PRN PO 11/08/16 10:00 11/09/16 20:10 (Ecotrin Ec) 81 mg DAILY PO 11/09/16 09:00 11/18/16 08:50 (Tylenol) 1,000 mg Q6H PRN PO 11/11/16 11:00 11/16/16 12:12 Gabapentin 100 mg 100 mg HS PO 11/11/16 21:00 11/18/16 20:45 Propofol 100 ml @ 0 mls/hr TITRATE IV 11/13/16 02:30 11/18/16 04:00 (Levophed-Dextrose Drip) 250 ml @ 0 mls/hr TITRATE IV 11/13/16 19:15 11/20/16 09:36 Oxycodone HCl 5 mg 5 mg Q4H PO 11/14/16 08:00 11/18/16 17:28 (fentaNYL DRIP) 250 ml @ 0 mls/hr TITRATE IV 11/14/16 08:00 11/19/16 02:31 (Heparin Inj) 5,000 units Q12HR SQ 11/14/16 11:30 11/20/16 09:36 (Robitussin Liq) 200 mg Q6H PO 11/16/16 01:15 11/19/16 02:11 (Lopressor Inj) 2.5 mg Q6H PRN IV PUSH 11/16/16 13:00 11/16/16 14:57 (Lasix Inj) 40 mg DAILY IV PUSH 11/20/16 13:30 Substance Use Tobacco: None Alcohol: None Prescription med abuse: None Illicits: None . Psychosocial History Born and raised in [place], [place], but moved to [place], [place] in the 1960s, and then to this area several years ago. He currently has his own home, and is alone a part of the time, but his 2 daughters live nearby and are at his house much of the time during the day. He served 2 years in the [employer] after World War II. 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 The patient has been and twice, the second time just about 1.5 years ago. He had 4 children, 1 son and 3 daughters. . Spiritual/Cultural Factors Buddhist, kristin is very important for him. He has been supported during this hospitalization by his own clergy . Living Will: Copy in medical record Health Care Surrogate: Copy in medical record Health Care Surrogate(s): Daughters Julia and Sapphire are the HCSs . Documented care wishes: The patient's living will states that he does not want any blood products, and also says he would not want to be kept alive if his expected life was short. . Family/friends goals: The patient's 3 daughters and son-in-law Reno note that the patient told them in the past and reiterated prior to this hospitalization that he does not want to be kept alive if his quality of life will be impacted, and they are certain that, if he knew he would be bedbound and likely with a trach and PEG until came, he would not want to be continued on aggressive care, but would want to be allowed to naturally and peacefully. . Ethical and Legal Issues There are no ethical issues that would impact his care or decision-making at this time. The patient does not have capacity for decision-making, and it is uncertain whether he would ever regain that capacity. His daughters Julia and Sapphire R the designated health care surrogates, and stefany Merrill is also participating in discussions. . Physical Exam Vital Signs Date Time Temp Pulse Resp B/P Pulse Ox O2 Delivery O2 Flow Rate FiO2 11/20/16 08:15 96 40 6/2/17 06:00 74 11/20/16 04:10 93 40 11/20/16 04:00 78 11/20/16 04:00 97.9 78 19 117/45 100 11/20/16 02:00 74 11/20/16 01:09 98 40 11/20/16 00:00 97.6 79 22 116/50 96 11/20/16 00:00 79 11/19/16 22:00 86 11/19/16 20:00 85 11/19/16 20:00 98.0 85 21 128/60 97 11/19/16 20:00 97 40 11/19/16 20:00 40 11/19/16 19:00 97 Bi-Pap 40 11/19/16 18:00 95 11/19/16 16:00 98 11/19/16 16:00 97.7 98 22 164/72 98 11/19/16 15:51 94 40 11/19/16 14:00 107 11/19/16 12:00 100 11/19/16 12:00 98.9 100 25 144/66 96 11/19/16 11:57 95 40 11/19/16 11/20/16 19:00 07:00 Intake Total 898 ml 56 ml Output Total 1020 ml 1080 ml Balance -122 ml -1024 ml IV Total 898 ml 56 ml Output Urine Total 950 ml 950 ml Chest Tube Drainage Total 70 ml 130 ml # Bowel Movements 0 4 Exam CONSTITUTIONAL/GENERAL: This is an elderly, weak patient, in the ISC with BiPAP in place. TUBES/LINES/DRAINS: BiPAP, Sheppard, SCDs, 2 chest tubes SKIN: No jaundice, rashes, or lesions. Ecchymoses on upper extremities. No wounds seen anteriorly. Skin temperature appropriate. Not diaphoretic. HEAD: Atraumatic. Normocephalic. EYES: Pupils equal and round and reactive. Extraocular motions intact. No scleral icterus. No injection or drainage. Fundi not examined. ENT: Hearing grossly normal. Nose without bleeding or purulent drainage. NECK: Trachea midline. Supple, nontender. No palpable thyroid enlargement or nodularity. CARDIOVASCULAR: Regular rate and rhythm without murmurs, gallops, or rubs. No JVD. Peripheral pulses symmetric. RESPIRATORY/CHEST: Symmetric, unlabored respirations. Bilateral rhonchi, diminished breath sounds. GASTROINTESTINAL: Abdomen soft, non-tender, nondistended. No hepato-splenomegaly , or palpable masses. No guarding. Bowel sounds present. GENITOURINARY: Without palpable bladder distension. Sheppard catheter in place. MUSCULOSKELETAL: Extremities without clubbing, cyanosis, or edema. No joint tenderness or effusion noted. No calf tenderness. No mottling or clubbing. LYMPHATICS: No palpable cervical or supraclavicular adenopathy. NEUROLOGICAL: Lethargic, mumbles, does not follow simple commands. Intermittent parkinsonian tremor of the left hand. PSYCHIATRIC: No obvious anxiety/depression. no apparent hallucinations or other psychotic thought process. . Diagnostic Tests Laboratory Laboratory Tests Test 11/18/16 11/19/16 11/19/16 11/20/16 05:30 04:30 12:57 04:45 White Blood Count 13.7 TH/MM3 14.0 TH/MM3 (4.0-11.0) (4.0-11.0) Red Blood Count 2.56 MIL/MM3 2.38 MIL/MM3 (4.50-5.90) (4.50-5.90) Hemoglobin 7.7 GM/DL 7.4 GM/DL (13.0-17.0) (13.0-17.0) Hematocrit 24.0 % 22.3 % (39.0-51.0) (39.0-51.0) Mean Corpuscular Volume 93.7 FL 93.8 FL (80.0-100.0) (80.0-100.0) Mean Corpuscular Hemoglobin 30.3 PG 31.0 PG (27.0-34.0) (27.0-34.0) Mean Corpuscular Hemoglobin 32.3 % 33.1 % Concent (32.0-36.0) (32.0-36.0) Red Cell Distribution Width 16.8 % 16.7 % (11.6-17.2) (11.6-17.2) Platelet Count 412 TH/MM3 496 TH/MM3 (150-450) (150-450) Mean Platelet Volume 6.8 FL 7.1 FL (7.0-11.0) (7.0-11.0) Sodium Level 139 MEQ/L 141 MEQ/L 139 MEQ/L (136-145) (136-145) (136-145) Potassium Level 4.7 MEQ/L 4.8 MEQ/L 4.3 MEQ/L (3.5-5.1) (3.5-5.1) (3.5-5.1) Chloride Level 103 MEQ/L 104 MEQ/L 105 MEQ/L (98-107) (98-107) (98-107) Carbon Dioxide Level 28.1 MEQ/L 28.4 MEQ/L 26.5 MEQ/L (21.0-32.0) (21.0-32.0) (21.0-32.0) Anion Gap 8 MEQ/L (5-15) 9 MEQ/L (5-15) 8 MEQ/L (5-15) Blood Urea Nitrogen 22 MG/DL (7-18) 25 MG/DL (7-18) 27 MG/DL (7-18) Creatinine 1.43 MG/DL 1.37 MG/DL 1.35 MG/DL (0.60-1.30) (0.60-1.30) (0.60-1.30) Estimat Glomerular Filtration 47 ML/MIN (>89) 49 ML/MIN (>89) 50 ML/MIN (>89) Rate Random Glucose 132 MG/DL 200 MG/DL 88 MG/DL (74-106) (74-106) (74-106) Calcium Level 7.7 MG/DL 7.9 MG/DL 8.0 MG/DL (8.5-10.1) (8.5-10.1) (8.5-10.1) Prealbumin 5 MG/DL (20-40) Blood Gas Puncture Site ART LINE Blood Gas Patient Temperature 98.6 Blood Gas HCO3 26 mmol/L (22-26) Blood Gas Base Excess 2.4 mmol/L (-2-2) Blood Gas Oxygen Saturation 93 % (90-100) Arterial Blood pH 7.46 (7.380-7.420) Arterial Blood Partial 37 mmHg (38-42) Pressure CO2 Arterial Blood Partial 68 mmHg Pressure O2 (61-120) Arterial Blood Oxygen Content 11.7 Vol % (12.0-20.0) Arterial Blood 1.9 % (0-4) Carboxyhemoglobin Arterial Blood Methemoglobin 0.9 % (0-2) Blood Gas Hemoglobin 8.9 G/DL (12.0-16.0) Oxygen Delivery Device BiPAP Blood Gas Ventilator Setting 12/+5/RATE 8 Blood Gas Inspired Oxygen 40 % Result Diagram: 11/19/16 0430 11/20/16 0445 Imaging Last Impressions Chest X-Ray 11/17/16 0600 Signed Impressions: Service Date/Time: Thursday, November 17, 2016 04:32 - CONCLUSION: Stable to slightly improved aeration Akash Brown MD Head CT 11/12/16 0000 Signed Impressions: Service Date/Time: October 16:48 - CONCLUSION: No acute intracranial findings Akash Brown MD CT Angiography 11/12/16 0000 Signed Impressions: Service Date/Time: October 16:52 - CONCLUSION: Bilateral effusions and lung atelectasis, left worse than right. Small primarily anterior basilar right pneumothorax. No evidence of pulmonary embolism Akash Brown MD Abdomen/Pelvis CT 11/12/16 0000 Signed Impressions: Service Date/Time: October 16:55 - CONCLUSION: Fluid and hematoma in the left retroperitoneum post left nephrectomy. Nothing to suggest active bleeding at present. Air in the lower abdominal and anterior pelvic subcutaneous tissues of undetermined origin. Akash Brown MD Lung Scan-V Nuclear Medicine 11/06/16 0000 Signed Impressions: Service Date/Time: Sunday, November 06, 2016 13:52 - CONCLUSION: 1. The perfusion portion the exam is normal. No pulmonary embolus is identified. 2. Patchy delivery of tracer to both lungs suggesting COPD. Pratik Valverde MD Procedures INTUBATION 11/03/16 for surgery EXTUBATION postop Resuscitation, cardiac arrest, INTUBATION 11/13/16 Thoracostomy tubes 11/13/16 Bronchoscopy 11/16/16 EXTUBATION 11/19/16 . Patient/Family Conference Present at Family Conference: Rose HARRISON, daughter Julia Ernestine, daughter Sapphire Ernestine, son-in-law Reno, daughter Desirae Hudson . Family Conference Time (mins): 66 Family Conference Location: Consult Room Issues Discussed: * Palliative care role, purpose, approach * Hospice role, purpose, approach * Additional medical, psychosocial, and spiritual history * Patients general health, functional status, and cognitive changes in the months leading up to the current hospitalization * Patient/family understanding of the current medical problems * Patient/family understanding of prognosis * Patients goals of care as best understood from advance directives and/or conversations and/or values * Current medical treatment options and benefits/burdens of those options * Likely scenarios comparing ongoing aggressive care with a transition to comfort measures only * Questions answered to the best of my ability * Palliative care contact information provided The patient's 3 daughters and son-in-law Reno note that the patient told them in the past and reiterated prior to this hospitalization that he does not want to be kept alive if his quality of life will be impacted, and they are certain that, if he knew he would be bedbound and likely with a trach and PEG until came, he would not want to be continued on aggressive care, but would want to be allowed to naturally and peacefully. . Assessment and Plan Disease Oriented Problem List: (1) left robotic-assisted nephroureterectomy 11/03/16 (2) respiratory failure, hypoxic (3) PEA cardiac arrest 11/13/16 (4) rib fractures and tension pneumothorax status post resuscitation/CPR 11/13/16 (5) bilateral pneumonia, with negative sputum cultures (6) Parkinson's disease (7) bradycardia, right bundle branch block, chronic (8) glaucoma (9) hyperlipidemia Symptom Scale: (1) pain 0-10 Scale: Unable to quantify (2) dyspnea 0-10 Scale: Unable to quantify (3) anxiety 0-10 Scale: Unable to quantify Pertinent Non-Medical Issues Psychosocial: , lives alone with daughters nearby, 4 children, 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 He has been supported during this hospitalization by his own clergy Legal: The patient does not have capacity for decision-making, and it is uncertain whether he would ever regain that capacity. His daughters Julia and Sapphire R the designated health care surrogates, and daughter eDsirae is also participating in discussions. Ethical issues impacting care: None . Important Contacts Daughter Julia Sinha (and son-in-law Reno) [phone] Stefany Sinha [phone] Daughter Desirae Becca . Prognosis The patient's prognosis is poor. With his underlying Parkinson's and worsening weakness and debility in recent months, he now has suffered respiratory failure and has had a cardiac arrest and a complicated resuscitation. He is profoundly weak, and will remain bedbound even with continued aggressive care. If a transition to comfort care (hospice services) is undertaken, the patient likely has just days or perhaps a couple weeks to live. . Code Status: No Code Plan * DO NOT RESUSCITATE, per request of 3 daughters and son-in-law on 11/20/16 * GOALS: The patient's 3 daughters and son-in-law Reno note that the patient told them in the past and reiterated prior to this hospitalization that he does not want to be kept alive if his quality of life will be impacted, and they are certain that, if he knew he would be bedbound and likely with a trach and PEG until came, he would not want to be continued on aggressive care, but would want to be allowed to naturally and peacefully. They request initiation of DNR status now, and they will likely transition to comfort care, hospice services in the upcoming hours or days. * DECISION-MAKING: The patient does not have capacity for decision-making, and it is uncertain whether he would ever regain that capacity. His daughters Julia and Sapphire are the designated health care surrogates, and daughter Desirae is also participating in discussions. * SYMPTOMS: The patient has recent surgery, bedbound status, and recent rib fractures and chest tubes, and likely has ongoing pain. In addition, he has continued hypoxic respiratory failure and some likely dyspnea. Morphine and lorazepam orders have been entered for comfort. * Spiritual support will be continued by the patient's own clergy, and family will re-notify them today concerning the patient's deteriorating condition. * Regarding HOSPICE, the patient's 3 daughters will speak with their brother later today and make the final decision regarding a transition to comfort care. If they elect hospice services, this [facility]. * Palliative Care will continue to follow the patient during this hospitalization. . Time Spent Total Floor Time (mins): 110 Face to Face Time (mins): 85 >50% Counseling/Coord of Care: Yes (discussed with Dr. Mena and with RN) Thank you for the opportunity to participate in the care of Mr. Washington. Attestation To help prompt me to consider important information that might be impacting today's encounter and assessment, information from prior notes written by myself or my colleagues may have been "brought forward" into today's note. My signature on this note, however, is an attestation that I personally performed the exam, history, and/or decision-making noted today, and, unless otherwise indicated, the interactions with patient, family, and staff as well as the review of records all occurred today. I also attest that the listed assessment and stated plan reflect my best clinical judgment today based on the combination of historical information, prior notes, and today's exam/ interactions. When time spent is documented, it refers only to time spent today by the signer, or if indicated, combined time spent today by collaborating physician/nurse practitioner. Angeles Bautista MD Nov 20, 2016 11:35
[2016-11-20] MEDS ORDERED: LORazepam 2 MG/ML VIAL IV PUSH PRN (13:15)
[2016-11-20] MEDS ORDERED: MORPHINE SULFATE 4 MG/ML INJ IV PUSH PRN (13:15)
[2016-11-20] MEDS: PANTOPRAZOLE SODIUM 40 MG VIAL IV PUSH SCH (13:24)
[2016-11-20] MEDS: FUROSEMIDE 40 MG/4 ML VIAL IV PUSH SCH (13:24)
[2016-11-20] MEDS: FINASTERIDE 5 MG TAB PO SCH (20:28)
[2016-11-20] MEDS: GABAPENTIN 100 MG CAP PO SCH (20:28)
[2016-11-20] MEDS: ERYTHROMYCIN 0.5% OPTH OINT 3.5 GM TUBO EACH EYE SCH (20:28)
[2016-11-20] MEDS: MORPHINE SULFATE 4 MG/ML INJ IV PUSH PRN (22:53)
[2016-11-21] VITALS (17 sets, daily range): BP systolic 109–150; BP diastolic 45–62; PULSE 58–83; RESP 14–30; TEMP 97.6–98.1; O2SAT 92–99
[2016-11-21] MEDS: guaiFENesin SOLUTION 200 MG/10 ML CUP PO SCH ×4 (00:57→18:32)
--- NOTE | 2016-11-21 08:04 | HHI.CCPN ---
Subjective Remarks/Hospital Course 11/03: 86 y/o male with past medical history significant for Parkinson's disease who was diagnosed to have a left renal pelvis mass when he presented with hematuria and left flank pain which was felt to be consistent with transitional cell carcinoma. Patient underwent left robotic nephroureterectomy under general anesthesia by Dr. Oh on 11/03, received 2500 cc crystalloid, EBL 75 cc , Intra-Op urine output 300 cc. Patient was extubated postoperatively and transferred to PACU and subsequently to [facility]. His heart rate has been in the 40s postoperatively. Patient tells me that he runs a slow heart rate for a few years now. He did drop his blood pressure to the 70s transiently for which she was given a fluid bolus with normal saline 1 L and critical care consult was requested for hypotension and Dr. marte. I evaluated the patient immediately on being notified of the consult. At the time of my evaluation he was laying in the ICU bed not in any acute distress. He denied any chest pain or shortness of breath. He had minimal abdominal discomfort at the site of surgery. 11/04: Resting in bed comfortably no further hypotension since last night. 11/05: Patient had a hemoglobin dropped down to 7 g percent. No hypotension or tachycardia. He is resting in bed comfortably not in any acute distress this morning at the time of my evaluation. Bruising noted over left flank and anterior abdominal wall. 11/06: Receive morphine last night and is drowsy currently. No hypotension overnight. Hemoglobin remains above 7. 11/07: Went into A. fib with RVR on 11/06 and was started on amiodarone drip. Currently remains rate controlled. 11/08: Was agitated and confused overnight. This morning he is awake and alert appears comfortable and is very pleasant. On 4.5 L nasal cannula. Remains in atrial fibrillation on amiodarone drip. 11/09: He was confused and agitated at night. Was on BiPAP with full facemask overnight. Remains in atrial fibrillation on amiodarone drip. Starting aspirin today. 11/10: Awake and alert, following commands. On nasal cannula 6 L/m. Remains in A. fib. Amiodarone switched to by mouth yesterday. Erythema and swelling over right forearm secondary to IV infiltration noted. 11/11: awake and alert. afib converted overnight. 11/12: doing well and stable. on 5L NC. out of bed to chair on my eval. 11/13: PEA arrest and acute change yesterday. please see 11/12 addended note for details. this morning, remains on levophed. chest tube with persistent air leak. follows commands x 4, gets agitated off sedation. 60% fio2. persistent hypoxia. 11/14: oxygen requirement persists. unable to wean ventilation. Cr slightly improved. left pleural effusion worse than prior xray. subQ air persists. CT with 1+ air leak still. 11/15: oxygen requirement improving. left sided pigtail chest tube put out 1100cc sanguinous output, likely old from retained hemothorax s/p CPR and rib fractures. This morning, both chest tubes without air leaks. fio2 45%. patient awake, follows commands. denies pain. 11/16: oxygen requirement increased overnight, leukocytosis stable, low grade fever overnight, and now with new copious sputum production which appears greenish. Right chest tube 76mL/24h, left pigtail 340 mL/24h. no air leak on right, intermittent bubble on left. still follows commands. on increasing doses of levophed today. 11/17: CXR somewhat clearer. No improvement in gas exchange. 11/18: Renal function stable. Gas exchange improving. Check prealbumin, adjust nutrition. 11/19: Tolerated SBT and extubated early today. He has good gas exchange but is unable to protect his airway. 11/20: Marginal control of airway due to inability to handle oral secretions. Family requests continued full code status. He needs a tracheostomy and family is deciding. 11/21: Patient refuses to wear BiPAP. Objective Vital Signs Date Time Temp Pulse Resp B/P Pulse Ox O2 Delivery O2 Flow Rate FiO2 11/21/16 06:00 64 11/21/16 04:06 97 40 11/21/16 04:00 97.9 15 114/51 11/20/16 19:00 Bi-Pap 11/19/16 05:20 10 Intake and Output 11/20/16 11/20/16 11/21/16 08:00 16:00 00:00 Intake Total 20 ml 277 ml 88 ml Output Total 425 ml 950 ml 1810 ml Balance -405 ml -673 ml -1722 ml Result Diagram: 11/19/16 3650 11/20/16 4336 Imaging Last 24 hours Impressions Chest X-Ray 11/16/16 0000 Signed Impressions: Service Date/Time: Wednesday, November 16, 2016 00:43 - CONCLUSION: No significant interval change Akash Brown MD Objective Remarks HEENT/Neuro: elderly male, moves 4 limbs, conversant RASS 0, fc x 4. PERRL. Neck: trachea midline. Widely patent airway, less secretions Chest/pulmonary: unlabored. equal chest rise. right chest tube with serous output, no air leak, to suction. left pigtail with serosanguinous output, very intermittent tiny air leak, to suction. Cardiovascular: normal rate, regular rhythm. sinus by tele. no JVD. GI/abdomen: Soft, nontender. Bruising/ ecchymosis over the anterior abdominal wall and left flank noted Extremities: Warm bilaterally, no edema, well perfused. A/P Assessment and Plan 86-year-old male s/p Left robotic-assisted nephroureterectomy/urethral dilation , course complicated by recurrent hypoxic respiratory failure, post-op a. fib, and most recently PEA arrest complicated by rib fractures and right tension pneumothorax. He remains very critically ill at this time. minimal improvements , off pathway. s/p bilateral drainage of effusions. Cr slightly worse and on higher vasopressor requirements, despite ivf resuscitation yesterday. Also now with new copious sputum production and what appears to be a possible pneumonia, likely secondary to aspiration from PEA arrest event. Will proceed with bronchoscopy and cultures, started on Zosyn overnight. Plan by Systems: Neuro: History of Parkinson's disease Acute Pain associated with rib fractures Agitated Delirium -- RASS goal -2. -- prop/fent for goal RASS. -- frequent neuro checks. -- Seroquel 25 mg daily at bedtime to control delirium. -- d/c oxy 5 per tube for rib fracture pain to avoid delerium Cardiovascular: Hyperlipidemia s/p PEA arrest 11/13 Type II NSTEMI secondary to demand ischemia- improving, trops downtrending. A. fib with RVR(new)- resolved. Sinus bradycardia- resolved. Right bundle branch block [old] First degree AV block Hypotension- possibly early septic shock. -- s/p PEA arrest 11/13. This was likely a vagal response to bowel movement, complicated by CPR, complicated by right tension pneumothorax and left hemothorax. --continue Levophed for map > 65 mmHg. -- po amio stopped per cards. -- Cardiology following for afib ([facility]). Pulmonary: Acute hypoxic and hypercarbic respiratory failure Suspected sleep apnea Suspected COPD Right pneumothorax secondary to CPR s/p right 28 Fr chest tube 11/13 Left hemothorax secondary to CPR s/p Left pigtail chest tube placement 11/15 multiple right-sided rib fractures New copious secretions, possible aspiration pneumonia -- wean fio2 for spo2 > 90%. -- bronch today for new secretions, will send BALs, possible aspiration pneumonia -- water seal right chest tube, 4h post CXR. -- no SBTs today given high fio2. -- left pigtail chest tube to suction, increase to -40. -- Extubated 11/19 GI/liver: Acute protein calorie malnutrition- severe -- TF at goal. -- daily BMP Renal/: Left kidney mass status post left robotic-assisted nephroureterectomy/urethral dilation Acute Kidney Injury -- Status post left nephroureterectomy in followed by urology. -- Strict intake output -- monitor and replete electrolites -- Cr uptrended -- continue LR @ 84cc/hr. ID: Possible aspiration pneumonia -- s/p full course of levaquin. -- Zosyn started 11/16 for fever, leukocytosis, and copious secretions with increase in o2 requirement. -- bronch today -- f/u BALs sent 11/16. Heme: Anemia secondary to acute blood loss -- Follow CBC. -- Patient has indicated preoperatively that he does not wish to receive any blood products however per anesthesia documentation is okay with albumin if needed. -- On 11/05 initiated darbapoeitin subcutaneously, IM B-12, IV iron sucrose and PO folic acid. -- Once again confirmed with patient on 11/05 and he does not wish to have blood transfusions. Endocrine: Hyperglycemia of Critical Illness -- SSI Prophylaxis: Protonix, SCDs. SQH. Lines: -- radial art line 11/13 -- left SC TLC 11/13 -- Sheppard -- must keep all lines while currently critically ill. Change at 7 days. -- PICC Dispo: continues to be very critically ill. I have talked with his family, with all his multiple medical comorbidities and active problems, they know his mortality risk is very high. The family wants him re-intubated if necessary. Will need trach and PEG I suspect, followed by LTAC. We will attempt to minimize blood draws as he won't accept transfusions. Waldemar Mena MD Nov 21, 2016 08:04
[2016-11-21] MEDS: CARBIDOPA/LEVODOPA 25 MG/100 MG TAB PO SCH ×3 (09:00→18:00)
[2016-11-21] MEDS: VITAMIN B COMPLEX/VIT C TAB PO SCH (09:00)
[2016-11-21] MEDS: ASPIRIN EC 81 MG TABEC PO SCH (09:00)
[2016-11-21] MEDS: FOLIC ACID 1 MG TAB PO SCH (09:00)
[2016-11-21] MEDS: DOCUSATE SODIUM 100 MG CAP PO SCH (09:00)
[2016-11-21] MEDS: TIMOLOL MALEATE 0.5% OPHT SOLN 5 ML BTL EACH EYE SCH (09:55)
[2016-11-21] MEDS: FUROSEMIDE 40 MG/4 ML VIAL IV PUSH SCH (09:55)
[2016-11-21] MEDS: BRIMONIDINE TARTRATE 0.2% OPHT SOLN 5 ML BTL EACH EYE SCH (09:56)
[2016-11-21] MEDS: HEPARIN SODIUM - SQ 10,000 UNITS/ML VIAL SQ SCH (10:10)
[2016-11-21] MEDS: PANTOPRAZOLE SODIUM 40 MG VIAL IV PUSH SCH (12:53)
[2016-11-21] MEDS ORDERED: HYOSCYAMINE 0.125 MG TAB SL PRN ×2 (19:45)
[2016-11-21] MEDS ORDERED: PROMETHAZINE HCL 25 MG TAB PO PRN (19:45)
[2016-11-21] MEDS ORDERED: ACETAMINOPHEN 650 MG SUPP RECTAL PRN (19:45)
[2016-11-21] MEDS ORDERED: SODIUM CHLORIDE 10 ML FLUSH PRN IV FLUSH (19:45)
[2016-11-21] MEDS ORDERED: BISACODYL 10 MG SUPP RECTAL PRN (19:45)
[2016-11-21] MEDS ORDERED: ACETAMINOPHEN 650 MG/20.3 ML UDC PO PRN (19:45)
[2016-11-21] MEDS ORDERED: PROMETHAZINE HCL 25 MG SUPP RECTAL PRN (19:45)
[2016-11-21] MEDS: SODIUM CHLORIDE 10 ML FLUSH BID IV FLUSH SCH (20:38)
[2016-11-22] MEDS: SODIUM CHLORIDE 10 ML FLUSH BID IV FLUSH SCH ×2 (08:39→21:00)
[2016-11-22] MEDS: FUROSEMIDE 20 MG/2 ML VIAL IV PUSH PRN ×2 (08:39→17:58)
[2016-11-22 08:48] VITALS: O2SAT 94
--- NOTE | 2016-11-22 14:54 | HHI.PR ---
Subjective Patient symptoms today denies pain. ate some food. on 5L NC Objective Vital Signs Vital Signs Date Time Temp Pulse Resp B/P Pulse Ox O2 Delivery O2 Flow Rate FiO2 11/22/16 08:48 94 Nasal Cannula 5.00 11/22/16 08:40 98 Nasal Cannula 5.00 Humidified 11/22/16 00:38 Nasal Cannula 5.00 Humidified 11/21/16 22:00 73 11/21/16 20:00 81 11/21/16 20:00 97.6 81 23 147/55 94 11/21/16 19:59 94 Nasal Cannula 5.00 11/21/16 19:00 95 Nasal Cannula 5.00 11/21/16 18:00 81 11/21/16 16:00 97.9 78 28 150/62 98 11/21/16 16:00 83 11/21/16 16:00 95 Nasal Cannula 5.00 Intake & Output 11/22/16 11/22/16 07:00 19:00 Intake Total 10 ml 20 ml Output Total 1070 ml 1650 ml Balance -1060 ml -1630 ml Intake Oral 0 ml 20 ml IV Total 10 ml Output Urine Total 950 ml 1500 ml Chest Tube Drainage Total 120 ml 150 ml # Bowel Movements 0 Result Diagram: 11/19/16 0430 11/20/16 0445 Objective Remarks comfortable labored respirations abd soft drummond yellow Procedures Robotic Left Nephroureterectomy 11/03 Medications and IVs Current Medications Medications (Trade) Dose Ordered Sig/Michael Route Start Time Stop Time Status Last Admin (Morphine Inj) 2 mg Q1H PRN IV PUSH 11/20/16 14:00 11/20/16 22:53 (Morphine Inj) 4 mg Q1H PRN IV PUSH 11/20/16 13:15 (Ativan Inj) 1 mg Q2H PRN IV PUSH 11/20/16 13:15 (Lasix Inj) 20 mg Q6H PRN IV PUSH 11/21/16 19:45 11/22/16 08:39 (NS Flush) 2 ml BID IV FLUSH 11/21/16 21:00 11/22/16 08:39 (NS Flush) 2 ml UNSCH PRN IV FLUSH 11/21/16 19:45 (Levsin) 0.125 mg Q4H PRN SL 11/21/16 19:45 11/22/16 14:12 (Levsin) 0.25 mg Q4H PRN SL 11/21/16 19:45 (Phenergan Supp) 25 mg Q6H PRN RECTAL 11/21/16 19:45 (Phenergan) 25 mg Q6H PRN PO 11/21/16 19:45 (Tylenol Supp) 650 mg Q4H PRN RECTAL 11/21/16 19:45 (Tylenol 650 Mg/ 20 ml Liq) 650 mg Q4H PRN PO 11/21/16 19:45 (Dulcolax Supp) 10 mg DAILY PRN RECTAL 11/21/16 19:45 Assessment and Plan Assessment and Plan s/p Robotic Left Nephroureterectomy -Keep comfortable -diet as tolerated -on Hospice -Appreciate all other service input. James Oh MD Nov 22, 2016 14:54
[2016-11-22 20:00] VITALS: BP 120/58; PULSE 65; RESP 19; TEMP 98.8; O2SAT 94
[2016-11-23] VITALS: BP 126/62; PULSE 62; RESP 19; TEMP 98; O2SAT 94
[2016-11-23] MEDS: MORPHINE SULFATE 4 MG/ML INJ IV PUSH PRN ×2 (07:20→11:58)
[2016-11-23] MEDS: SODIUM CHLORIDE 10 ML FLUSH BID IV FLUSH SCH (07:47)
[2016-11-23 08:00] VITALS: BP 110/53; PULSE 73; RESP 18; TEMP 96.2; O2SAT 92
[2016-11-23 12:00] VITALS: BP 129/56; PULSE 20; RESP 20; TEMP 97.8; O2SAT 95
--- NOTE | 2016-12-04 10:28 | HHI.DS ---
Discharge Summary Admission Date November 03, 2016 at 05:08 Admitting Diagnosis (1) left robotic-assisted nephroureterectomy 11/03/16 Diagnosis: Secondary (2) respiratory failure, hypoxic Diagnosis: Principal (3) PEA cardiac arrest 11/13/16 Diagnosis: Principal (4) rib fractures and tension pneumothorax status post resuscitation/CPR 11/13/16 Diagnosis: Secondary (5) bilateral pneumonia, with negative sputum cultures Diagnosis: Principal (6) Parkinson's disease Diagnosis: Principal (7) bradycardia, right bundle branch block, chronic Diagnosis: Secondary (8) glaucoma Diagnosis: Secondary (9) hyperlipidemia Diagnosis: Secondary Procedures INTUBATION 11/03/16 for surgery EXTUBATION postop Resuscitation, cardiac arrest, INTUBATION 11/13/16 Thoracostomy tubes 11/13/16 Bronchoscopy 11/16/16 EXTUBATION 11/19/16 . Brief History This 86-year-old male, with a history of underlying Parkinson's disease, presented to the emergency department on 09/27/16 because of 2 days of gross hematuria with some mild flank pain. A culture did not reveal infection. 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 (Pathology subsequently revealed inflammation but no apparent malignancy.) Postoperatively, the patient had bradycardia with a heart rate in the 40s and he was transferred to intensive surgical care. His hemoglobin decreased from the admission 12.5 level down to 7 by 11/05/16. The patient had made it clear that he did not want any transfusions or blood products, so he has not been transfused, but has been kept on darbepoetin. Since then, complications have included atrial fib with RVR on 11/07/16, respiratory failure requiring BiPAP on 11/09/16, and then PEA cardiac arrest on . The patient was intubated and successfully resuscitated, but required pressor support. In addition, he had multiple rib fractures sustained during the resuscitation, had a tension pneumothorax, and has subsequently been maintained with 2 chest tubes. By 11/16/16, his oxygen requirements were increasing, and he had some low-grade fever and green thick sputum. He was begun on Zosyn, and a bronchoscopy was completed that noted the thick sputum, and vigorous suctioning was completed. (Subsequent culture grew only normal respiratory nakul.) The patient was able to be extubated on 11/19/16, but has shown signs of continued respiratory failure, with hypoxia and some difficulty protecting his airway and now requiring BiPAP. . Imaging Last Impressions Chest X-Ray 11/17/16 0600 Signed Impressions: Service Date/Time: Thursday, November 17, 2016 04:32 - CONCLUSION: Stable to slightly improved aeration Akash Brown MD Head CT 11/12/16 0000 Signed Impressions: Service Date/Time: October 16:48 - CONCLUSION: No acute intracranial findings Akash Brown MD CT Angiography 11/12/16 0000 Signed Impressions: Service Date/Time: October 16:52 - CONCLUSION: Bilateral effusions and lung atelectasis, left worse than right. Small primarily anterior basilar right pneumothorax. No evidence of pulmonary embolism Akash Brown MD Abdomen/Pelvis CT 11/12/16 0000 Signed Impressions: Service Date/Time: October 16:55 - CONCLUSION: Fluid and hematoma in the left retroperitoneum post left nephrectomy. Nothing to suggest active bleeding at present. Air in the lower abdominal and anterior pelvic subcutaneous tissues of undetermined origin. Akash Brown MD Lung Scan-V Nuclear Medicine 11/06/16 0000 Signed Impressions: Service Date/Time: Sunday, November 06, 2016 13:52 - CONCLUSION: 1. The perfusion portion the exam is normal. No pulmonary embolus is identified. 2. Patchy delivery of tracer to both lungs suggesting COPD. Pratik Valverde MD PE at Discharge CONSTITUTIONAL/GENERAL: This is an elderly, weak patient, in the [facility] with BiPAP in place. TUBES/LINES/DRAINS: BiPAP, Sheppard, SCDs, 2 chest tubes SKIN: No jaundice, rashes, or lesions. Ecchymoses on upper extremities. No wounds seen anteriorly. Skin temperature appropriate. Not diaphoretic. HEAD: Atraumatic. Normocephalic. EYES: Pupils equal and round and reactive. Extraocular motions intact. No scleral icterus. No injection or drainage. Fundi not examined. ENT: Hearing grossly normal. Nose without bleeding or purulent drainage. NECK: Trachea midline. Supple, nontender. No palpable thyroid enlargement or nodularity. CARDIOVASCULAR: Regular rate and rhythm without murmurs, gallops, or rubs. No JVD. Peripheral pulses symmetric. RESPIRATORY/CHEST: Symmetric, unlabored respirations. Bilateral rhonchi, diminished breath sounds. GASTROINTESTINAL: Abdomen soft, non-tender, nondistended. No hepato-splenomegaly , or palpable masses. No guarding. Bowel sounds present. GENITOURINARY: Without palpable bladder distension. Sheppard catheter in place. MUSCULOSKELETAL: Extremities without clubbing, cyanosis, or edema. No joint tenderness or effusion noted. No calf tenderness. No mottling or clubbing. LYMPHATICS: No palpable cervical or supraclavicular adenopathy. NEUROLOGICAL: Lethargic, mumbles, does not follow simple commands. Intermittent parkinsonian tremor of the left hand. PSYCHIATRIC: No obvious anxiety/depression. no apparent hallucinations or other psychotic thought process. . Transfer Summary The patient continued to have signs of respiratory failure, and his daughters elected to change his CODE STATUS to DNR, and to engage hospice services. Comfort medications were initiated, and he was transferred to an inpatient hospice care center facility. . Hospital Course The patient had surgery but then had multiple complications and challenges, including rapid atrial fib, pneumonia, respiratory failure, PEA cardiac arrest. He was finally able to be extubated, but showed ongoing signs of respiratory failure, requiring BiPAP. The family elected to transition to hospice services , comfort measures. . Pt Condition on Discharge: Deteriorating Discharge Disposition: Hospice/Med Facility Discharge Instructions DIET: Follow Instructions for: As Tolerated, No Restrictions Speech Therapy-Diet Recommends: Pureed Activities you can perform: Continue Bedrest Activities to Avoid: Strenuous Activity Additional Information Transferred to the hospice care center, with comfort medications and place. End -of-life care to be provided, anticipated within hours or days. . Angeles Bautista MD Dec 04, 2016 10:28
== END 2016-11-23 13:14 | disposition hospice, inpatient (51) | DRG 659 ==
LOC: HSDI 11-03 05:08 → N03A 11-03 13:25 → N07B 11-22 00:25
PROVIDERS: ADMIT Family Medicine Hospice and Palliative Medicine; ATTEND Family Medicine Hospice and Palliative Medicine
PROC: 0TT74ZZ Resection of Left Ureter, Percutaneous Endoscopic Approach (ICD-10-PCS; 2016-11-03)
PROC: 0T7D7DZ Dilation of Urethra with Intraluminal Device, Via Natural or Artificial Opening (ICD-10-PCS; 2016-11-03)
PROC: 8E0W4CZ Robotic Assisted Procedure of Trunk Region, Percutaneous Endoscopic Approach (ICD-10-PCS; 2016-11-03)
PROC: 0TT14ZZ Resection of Left Kidney, Percutaneous Endoscopic Approach (ICD-10-PCS; principal; 2016-11-03 07:37)
PROC: 5A1955Z Respiratory Ventilation, Greater than 96 Consecutive Hours (ICD-10-PCS; 2016-11-12)
PROC: 03HY32Z Insertion of Monitoring Device into Upper Artery, Percutaneous Approach (ICD-10-PCS; 2016-11-12)
PROC: 4A133B1 Monitoring of Arterial Pressure, Peripheral, Percutaneous Approach (ICD-10-PCS; 2016-11-12)
PROC: 4A133J1 Monitoring of Arterial Pulse, Peripheral, Percutaneous Approach (ICD-10-PCS; 2016-11-12)
PROC: 05H633Z Insertion of Infusion Device into Left Subclavian Vein, Percutaneous Approach (ICD-10-PCS; 2016-11-12)
PROC: 0BH17EZ Insertion of Endotracheal Airway into Trachea, Via Natural or Artificial Opening (ICD-10-PCS; 2016-11-12)
PROC: 0W9930Z Drainage of Right Pleural Cavity with Drainage Device, Percutaneous Approach (ICD-10-PCS; 2016-11-12)
PROC: 5A12012 Performance of Cardiac Output, Single, Manual (ICD-10-PCS; 2016-11-12)
PROC: 0W9B30Z Drainage of Left Pleural Cavity with Drainage Device, Percutaneous Approach (ICD-10-PCS; 2016-11-14)
PROC: 0B9J8ZX Drainage of Left Lower Lung Lobe, Via Natural or Artificial Opening Endoscopic, Diagnostic (ICD-10-PCS; 2016-11-16)
PROC: 0B9F8ZX Drainage of Right Lower Lung Lobe, Via Natural or Artificial Opening Endoscopic, Diagnostic (ICD-10-PCS; 2016-11-16)
DX: N05.9 Unspecified nephritic syndrome with unspecified morphologic changes (principal); I46.9 Cardiac arrest, cause unspecified; I21.4 Non-ST elevation (NSTEMI) myocardial infarction; J69.0 Pneumonitis due to inhalation of food and vomit; J96.01 Acute respiratory failure with hypoxia; J96.02 Acute respiratory failure with hypercapnia; E43 Unspecified severe protein-calorie malnutrition; J90 Pleural effusion, not elsewhere classified; I95.9 Hypotension, unspecified; S27.0XXA Traumatic pneumothorax, initial encounter; I48.91 Unspecified atrial fibrillation; D62 Acute posthemorrhagic anemia; J93.82 Other air leak; I97.89 Other postprocedural complications and disorders of the circulatory system, not elsewhere classified; S22.41XA Multiple fractures of ribs, right side, initial encounter for closed fracture; N28.89 Other specified disorders of kidney and ureter; G20 Parkinson's disease; R00.1 Bradycardia, unspecified; I45.10 Unspecified right bundle-branch block; E78.5 Hyperlipidemia, unspecified; I44.0 Atrioventricular block, first degree; X58.XXXA Exposure to other specified factors, initial encounter; Y93.89 Activity, other specified; Y92.239 Unspecified place in hospital as the place of occurrence of the external cause; Y99.9 Unspecified external cause status; N40.0 Benign prostatic hyperplasia without lower urinary tract symptoms; Z87.442 Personal history of urinary calculi; H40.9 Unspecified glaucoma; Z51.5 Encounter for palliative care; Z66 Do not resuscitate; F41.9 Anxiety disorder, unspecified; I10 Essential (primary) hypertension; N17.0 Acute kidney failure with tubular necrosis; N50.89 Other specified disorders of the male genital organs; Z53.1 Procedure and treatment not carried out because of patient's decision for reasons of belief and group pressure; R73.9 Hyperglycemia, unspecified
CPT/HCPCS: 31500; 31624; 36556; 36600; 70450; 71010; 71020; 71275; 74177; 76937; 78582; 80048; 82550; 82552; 82805; 83605; 84134; 84155; 84443; 84484; 85014; 85018; 85025; 85027; 85610; 87040; 87070; 87086; 87205; 87641; 88307; 92950; 93005; 93306; 94002; 94003; 94150; 94640; 94664; A9540; A9567; C9113; J0131; J0171; J0282; J0330; J0461; J0610; J0690; J0881; J1644; J1756; J1940; J1956; J2250; J2270; J2405; J2543; J3010; J3420; J3475; J7030; J7060; J7120; J7121; P9045; P9047; Q9967